=== PATIENT | female | born 1940 | race Caucasian/White ===

== ENCOUNTER 2019-07-22 11:17 | Inpatient (IN) | payer MEDICARE, MEDICAID, SELFPAY ==
[2019-07-22] VITALS (7 sets, daily range): BP systolic 139–158; BP diastolic 59–86; PULSE 16–80; RESP 16–18; TEMP 36.5–37; O2SAT 91–98; BMI 26.9
--- NOTE | ~2019-07-22 | XR_ITS ---
EXAMINATION: XR knee LT 3V DATE: 07/23/2019 08:36 INDICATION: Casting of a proximal left tibial fracture TECHNIQUE: Anteroposterior, oblique and crosstable lateral views of the left knee were obtained COMPARISON: 07/22/2019 FINDINGS: Fiberglass splinting material along the posterior aspect of the left knee. Again seen are comminuted fractures extending in a band transversely across the metadiaphyseal regions of the left tibia and fi bula. There is a <1 cm anterior displacement of the left tibial and fibular diaphyses relative to the proximal articular surface containing fragments with mild anterior angulation of the intervening fra gments with no significant displacement between the directly opposing surfaces of the fracture fragme nts. Normal alignment and joint space at the left knee joint proper. No knee joint effusion. Diffuse osteopenia. IMPRESSION: 1. No significant change in alignment post splinting of a comminuted metaphyseal fracture of the prox imal left tibia and fibula this detailed above. Reviewed, dictated and finalized at location A. ERIZER TENDER IMPRESSION: 1. No significant change in alignment post splinting of a comminuted metaphysea l fracture of the proximal left tibia and fibula this detailed above.
--- NOTE | ~2019-07-22 | XR_ITS ---
XR knee LT min 4V 07/22/2019 11:33 Indication: Left knee pain after fall Procedure: 4 views left knee Comparison: No prior studies for comparison. Findings: There are proximal tibial and fibular metaphyseal fractures. Mild dorsal angulation of both fractures. Small joint effusion. Generalized osteopenia. There is mild osteoarthritis. Impression: 1: Nondisplaced proximal tibial and fibular metaphyseal fractures with mild dorsal angulation. Reviewed, dictated and finalized at location B. GER PAPER Impression: 1: Nondisplaced proximal tibial and fibular metaphyseal fractures with mild angelica matias angulation.
--- NOTE | 2019-07-22 11:17 | ED.FALL ---
HPI - Fall General Chief Complaint: Extremity Injury, Lower Stated Complaint: left knee Time Seen by Provider: 07/22/19 11:17 Source: patient, EMS and RN notes reviewed Mode of arrival: EMS Limitations: no limitations History of Present Illness HPI Narrative: A 79 y/o female presents to the ED via EMS from home after having a ground level fall just ROW BOSS. Per EMS states that the pt's daughter was trying to transfer the pt from her wheelchair into her car when she dropped the pt, causing the pt's LLE to twist. The pt reports immediate, severe, lt leg pain just below her knee. She denies any HI, LOC, CHAPARRO, back pain, hip pain, neck pain, or CP. MD complaint: fall Onset (ago): minute(s) Fall from: other (transfering from wheelchair into the car) Fall witnessed: yes, by family Place fall occurred: home Loss of consciousness: none Symptoms prior to fall: none Context: other (dropped by daughter) Location of injury - extremities: Left: lower leg (just below the knee) Severity: severe Associated symptoms (after fall): denies Related Data Home Medications Medication Instructions Recorded Confirmed glimepiride [Amaryl] 4 mg PO BID 07/22/19 07/22/19 metformin 1,000 mg PO DAILY 07/22/19 07/22/19 Allergies Allergy/AdvReac Type Severity Reaction Status Date / Time adhesive tape Allergy Mild Rash Verified 07/22/19 12:34 ibuprofen [From Motrin] AdvReac Mild Nausea and Verified 07/22/19 12:34 Vomiting morphine AdvReac Mild Nausea and Verified 07/22/19 12:34 Vomiting Review of Systems Review of Systems: All systems reviewed & are unremarkable except as noted in HPI and below Cardiovascular: Cardiovascular: Denies chest pain Musculoskeletal: Musculoskeletal: Denies back pain, Denies arthralgias (hip pain), Denies neck pain and Reports other (lt leg pain just below her knee) Neurologic: Denies headache(s) and Denies other (HI or LOC) COUNTS INCLUDE 234 BEDS AT THE [facility] Past Medical History Medical History Arthritis Bronchitis COPD (chronic obstructive pulmonary disease) DM II (diabetes mellitus, type II), controlled H/O: HTN (hypertension) History of skin cancer SQ cell lt lateral knee. Hx of fracture of rib Screening for malignant neoplasm of colon Surgical History Surgical History History of cholecystectomy Previous section Family History Family History Sibling Diabetes mellitus Other Diabetes mellitus Hypertension Social History Social History Smoking packs per day: 1 Smoking cigarettes per day: 20.0 Years smoked: 30 Smoking pack-years: 30.00 Smoking status: Current every day smoker Tobacco type: cigarettes Second hand tobacco smoke exposure: Yes Alcohol intake: never Substance use: never Gender identity (if verbalized by the patient): Female Spiritual care concerns: No Agree to blood products: Yes Exam Const: General: no acute distress, ill appearing chronically and other (elderly and frail appearing) HENMT: Mouth: Yes lip normal and Yes moist mucous membranes Eyes: Conjunctivae: conjunctivae normal Pupils: Equal, round and reactive pupils present Resp: Effort & Inspection: normal respiratory effort Auscultation: clear to auscultation bilaterally Cardio: Rate: regular rate Rhythm: regular rhythm Heart sounds: no murmurs Peripheral pulses: dorsalis pedis present on the left 1+ GI: Inspection: non-distended GI Palp: No abdominal tenderness Auscultation: normal bowel sounds Back/Spine/Pelvis: Other: Full ROM. Skin: General skin exam: normal color, dry skin and other (warm) Neuro: General: patient oriented x3 (alert) Speech: normal speech Extrem: Left lower extremity: lower leg (swelling with tenderness KARYNA inferior to knee) Psych: Mental Status: mental status grossly normal Affect: normal affect C
--- NOTE | 2019-07-22 13:04 | PC.NURSE ---
long leg posterior fiberglass cast per md orders
[2019-07-22 14:12] LABS: Basophils Percent Auto 0.3 % (0.2-1.2); Eosinophils Percent Auto 0.1 % (0-4.4); Hematocrit 42.7 % (37.0-47.0); Immature Granulocyte Absolute 0.03 K/mm3 (0.00-0.031); Immature Granulocyte Percent A 0.3 % (0-0.5); Lymphocytes Absolute Auto 1.42 K/mm3 (0.9-3.2); Lymphocytes Percent Auto 12.2 % (18.3-44.2); Mean Corpuscular HGB Conc 32.8 g/dl (32-36); Mean Corpuscular Hemoglobin 32.1 pg (26-34); Mean Corpuscular Volume 97.9 fl (80-100); Mean Platelet Volume 11.5 fl (7.4-10.4); Monocytes Absolute Auto 0.5 K/mm3 (0.1-0.6); Monocytes Percent Auto 4.6 % (2.6-8.5); Neutrophils Absolute Auto 9.6 K/mm3 (1.3-6.7); Neutrophils Percent Auto 82.5 % (45.5-73.1); Platelet Count Result 164 k/mm3 (150-375); Red Blood Count 4.36 M/mm3 (4.2-5.4); Red Cell Distribution Width 11.9 % (11.5-14.5); White Blood Count 11.7 K/mm3 (4.5-10.0)
[2019-07-22 14:25] LABS: Blood Urea Nitrogen 10 mg/dL (7-17); Calcium 9.4 mg/dL (8.4-10.2); Carbon Dioxide 20 mmol/L (22-30); Chloride 104 mmol/L (98-107); Estimated Glomerular Filt Rate > 60; Glucose 318 mg/dL (65-105); Potassium 4.4 mmol/L (3.4-5.0); Sodium 136 mmol/L (137-145)
--- NOTE | 2019-07-22 14:45 | PC.NURSE ---
attempted to call report for pt going to [phone]. sbar faxed at [phone]. rn told that receiving rn unavailable and will call back
--- NOTE | 2019-07-22 17:35 | ADMGEN ---
This patient, Daniela Arrieta, was admitted to 3 [facility] Surg Room 302-01. Patient/family oriented to hospital policies and general routines including ID bracelet, bed and alarms, visiting hours, pain management, procedures, bathroom and other care routines, personal items, smoking policy, room service/diet, and visiting hours. Valuables list has been completed. Information on how to activate the Rapid Response Team has been discussed. Patient/Family are encouraged to report perceived risks to care and to ask questions if they do not understand what they are told or what they should do.
[2019-07-22 17:37] LABS: Glucose Point of Care 201 (65-105)
--- NOTE | 2019-07-22 21:43 | PM.IMHP ---
H&P: HPI History of Present Illness Chief complaint: Tibial plateau fracture Narrative: Daniela Arrieta is a 79 year old female who is wheelchair bound. She is taking care of by her daughter. The patient was going to her doctor's office to see if she was eligible for new hospital bed since hers is broken as well as a motorized scooter. The daughter stated that she had appointment set up 1 month ago to have the bus pick her up that has the motorized wheelchair ramp in they were not able to pick her up today. So the daughter attempted to get her mother into the car. The patient was trying to get from the wheelchair into the car. She has a daughter not push her helper she attempted to do it on her own and she has limited mobility. The patient was sitting on the floor board of the car because she missed the seat. The daughter was trying to pull her mom up into the seat without success. The patient then slid onto the ground with her left leg behind her and she said on the left leg. Patient does have a history of osteoporosis. Knee x-ray was read as nondisplaced proximal tibial and fibular metaphyseal fractures with mild dorsal angulation. Initially there was some consideration for surgery but the patient has COPD and still continues to smoke in would be too high risk. Ortho was notified and initially suggested to transfer the patient out however she is a DNR and family members do not want any type of intervention performed at this time. They are hopeful that we can get her pain under control and possibly go to rehab. Patient was given fentanyl of intense pain. Date of service 07/22/2019 the left leg was placed in a splint in ER. Review of Systems Review of Systems: Narrative: No fever no chills. All systems reviewed & are unremarkable except as noted in HPI and below Constitutional: Constitutional: Reports as per HPI and Reports no additional constitutional complaints Eyes: Eyes: Reports as per HPI and Reports no additional eye complaints ENT: Reports system reviewed and no additional complaints, except as documented and Reports Normal hearing present Cardiovascular: Cardiovascular: Reports no additional cardiovascular complaints Respiratory: Respiratory: Reports no additional respiratory complaints and Reports no additional respiratory complaints Gastrointestinal: Gastrointestinal: Reports as per HPI and Reports no additional gastrointestinal complaints Musculoskeletal: Musculoskeletal: Reports no additional musculoskeletal complaints Integumentary/Breasts: Skin/Breast: Reports system reviewed and no additional complaints, except as docu and Reports as per HPI Neurologic: Reports system reviewed and no additional complaints, except as documented, Reports as per HPI and Reports Normal hearing present Psychiatric: Psychiatric: Reports no additional psychiatric complaints and Reports as per HPI Endocrine: Endocrine: Reports no additional endocrine complaints Hematologic/Lymphatic: Hematologic/Lymphatic: Reports no additional hematologic/lymphatic complaints Allergic/Immunologic: Allergic/Immunologic: Reports no additional allergic/immunologic complaints PMFSH Past Medical History Medical History (Updated 07/22/19 @ 21:51 by Nerissa Neri NP) Arthritis Bronchitis Cataract She said 1 was removed and the other 1 she did not. She states she can see better the eye that was not extracted. Compression fracture T11 20% Congenital cervical spine stenosis Unable to have surgery due to high risk COPD (chronic obstructive pulmonary disease) DM II (diabetes mellitus, type II), controlled History of skin cancer SQ cell lt lateral knee. Hx of fracture of rib Osteoporosis Screening for malignant neoplasm of colon Surgical History Surgical History (Updated 07/22/19 @ 21:51 by Nerissa Neri NP) History of cholecystectomy Previous section X3 Family History Family History (Updated 07/22/19 @ 21:53 by Nerissa Khan
[2019-07-22] MEDS: NICOTINE (*PBKC) 21 MG PATCH 1 PATCH TRANSDERM (22:24)
[2019-07-22] MEDS: HYDROMORPHONE HCL 1 MG/ML INJ IV PUSH (22:32)
[2019-07-23] MEDS: HYDROMORPHONE HCL 1 MG/ML INJ IV PUSH ×2 (01:28→07:29)
[2019-07-23 05:49] LABS: Hemoglobin A1C 6.8 % (<5.7)
[2019-07-23 05:52] VITALS: BP 138/54; PULSE 77; RESP 18; TEMP 36.7; O2SAT 91
[2019-07-23 07:05] LABS: Alanine Aminotransferase 21 U/L (4-35); Albumin Level 3.6 g/dL (3.5-5.1); Alkaline Phosphatase 79 U/L (38-126); Aspartate Amino Transferase 23 U/L (14-36); Bilirubin,Total 0.5 mg/dL (0.2-1.3); Blood Urea Nitrogen 8 mg/dL (7-17); Calcium 8.9 mg/dL (8.4-10.2); Carbon Dioxide 26 mmol/L (22-30); Chloride 103 mmol/L (98-107); Estimated Glomerular Filt Rate > 60; Glucose 157 mg/dL (65-105); Magnesium 1.9 mg/dL (1.6-2.3); Sodium 135 mmol/L (137-145)
[2019-07-23 07:37] LABS: Glucose Point of Care 185 (65-105)
[2019-07-23] MEDS: lisinopriL 10 MG TABLET PO (08:40)
[2019-07-23] MEDS: ENOXAPARIN 40 MG/0.4 ML SYRINGE SUB-Q (08:40)
--- NOTE | 2019-07-23 10:32 | HP_ITS ---
DATE OF SERVICE: HISTORY OF PRESENT ILLNESS: The patient is a 79-year-old female who was admitted with a Schatzker 6 type proximal metaphyseal-diaphyseal fracture of her left lower leg with fibular neck fracture as well. The radiologist report states the fracture is nondisplaced. It is displaced mildly, there is translational displacement both on AP and lateral views. There is severe profound osteoporosis and she has a history of osteoporosis. This happened yesterday when she slipped slowly down the ground with her leg underneath, her leg trying to transfer to the car. She is a minimal ambulator, basically transferring only and her family was trying to help her get into the car when this occurred. She continues to smoke. PHYSICAL EXAMINATION: Today, she is a very pleasant female, in no acute distress. Unless the leg is moved, then she has pain. She has a long leg splint on that is well padded and is comfortable at rest. It is in good position with mild flexion at the knee. The splint prevents me from feeling pulses, but she has good capillary refill and warmth in the toes. 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 The bed is covered with dry skin scales from both feet. The right foot has a 2+ posterior tibial artery pulse palpable, but I cannot access this on the left because of the splint. She wiggles her toes. She denies numbness. IMPRESSION: The patient has a very serious type of fracture that can cause vascular insufficiency. When I was called about this yesterday and reviewed the images and was told she was ambulatory, I recommended that she be transferred to a tertiary care facility for open reduction and internal fixation. However, the family declines in discussion with the patient to have her be transferred for surgical intervention. They do not wish her to have surgery. She is considered a no-code and is listed as such. We will follow the fracture alignment closely and we will obtain x-rays of the left knee today to make sure that the displacement is not getting worse. Kimberley I MT: Shantelle
--- NOTE | 2019-07-23 11:25 | PM.IMPN ---
Progress Note: A&P Assessment and Plan (1) Closed fracture of tibial plateau: Qualifiers: Encounter type: initial encounter Laterality: left Qualified Code(s): S82.142A - Displaced bicondylar fracture of left tibia, initial encounter for closed fracture Code(s): S82.143A - Displaced bicondylar fracture of unspecified tibia, initial encounter for closed fracture Status: Acute Assessment and Plan: No surgery is the intended at this time. The patient is a DNR and the family discussed they did not want to be transferred to a [facility]iary [facility] for Surgery upon admission. PT/OT were ordered for evaluation. Plan is for the patient to be transferred under observation to a Residential where she will receive PT/OT a few times per week. Care Coordination has placed several referrals which are pending. Pain was rated 9/10 with not receiving (2) COPD (chronic obstructive pulmonary disease): Code(s): J44.9 - Chronic obstructive pulmonary disease, unspecified Status: Chronic Assessment and Plan: P.r.n. nebulizers. The patient is strongly encouraged to stop smoking although she has been smoking about 50 years. She has requested a nicotine patch. (3) DM II (diabetes mellitus, type II), controlled: Code(s): E11.9 - Type 2 diabetes mellitus without complications Status: Chronic Assessment and Plan: I am going to hold the Amaryl and metformin for now. Will check A1c and do sliding scale insulin. (4) Hypertension: Code(s): I10 - Essential (primary) hypertension Status: Chronic Assessment and Plan: Continue with lisinopril monitor basic metabolic panel. Time Spent With Patient Time with patient: 25 - 35 minutes Subjective Date/time seen: 07/23/19 11:25 Interval history: Date of Service 07/23/2019: The patient reports having increased pain to her left leg with any movement at all. She had received an IV Dilaudid shot this morning and he now has since worn off and her pain is rated 9/10 at this time at rest. She has not moved from the bed all day secondary to pain. She has been eating and drinking without any issues. She denies any chest pain, shortness of breath, wheezing, cough, nausea, vomiting, diarrhea, headache, dizziness, lightheadedness, or any other symptoms at this time. The patient reports having bowel movements every 3-4 days, and her last bowel movement was a few days ago. Review of Systems Review of Systems: All systems reviewed & are unremarkable except as noted in HPI and below Exam Narrative: Exam Narrative: General: 79-year-old woman laying flat in bed with her left leg elevated on pillows. Appears comfortable. In no acute distress. Skin: No jaundice or cyanosis. Good skin turgor. Neck: Full range of motion. Supple. Respiratory: Lungs are clear to auscultation bilaterally. No wheezing rales or rhonchi. No bony chest wall tenderness. Cardiovascular: The heart has a regular rate and rhythm without murmur. Lower extremities: Left leg is unable to be evaluated secondary to splint placement to entire left extremity. Unable to palpate distal pulses secondary to splint but she has good capillary refill, no sensation changes and movement of her toes. No right lower extremity edema. Distal pulses are easily palpated to right lower extremity. No calf tenderness to palpation to right lower extremity. Gastrointestinal: The abdomen is soft, nontender and nondistended with active bowel sounds. Psychiatric: Lucid and oriented. Memory intact. Neurologic: No focal deficits. Speech is clear. No facial drooping. Objective Data Vital Signs Vital Signs: Vital Signs - 24 hr 07/22/19 12:37 07/22/19 13:33 07/22/19 14:34 Temperature Pulse Rate 16 L 71 75 Respiratory Rate 16 16 16 Blood Pressure 150/86 H 158/80 H 150/65 H Pulse Oximetry 93 95 92 07/22/19 14:46 07/22/19 15:30 07/22/19 21:59 Temperature 97.7 F 98.6 F Pulse Rate
[2019-07-23 13:12] LABS: Glucose Point of Care 189 (65-105)
[2019-07-23 14:00] VITALS: BP 133/71; PULSE 82; RESP 12; TEMP 36.8; O2SAT 94
[2019-07-23] MEDS: polyethylene glycoL 3350 17 GM POWD.PACK PO (17:53)
[2019-07-23 17:57] LABS: Glucose Point of Care 211 (65-105)
[2019-07-23] MEDS: INSULIN ASPART (*BKC) 100 UNITS/ML SUB-Q (17:57)
[2019-07-23 20:49] LABS: Glucose Point of Care 232 (65-105)
[2019-07-23 22:00] VITALS: BP 141/78; PULSE 82; RESP 16; TEMP 36.9; O2SAT 90
[2019-07-24 06:00] VITALS: BP 130/58; PULSE 71; RESP 18; TEMP 36.9; O2SAT 92
[2019-07-24 06:08] LABS: Hematocrit 37.4 % (37.0-47.0); Hemoglobin 12.5 g/dL (12.0-15.0); Mean Corpuscular HGB Conc 33.4 g/dl (32-36); Mean Corpuscular Hemoglobin 31.9 pg (26-34); Mean Corpuscular Volume 95.4 fl (80-100); Mean Platelet Volume 11.4 fl (7.4-10.4); Platelet Count Result 168 k/mm3 (150-375); Red Blood Count 3.92 M/mm3 (4.2-5.4); Red Cell Distribution Width 11.9 % (11.5-14.5); White Blood Count 6.6 K/mm3 (4.5-10.0)
[2019-07-24 06:37] LABS: Blood Urea Nitrogen 7 mg/dL (7-17); Calcium 8.8 mg/dL (8.4-10.2); Carbon Dioxide 28 mmol/L (22-30); Chloride 105 mmol/L (98-107); Estimated Glomerular Filt Rate > 60; Glucose 172 mg/dL (65-105); Potassium 3.8 mmol/L (3.4-5.0); Sodium 136 mmol/L (137-145)
[2019-07-24 07:33] LABS: Glucose Point of Care 191 (65-105)
[2019-07-24] MEDS: lisinopriL 10 MG TABLET PO (09:13)
[2019-07-24] MEDS: ENOXAPARIN 40 MG/0.4 ML SYRINGE SUB-Q (09:13)
[2019-07-24] MEDS: NICOTINE (*PBKC) 21 MG PATCH 1 PATCH TRANSDERM (09:14)
[2019-07-24] MEDS: polyethylene glycoL 3350 17 GM POWD.PACK PO (09:27)
[2019-07-24 11:05] VITALS: BMI 10.0
[2019-07-24 11:47] LABS: Glucose Point of Care 277 (65-105)
[2019-07-24] MEDS: INSULIN ASPART (*BKC) 100 UNITS/ML SUB-Q ×2 (11:52→17:39)
--- NOTE | 2019-07-24 12:24 | PM.PNORT ---
Progress Note: A&P Additional Plan Patient is left oblique comminuted impacted minimally displaced proximal tibial and fibular the taps healed diaphyseal junction fractures. I have met with her and daughter dashawnlls the patient today. the daughter explained to Umesh that she has not actually walked for 10 years she only has transferred. She also explained that her mother did not actually fall she was just slowly lowered down on the edge of the car but the knee was hyperflexed and just the weight of her sitting down on to were hyperflexed knee was enough to cause this fracture. And she is comfortable at rest mm. She does have pain that is 9/10 no when she is moved. We obtained new x-rays yesterday after the splint was applied the day before and the fracture remains in identical position. I have discussed with patient and family there is some risk of arterial injury which could lead to the severe ischemia and amputation if arterial injury occurred at the level of the fracture. this could occur if the fracture is displaced and the sharp edges of the bone lacerated the vessels. the therefore it is imperative that the leg be held still as possible during the healing released initially. She has a well-fitting posterior splint on that is comfortable and is hole in the fracture and acceptable alignment and I would recommend she continue with this particular splint for at least the 1st 4 weeks until there is hopefully some early healing. At some point we should be able to convert her to a hinged knee brace locked at a little bit of flexion cut the toes to buttock posterior splint she has now on is giving her the best support oblique. DVT prophylaxis is necessary. And I think it would be acceptable to switch to Eliquis. She has profound osteoporosis and I would recommend that she be referred to an cyber security specialist such as Dr. Barker for evaluation and management. We will check a 25 hydroxy vitamin-D level before she is discharged. Her like to see her back the office in 1 week with x-rays to rule out displacement in the meantime she will be where lift that to geriatric chair only. Subjective Subjective Date/Time Seen: 07/24/19 12:24 Objective Data Vital Signs Vital Signs: Vital Signs - 24 hr 07/23/19 14:00 07/23/19 22:00 07/24/19 06:00 Temperature 36.8 C 36.9 C 36.9 C Pulse Rate 82 82 71 Respiratory Rate 12 16 18 Blood Pressure 133/71 141/78 H 130/58 L Pulse Oximetry 94 90 92 Intake/Output Intake/Output: Intake & Output 07/21/19 07/22/19 07/23/19 07/24/19 23:59 23:59 23:59 23:59 Intake Total 340 930 250 Output Total 1150 750 Balance 340 -220 -500 Meds/Results Medications: Active Medications Generic Name Dose Route Start Last Admin Trade Name Freq PRN Reason Stop Dose Admin Acetaminophen 650 mg 07/23/19 07:56 Tylenol Tablet PO Q4H PRN Mild Pain (1-3) or Fever Hydrocodone Bitart/Acetaminophen 1 tab 07/23/19 07:56 07/23/19 13:30 [place] 5-325 Mg PO 1 tab Q4H PRN Administration Pain Rated 4-6 Hydrocodone Bitart/Acetaminophen 2 tab 07/23/19 15:42 07/24/19 08:25 [place] 5-325 Mg PO 2 tab Q4H PRN Administration Pain Rated 7-10 Albuterol 2.5 mg 07/22/19 21:40 Albuterol Sulf Neb 2.5mg/0.5ml INHALATION Q4HRT PRN Shortness Of Breath Dextrose 12.5 gm 07/22/19 21:38 Dextrose 50% Syringe IV PUSH PRN PRN Hypoglycemia Protocol Docusate Sodium 100 mg 07/23/19 15:34 Colace Capsule PO Q12H PRN Constipation Enoxaparin Sodium 40 mg 07/23/19 09:00 07/24/19 09:13 Lovenox SUB-Q 40 mg DAILY TORI Administration Glucagon 1 mg 07/22/19 21:38 Glucagon For Inj IM PRN PRN Hypoglycemia Protocol Glucose 15 gm 07/22/19 21:38 Glutose 15 PO PRN PRN Hypoglycemia Protocol Hydromorphone HCl 1 mg 07/22/19 21:27 07/23/19 07:29 Dilaudid Inj IV PUSH 1 mg Q3H PRN Administration Pain Rated 7-10
[2019-07-24 13:17] LABS: Vitamin D 25 Hydroxy 27.5 ng/mL
--- NOTE | 2019-07-24 13:21 | ECG_ITS ---
Measurements Intervals [place] Rate: 93 P: [place]: 0 QRS: -14 QRSD: 77 T: 68 QT: 334 QTc: 417 Interpretive Statements SINUS RHYTHM SUPRAVENTRICULAR TRIGEMINY LOW QRS VOLTAGE IN LIMB LEADS BORDERLINE ST-T WAVE ABNORMALITY- LATERAL LEADS BASELINE WANDER- II, III, AVR, AVL, AVF, V4-V6 ABNORMAL ECG Electronically Signed On 07-24-2019 14:11:22 [employer] by Latrell Mayers D.O.
[2019-07-24 14:00] VITALS: BP 134/56; PULSE 85; RESP 18; TEMP 36.9; O2SAT 96
--- NOTE | 2019-07-24 14:43 | PM.DS ---
DS: Diagnosis Admitting Diagnosis Admitting Diagnosis: Unspecified fracture of upper end of left tibia, initial encounter for closed fracture Discharge Diagnosis (1) Closed fracture of tibial plateau: Qualifiers: Encounter type: initial encounter Laterality: left Qualified Code(s): S82.142A - Displaced bicondylar fracture of left tibia, initial encounter for closed fracture Code(s): S82.143A - Displaced bicondylar fracture of unspecified tibia, initial encounter for closed fracture Status: Acute Assessment and Plan: No surgery is the intended at this time. The patient is a DNR and the family discussed they did not want to be transferred to a [facility] for [facility] upon admission. Dr. Aguilera and I both explained to the patient and family the risk of not undergoing surgery at this point which includes: never fully healing, if movement then her popliteal artery could be ruptured which could lead to her needing a leg amputation. The patient and family would not like to undergo surgery at this time. I informed them they have between 2-3 weeks to decide if they still wanted surgery. They understand. Dr. Aguilera has ordered PT/OT She will be going to a SNF at [facility] facility She will receive narcotic pain medications from Dr. Aguilera She will be placed on Eliquis for DVT prevention for 6 weeks. Follow up with Dr. Aguilera as an outpatient. The patient and family understand agree with plan at this point time. She is stable for discharge. (2) COPD (chronic obstructive pulmonary disease): Code(s): J44.9 - Chronic obstructive pulmonary disease, unspecified Status: Chronic Assessment and Plan: P.r.n. nebulizers. The patient is strongly encouraged to stop smoking although she has been smoking about 50 years. She has requested a nicotine patch. Smoking sensation has been given for 3 minutes. (3) DM II (diabetes mellitus, type II), controlled: Code(s): E11.9 - Type 2 diabetes mellitus without complications Status: Chronic Assessment and Plan: I am going to hold the Amaryl and metformin for now. A1c was 6.8. Will have her continue her oral medications upon discharge. (4) Hypertension: Code(s): I10 - Essential (primary) hypertension Status: Chronic Assessment and Plan: Continue with lisinopril (5) Vitamin D deficiency: Code(s): E55.9 - Vitamin D deficiency, unspecified Status: Acute Assessment and Plan: Patient's vitamin-D level was 27 which is insufficient. Will start the patient on her ergocalciferol 50,000 units once weekly for 6 weeks. Have her repeat Vitamin D level in 6 weeks. DS: Summary Hospital Course Reason for hospitalization: The patient is a 79-year-old woman with a history of COPD, tobacco abuse, osteoporosis, diabetes, who is chronically in a wheelchair, who presented to the emergency department after her daughter was trying to get her into the car and she had slipped and landed on her left leg. Patients initial vitals showed temperature 97.7?, BP 154/84, heart rate 80, respiratory rate 18, oxygen saturation 98% on room air. Labs showed slight leukocytosis of 11,700, slight hyponatremia at 136, serum glucose 318, otherwise no acute abnormality. Showed displaced paroxysmal tibial and fibular metaphyseal fractures with mild dorsal angulation. Dr. Aguilera evaluated the patient and her case and recommended her to be transferred to a tertiary care center for a high risk surgery. Dr. Aguilera and I talked to the patient and family multiple times about being transferred to another facility versus nonsurgical options and the risks and benefits. The patient and family would not
[2019-07-24 17:39] LABS: Glucose Point of Care 273 (65-105)
--- NOTE | 2019-07-24 19:28 | PC.NURSE ---
Called report to Marie at [facility] at 1600.
== END 2019-07-24 21:55 | DRG 563 ==
LOC: ANHED 12:49 → ANH3MEDSUR 14:35
PROVIDERS: Nurse Practitioner; Orthopaedic Surgery; Physician Assistant; Admitting Provider Family Medicine; Emergency Provider Emergency Medicine; PCP Family Medicine; Visit Provider Internal Medicine
DX: S82.142A Displaced bicondylar fracture of left tibia, initial encounter for closed fracture (principal); Z28.21 Immunization not carried out because of patient refusal; Z99.3 Dependence on wheelchair; J44.9 Chronic obstructive pulmonary disease, unspecified; F17.210 Nicotine dependence, cigarettes, uncomplicated; M81.0 Age-related osteoporosis without current pathological fracture; M48.02 Spinal stenosis, cervical region; M19.90 Unspecified osteoarthritis, unspecified site; Z98.49 Cataract extraction status, unspecified eye; Z85.828 Personal history of other malignant neoplasm of skin; E11.36 Type 2 diabetes mellitus with diabetic cataract; Z66 Do not resuscitate; I10 Essential (primary) hypertension; B35.3 Tinea pedis; X58.XXXA Exposure to other specified factors, initial encounter; E55.9 Vitamin D deficiency, unspecified
CPT/HCPCS: 29505; 36415; 73562; 73564; 80048; 80053; 82306; 83036; 83735; 84443; 85025; 85027; 93005; 96372; 96374; 96375; 96376; 97161; 97165; 99285; A9270; G0378; J1170; J1650; J1815; J3010

== ENCOUNTER 2020-08-18 18:16 | Inpatient (IN) | payer MEDICARE, MEDICAID, SELFPAY ==
--- NOTE | ~2020-08-18 | CT_ITS ---
EXAMINATION: CT abdomen pelvis w con DATE: 08/18/2020 22:51 INDICATION: Abdominal pain. TECHNIQUE: Computed tomography (CT) of the abdomen and pelvis was performed with 100 mL Omnipaque 350 intravenous contrast. Automated exposure control and iterative reconstruction technique were employe d. The dose-length product was 589.33 mGy-cm. COMPARISON: None. FINDINGS: The visualized portions of the lung bases demonstrate mild atelectasis. No pleural effusion . The heart size is normal. No pericardial effusion. There are coronary artery calcifications. The li patti is normal. The gallbladder is absent. The spleen, pancreas, adrenal glands, and right kidney are normal. There is a 3 mm cyst in left kidney. There is urothelial thickening involving the ureters and bladder. There is diverticulosis of the colon without evidence of diverticulitis. There are no dilat ed loops of bowel. The appendix is normal. There are no pathologically enlarged lymph nodes. There is no free intraperitoneal fluid. There is a left inguinal hernia containing fat. There is a chronic bu rst fracture of T11. IMPRESSION: 1. Diffuse urothelial thickening involving the ureters and bladder, consistent with cystitis and pyel itis. Reviewed, dictated and finalized at location [facility]. IMPRESSION: 1. Diffuse urothelial thickening involving the ureters and bladder, consistent with cystitis and pyelitis.
--- NOTE | ~2020-08-18 | CT_ITS ---
EXAMINATION: CT abdomen pelvis wo con DATE: 08/23/2020 13:21 INDICATION: Persistent abdominal pain TECHNIQUE: Computed tomography (CT) of the abdomen and pelvis was performed without intravenous contr ast. Automated exposure control and iterative reconstruction technique were employed. Exam dose: 427 .21 mGy-cm total exam DLP. COMPARISON: 08/18/2020 CT abdomen pelvis noncontrast examination FINDINGS: There is bilateral basilar dependent lower lobe atelectasis. Cardiomegaly. Coronary artery calcifications. No pericardial effusion. No pleural effusion. The gallbladder is absent, which likely accounts for moderate prominence of the common bile duct. No hepatic, bilateral iliac, pancreatic, and adrenal or renal space-occupying mass lesion is evident on this limited noncontrast examination. There is a 3 mm nonobstructing lower pole left renal calculus. There is mild stranding around the kidneys and ureters; consider urinary tract infection. The urinary bladder is unremarkable. Uterus and adnexal areas are unremarkable. There is calcification of the abdominal aorta, superior mesenteric and renal arteries and iliac and f emoral arteries. No abdominal aortic aneurysm. No intraperitoneal or retroperitoneal or pelvic mass l esion or adenopathy or ascites is evident. Small sliding hiatal hernia. Diverticulosis of the sigmoid colon; no CT evidence of diverticulitis. Normal appendix. No bowel obstruction, bowel wall thickening, pneumatosis or intraperitoneal free air. Diffuse osteopenia. Prominent anterior wedge burst fracture deformity of T11, stable since 08/18/2020. Diffuse idiopathic skeletal hyperostosis of the lower thoracic and upper lumbar spine. IMPRESSION: Mild perinephric and periureteral stranding suggesting possible urinary tract infection Small sliding hiatal hernia Diverticulosis of the sigmoid colon; no CT evidence of diverticulitis Chronic burst fracture of T11 Reviewed, dictated and finalized at [facility]. Reviewed, dictated and finalized at location [facility]. IMPRESSION: Mild perinephric and periureteral stranding suggesting possible ur inary tract infection Small sliding hiatal hernia Diverticulosis of the sigmoid colon; no CT evidence of diverticulitis Chronic burst fracture of T11
[2020-08-18 19:39] VITALS: BP 140/70; PULSE 118; RESP 16; TEMP 37.1; O2SAT 98
[2020-08-18 19:52] LABS: Basophils Absolute Auto 0.1 K/mm3 (0.0-0.1); Basophils Percent Auto 0.6 % (0.2-1.2); Eosinophils Absolute Auto 0.1 K/mm3 (0-0.3); Eosinophils Percent Auto 0.8 % (0-4.4); Hematocrit 36.2 % (37.0-47.0); Hemoglobin 11.8 g/dL (12.0-15.0); Immature Granulocyte Percent A 0.9 % (0-0.5); Lymphocytes Absolute Auto 2.18 K/mm3 (0.9-3.2); Mean Corpuscular HGB Conc 32.6 g/dl (32-36); Mean Corpuscular Hemoglobin 30.4 pg (26-34); Mean Corpuscular Volume 93.3 fl (80-100); Mean Platelet Volume 10.4 fl (7.4-10.4); Monocytes Percent Auto 8.4 % (2.6-8.5); Neutrophils Absolute Auto 8.1 K/mm3 (1.3-6.7); Neutrophils Percent Auto 70.3 % (45.5-73.1); Platelet Count Result 231 k/mm3 (150-375); Red Blood Count 3.88 M/mm3 (4.2-5.4); White Blood Count 11.5 K/mm3 (4.5-10.0)
[2020-08-18 20:04] LABS: Alanine Aminotransferase 18 U/L (4-35); Albumin Level 3.8 g/dL (3.5-5.1); Alkaline Phosphatase 116 U/L (38-126); Anion Gap 8 mmol/L (8-16); Aspartate Amino Transferase 19 U/L (14-36); Bilirubin,Total 0.1 mg/dL (0.2-1.3); Blood Urea Nitrogen 17 mg/dL (7-17); Calcium 9.4 mg/dL (8.4-10.2); Carbon Dioxide 23 mmol/L (22-30); Chloride 104 mmol/L (98-107); Estimated Glomerular Filt Rate > 60; Glucose 340 mg/dL (65-105); Lipase 51 U/L (23-300); Potassium 4.7 mmol/L (3.4-5.0); Sodium 135 mmol/L (137-145)
[2020-08-18 21:47] VITALS: BP 128/73; PULSE 114; RESP 22; O2SAT 98
[2020-08-18 21:51] VITALS: BP 128/73; O2SAT 98
--- NOTE | 2020-08-18 21:51 | ED.ABDPAIN ---
HPI - Abdominal Pain General Chief Complaint: Abdominal Pain Stated Complaint: abd pain , constipated, distended Time Seen by Provider: 08/18/20 21:51 Source: patient Mode of arrival: ambulatory Limitations: no limitations History of Present Illness HPI narrative: Patient is a 80-year-old female with a history of type 2 diabetes, hypertension, mild dementia who presents from [facility] for evaluation of abdominal pain. At the time of assessment, patient is reporting abdominal pain throughout her abdomen as well as distention. She reports nausea and vomiting. Patient states she has been slightly constipated. She denies fever or chills. This has been worsening over the past 48 hours per daughter who received report of abdominal distention initially from the half-way facility. Related Data Home Medications Medication Instructions Recorded Confirmed glimepiride [Amaryl] 4 mg PO BID 07/22/19 07/22/19 metformin 1,000 mg PO DAILY 07/22/19 07/22/19 Allergies Allergy/AdvReac Type Severity Reaction Status Date / Time adhesive tape Allergy Mild Rash Verified 09/27/19 08:12 ibuprofen [From Motrin] AdvReac Mild Nausea and Verified 09/27/19 08:12 Vomiting morphine AdvReac Mild Nausea and Verified 09/27/19 08:12 Vomiting Review of Systems Review of Systems: Narrative: CONSTITUTIONAL: Denies fever, chills, or sweats. EYES: Denies visual changes, redness, or discharge. ENT: Denies rhinorrhea, congestion, sore throat, or otalgia. CARDIOVASCULAR: Denies chest pain, palpitations, or edema. RESPIRATORY: Denies cough or dyspnea. GASTROINTESTINAL: Reports abdominal pain, nausea, vomiting and constipation GENITOURINARY: Denies dysuria or hematuria. SKIN: Denies rash or itching. MUSCULOSKELETAL: Denies back pain, joint pain, or myalgia. NEUROLOGIC: Denies headache, numbness, or weakness. [facility] Past Medical History Medical History Arthritis Bronchitis Cataract She said 1 was removed and the other 1 she did not. She states she can see better the eye that was not extracted. Compression fracture T11 20% Congenital cervical spine stenosis Unable to have surgery due to high risk COPD (chronic obstructive pulmonary disease) DM II (diabetes mellitus, type II), controlled History of skin cancer SQ cell lt lateral knee. Hx of fracture of rib Osteoporosis Screening for malignant neoplasm of colon Surgical History Surgical History History of cholecystectomy Previous section X3 Family History Family History Sibling Diabetes mellitus Other Diabetes mellitus Hypertension Mother Diabetes mellitus Father Lung cancer Sibling Diabetes mellitus Kidney failure Social History Social History Smoking packs per day: 1 Smoking cigarettes per day: 20.0 Years smoked: 30 Smoking pack-years: 30.00 Smoking status: Current every day smoker Tobacco type: cigarettes Second hand tobacco smoke exposure: Yes Alcohol intake: never Substance use: never Gender identity (if verbalized by the patient): Female Spiritual care concerns: No Agree to blood products: Yes Exam Narrative: Exam Narrative: GENERAL: Awake, alert, uncomfortable appearing HEAD: Normocephalic, atraumatic. EYES: PERRLA and EOMI. ENT: Nares clear, no rhinorrhea or epistaxis. Mucous membranes moist. NECK: Supple. CHEST: No respiratory distress, breathing even and non labored HEART: Tachycardic rate, sinus rhythm ABDOMEN: Distended, tender to palpation throughout abdomen, no rebound, no guarding EXTREMITIES: Atrophy of the lower extremities. Otherwise normal range of motion. No edema. SKIN: Warm, dry, no rash. NEURO:No focal deficits. Alert and oriented x3 Course Vital S
[2020-08-18 22:01] VITALS: BP 140/87; O2SAT 97
--- NOTE | 2020-08-18 22:27 | ECG_ITS ---
Measurements Intervals [place] Rate: 104 P: 29 CA: 142 QRS: -4 QRSD: 73 T: 66 QT: 327 QTc: 432 Interpretive Statements SINUS TACHYCARDIA BORDERLINE R WAVE PROGRESSION, ANTERIOR LEADS MINIMAL Q WAVES- INFERIOR LEADS BORDERLINE ST-T WAVE ABNORMALITY- HIGH LATERAL LEADS BASELINE ARTIFACT- I, II, III, AVR, AVL, AVF, V1-V3 BORDERLINE ECG Electronically Signed On 08-19-2020 6:54:53 CDT by Latrell Mayers D.O.
[2020-08-18] MEDS: MORPHINE SULFATE (*CRX) 2 MG/ML INJ IV PUSH (22:37)
[2020-08-18] MEDS: ONDANSETRON INJ 4 MG/2 ML VIAL IV PUSH (22:37)
[2020-08-18 23:31] VITALS: BP 137/75
[2020-08-18 23:46] VITALS: BP 118/61
[2020-08-18 23:50] LABS: Prothrombin Time 13.6 Seconds (11.1-14.7)
[2020-08-18 23:51] LABS: Partial Thromboplastin Time 26.9 SECONDS (22.3-36.8)
[2020-08-19 00:02] LABS: Lactic Acid Reflex 1.6 mmol/L (0.7-2.1)
[2020-08-19 00:28] LABS: Add Urine Microscopic? YES; Appearance Urine Turbid (Clear); Bacteria Urine Trace /hpf; Bilirubin Urine Negative (Negative); Color Urine Yellow (Yellow); Glucose Urine UA 3+ mg/dL (Negative); Ketones Urine Negative (Negative); Leukocyte Esterase Ur 3+ LEU/UL (Negative); Nitrate Urine Negative (Negative); Protein Urine 3+ mg/dL (Negative); RBC Urine 21-50 /hpf (0-2); Specific Grav Ur 1.015 (1.001-1.035); Squamous Epithelial Cell Urine Moderate /hpf (Few); Urobilinogen Urine Negative mg/dL (<2.0); WBC Urine >75 /hpf
[2020-08-19 00:38] LABS: Blood Urine Negative (Negative)
[2020-08-19 01:46] VITALS: BP 150/84; PULSE 100; RESP 16; TEMP 36.7; O2SAT 97
[2020-08-19 01:50] VITALS: BP 149/79; PULSE 95; RESP 18; TEMP 36.6; O2SAT 98; BMI 26.3
[2020-08-19] MEDS: SODIUM CHLORIDE 0.9% IV 1,000 ML 125 ML IV CONT ×3 (01:52→21:03)
[2020-08-19 01:57] LABS: CRP 3.9 mg/dL (<1.0)
[2020-08-19 02:06] LABS: Troponin I < 0.012 ng/mL (0.000-0.034)
--- NOTE | 2020-08-19 02:21 | ADMGEN ---
This patient, Daniela Arrieta, was admitted to [facility] Surg Room 332-02. Patient/family oriented to hospital policies and general routines including ID bracelet, bed and alarms, visiting hours, pain management, procedures, bathroom and other care routines, personal items, smoking policy, room service/diet, and visiting hours. Information on how to activate the Rapid Response Team has been discussed. Patient/Family are encouraged to report perceived risks to care and to ask questions if they do not understand what they are told or what they should do.
[2020-08-19 06:00] VITALS: BP 145/70; PULSE 103; RESP 18; TEMP 36.4; O2SAT 96
[2020-08-19 08:01] LABS: Glucose Point of Care 160 (65-105)
--- NOTE | 2020-08-19 08:40 | PM.IMHP ---
H&P: HPI History of Present Illness Date/Time: 08/19/20 08:40 Chief Complaint: Patient is a 80-year-old female who has a history of diabetes and hypertension who presented emergency room for abdominal pain. She states the abdominal pain started on Monday and ranges from her epigastric area down to her lower quadrants. She describes this as a sharp pain. It hurts worse when she coughs and does not radiate anywhere. She has not had any nausea or vomiting with this and food has not made it worse or better (although this is different than what she told your doctor). She has not had any diarrhea and no has no sick contacts that she knows of. At this moment she said her pain is currently a 5/10. She denies nausea, vomiting, fevers, chest pain or shortness of breath, dysuria, frequency, hematuria, diarrhea or constipation. Her last bowel movement was yesterday. She is essentially bed bound at the skilled nursing. She has a history of UTIs but not very frequently. She had both of her covid vaccines. Review of Systems Review of Systems: All systems reviewed & are unremarkable except as noted in HPI and below PMFSH Past Medical History Medical History Arthritis Bronchitis Cataract She said 1 was removed and the other 1 she did not. She states she can see better the eye that was not extracted. Compression fracture T11 20% Congenital cervical spine stenosis Unable to have surgery due to high risk COPD (chronic obstructive pulmonary disease) DM II (diabetes mellitus, type II), controlled History of skin cancer SQ cell lt lateral knee. Hx of fracture of rib Osteoporosis Screening for malignant neoplasm of colon Surgical History Surgical History History of cholecystectomy Previous section X3 Family History Family History Sibling Diabetes mellitus Other Diabetes mellitus Hypertension Mother Diabetes mellitus Father Lung cancer Sibling Diabetes mellitus Kidney failure Social History Social History (Updated 08/19/20 @ 14:28 by Melanie Jimenez PA-C) Social History: Patient quit smoking last year but smoked for 45 years prior to that. She does not drink alcohol or do drugs. She would like her surrogate decision maker to be her daughter Annie. She would like to be a full code Smoking packs per day: 1 Smoking cigarettes per day: 20.0 Years smoked: 30 Smoking pack-years: 30.00 Smoking status: Unknown if ever smoked Tobacco type: cigarettes Second hand tobacco smoke exposure: Yes Alcohol intake: unknown Substance use: unknown Gender identity (if verbalized by the patient): Female Spiritual care concerns: No Agree to blood products: Yes Meds Home Medications and Allergies Home Medications Medication Instructions Recorded Confirmed Type lisinopril 10 mg tablet 10 mg PO DAILY #90 tablet 05/13/19 08/19/20 Rx metformin 1,000 mg PO DAILY 07/22/19 08/19/20 History ergocalciferol (vitamin D2) 50,000 unit PO WEEKLY #6 cap 07/24/19 08/19/20 Rx acetaminophen 650 mg PO Q6H PRN 08/19/20 08/19/20 History ascorbic acid (vitamin C) 1,000 mg PO DAILY 08/19/20 08/19/20 History baclofen 10 mg PO BID 08/19/20 08/19/20 History calcium carbonate-vitamin D3 1 cap PO BID 08/19/20 08/19/20 History docusate sodium 100 mg PO DAILY PRN 08/19/20 08/19/20 History hydrocodone-acetaminophen [Stetson] 1 tablet PO Q4H PRN 08/19/20 08/19/20 History insulin aspart U-100 [Novolog 0 unit SUBCUT TID 08/19/20 08/19/20 History Flexpen U-100 Insulin] insulin aspart U-100 [Novolog 5 unit SUBCUT TID 08/19/20 08/19/20 History Flexpen U-100 Insulin] insulin glargine [Lantus Solostar 5 unit SUBCUT DAILY 08/19/20 08/19/20 History U-100 Insulin] insulin glargine [Lantus Solostar 20 unit SUBCUT HS 08/19/20 08/19/20 History U-100 Insulin]
[2020-08-19] MEDS: MIRTAZAPINE 7.5 MG TABLET PO (10:21)
[2020-08-19] MEDS: lisinopriL 10 MG TABLET PO (10:22)
[2020-08-19] MEDS: ENOXAPARIN 40 MG/0.4 ML SYRINGE SUB-Q (10:25)
[2020-08-19 12:15] LABS: Glucose Point of Care 324 (65-105)
[2020-08-19] MEDS: INSULIN ASPART (*BKC) 100 UNITS/ML SUB-Q ×4 (12:23→16:29)
[2020-08-19 14:00] VITALS: BP 144/77; PULSE 94; RESP 16; TEMP 36.6; O2SAT 100
[2020-08-19 16:31] LABS: Glucose Point of Care 253 (65-105)
[2020-08-19] MEDS: HYDROcodone/acetaminophen (*CRX) 5-325 MG TABLET PO (17:46)
[2020-08-19] MEDS: INSULIN GLARGINE (*BKC) 100 UNITS/ML 15 UNITS SUB-Q (20:47)
[2020-08-19 21:27] LABS: Glucose Point of Care 242 (65-105)
[2020-08-19 21:40] VITALS: BP 117/45; PULSE 88; RESP 20; TEMP 36.9; O2SAT 95
[2020-08-20] MEDS: SODIUM CHLORIDE 0.9% IV 1,000 ML 125 ML IV CONT (05:41)
[2020-08-20 06:00] VITALS: BP 163/56; PULSE 79; RESP 20; TEMP 36.3; O2SAT 96
[2020-08-20] MEDS: MIRTAZAPINE 7.5 MG TABLET PO (07:10)
[2020-08-20 07:16] LABS: Basophils Absolute Auto 0.1 K/mm3 (0.0-0.1); Basophils Percent Auto 0.7 % (0.2-1.2); Eosinophils Absolute Auto 0.1 K/mm3 (0-0.3); Eosinophils Percent Auto 1.6 % (0-4.4); Hematocrit 29.4 % (37.0-47.0); Hemoglobin 9.3 g/dL (12.0-15.0); Immature Granulocyte Absolute 0.08 K/mm3 (0.00-0.031); Immature Granulocyte Percent A 1.2 % (0-0.5); Lymphocytes Absolute Auto 2.18 K/mm3 (0.9-3.2); Lymphocytes Percent Auto 31.8 % (18.3-44.2); Mean Corpuscular HGB Conc 31.6 g/dl (32-36); Mean Corpuscular Hemoglobin 29.4 pg (26-34); Mean Platelet Volume 10.7 fl (7.4-10.4); Monocytes Absolute Auto 0.7 K/mm3 (0.1-0.6); Monocytes Percent Auto 10.6 % (2.6-8.5); Neutrophils Absolute Auto 3.7 K/mm3 (1.3-6.7); Neutrophils Percent Auto 54.1 % (45.5-73.1); Platelet Count Result 194 k/mm3 (150-375); Red Blood Count 3.16 M/mm3 (4.2-5.4); Red Cell Distribution Width 13.1 % (11.5-14.5); White Blood Count 6.9 K/mm3 (4.5-10.0)
[2020-08-20 07:38] LABS: Alanine Aminotransferase 13 U/L (4-35); Albumin Level 2.8 g/dL (3.5-5.1); Alkaline Phosphatase 67 U/L (38-126); Anion Gap 6 mmol/L (8-16); Aspartate Amino Transferase 15 U/L (14-36); Bilirubin,Total < 0.1 mg/dL (0.2-1.3); Blood Urea Nitrogen 9 mg/dL (7-17); Calcium 8.3 mg/dL (8.4-10.2); Carbon Dioxide 22 mmol/L (22-30); Chloride 112 mmol/L (98-107); Estimated Glomerular Filt Rate > 60; Glucose 130 mg/dL (65-105); Potassium 3.5 mmol/L (3.4-5.0); Sodium 140 mmol/L (137-145)
[2020-08-20 07:39] LABS: Hemoglobin A1C 8.5 % (<5.7)
[2020-08-20 07:41] LABS: Glucose Point of Care 132 (65-105)
[2020-08-20] MEDS: ENOXAPARIN 40 MG/0.4 ML SYRINGE SUB-Q (09:33)
[2020-08-20] MEDS: lisinopriL 10 MG TABLET PO (09:33)
[2020-08-20] MEDS: PANTOPRAZOLE SOD SESQUIHYDRATE 20 MG TAB PO (09:33)
[2020-08-20] MEDS: INSULIN ASPART (*BKC) 100 UNITS/ML SUB-Q ×5 (09:36→17:26)
[2020-08-20] MEDS: HYDROcodone/acetaminophen (*CRX) 5-325 MG TABLET PO (09:37)
[2020-08-20 11:34] LABS: Glucose Point of Care 207 (65-105)
[2020-08-20 14:00] VITALS: BP 141/58; PULSE 89; RESP 20; TEMP 36.9; O2SAT 97
--- NOTE | 2020-08-20 16:00 | PM.IMPN ---
Progress Note: A&P Assessment and Plan (1) Acute pyelitis: Code(s): N10 - Acute pyelonephritis Status: Acute Assessment and Plan: Evident by patient's symptoms of abdominal pain and CT findings. UCx shows growth of mixed ihsan, likely contamination. On Rocephin since ED (day 2). BCx shows NGTD x 2. Continue Rocephin Will repeat UCx catheterized today Trend BCx and UCx tailor antibiotics to culture Monitor (2) Sepsis: Qualifiers: Sepsis acute organ dysfunction status: without acute organ dysfunction Sepsis type: sepsis due to unspecified organism Qualified Code(s): A41.9 - Sepsis, unspecified organism Code(s): A41.9 - Sepsis, unspecified organism Status: Acute Assessment and Plan: Patient met sepsis criteria with tachycardia and elevated respiratory rate earlier in her stay with evidence of pyelitis/UTI. BCx NGTD. Leukocytosis improved. Respiratory rate and tachycardia improved. Continue current treatment for pyelitis monitor cultures and adjust treatment as necessary (3) DM II (diabetes mellitus, type II), controlled: Code(s): E11.9 - Type 2 diabetes mellitus without complications Status: Chronic Assessment and Plan: A1c 8.5. BGL in 130-200s today Continue lantus 15 u QHS Accuchecks ACHS, hypoglycemia protocol, correctional insulin, diabetic diet hold metformin Adjust regimen as necessary (4) Hypertension: Code(s): I10 - Essential (primary) hypertension Status: Chronic Assessment and Plan: Last blood pressure 140s sys continue lisinopril (5) Dementia: Code(s): F03.90 - Unspecified dementia without behavioral disturbance Status: Acute Assessment and Plan: Mild dementia reported by the ER doctor. Patient is able to hold a normal conversation Subjective Date/time seen: 08/20/20 16:00 Interval history: Patient is a 80-year-old female who has a history of diabetes, COPD (No maintenance medications), and hypertension who is seen in follow up for acute pyelitis/cystitis. Patient states she feels somewhat better today. Still has abdominal pain on the left side, but overall improved; still feels sharp in nature. No n/v. Tolerating diet. No f/c. Daughter in room at time of visit is concerned she is breathing heavy, although at the time of my visit, she is mildly tachypneic and patient denies any respiratory issues. No other complaints. Denies current f/c/s, dizziness, lightheadedness, cp/palpitations, n/v, dysuria, hematuria, cloudy urine, calf pain/swelling. Review of Systems Review of Systems: All systems reviewed & are unremarkable except as noted in HPI and below Exam Narrative: Exam Narrative: General: Patient resting in semi recumbent position in bed in no acute distress. Daughter in room at time of visit HEENT: Normocephalic, EOMI, oral mucosa moist. Cardiovascular: Rate and rhythm are regular. No notable murmur, rub, or gallop. Respiratory: Mild exp wheeze in right lung zones, Non-labored breathing. Abdomen: Soft, mildly ttp left abd, non-distended, bowel sounds present. Extremities: Peripheral pulses intact. b/l LE edema. NTTP b/l calves. Left lower leg/foot in air boot Neuro: No focal neurological deficits. Speech is clear. Objective Data Vital Signs Vital Signs: Last Vital Signs Temp 98.4 F 08/20/20 14:00 Pulse 89 08/20/20 14:00 Resp 20 08/20/20 14:00 BP 141/58 H 08/20/20 14:00 Pulse Ox 97 08/20/20 14:00 Intake/Output Intake/Output: Intake & Output 08/17/20 08/18/20 08/19/20 08/20/20 23:59 23:59 23:59 23:59 Intake Total 4050 2695 Output Total 150 Balance 3900 2695 Meds/Results Medications: Active Medications Generic Name Dose Route Start
[2020-08-20 16:30] LABS: Glucose Point of Care 218 (65-105)
[2020-08-20] MEDS: ALBUTEROL SULFATE (*SP) AEROSOL 1 PUFF 2 PUFF INHALATION ×2 (17:30→21:01)
[2020-08-20 21:00] VITALS: O2SAT 96
[2020-08-20] MEDS: INSULIN GLARGINE (*BKC) 100 UNITS/ML 15 UNITS SUB-Q (21:12)
[2020-08-20 21:52] LABS: Glucose Point of Care 218 (65-105)
[2020-08-20 22:00] VITALS: BP 137/51; PULSE 93; RESP 20; TEMP 36.7; O2SAT 98
[2020-08-21] MEDS: MIRTAZAPINE 7.5 MG TABLET PO (05:28)
[2020-08-21 06:00] VITALS: BP 140/61; PULSE 87; RESP 18; TEMP 36.5; O2SAT 96
[2020-08-21 06:11] LABS: Basophils Percent Auto 0.4 % (0.2-1.2); Eosinophils Absolute Auto 0.1 K/mm3 (0-0.3); Eosinophils Percent Auto 1.5 % (0-4.4); Hematocrit 28.2 % (37.0-47.0); Hemoglobin 9.1 g/dL (12.0-15.0); Immature Granulocyte Absolute 0.08 K/mm3 (0.00-0.031); Immature Granulocyte Percent A 1.2 % (0-0.5); Lymphocytes Percent Auto 37.1 % (18.3-44.2); Mean Corpuscular HGB Conc 32.3 g/dl (32-36); Mean Corpuscular Hemoglobin 29.8 pg (26-34); Mean Corpuscular Volume 92.5 fl (80-100); Mean Platelet Volume 10.8 fl (7.4-10.4); Monocytes Absolute Auto 0.6 K/mm3 (0.1-0.6); Monocytes Percent Auto 9.2 % (2.6-8.5); Neutrophils Absolute Auto 3.4 K/mm3 (1.3-6.7); Neutrophils Percent Auto 50.6 % (45.5-73.1); Platelet Count Result 201 k/mm3 (150-375); Red Blood Count 3.05 M/mm3 (4.2-5.4); Red Cell Distribution Width 13.1 % (11.5-14.5); White Blood Count 6.7 K/mm3 (4.5-10.0)
[2020-08-21 06:22] LABS: Anion Gap 8 mmol/L (8-16); Blood Urea Nitrogen 10 mg/dL (7-17); Calcium 8.8 mg/dL (8.4-10.2); Carbon Dioxide 20 mmol/L (22-30); Chloride 111 mmol/L (98-107); Estimated Glomerular Filt Rate > 60; Glucose 173 mg/dL (65-105); Potassium 3.8 mmol/L (3.4-5.0); Sodium 139 mmol/L (137-145)
[2020-08-21 08:16] LABS: Glucose Point of Care 151 (65-105)
[2020-08-21] MEDS: ENOXAPARIN 40 MG/0.4 ML SYRINGE SUB-Q (08:47)
[2020-08-21] MEDS: PANTOPRAZOLE SOD SESQUIHYDRATE 20 MG TAB PO (08:48)
[2020-08-21] MEDS: lisinopriL 10 MG TABLET PO (08:48)
[2020-08-21] MEDS: INSULIN ASPART (*BKC) 100 UNITS/ML SUB-Q ×3 (08:48→17:43)
[2020-08-21] MEDS: ALBUTEROL SULFATE (*SP) AEROSOL 1 PUFF 2 PUFF INHALATION ×2 (08:49→12:14)
[2020-08-21 12:07] LABS: Glucose Point of Care 190 (65-105)
[2020-08-21] MEDS: HYDROcodone/acetaminophen (*CRX) 5-325 MG TABLET PO ×2 (12:10→16:53)
[2020-08-21 14:00] VITALS: BP 142/64; PULSE 110; RESP 18; TEMP 36.1; O2SAT 98
--- NOTE | 2020-08-21 15:31 | PM.IMPN ---
Progress Note: A&P Assessment and Plan (1) Acute pyelitis: Code(s): N10 - Acute pyelonephritis Status: Acute Assessment and Plan: Evident by patient's symptoms of abdominal pain and CT findings. UCx shows growth of mixed ihsan, likely contamination; UCx redrawn on 08/20 and pending. On Rocephin since ED (day 3). BCx shows 1/2 cultures growing coag neg staph; other culture negative to date; likely contaminate Continue Rocephin Await UCx; tailor antibiotics to culture; if negative (possibly due to collection after initiation of antibiotics), will anticipate IV antibiotics until clinical improvement, then transition to PO antibiotics. Follow BCx Monitor (2) Sepsis: Qualifiers: Sepsis acute organ dysfunction status: without acute organ dysfunction Sepsis type: sepsis due to unspecified organism Qualified Code(s): A41.9 - Sepsis, unspecified organism Code(s): A41.9 - Sepsis, unspecified organism Status: Acute Assessment and Plan: Patient met sepsis criteria with tachycardia and elevated respiratory rate earlier in her stay with evidence of pyelitis/UTI. BCx as above; likely contaminate. Leukocytosis resolved. Respiratory rate and tachycardia improved. Continue current treatment for pyelitis as noted above monitor cultures and adjust treatment as necessary (3) DM II (diabetes mellitus, type II), controlled: Code(s): E11.9 - Type 2 diabetes mellitus without complications Status: Chronic Assessment and Plan: A1c 8.5. 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 Patient is able to hold a normal conversation Subjective Date/time seen: 08/21/20 15:31 Interval history: Patient is a 80-year-old female who has a history of diabetes, COPD (no maintenance medications), and hypertension who is seen in follow up for acute pyelitis/cystitis. Patient states she feels about the same today; still having left and lower abdominal pain. Pain medication helps. It is painful to move. She does not remember her last BM; nursing doc says she has had loose BM 2 nights in a row, but unclear if this is accurate. No other complaints at the moment. No n/v. Tolerating diet. No f/c. Denies current dizziness, lightheadedness, cp/palpitations, n/v, dysuria, hematuria, cloudy urine, calf pain/swelling. Review of Systems Review of Systems: All systems reviewed & are unremarkable except as noted in HPI and below Exam Narrative: Exam Narrative: General: Patient resting in semi recumbent position in bed in no acute distress. HEENT: Normocephalic, EOMI, oral mucosa moist. Cardiovascular: tachycardic, regular rhythm. No notable murmur, rub, or gallop. Respiratory: CTAB anterolateral lung peralta, Non-labored breathing. Abdomen: Soft, mildly ttp left abd and lower abdomen, non-distended, bowel sounds present. Extremities: Peripheral pulses intact. b/l LE edema. NTTP b/l calves. Left lower leg/foot in air boot Neuro: No focal neurological deficits. Speech is clear. Objective Data Vital Signs Vital Signs: Last Vital Signs Temp 97.0 F L 08/21/20 14:00 Pulse 110 H 08/21/20 14:00 Resp 18 08/21/20 14:00 BP 142/64 H 08/21/20 14:00 Pulse Ox 98 08/21/20 14:00 Intake/Output Intake/Output: Intake & Out
[2020-08-21 17:54] LABS: Glucose Point of Care 141 (65-105)
[2020-08-21] MEDS: INSULIN GLARGINE (*BKC) 100 UNITS/ML 15 UNITS SUB-Q (20:50)
[2020-08-21 22:00] VITALS: BP 130/60; PULSE 85; RESP 18; TEMP 36.4; O2SAT 95
[2020-08-21 22:32] LABS: Glucose Point of Care 274 (65-105)
[2020-08-22] MEDS: MIRTAZAPINE 7.5 MG TABLET PO (05:52)
[2020-08-22 06:00] VITALS: BP 144/68; PULSE 84; RESP 18; TEMP 36.3; O2SAT 98
[2020-08-22 07:05] LABS: Basophils Absolute Auto 0.1 K/mm3 (0.0-0.1); Basophils Percent Auto 0.9 % (0.2-1.2); Eosinophils Absolute Auto 0.1 K/mm3 (0-0.3); Hematocrit 30.2 % (37.0-47.0); Hemoglobin 9.7 g/dL (12.0-15.0); Immature Granulocyte Absolute 0.06 K/mm3 (0.00-0.031); Immature Granulocyte Percent A 0.9 % (0-0.5); Lymphocytes Absolute Auto 2.23 K/mm3 (0.9-3.2); Lymphocytes Percent Auto 33.8 % (18.3-44.2); Mean Corpuscular HGB Conc 32.1 g/dl (32-36); Mean Corpuscular Hemoglobin 30.1 pg (26-34); Mean Corpuscular Volume 93.8 fl (80-100); Mean Platelet Volume 10.6 fl (7.4-10.4); Monocytes Absolute Auto 0.6 K/mm3 (0.1-0.6); Monocytes Percent Auto 8.5 % (2.6-8.5); Neutrophils Absolute Auto 3.6 K/mm3 (1.3-6.7); Neutrophils Percent Auto 53.9 % (45.5-73.1); Platelet Count Result 214 k/mm3 (150-375); Red Blood Count 3.22 M/mm3 (4.2-5.4); Red Cell Distribution Width 13.2 % (11.5-14.5); White Blood Count 6.6 K/mm3 (4.5-10.0)
[2020-08-22 07:11] LABS: Anion Gap 6 mmol/L (8-16); Blood Urea Nitrogen 12 mg/dL (7-17); Carbon Dioxide 22 mmol/L (22-30); Chloride 111 mmol/L (98-107); Estimated Glomerular Filt Rate > 60; Glucose 176 mg/dL (65-105); Magnesium 1.9 mg/dL (1.6-2.3); Potassium 3.8 mmol/L (3.4-5.0); Sodium 139 mmol/L (137-145)
[2020-08-22 08:07] LABS: Glucose Point of Care 151 (65-105)
[2020-08-22] MEDS: INSULIN ASPART (*BKC) 100 UNITS/ML SUB-Q ×4 (08:07→17:01)
[2020-08-22] MEDS: PANTOPRAZOLE SOD SESQUIHYDRATE 20 MG TAB PO (08:08)
[2020-08-22] MEDS: lisinopriL 10 MG TABLET PO (08:08)
[2020-08-22] MEDS: ENOXAPARIN 40 MG/0.4 ML SYRINGE SUB-Q (08:08)
[2020-08-22 08:24] VITALS: BMI 11.0
[2020-08-22] MEDS: ERTAPENEM 1 GM/NS 50 ML 1 GM/50 ML BAG IVPB (09:45)
--- NOTE | 2020-08-22 10:52 | PM.IMPN ---
Progress Note: A&P Assessment and Plan (1) Acute pyelitis: Code(s): N10 - Acute pyelonephritis Status: Acute Assessment and Plan: Evident by patient's symptoms of abdominal pain and CT findings. UCx shows growth of mixed ihsan, likely contamination; UCx redrawn on 08/20 and growing E. coli ESBL; resistant to Rocephin, sensitive to Ertapenem. Rocephin d/c today (reveived 3 doses); started on Ertapenem 08/22. BCx shows 1/2 cultures growing coag neg staph; other culture negative to date; likely contaminate Started Ertapenem today (day 1); anticipate continuing this after discharge. Will discuss IV access on monday with vascular manager security Monitor symptoms for improvement; consider reimaging if no improvement in 1-2 days of appropriate antibiotic Follow BCx Monitor (2) Sepsis: Qualifiers: Sepsis acute organ dysfunction status: without acute organ dysfunction Sepsis type: sepsis due to unspecified organism Qualified Code(s): A41.9 - Sepsis, unspecified organism Code(s): A41.9 - Sepsis, unspecified organism Status: Acute Assessment and Plan: Patient met sepsis criteria with tachycardia and elevated respiratory rate earlier in her stay with evidence of pyelitis/UTI. BCx as above; likely contaminate. Leukocytosis resolved. Respiratory rate and tachycardia improved. Continue current treatment for pyelitis as noted above monitor cultures and adjust treatment as necessary (3) DM II (diabetes mellitus, type II), controlled: Code(s): E11.9 - Type 2 diabetes mellitus without complications Status: Chronic Assessment and Plan: A1c 8.5. 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 Patient is able to hold a normal conversation. Daughter concerned about dementia as well Subjective Date/time seen: 08/22/20 10:52 Interval history: Patient is a 80-year-old female who has a history of diabetes, COPD (no maintenance medications), and hypertension who is seen in follow up for acute pyelitis/cystitis. Patient states she feels about the same today; still having left and lower abdominal pain. Pain medication helps. It is painful to move in bed. She had BM yesterday, with minimal improvement in abd discomfort. No other complaints at the moment. No n/v. Tolerating diet. No f/c. Denies current dizziness, lightheadedness, cp/palpitations, n/v, dysuria, hematuria, cloudy urine, calf pain/swelling. Review of Systems Review of Systems: All systems reviewed & are unremarkable except as noted in HPI and below Exam Narrative: Exam Narrative: General: Patient resting in semi recumbent position in bed in no acute distress. HEENT: Normocephalic, EOMI, oral mucosa moist. Cardiovascular: RRR, No notable murmur, rub, or gallop. Respiratory: CTAB anterolateral lung peralta, Non-labored breathing. Abdomen: Soft, mildly ttp left abd and lower abdomen, non-distended, bowel sounds present. Extremities: Peripheral pulses intact. b/l LE edema. NTTP b/l calves. Left lower leg/foot in air boot Neuro: No focal neurological deficits. Speech is clear. Objective Data Vital Signs Vital Signs: Vital Signs - 24 hr 08/21/20 14:00 08/21/20 22:00 08/22/20 06:00 Temperature 97.0 F L 97.5 F L 97.4 F L Pulse Rate 110 H 85 84 Re
[2020-08-22 11:39] LABS: Glucose Point of Care 183 (65-105)
[2020-08-22] MEDS: ACETAMINOPHEN 325 MG TABLET 650 MG PO ×2 (12:20→21:29)
[2020-08-22 14:00] VITALS: BP 158/75; PULSE 92; RESP 20; TEMP 36.6; O2SAT 99
[2020-08-22 17:06] LABS: Glucose Point of Care 239 (65-105)
[2020-08-22] MEDS: INSULIN GLARGINE (*BKC) 100 UNITS/ML 15 UNITS SUB-Q (21:28)
[2020-08-22 21:37] LABS: Glucose Point of Care 230 (65-105)
[2020-08-22 21:38] VITALS: BP 138/71; PULSE 90; RESP 20; TEMP 36.3; O2SAT 97
[2020-08-23 06:00] VITALS: BP 144/72; PULSE 85; RESP 18; TEMP 36.1; O2SAT 98
[2020-08-23] MEDS: MIRTAZAPINE 7.5 MG TABLET PO (06:03)
[2020-08-23 06:08] LABS: Basophils Absolute Auto 0.1 K/mm3 (0.0-0.1); Basophils Percent Auto 0.7 % (0.2-1.2); Eosinophils Absolute Auto 0.1 K/mm3 (0-0.3); Eosinophils Percent Auto 1.9 % (0-4.4); Hematocrit 31.4 % (37.0-47.0); Hemoglobin 10.3 g/dL (12.0-15.0); Immature Granulocyte Absolute 0.08 K/mm3 (0.00-0.031); Immature Granulocyte Percent A 1.2 % (0-0.5); Lymphocytes Absolute Auto 2.16 K/mm3 (0.9-3.2); Lymphocytes Percent Auto 31.8 % (18.3-44.2); Mean Corpuscular HGB Conc 32.8 g/dl (32-36); Mean Corpuscular Hemoglobin 30.1 pg (26-34); Mean Corpuscular Volume 91.8 fl (80-100); Mean Platelet Volume 10.4 fl (7.4-10.4); Monocytes Absolute Auto 0.6 K/mm3 (0.1-0.6); Monocytes Percent Auto 9.4 % (2.6-8.5); Neutrophils Absolute Auto 3.7 K/mm3 (1.3-6.7); Platelet Count Result 235 k/mm3 (150-375); Red Blood Count 3.42 M/mm3 (4.2-5.4); Red Cell Distribution Width 13.2 % (11.5-14.5); White Blood Count 6.8 K/mm3 (4.5-10.0)
[2020-08-23 06:25] LABS: Anion Gap 6 mmol/L (8-16); Blood Urea Nitrogen 10 mg/dL (7-17); Calcium 8.7 mg/dL (8.4-10.2); Carbon Dioxide 23 mmol/L (22-30); Chloride 110 mmol/L (98-107); Estimated Glomerular Filt Rate > 60; Glucose 193 mg/dL (65-105); Magnesium 1.8 mg/dL (1.6-2.3); Sodium 139 mmol/L (137-145)
[2020-08-23] MEDS: ERTAPENEM 1 GM/NS 50 ML 1 GM/50 ML BAG IVPB (07:44)
[2020-08-23] MEDS: PANTOPRAZOLE SOD SESQUIHYDRATE 20 MG TAB PO (07:45)
[2020-08-23] MEDS: lisinopriL 10 MG TABLET PO (07:45)
[2020-08-23] MEDS: ENOXAPARIN 40 MG/0.4 ML SYRINGE SUB-Q (07:45)
[2020-08-23] MEDS: INSULIN ASPART (*BKC) 100 UNITS/ML SUB-Q ×4 (08:33→17:45)
[2020-08-23 09:11] LABS: Glucose Point of Care 164 (65-105)
--- NOTE | 2020-08-23 11:45 | PM.IMPN ---
Progress Note: A&P Assessment and Plan (1) Acute pyelitis: Code(s): N10 - Acute pyelonephritis Status: Acute Assessment and Plan: Evident by patient's symptoms of abdominal pain and CT findings. First UCx revealed growth of mixed ihsan, likely contamination; UCx redrawn on 08/20 and growing E. coli ESBL; resistant to Rocephin, sensitive to Ertapenem. Rocephin d/c'd (reveived 3 doses); started on Ertapenem 08/22. BCx shows / cultures growing coag neg staph; other culture negative to date; likely contaminate. Patient continues to have persistent abd pain Continue IV Ertapenem (day 2); anticipate continuing this after discharge. Will discuss IV access on Monday with vascular hog handler Will obtain abd/pelvis CT w/o contrast for her persistent pain Monitor symptoms for improvement Follow BCx Monitor (2) Sepsis: Qualifiers: Sepsis acute organ dysfunction status: without acute organ dysfunction Sepsis type: sepsis due to unspecified organism Qualified Code(s): A41.9 - Sepsis, unspecified organism Code(s): A41.9 - Sepsis, unspecified organism Status: Acute Assessment and Plan: Patient met sepsis criteria with tachycardia and elevated respiratory rate earlier in her stay with evidence of pyelitis/UTI. BCx as above; likely contaminate. Leukocytosis resolved. Respiratory rate and tachycardia improved. Continue current treatment for pyelitis as noted above monitor cultures and adjust treatment as necessary (3) DM II (diabetes mellitus, type II), controlled: Code(s): E11.9 - Type 2 diabetes mellitus without complications Status: Chronic Assessment and Plan: A1c 8.5. 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 Patient is able to hold a normal conversation. Daughter concerned about dementia as well Subjective Date/time seen: 08/23/20 11:45 Interval history: Patient is a 80-year-old female who has a history of diabetes, COPD (no maintenance medications), and hypertension who is seen in follow up for acute pyelitis/cystitis and persistent abdominal pain. Patient states she feels about the same today without improvement in her left and lower abdominal pain. It is painful to move in bed. No other complaints at the moment. No n/v. Tolerating diet. No f/c. Denies current dizziness, lightheadedness, cp/palpitations, n/v, dysuria, hematuria, cloudy urine, calf pain/swelling. Nursing reports of a rash on right flank with possible blisters Review of Systems Review of Systems: All systems reviewed & are unremarkable except as noted in HPI and below Exam Narrative: Exam Narrative: General: Patient resting in semi recumbent position in bed in no acute distress. Nursing in room at time of visit and helps roll patient to evaluate rash HEENT: Normocephalic, EOMI, oral mucosa moist. Cardiovascular: RRR, No notable murmur, rub, or gallop. Respiratory: CTAB anterolateral lung peralta, Non-labored breathing. Abdomen: Soft, mildly ttp left abd and lower abdomen, non-distended, bowel sounds present. Skin: Diffuse area of blanching erythema without distinct borders in some areas to right flank, nontender to palpation, not warm to touch compared to surrounding areas, small cluster of clear, intact fluid-filled blister
[2020-08-23 12:21] LABS: Glucose Point of Care 171 (65-105)
[2020-08-23] MEDS: HYDROcodone/acetaminophen (*CRX) 5-325 MG TABLET PO (13:53)
[2020-08-23 14:00] VITALS: BP 143/63; PULSE 80; RESP 18; TEMP 37.1; O2SAT 99
[2020-08-23 17:15] LABS: Glucose Point of Care 203 (65-105)
[2020-08-23 20:20] LABS: Glucose Point of Care 191 (65-105)
[2020-08-23] MEDS: INSULIN GLARGINE (*BKC) 100 UNITS/ML 15 UNITS SUB-Q (20:38)
[2020-08-23 21:27] VITALS: BP 121/50; PULSE 83; RESP 18; TEMP 36.4; O2SAT 95
[2020-08-24 06:00] VITALS: BP 141/73; PULSE 84; RESP 18; TEMP 36.3; O2SAT 98
[2020-08-24] MEDS: MIRTAZAPINE 7.5 MG TABLET PO (06:04)
[2020-08-24 06:06] LABS: Basophils Percent Auto 0.5 % (0.2-1.2); Eosinophils Absolute Auto 0.1 K/mm3 (0-0.3); Eosinophils Percent Auto 1.9 % (0-4.4); Hematocrit 29.2 % (37.0-47.0); Hemoglobin 9.5 g/dL (12.0-15.0); Immature Granulocyte Absolute 0.08 K/mm3 (0.00-0.031); Immature Granulocyte Percent A 1.4 % (0-0.5); Lymphocytes Absolute Auto 2.42 K/mm3 (0.9-3.2); Mean Corpuscular HGB Conc 32.5 g/dl (32-36); Mean Corpuscular Hemoglobin 30.3 pg (26-34); Mean Platelet Volume 10.5 fl (7.4-10.4); Monocytes Absolute Auto 0.6 K/mm3 (0.1-0.6); Monocytes Percent Auto 9.5 % (2.6-8.5); Neutrophils Absolute Auto 2.7 K/mm3 (1.3-6.7); Neutrophils Percent Auto 45.7 % (45.5-73.1); Platelet Count Result 224 k/mm3 (150-375); Red Blood Count 3.14 M/mm3 (4.2-5.4); Red Cell Distribution Width 13.5 % (11.5-14.5); White Blood Count 5.9 K/mm3 (4.5-10.0)
[2020-08-24 06:24] LABS: Anion Gap 7 mmol/L (8-16); Blood Urea Nitrogen 10 mg/dL (7-17); Calcium 8.7 mg/dL (8.4-10.2); Carbon Dioxide 22 mmol/L (22-30); Chloride 109 mmol/L (98-107); Estimated Glomerular Filt Rate > 60; Glucose 264 mg/dL (65-105); Magnesium 1.9 mg/dL (1.6-2.3); Potassium 3.9 mmol/L (3.4-5.0); Sodium 138 mmol/L (137-145)
[2020-08-24 08:29] LABS: Glucose Point of Care 210 (65-105)
[2020-08-24] MEDS: INSULIN ASPART (*BKC) 100 UNITS/ML SUB-Q ×5 (08:31→17:56)
[2020-08-24] MEDS: PANTOPRAZOLE SOD SESQUIHYDRATE 20 MG TAB PO (08:32)
[2020-08-24] MEDS: ENOXAPARIN 40 MG/0.4 ML SYRINGE SUB-Q (08:32)
[2020-08-24] MEDS: lisinopriL 10 MG TABLET PO (08:32)
[2020-08-24] MEDS: ERTAPENEM 1 GM/NS 50 ML 1 GM/50 ML BAG IVPB (08:35)
[2020-08-24 11:41] LABS: Glucose Point of Care 266 (65-105)
[2020-08-24] MEDS: ACETAMINOPHEN 325 MG TABLET 650 MG PO (12:22)
[2020-08-24 14:00] VITALS: BP 124/51; PULSE 73; RESP 20; TEMP 36.4; O2SAT 100
--- NOTE | 2020-08-24 17:16 | PM.IMPN ---
Progress Note: A&P Assessment and Plan (1) Abdominal pain: Code(s): R10.9 - Unspecified abdominal pain Status: Acute Assessment and Plan: Persistent abdominal pain which was thought to be due to her pyelitis but it has not improved with treatment or PPI -Pt still reports significant 7/10 pain -Not associated with eating or drinking -hx of cholecystetcomy -no abnormalities of the pancreas on CT, check lipase tomorrow AM -Consult GI, may need EGD in the future (2) Acute pyelitis: Code(s): N10 - Acute pyelonephritis Status: Acute Assessment and Plan: Evident by patient's symptoms of abdominal pain and CT findings. First UCx revealed growth of mixed ihsan, likely contamination; UCx redrawn on 08/20 and growing E. coli ESBL; resistant to Rocephin, sensitive to Ertapenem. Rocephin d/c'd (reveived 3 doses); started on Ertapenem 08/22. BCx shows 1/2 cultures growing coag neg staph; other culture negative to date; likely contaminate. Patient continues to have persistent abd pain -Continue IV Ertapenem (day 3) - abd/pelvis CT w/o contrast shows possibly improving pyelitis (3) Sepsis: Qualifiers: Sepsis acute organ dysfunction status: without acute organ dysfunction Sepsis type: sepsis due to unspecified organism Qualified Code(s): A41.9 - Sepsis, unspecified organism Code(s): A41.9 - Sepsis, unspecified organism Status: Acute Assessment and Plan: Patient met sepsis criteria with tachycardia and elevated respiratory rate earlier in her stay with evidence of pyelitis/UTI. BCx as above; likely contaminate. Leukocytosis resolved. Respiratory rate and tachycardia improved. Continue current treatment for pyelitis as noted above monitor cultures and adjust treatment as necessary (4) DM II (diabetes mellitus, type II), controlled: Code(s): E11.9 - Type 2 diabetes mellitus without complications Status: Chronic Assessment and Plan: A1c 8.5 -Continue lantus 15 u QHS -Accuchecks ACHS, hypoglycemia protocol, correctional insulin, diabetic diet -hold metformin (5) Hypertension: Code(s): I10 - Essential (primary) hypertension Status: Chronic Assessment and Plan: Last blood pressure 124/51 -continue lisinopril (6) Dementia: Code(s): F03.90 - Unspecified dementia without behavioral disturbance Status: Acute Assessment and Plan: Mild dementia reported by the ER doctor. Patient is able to hold a normal conversation Subjective Date/time seen: 08/24/20 17:16 Interval history: Patient is a 80-year-old female here for abdominal pain. Patient states she feels about the same today without improvement in her abdominal pain. She admits its mostly in her epigastric area and has not gotten better at all since the abx for her UTI. She says she continues to eat without issues and is eating 100% of her meals but she continues to have a 7/10 epigastric pain that is constant. It is worse when she moves, sits up or stands. She no longers has a gallbladder. Denies current dizziness, lightheadedness, cp/palpitations, n/v, dysuria, hematuria, cloudy urine, calf pain/swelling. Exam Narrative: Exam Narrative: General: WDWN pt resting in bed in NAD HEENT: Normocephalic, EOMI, oral mucosa moist. Cardiovascular: RRR, No notable murmur, rub, or gallop. Respiratory: CTA Abdomen: Soft, non distended. Pain to the epigastric area. No pain to the lower quadrants. Extremities: Peripheral pulses intact. Left lower leg/foot in air boot Neuro: No focal neurological deficits. Speech is clear. Objective Data Vital Signs Vital Signs: Vital Signs - 24 hr 08/23/20 21:27 08/24/20 06:00 08/24/20 14:00 Temperature 97.6 F 97.4 F L 97.6 F Pulse Rate 83 84 73 Respiratory Rate 18 18 20 Blood Pressure 121/50 L 141/73 H 124/51 L Pulse Oximetry 95 98 100 Intake/Output Intake/Output: Intake & Output
[2020-08-24 18:01] LABS: Glucose Point of Care 176 (65-105)
[2020-08-24 19:28] LABS: SARS-CoV-2 RNA PCR Negative
[2020-08-24] MEDS: INSULIN GLARGINE (*BKC) 100 UNITS/ML 15 UNITS SUB-Q (20:41)
[2020-08-24 21:00] LABS: Glucose Point of Care 192 (65-105)
[2020-08-24 22:00] VITALS: BP 133/55; PULSE 80; RESP 20; TEMP 36.3; O2SAT 98
[2020-08-25] VITALS (7 sets, daily range): BP systolic 85–156; BP diastolic 51–74; PULSE 63–93; RESP 16–20; TEMP 36–37.1; O2SAT 95–99
[2020-08-25 06:08] LABS: Hematocrit 31.9 % (37.0-47.0); Hemoglobin 10.4 g/dL (12.0-15.0); Mean Corpuscular HGB Conc 32.6 g/dl (32-36); Mean Corpuscular Hemoglobin 30.4 pg (26-34); Mean Corpuscular Volume 93.3 fl (80-100); Mean Platelet Volume 10.4 fl (7.4-10.4); Platelet Count Result 247 k/mm3 (150-375); Red Blood Count 3.42 M/mm3 (4.2-5.4); Red Cell Distribution Width 13.7 % (11.5-14.5); White Blood Count 7.1 K/mm3 (4.5-10.0)
[2020-08-25 06:24] LABS: Anion Gap 6 mmol/L (8-16); Blood Urea Nitrogen 10 mg/dL (7-17); CRP 1.2 mg/dL (<1.0); Calcium 9.1 mg/dL (8.4-10.2); Carbon Dioxide 22 mmol/L (22-30); Chloride 110 mmol/L (98-107); Estimated Glomerular Filt Rate > 60; Glucose 200 mg/dL (65-105); Lipase 54 U/L (23-300); Potassium 3.8 mmol/L (3.4-5.0); Sodium 138 mmol/L (137-145)
[2020-08-25 06:31] LABS: Glucose Point of Care 210 (65-105)
[2020-08-25] MEDS: MIRTAZAPINE 7.5 MG TABLET PO (06:36)
--- NOTE | 2020-08-25 06:44 | WPDGICN ---
Assessment and Plan Assessment and plan (1) Abdominal pain: Code(s): R10.9 - Unspecified abdominal pain Status: Acute Assessment and Plan: EGD with possible biopsy or dilatation or cautery. GI Consult Note Consult date/time: 08/25/20 06:44 HPI: Daniela Arrieta is a 80 year old female Who was admitted with abdominal pain. It was thought that her pain was due to prior light is. however after antibiotics and clinical improvement her discomfort persists. She describes it as a diffuse belly ache. She has had no vomiting or nausea. She does not believe that she has ever had an ulcer. She believes that her weight has been stable. CT scan shows no specific abnormalities of GI tract. Her gallbladder has been removed Review of Systems Review of Systems: All systems reviewed & are unremarkable except as noted in HPI and below PMFSH Past Medical History Medical History Arthritis Bronchitis Cataract She said 1 was removed and the other 1 she did not. She states she can see better the eye that was not extracted. Compression fracture T11 20% Congenital cervical spine stenosis Unable to have surgery due to high risk COPD (chronic obstructive pulmonary disease) DM II (diabetes mellitus, type II), controlled History of skin cancer SQ cell lt lateral knee. Hx of fracture of rib Osteoporosis Screening for malignant neoplasm of colon Surgical History Surgical History History of cholecystectomy Previous section X3 Family History Family History Sibling Diabetes mellitus Other Diabetes mellitus Hypertension Mother Diabetes mellitus Father Lung cancer Sibling Diabetes mellitus Kidney failure Social History Social History Social History: Patient quit smoking last year but smoked for 45 years prior to that. She does not drink alcohol or do drugs. She would like her surrogate decision maker to be her daughter Annie. She would like to be a full code Smoking packs per day: 1 Smoking cigarettes per day: 20.0 Years smoked: 30 Smoking pack-years: 30.00 Smoking status: Unknown if ever smoked Tobacco type: cigarettes Second hand tobacco smoke exposure: Yes Alcohol intake: unknown Substance use: unknown Gender identity (if verbalized by the patient): Female Spiritual care concerns: No Agree to blood products: Yes Meds Home Medications and Allergies Home Medications Medication Instructions Recorded Confirmed Type lisinopril 10 mg tablet 10 mg PO DAILY #90 tablet 05/13/19 08/19/20 Rx metformin 1,000 mg PO DAILY 07/22/19 08/19/20 History ergocalciferol (vitamin D2) 50,000 unit PO WEEKLY #6 cap 07/24/19 08/19/20 Rx acetaminophen 650 mg PO Q6H PRN 08/19/20 08/19/20 History ascorbic acid (vitamin C) 1,000 mg PO DAILY 08/19/20 08/19/20 History baclofen 10 mg PO BID 08/19/20 08/19/20 History calcium carbonate-vitamin D3 1 cap PO BID 08/19/20 08/19/20 History docusate sodium 100 mg PO DAILY PRN 08/19/20 08/19/20 History hydrocodone-acetaminophen [[place]] 1 tablet PO Q4H PRN 08/19/20 08/19/20 History insulin aspart U-100 [Novolog 0 unit SUBCUT TID 08/19/20 08/19/20 History Flexpen U-100 Insulin] insulin aspart U-100 [Novolog 5 unit SUBCUT TID 08/19/20 08/19/20 History Flexpen U-100 Insulin] insulin glargine [Lantus Solostar 5 unit SUBCUT DAILY 08/19/20 08/19/20 History U-100 Insulin] insulin glargine [Lantus Solostar 20 unit SUBCUT HS 08/19/20 08/19/20 History U-100 Insulin] mirtazapine 7.5 mg PO DAILY 08/19/20 08/19/20 History multivitamin with minerals [All 1 tablet PO DAILY 08/19/20 08/19/20 History Purpose Multivitamin-Min] polyethylene glycol 3350 [Miralax] 17 g PO DAILY PRN 08/19/20 08/19/20 History zinc acetate 50 mg PO DAILY 03
[2020-08-25 08:00] LABS: Glucose Point of Care 197 (65-105)
[2020-08-25] MEDS: ERTAPENEM 1 GM/NS 50 ML 1 GM/50 ML BAG IVPB (08:40)
[2020-08-25] MEDS: INSULIN ASPART (*BKC) 100 UNITS/ML SUB-Q ×4 (08:41→17:49)
[2020-08-25 09:38] LABS: Glucose Point of Care 184 (65-105)
[2020-08-25] MEDS: LACTATED RINGERS 1,000 ML 150 ML IV CONT (10:08)
--- NOTE | 2020-08-25 10:12 | WPDANESEPPF ---
Anes - Initial Pre Proc Eval Procedure: Operation Date: 08/25/20 11:30 Proposed Procedures p Esophagogastroduodenoscopy - Donaldo Lopez MD Date/Time: 08/25/20 10:12 Surgeon: Melanie Jimenez PA-C Pre Op Diagnosis: Acute pyelitis, sepsis Patient Data Age: 80 Gender: F Height: 4 ft 11 in Weight: 59.2 kg Last Vital Signs Temp 98.8 F 08/25/20 09:39 Pulse 84 08/25/20 09:39 Resp 20 08/25/20 09:39 BP 143/67 H 08/25/20 09:39 Pulse Ox 95 08/25/20 09:39 Allergies Allergy/AdvReac Type Severity Reaction Status Date / Time adhesive tape Allergy Mild Rash Verified 08/25/20 09:38 ibuprofen [From Motrin] AdvReac Mild Nausea and Verified 08/25/20 09:38 Vomiting morphine AdvReac Mild Nausea and Verified 08/25/20 09:38 Vomiting Home Medications Medication Instructions Recorded Confirmed Type lisinopril 10 mg tablet 10 mg PO DAILY #90 tablet 05/13/19 08/19/20 Rx metformin 1,000 mg PO DAILY 07/22/19 08/19/20 History ergocalciferol (vitamin D2) 50,000 unit PO WEEKLY #6 cap 07/24/19 08/19/20 Rx acetaminophen 650 mg PO Q6H PRN 08/19/20 08/19/20 History ascorbic acid (vitamin C) 1,000 mg PO DAILY 08/19/20 08/19/20 History baclofen 10 mg PO BID 08/19/20 08/19/20 History calcium carbonate-vitamin D3 1 cap PO BID 08/19/20 08/19/20 History docusate sodium 100 mg PO DAILY PRN 08/19/20 08/19/20 History hydrocodone-acetaminophen [[place]] 1 tablet PO Q4H PRN 08/19/20 08/19/20 History insulin aspart U-100 [Novolog 0 unit SUBCUT TID 08/19/20 08/19/20 History Flexpen U-100 Insulin] insulin aspart U-100 [Novolog 5 unit SUBCUT TID 08/19/20 08/19/20 History Flexpen U-100 Insulin] insulin glargine [Lantus Solostar 5 unit SUBCUT DAILY 08/19/20 08/19/20 History U-100 Insulin] insulin glargine [Lantus Solostar 20 unit SUBCUT HS 08/19/20 08/19/20 History U-100 Insulin] mirtazapine 7.5 mg PO DAILY 08/19/20 08/19/20 History multivitamin with minerals [All 1 tablet PO DAILY 08/19/20 08/19/20 History Purpose Multivitamin-Min] polyethylene glycol 3350 [Miralax] 17 g PO DAILY PRN 08/19/20 08/19/20 History zinc acetate 50 mg PO DAILY 08/19/20 08/19/20 History Laboratory Tests 08/23/20 08/24/20 08/24/20 00:16 11:30 17:55 WBC RBC Hgb Hct MCV MCH MCHC RDW Plt Count MPV Sodium Potassium Chloride Carbon Dioxide Anion Gap BUN Creatinine Estim Creat Clear Calc Estimated GFR Glucose POC Capillary Glucose 266 mg/dl H mg/dl 176 mg/dl H mg/dl (65-105) (65-105) Calcium C-Reactive Protein Lipase SARS-CoV-2 RNA (RT-PCR) Negative 08/24/20 08/25/20 08/25/20 20:41 05:37 05:37 WBC 7.1 K/mm3 K/mm3 (4.5-10.0) RBC 3.42 M/mm3 L M/mm3 (4.2-5.4) Hgb 10.4 g/dL L g/dL (12.0-15.0) Hct 31.9 % L % (37.0-47.0) MCV 93.3 fl fl (80-100) MCH 30.4 pg pg (26-34) MCHC 32.6 g/dl g/dl (32-36) RDW 13.7 % % (11.5-14.5) Plt Count 247 k/mm3 k/mm3 (150-375) MPV 10.4 fl fl (7.4-10.4) Sodium 138 mmol/L mmol/L (137-145) Potassium 3.8 mmol/L mmol/L (3.4-5.0) Chloride 110 mmol/L H mmol/L (98-107) Carbon Dioxide 22 mmol/L mmol/L (22-30) Anion Gap 6 mmol/L L mmol/L (8-16) BUN 10 mg/dL mg/dL (7-17) Creatinine 0.50 mg/dL L mg/dL (0.7-1.0) Estim Creat Clear Calc Not Reportable Estimated GFR > 60 (59 - ) Glucose 200 mg/dL H mg/dL (65-105) POC Capillary Glucose 192 mg/dl H mg/dl (65-105) Calcium 9.1 mg/dL mg/dL (8.4-10.2) C-Reactive Protein 1.2 mg/dL H mg/dL (<1.0) Lipase
[2020-08-25] MEDS: lisinopriL 10 MG TABLET PO (11:53)
[2020-08-25] MEDS: PANTOPRAZOLE SOD SESQUIHYDRATE 20 MG TAB PO (11:54)
[2020-08-25 12:18] LABS: Glucose Point of Care 180 (65-105)
[2020-08-25] MEDS: LIDOCAINE HCL 1% LOCAL INJ 2 ML AMPUL 5 ML INFILTRATE (13:50)
--- NOTE | 2020-08-25 14:57 | PC.NURSE ---
Pt has discharge orders to return to her facility. Pt has been cleaned up, IV removed, and paperwork reviewed with Leonila at receiving facility. Leonila exhibited good understanding of discharge paperwork and that pt will be coming with a midline, by ambulance.
[2020-08-25 17:46] LABS: Glucose Point of Care 286 (65-105)
--- NOTE | 2020-08-26 08:32 | PM.DS ---
DS: Admitting Diagnosis Admitting Diagnosis Admitting Diagnosis: cystitis, sepsis DS: Discharge Diagnosis Discharge Diagnosis (1) Abdominal pain: Code(s): R10.9 - Unspecified abdominal pain Status: Acute Assessment and Plan: Persistent abdominal pain which was thought to be due to her pyelitis -abdominal pain was not improving so an EGD was performed which showed esophagitis grade II with erosions/ulcerations, ppi was started -day of discharge patient's abdominal pain had improved -hx of cholecystetcomy -lipase normal and pancreas normal on CT -follow-up with GI (2) Acute pyelitis: Code(s): N10 - Acute pyelonephritis Status: Acute Assessment and Plan: Evident by patient's symptoms of abdominal pain and CT findings. First UCx revealed growth of mixed ihsan, likely contamination; UCx redrawn on 08/20 and growing E. coli ESBL; resistant to Rocephin, sensitive to Ertapenem. Rocephin d/c'd (reveived 3 doses); started on Ertapenem 08/22. -finish ertapenem outpatient. Patient was sent back to the nursing facility with a midline which should be removed after the ertapenem is complete -repeat abd/pelvis CT w/o contrast showed possibly improving pyelitis (3) Sepsis: Qualifiers: Sepsis acute organ dysfunction status: without acute organ dysfunction Sepsis type: sepsis due to unspecified organism Qualified Code(s): A41.9 - Sepsis, unspecified organism Code(s): A41.9 - Sepsis, unspecified organism Status: Acute Assessment and Plan: Resolved, Patient met sepsis criteria with tachycardia and elevated respiratory rate earlier in her stay with evidence of pyelitis/UTI. (4) DM II (diabetes mellitus, type II), controlled: Code(s): E11.9 - Type 2 diabetes mellitus without complications Status: Chronic Assessment and Plan: A1c 8.5 Continue home diabetes regimen (5) Hypertension: Code(s): I10 - Essential (primary) hypertension Status: Chronic Assessment and Plan: Last blood pressure 156/73 -continue lisinopril (6) Dementia: Code(s): F03.90 - Unspecified dementia without behavioral disturbance Status: Acute Assessment and Plan: Mild dementia reported by the ER doctor. Patient is able to hold a normal conversation DS: Summary Hospital Course Hospital Course: With a past medical history of type 2 diabetes, hypertension and mild dementia who presented emergency room for abdominal pain. Vitals in the ER were temperature 37.1? C, pulse 118, respiratory rate 16, blood pressure 140/70, pulse ox 98 on room air. Initial white blood cell count 11.5, hemoglobin 11.8, hematocrit 36.2, platelets 231. BMP relatively within normal limits with exception of glucose at 340. Lactic acid normal. UA suspicious for UTI. CT of the abdomen pelvis showed diffuse urothelial thickening involving the ureters in the bladder consistent with cystitis and pyelitis. Patient was admitted to the hospitalist service and started on ceftriaxone. Her urine culture grew Enterococcus species and she was transition to ertapenem. Her abdominal pain was slow to improve and GI was consulted and performed an EGD which showed esophagitis as above. The patient was eating and drinking well and the pain was resolving the day of discharge. Since the patient was doing well, she is to finish her ertapenem outpatient at the facility and she was started on a PPI. Patient was educated about the worrisome signs and symptoms come back to emergency room for was discharged stable condition with follow-up to the primary care physician and GI doctor. Status at Discharge Overall status at discharge: patient is progressing back to baseline Time Spent with Patient Time attestation: Total time spent providing and/or coordinating discharge services:34 min Time spent: Greater than 30 minutes Exam Narrative: Exam Narrative: General:
== END 2020-08-25 18:05 | DRG 872 ==
LOC: ANHED 08-19 00:42 → ANH3MEDSUR 08-19 01:16
PROVIDERS: Internal Medicine Gastroenterology; Physician Assistant; Admitting Provider Family Medicine; Emergency Provider Emergency Medicine; PCP Family Medicine; Visit Provider Internal Medicine
PROC: 0DJ08ZZ Inspection of Upper Intestinal Tract, Via Natural or Artificial Opening Endoscopic (ICD-10-PCS; CPT 43235; principal; 2020-08-25 11:30)
DX: A41.9 Sepsis, unspecified organism (principal); N10 Acute pyelonephritis; Z16.19 Resistance to other specified beta lactam antibiotics; K22.10 Ulcer of esophagus without bleeding; B96.20 Unspecified Escherichia coli [E. coli] as the cause of diseases classified elsewhere; Z20.822 Contact with and (suspected) exposure to COVID-19; K21.00 Gastro-esophageal reflux disease with esophagitis, without bleeding; K29.80 Duodenitis without bleeding; E11.9 Type 2 diabetes mellitus without complications; I10 Essential (primary) hypertension; F03.90 Unspecified dementia, unspecified severity, without behavioral disturbance, psychotic disturbance, mood disturbance, and anxiety; M81.0 Age-related osteoporosis without current pathological fracture; F17.210 Nicotine dependence, cigarettes, uncomplicated; J44.9 Chronic obstructive pulmonary disease, unspecified; M19.90 Unspecified osteoarthritis, unspecified site; Z85.828 Personal history of other malignant neoplasm of skin; Z90.49 Acquired absence of other specified parts of digestive tract
CPT/HCPCS: 36415; 36569; 51701; 74176; 74177; 80048; 80053; 81001; 82948; 83036; 83605; 83690; 83735; 84484; 85025; 85027; 85610; 85730; 86140; 87040; 87077; 87081; 87086; 87088; 87186; 88305; 93005; 94640; 96361; 96365; 96372; 96375; 97161; 97165; 99285; A9270; C1751; C9803; G0378; J0696; J1335; J1650; J1815; J2001; J2270; J2405; J2704; J7030; J7120; Q9967; U0003; U0005

== ENCOUNTER 2020-12-02 09:12 | Inpatient (IN) | payer MEDICARE, MEDICAID, SELFPAY ==
[2020-12-02] VITALS (18 sets, daily range): BP systolic 109–165; BP diastolic 62–99; PULSE 89–106; RESP 14–27; TEMP 36.1–37.2; O2SAT 92–99; BMI 26.9
--- NOTE | ~2020-12-02 | XR_ITS ---
XR chest 1V portable DATE: 12/04/2020 12:58 INDICATION: Transient alteration of awareness TECHNIQUE: Portable AP chest on 12/04/2020 1246 hours COMPARISON: 12/02/2020 portable AP chest FINDINGS: Heart size appears within normal range. No hilar or mediastinal enlargement is evident. Mild discoid atelectasis or scarring at the lung bases, right greater than left. No pulmonary consoli dation, pleural effusion, pulmonary vascular congestion or pneumothorax. Diffuse osteopenia. There is degenerative spurring and scoliosis of the spine. IMPRESSION: Mild discoid atelectasis or scarring at the lung bases, right greater than left Reviewed, dictated and finalized at location B. IMPRESSION: Mild discoid atelectasis or scarring at the lung bases, right great er than left
--- NOTE | ~2020-12-02 | XR_ITS ---
EXAMINATION: XR chest 1V portable DATE: 12/02/2020 09:38 INDICATION: Altered mental status. TECHNIQUE: A single frontal view of the chest was obtained. COMPARISON: Chest single view 12/11/2014, CT abdomen and pelvis 08/23/2020 FINDINGS: There is mild atelectasis in the lower lung zones. No pleural effusion or pneumothorax. The heart size is normal. IMPRESSION: 1. Mild atelectasis in the lower lung zones. Reviewed, dictated and finalized at location A.
--- NOTE | ~2020-12-02 | CT_ITS ---
EXAMINATION: CT brain wo con DATE: 12/04/2020 13:26 INDICATION: Altered mental state. Confusion. TECHNIQUE: Computed tomography (CT) of the head was performed without intravenous contrast. The mA wa s adjusted according to patient size. Iterative reconstruction technique was employed. Exam dose: 52 9.67 mGy-cm total exam DLP. COMPARISON: 03/31/2010 MRI brain/brainstem 05/03/2006 CT brain FINDINGS: Bilateral carotid siphon internal carotid artery calcifications. There is nonspecific diminished attenuation of the cerebral white matter, likely due to chronic small vessel ischemic changes. No intracranial mass lesion or hemorrhage or cerebrovascular accident is evident. No midline shift or mass effects. There is moderate cerebral volume loss, consistent with patient age. No subdural or epidural hematoma. The mastoid air cells and included paranasal sinuses are normally developed and aerated. No fracture or bone destruction of the cranial vault. IMPRESSION: Cerebral atherosclerosis and chronic small vessel ischemic changes of the cerebral white matter No acute intracranial finding Reviewed, dictated and finalized at Location A. Reviewed, dictated and finalized at location B.
--- NOTE | 2020-12-02 09:18 | ECG_ITS ---
Measurements Intervals [place] Rate: 91 P: 0 WI: 136 QRS: 16 QRSD: 86 T: 75 QT: 369 QTc: 456 Interpretive Statements SINUS RHYTHM WITH SINUS ARRHYTHMIA MINIMAL Q WAVES- INFERIOR LEADS BORDERLINE ST-T WAVE ABNORMALITY- HIGH LATERAL LEADS BASELINE ARTIFACT- I, II, III, AVR, AVL, AVF, V1, V3-V6 BORDERLINE ECG Electronically Signed On 12-02-2020 10:12:11 CDT by Latrell Mayers D.O.
[2020-12-02 10:03] LABS: Basophils Absolute Auto 0.1 K/mm3 (0.0-0.1); Basophils Percent Auto 0.7 % (0.2-1.2); Eosinophils Absolute Auto 0.1 K/mm3 (0-0.3); Eosinophils Percent Auto 0.6 % (0-4.4); Hematocrit 40.4 % (37.0-47.0); Hemoglobin 12.7 g/dL (12.0-15.0); Immature Granulocyte Absolute 0.04 K/mm3 (0.00-0.031); Immature Granulocyte Percent A 0.5 % (0-0.5); Lymphocytes Absolute Auto 2.31 K/mm3 (0.9-3.2); Lymphocytes Percent Auto 27.2 % (18.3-44.2); Mean Corpuscular HGB Conc 31.4 g/dl (32-36); Mean Corpuscular Hemoglobin 28.3 pg (26-34); Mean Corpuscular Volume 90.2 fl (80-100); Mean Platelet Volume 11.1 fl (7.4-10.4); Monocytes Absolute Auto 0.6 K/mm3 (0.1-0.6); Monocytes Percent Auto 6.9 % (2.6-8.5); Neutrophils Absolute Auto 5.4 K/mm3 (1.3-6.7); Neutrophils Percent Auto 64.1 % (45.5-73.1); Platelet Count Result 198 k/mm3 (150-375); Red Blood Count 4.48 M/mm3 (4.2-5.4); Red Cell Distribution Width 13.2 % (11.5-14.5); White Blood Count 8.5 K/mm3 (4.5-10.0)
[2020-12-02 10:25] LABS: INR 0.9; Prothrombin Time 12.5 Seconds (11.1-14.7); Troponin I < 0.012 ng/mL (0.000-0.034)
[2020-12-02 10:27] LABS: Partial Thromboplastin Time 26.7 SECONDS (22.3-36.8)
[2020-12-02 10:28] LABS: Add Urine Microscopic? YES; Appearance Urine Cloudy (Clear); Bacteria Urine 1+ /hpf; Bilirubin Urine Negative (Negative); Color Urine Yellow (Yellow); Glucose Urine UA Negative (Negative); Ketones Urine Trace mg/dL (Negative); Leukocyte Esterase Ur 3+ LEU/UL (Negative); Mucus Urine Rare /lpf; Nitrate Urine Negative (Negative); Protein Urine 1+ mg/dL (Negative); Specific Grav Ur 1.014 (1.001-1.035); Squamous Epithelial Cell Urine Rare /hpf (Few); Urobilinogen Urine Negative mg/dL (<2.0); WBC Clumps Urine Present /HPF; WBC Urine >75 /hpf
[2020-12-02 10:29] LABS: Alanine Aminotransferase 25 U/L (4-35); Albumin Level 4.4 g/dL (3.5-5.1); Alkaline Phosphatase 100 U/L (38-126); Anion Gap 13 mmol/L (8-16); Aspartate Amino Transferase 35 U/L (14-36); Bilirubin,Total 0.5 mg/dL (0.2-1.3); Blood Urea Nitrogen 12 mg/dL (7-17); CRP < 0.5 mg/dL (<1.0); Calcium 10.4 mg/dL (8.4-10.2); Carbon Dioxide 23 mmol/L (22-30); Chloride 101 mmol/L (98-107); Estimated Glomerular Filt Rate > 60; Glucose 185 mg/dL (65-105); Lipase 45 U/L (23-300); Potassium 4.3 mmol/L (3.4-5.0); Sodium 137 mmol/L (137-145)
[2020-12-02 10:36] LABS: Blood Urine Negative (Negative)
[2020-12-02] MEDS: SODIUM CHLORIDE 0.9% IV 1,000 ML 999 ML IV CONT (10:42)
--- NOTE | 2020-12-02 10:52 | ED.GENADULT ---
HPI - General Adult General Chief complaint: Altered Mental Status Stated complaint: AMS Source: patient, EMS, RN notes reviewed and old records reviewed Mode of arrival: EMS Limitations: dementia History of Present Illness HPI narrative: Patient is a 80-year-old female who presents to emergency department for evaluation of altered mentation from fdc on arrival patient is alert and oriented to person place and month. Patient is amnestic to reason for being at the emergency department. Patient has no complaints. Related Data Home Medications Medication Instructions Recorded Confirmed metformin 1,000 mg PO DAILY 07/22/19 08/19/20 Lantus Solostar U-100 Insulin 5 unit SUBCUT DAILY 08/19/20 08/19/20 Lantus Solostar U-100 Insulin 20 unit SUBCUT HS 08/19/20 08/19/20 acetaminophen 650 mg PO Q6H PRN 08/19/20 08/19/20 ascorbic acid (vitamin C) 1,000 mg PO DAILY 08/19/20 08/19/20 calcium carbonate-vitamin D3 1 cap PO BID 08/19/20 08/19/20 docusate sodium 100 mg PO DAILY PRN 08/19/20 08/19/20 insulin aspart U-100 [Novolog 0 unit SUBCUT TID 08/19/20 08/19/20 Flexpen U-100 Insulin] insulin aspart U-100 [Novolog 5 unit SUBCUT TID 08/19/20 08/19/20 Flexpen U-100 Insulin] mirtazapine 7.5 mg PO DAILY 08/19/20 08/19/20 multivitamin with minerals 1 tablet PO DAILY 08/19/20 08/19/20 polyethylene glycol 3350 [Miralax] 17 g PO DAILY PRN 08/19/20 08/19/20 zinc acetate 50 mg PO DAILY 08/19/20 08/19/20 Allergies Allergy/AdvReac Type Severity Reaction Status Date / Time adhesive tape Allergy Mild Rash Verified 08/25/20 09:38 ibuprofen [From Motrin] AdvReac Mild Nausea and Verified 08/25/20 09:38 Vomiting morphine AdvReac Mild Nausea and Verified 08/25/20 09:38 Vomiting Review of Systems Review of Systems: All systems reviewed & are unremarkable except as noted in HPI and below ROS unobtainable: Yes unobtainable due to mental status PMFSH Past Medical History Medical History Arthritis Bronchitis Cataract She said 1 was removed and the other 1 she did not. She states she can see better the eye that was not extracted. Compression fracture T11 20% Congenital cervical spine stenosis Unable to have surgery due to high risk COPD (chronic obstructive pulmonary disease) DM II (diabetes mellitus, type II), controlled History of skin cancer SQ cell lt lateral knee. Hx of fracture of rib Osteoporosis Screening for malignant neoplasm of colon Surgical History Surgical History History of cholecystectomy Previous section X3 Family History Family History Sibling Diabetes mellitus Other Diabetes mellitus Hypertension Mother Diabetes mellitus Father Lung cancer Sibling Diabetes mellitus Kidney failure Social History Social History Social History: Patient quit smoking last year but smoked for 45 years prior to that. She does not drink alcohol or do drugs. She would like her surrogate decision maker to be her daughter Annie. She would like to be a full code Smoking packs per day: 1 Smoking cigarettes per day: 20.0 Years smoked: 30 Smoking pack-years: 30.00 Smoking status: Unknown if ever smoked Tobacco type: cigarettes Second hand tobacco smoke exposure: Yes Alcohol intake: unknown Substance use: unknown Gender identity (if verbalized by the patient): Female Spiritual care concerns: No Agree to blood products: Yes Exam Narrative: Exam Narrative: GENERAL: Well-appearing, well-nourished, and in no acute distress. HEAD: Normocephalic, atraumatic. EYES: PERRLA and EOMI. ENT: Nares clear, no rhinorrhea or epistaxis. Mucous membranes moist. NECK: Supple. No adenopathy or masses. CHEST: Clear to auscultation. No respiratory distress. No wheezes
[2020-12-02 13:00] LABS: Reflex Lactic Acid Yes or No Add Lactic
--- NOTE | 2020-12-02 14:15 | ADMGEN ---
This patient, Daniela Arrieta, was admitted to Medical Room 345-01. Patient/family oriented to hospital policies and general routines including ID bracelet, bed and alarms, visiting hours, pain management, procedures, bathroom and other care routines, personal items, smoking policy, room service/diet, and visiting hours. Information on how to activate the Rapid Response Team has been discussed. Patient/Family are encouraged to report perceived risks to care and to ask questions if they do not understand what they are told or what they should do.
[2020-12-02 14:25] LABS: Lactic Acid 1.7 mmol/L (0.7-2.1)
[2020-12-02] MEDS: LACTATED RINGERS 1,000 ML 75 ML IV CONT (16:28)
--- NOTE | 2020-12-02 16:44 | PC.NURSE ---
Home meds confirmed with Leonila at [facility] per recalled external med list.
[2020-12-02 17:36] LABS: Glucose Point of Care 146 mg/dl (65-105)
[2020-12-02] MEDS: FAMOTIDINE 20 MG/2 ML VIAL IV PUSH (20:02)
[2020-12-02 21:30] LABS: Glucose Point of Care 183 mg/dl (65-105)
--- NOTE | 2020-12-02 21:55 | PM.IMHP ---
H&P: HPI History of Present Illness Date/Time: 12/02/20 22:20 Chief Complaint: Altered mental status Narrative: 72-year-old female with past medical history diabetes and hypertension who presented to the ER via EMS from [facility] due to altered mental status. According to triage note patient is usually alert and oriented times Three but at the residential was alert oriented x2. When she arrived to the ER she knew person place and month but could not remember why she was sent to the ER. She denies any acute complaints or symptoms. She does have chronic urinary incontinence. she denies any dysuria. She has been afebrile since presentation. She has had a mild nonproductive cough. She was just tested for COVID yesterday at the residential. She completed her COVID vaccine series on June 16, 2020. She is alert oriented to person, month, year, and fact that she is in the hospital. She thought the president was Chidi Kayee. Review of Systems Review of Systems: Narrative: 12 systems were reviewed with pertinent positives and negatives per HPI. Except as documented in the HPI, all other systems were reviewed and are negative. however, patient is not the best historian due to her history of dementia. [facility] Past Medical History Medical History (Updated 12/03/20 @ 01:52 by Radha Tran DO) Arthritis Bronchitis Cataract She said 1 was removed Closed fracture of tibial plateau (07/2020) managed conservatively Compression fracture T11 20% COPD (chronic obstructive pulmonary disease) Dementia DM II (diabetes mellitus, type II), controlled Duodenitis (08/2020) History of skin cancer SQ cell lt lateral knee. Hx of fracture of rib Osteoporosis Screening for malignant neoplasm of colon Stenosis of cervical spine severe-- declined surgery in the Vitamin D deficiency Surgical History Surgical History (Updated 12/02/20 @ 22:05 by Radha Tran DO) History of cholecystectomy History of esophagogastroduodenoscopy (EGD) (08/2020) Previous section X3 Family History Family History Sibling Diabetes mellitus Other Diabetes mellitus Hypertension Mother Diabetes mellitus Father Lung cancer Sibling Diabetes mellitus Kidney failure Social History Social History (Updated 12/02/20 @ 22:07 by Radha Tran DO) Social History: Patient quit smoking last year but smoked for 45 years prior to that. She does not drink alcohol or do drugs. She would like her surrogate decision maker to be her daughter Annie. Code status: DNR/DNI Smoking packs per day: 1 Smoking cigarettes per day: 20.0 Years smoked: 30 Smoking pack-years: 30.00 Smoking status: Former smoker Tobacco type: cigarettes Second hand tobacco smoke exposure: Yes Alcohol intake: never Substance use: never Gender identity (if verbalized by the patient): Female Spiritual care concerns: No Agree to blood products: Yes Meds Home Medications and Allergies Home Medications Medication Instructions Recorded Confirmed Type lisinopril 10 mg tablet 10 mg PO DAILY #90 tablet 05/13/19 12/02/20 Rx ergocalciferol (vitamin D2) 50,000 unit PO WEEKLY #6 cap 07/24/19 12/02/20 Rx Lantus Solostar U-100 Insulin 20 unit SUBCUT HS 08/19/20 12/02/20 History acetaminophen 650 mg PO Q6H PRN 08/19/20 12/02/20 History ascorbic acid (vitamin C) 1,000 mg PO DAILY 08/19/20 12/02/20 History calcium carbonate-vitamin D3 1 cap PO BID 08/19/20 12/02/20 History docusate sodium 100 mg PO DAILY PRN 08/19/20 12/02/20 History insulin aspart U-100 [Novolog 0 unit SUBCUT TID 08/19/20 12/02/20 History Flexpen U-100 Insulin] insulin aspart U-100 [Novolog 5 unit SUBCUT TID 08/19/20 12/02/20 History Flexpen U-100 Insulin] mirtazapine 7.5 mg PO DAILY 08/19/20 12/02/20 History multivitamin with minerals 1 tablet PO DAILY 08/19/20 12/02/20 History polyethylene glycol 33
[2020-12-02] MEDS: INSULIN GLARGINE (*BKC) 100 UNITS/ML 20 UNITS SUB-Q (22:59)
[2020-12-03 05:35] VITALS: BP 134/58; PULSE 83; RESP 18; TEMP 36.3; O2SAT 93
[2020-12-03] MEDS: LACTATED RINGERS 1,000 ML 75 ML IV CONT ×2 (06:11→20:49)
[2020-12-03 06:15] LABS: Basophils Absolute Auto 0.1 K/mm3 (0.0-0.1); Basophils Percent Auto 0.9 % (0.2-1.2); Eosinophils Absolute Auto 0.1 K/mm3 (0-0.3); Eosinophils Percent Auto 1.2 % (0-4.4); Hematocrit 35.2 % (37.0-47.0); Hemoglobin 11.1 g/dL (12.0-15.0); Immature Granulocyte Absolute 0.03 K/mm3 (0.00-0.031); Immature Granulocyte Percent A 0.4 % (0-0.5); Lymphocytes Percent Auto 33.6 % (18.3-44.2); Mean Corpuscular HGB Conc 31.5 g/dl (32-36); Mean Corpuscular Hemoglobin 28.4 pg (26-34); Mean Platelet Volume 11.2 fl (7.4-10.4); Monocytes Absolute Auto 0.6 K/mm3 (0.1-0.6); Monocytes Percent Auto 8.2 % (2.6-8.5); Neutrophils Absolute Auto 3.8 K/mm3 (1.3-6.7); Neutrophils Percent Auto 55.7 % (45.5-73.1); Platelet Count Result 188 k/mm3 (150-375); Red Blood Count 3.91 M/mm3 (4.2-5.4); Red Cell Distribution Width 13.2 % (11.5-14.5); White Blood Count 6.9 K/mm3 (4.5-10.0)
[2020-12-03 06:32] LABS: Alanine Aminotransferase 17 U/L (4-35); Albumin Level 3.6 g/dL (3.5-5.1); Alkaline Phosphatase 86 U/L (38-126); Anion Gap 10 mmol/L (8-16); Aspartate Amino Transferase 21 U/L (14-36); Bilirubin,Total 0.3 mg/dL (0.2-1.3); Blood Urea Nitrogen 8 mg/dL (7-17); Calcium 9.7 mg/dL (8.4-10.2); Carbon Dioxide 23 mmol/L (22-30); Chloride 104 mmol/L (98-107); Estimated Glomerular Filt Rate > 60; Glucose 161 mg/dL (65-105); Potassium 3.8 mmol/L (3.4-5.0); Sodium 137 mmol/L (137-145)
[2020-12-03] MEDS: MIRTAZAPINE 7.5 MG TABLET PO (06:34)
[2020-12-03 07:57] LABS: Glucose Point of Care 173 mg/dl (65-105)
[2020-12-03] MEDS: metFORMIN HCL 500 MG TABLET 1000 MG BY MOUTH (08:22)
[2020-12-03] MEDS: ZINC SULFATE 220 MG CAPSULE PO (08:23)
[2020-12-03] MEDS: PANTOPRAZOLE 40 MG TABLET PO (08:23)
[2020-12-03] MEDS: FAMOTIDINE 20 MG/2 ML VIAL IV PUSH ×2 (08:23→20:44)
[2020-12-03] MEDS: ENOXAPARIN 40 MG/0.4 ML SYRINGE SUB-Q (08:23)
[2020-12-03 08:25] VITALS: BP 140/64; PULSE 83; RESP 18; TEMP 36.1; O2SAT 94
[2020-12-03] MEDS: lisinopriL 10 MG TABLET PO (08:27)
[2020-12-03] MEDS: INSULIN ASPART (*BKC) 100 UNITS/ML SUB-Q (11:49)
[2020-12-03 11:50] LABS: Glucose Point of Care 247 mg/dl (65-105)
--- NOTE | 2020-12-03 13:38 | PC.NURSE ---
On 12/03/20, the student, [Tamra Kaminski ], provided care and completed [facility] documentation on this patient. I have reviewed the student's documentation and agree with the findings.
[2020-12-03 14:26] VITALS: BP 123/60; PULSE 78; RESP 16; TEMP 36.1; O2SAT 97
--- NOTE | 2020-12-03 15:45 | PM.IMPN ---
Progress Note: A&P Assessment and Plan (1) Urinary tract infection: Qualifiers: Hematuria presence: with hematuria Urinary tract infection type: site unspecified Qualified Code(s): N39.0 - Urinary tract infection, site not specified; R31.9 - Hematuria, unspecified Code(s): N39.0 - Urinary tract infection, site not specified Status: Acute Assessment and Plan: ON BROAD-SPECTRUM ANTIBIOTIC AWAIT URINE CULTURE IDENTIFICATION SENSITIVITY DEESCALATE ANTIBIOTICS NEEDED SUPPORTIVE CARE (2) Acute alteration in mental status: Code(s): R41.82 - Altered mental status, unspecified Status: Acute Assessment and Plan: LIKELY SECONDARY TO UTI SUPPORTIVE CARE (3) DM II (diabetes mellitus, type II), controlled: Qualifiers: 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 Diabetes mellitus complication status: without complication Qualified Code(s): E11.9 - Type 2 diabetes mellitus without complications; Z79.4 - shelter (current) use of insulin Code(s): E11.9 - Type 2 diabetes mellitus without complications Status: Chronic Assessment and Plan: DISCONTINUED METFORMIN INSULIN SLIDING SCALE NEEDED Subjective Date/time seen: 12/03/20 15:45 Review of Systems Review of Systems: All systems reviewed & are unremarkable except as noted in HPI and below ROS unobtainable: Yes unobtainable due to mental status Exam Narrative: Exam Narrative: LAYING IN BED Const: General: comfortable, no acute distress, well developed, alert, awake and ill appearing acutely Nutritional Appearance: average body habitus Orientation/consciousness: oriented to person HENMT: Head: normal to inspection, normocephalic and atraumatic Ears: hearing grossly normal bilaterally Face and sinus: normal facial exam Eyes: General: appearance normal, both eyes and all related structures Pupils: Equal, round and reactive pupils present EOM: EOMs intact bilaterally Neck: Neck: full ROM, no lymphadenopathy and no JVD Thyroid: thyroid normal Lymphatic: no lymphadenopathy noted Resp: Effort & Inspection: normal respiratory effort and able to speak in complete sentences Auscultation: clear to auscultation bilaterally Cardio: Jugular venous distension: no JVD Rate: regular rate Rhythm: regular rhythm Heart sounds: S1 normal heart sound present and S2 normal heart sound present GI: GI Palp: Yes Soft to palpation and Yes No hepatosplenomegaly present : General: Yes deferred Skin: Rashes: no rashes Wounds: no wounds Neuro: General: oriented to person, CN's II-XI intact bilaterally and other ( DELIRIOUS) Cranial nerves: Yes CN's II-XII intact bilaterally and Yes Equal, round and reactive pupils present Cognition (Neuro): abnormal cognition Speech: normal speech Gait exam (Neuro): Unable to assess gait Motor exam (neuro): 5/5 motor strength present throughout Extrem: General: normal to inspection, full ROM, no joint enlargement and no pedal edema Objective Data Vital Signs Vital Signs: Vital Signs - 24 hr 12/02/20 21:48 12/03/20 05:35 12/03/20 08:25 Temperature 97.0 F L 97.3 F L 97 F L Pulse Rate 89 83 83 Respiratory Rate 18 18 18 Blood Pressure 117/70 134/58 L 140/64 Pulse Oximetry 92 93 94 12/03/20 14:26 Temperature 96.9 F L Pulse Rate 78 Respiratory Rate 16 Blood Pressure 123/60 Pulse Oximetry 97 Intake/Output Intake/Output: Intake & Output 11/30/20 12/01/20 12/02/20 12/03/20 23:59 23:59 23:59 23:59 Intake Total 1440 1860 Balance 1440 1860 Meds/Results Medications: Active Medications Generic Name Dose Route Start Last Admin Trade Name Freq PRN Reason Stop Dose Admin Acetaminophen 650 mg 12/02/20 22:11 Acetaminophen 325 Mg Tablet PO Q6H PRN Pain1-3 or fever Hydrocodone Bitart/Acetaminophen 1 - 2 tab 12/02/20 22:11 Hydrocodone/Acetaminophen (*Crx) 5-325 Mg Tablet PO Q4H PRN Severe Pain
[2020-12-03 17:15] LABS: Glucose Point of Care 104 mg/dl (65-105)
[2020-12-03] MEDS: INSULIN GLARGINE (*BKC) 100 UNITS/ML 20 UNITS SUB-Q (20:43)
[2020-12-03 20:50] VITALS: BP 129/55; PULSE 79; RESP 18; TEMP 36.1; O2SAT 96
[2020-12-03 21:38] LABS: Glucose Point of Care 204 mg/dl (65-105)
[2020-12-04 06:27] VITALS: BP 144/67; PULSE 76; RESP 16; TEMP 36.1; O2SAT 98
[2020-12-04] MEDS: MIRTAZAPINE 7.5 MG TABLET PO (06:33)
[2020-12-04 07:42] LABS: Glucose Point of Care 117 mg/dl (65-105)
[2020-12-04] MEDS: ENOXAPARIN 40 MG/0.4 ML SYRINGE SUB-Q (08:50)
[2020-12-04] MEDS: ZINC SULFATE 220 MG CAPSULE PO (08:50)
[2020-12-04] MEDS: PANTOPRAZOLE 40 MG TABLET PO (08:50)
[2020-12-04] MEDS: lisinopriL 10 MG TABLET PO (08:50)
[2020-12-04] MEDS: FAMOTIDINE 20 MG/2 ML VIAL IV PUSH ×2 (08:50→20:45)
[2020-12-04] MEDS: INSULIN ASPART (*BKC) 100 UNITS/ML SUB-Q ×3 (09:06→18:51)
--- NOTE | 2020-12-04 09:08 | PM.IMPN ---
Progress Note: A&P Assessment and Plan (1) Urinary tract infection: Qualifiers: Hematuria presence: with hematuria Urinary tract infection type: site unspecified Qualified Code(s): N39.0 - Urinary tract infection, site not specified; R31.9 - Hematuria, unspecified Code(s): N39.0 - Urinary tract infection, site not specified Status: Acute Assessment and Plan: Continue BROAD-SPECTRUM ANTIBIOTIC Pending UC ID SENSITIVITY DEESCALATE ANTIBIOTICS NEEDED SUPPORTIVE CARE (2) Acute alteration in mental status: Code(s): R41.82 - Altered mental status, unspecified Status: Acute Assessment and Plan: LIKELY SECONDARY TO UTI CT of brain with no acute follow clinical course supportive care (3) DM II (diabetes mellitus, type II), controlled: Qualifiers: Diabetes mellitus complication status: without complication Diabetes mellitus correction insulin use: with correction use Qualified Code(s): E11.9 - Type 2 diabetes mellitus without complications; 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 denied any new complaints Review of Systems Review of Systems: All systems reviewed & are unremarkable except as noted in HPI and below Exam Const: General: no acute distress, alert and awake Orientation/consciousness: patient oriented x3 HENMT: Head: normocephalic and atraumatic Ears: hearing grossly normal bilaterally and external ears normal Face and sinus: face symmetric Mouth: Yes Normal oral and palatal mucosa present Eyes: Pupils: Equal, round and reactive pupils present EOM: EOMs intact bilaterally Neck: Neck: full ROM, trachea midline and no JVD Thyroid: thyroid normal Chest: Chest palpation & inspection: normal inspection of the chest Resp: Effort & Inspection: normal respiratory effort Auscultation: clear to auscultation bilaterally Cardio: Jugular venous distension: no JVD Rate: regular rate Rhythm: regular rhythm Heart sounds: S1 normal heart sound present and S2 normal heart sound present GI: Inspection: normal to inspection GI Palp: Yes Soft to palpation Percussion: Yes normal to percussion Auscultation: normal bowel sounds : General: Yes no CVA tenderness Back/Spine/Pelvis: Back: no CVA tenderness Skin: General skin exam: normal color Rashes: no rashes Neuro: General: patient oriented x3 and CN's II-XI intact bilaterally Cranial nerves: Yes Equal, round and reactive pupils present Speech: normal speech Psych: Appearance: grossly normal Affect: normal affect Judgement: Good judgement present (Psych) Objective Data Vital Signs Vital Signs: Vital Signs - 24 hr 12/03/20 14:26 12/03/20 20:50 12/04/20 06:27 Temperature 36.1 C L 36.1 C L 36.1 C L Pulse Rate 78 79 76 Respiratory Rate 16 18 16 Blood Pressure 123/60 129/55 L 144/67 H Pulse Oximetry 97 96 98 Intake/Output Intake/Output: Intake & Output 12/01/20 12/02/20 12/03/20 12/04/20 23:59 23:59 23:59 23:59 Intake Total 1440 3250 400 Balance 1440 3250 400 Meds/Results Medications: Active Medications Generic Name Dose Route Start Last Admin Trade Name Junaid PRN Reason Stop Dose Admin Acetaminophen 650 mg 12/02/20 22:11 Acetaminophen 325 Mg Tablet PO Q6H PRN Pain1-3 or fever Hydrocodone Bitart/Acetaminophen 1 - 2 tab 12/02/20 22:11 Hydrocodone/Acetaminophen (*Crx) 5-325 Mg Tablet PO Q4H PRN Severe Pain (Scale Score 7-10) Baclofen 10 mg 12/02/20 22:11 Baclofen 10 Mg Tablet PO BIDWM PRN muscle spasms Calcium Carbonate 500 mg 12/03/20 09:00 12/04/20 08:50 Calcium/Vitamin D 500 Mg Tablet PO 500 mg BID TORI Administration Dextrose 12.5 gm 11/19
[2020-12-04 09:44] VITALS: O2SAT 90
--- NOTE | 2020-12-04 11:26 | ECG_ITS ---
Measurements Intervals [place] Rate: 75 P: 48 RI: 159 QRS: 36 QRSD: 81 T: 69 QT: 378 QTc: 424 Interpretive Statements SINUS RHYTHM MINIMAL Q WAVES- INFERIOR LEADS BORDERLINE ECG Electronically Signed On 12-04-2020 12:43:13 CDT by Latrell Mayers D.O.
[2020-12-04 11:40] LABS: Hematocrit 35.2 % (37.0-47.0); Hemoglobin 10.9 g/dL (12.0-15.0); Mean Corpuscular Hemoglobin 28.6 pg (26-34); Mean Corpuscular Volume 92.4 fl (80-100); Mean Platelet Volume 10.9 fl (7.4-10.4); Platelet Count Result 162 k/mm3 (150-375); Red Blood Count 3.81 M/mm3 (4.2-5.4); Red Cell Distribution Width 13.4 % (11.5-14.5); White Blood Count 6.9 K/mm3 (4.5-10.0)
[2020-12-04 12:01] LABS: Anion Gap 6 mmol/L (8-16); Blood Urea Nitrogen 6 mg/dL (7-17); Calcium 9.4 mg/dL (8.4-10.2); Carbon Dioxide 27 mmol/L (22-30); Chloride 107 mmol/L (98-107); Estimated Glomerular Filt Rate > 60; Glucose 108 mg/dL (65-105); Potassium 3.6 mmol/L (3.4-5.0); Sodium 140 mmol/L (137-145)
--- NOTE | 2020-12-04 13:28 | PC.NURSE ---
On 12/04/20, the student, [ Tamra Kaminski], provided care and completed [facility] documentation on this patient. I have reviewed the student's documentation and agree with the findings.
[2020-12-04 14:07] VITALS: BP 129/60; PULSE 64; RESP 19; TEMP 36.1; O2SAT 96
[2020-12-04 14:13] LABS: Glucose Point of Care 174 mg/dl (65-105)
[2020-12-04 17:41] LABS: Glucose Point of Care 189 mg/dl (65-105)
[2020-12-04] MEDS: LACTATED RINGERS 1,000 ML 75 ML IV CONT (17:44)
[2020-12-04] MEDS: INSULIN GLARGINE (*BKC) 100 UNITS/ML 20 UNITS SUB-Q (20:46)
[2020-12-04 21:30] LABS: Glucose Point of Care 182 mg/dl (65-105)
[2020-12-04 22:00] VITALS: BP 100/88; PULSE 71; RESP 21; TEMP 36.2; O2SAT 100
[2020-12-05 06:00] VITALS: BP 135/65; PULSE 84; RESP 20; TEMP 36.1; O2SAT 98
[2020-12-05] MEDS: MIRTAZAPINE 7.5 MG TABLET PO (06:18)
[2020-12-05 08:09] LABS: Glucose Point of Care 164 mg/dl (65-105)
[2020-12-05] MEDS: INSULIN ASPART (*BKC) 100 UNITS/ML SUB-Q ×3 (08:30→17:01)
[2020-12-05] MEDS: ENOXAPARIN 40 MG/0.4 ML SYRINGE SUB-Q (08:32)
[2020-12-05] MEDS: LACTATED RINGERS 1,000 ML 75 ML IV CONT (08:32)
[2020-12-05] MEDS: ZINC SULFATE 220 MG CAPSULE PO (08:32)
[2020-12-05] MEDS: DOCUSATE SODIUM 100 MG CAPSULE PO (08:32)
[2020-12-05] MEDS: lisinopriL 10 MG TABLET PO (08:32)
[2020-12-05] MEDS: FAMOTIDINE 20 MG/2 ML VIAL IV PUSH (08:32)
[2020-12-05] MEDS: PANTOPRAZOLE 40 MG TABLET PO (08:32)
--- NOTE | 2020-12-05 08:37 | P.PNIM_ITS ---
Progress Note: A&P Assessment and Plan (1) Urinary tract infection: Qualifiers: Hematuria presence: with hematuria Urinary tract infection type: site unspecified Qualified Code(s): N39.0 - Urinary tract infection, site not specified; R31.9 - Hematuria, unspecified Code(s): N39.0 - Urinary tract infection, site not specified Status: Acute Assessment and Plan: * Continue Imipenem for now * Organism identified is Enterococcus species * will consider changing antibiotics to vancomycin id symptoms worsen * SUPPORTIVE CARE * strict I&Os (2) Acute alteration in mental status: Code(s): R41.82 - Altered mental status, unspecified Status: Acute Assessment and Plan: * LIKELY SECONDARY TO UTI * seems to be is resolved at this time * CT of brain with no acute * follow clinical course * supportive care (3) DM II (diabetes mellitus, type II), controlled: Qualifiers: Diabetes mellitus complication status: without complication 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 * adjust medications as needed (4) GERD (gastroesophageal reflux disease): Code(s): K21.9 - Gastro-esophageal reflux disease without esophagitis Status: Acute Assessment and Plan: * continue home Protonix 40 mg q.day * Discontinue Famotidine q.12 IV (5) Hypertension: Code(s): I10 - Essential (primary) hypertension Status: Chronic Assessment and Plan: * blood pressure 135/65 * continue home lisinopril 10 mg p.o. daily * trend blood pressure * adjust medications as needed (6) Weakness: Code(s): R53.1 - Weakness Status: Acute Assessment and Plan: * history of compression fracture and tibial fracture * PT and OT consulted * activity for patient to go in chair * increase tolerated Time Spent With Patient Time with patient: Greater than 35 minutes Subjective Date/time seen: 12/05/20 07:25 Interval history: 72-year-old female with past medical history diabetes and hypertension who presented to the ER via EMS from [facility] due to altered mental status. Patient denies any complaints this morning and states that she feels great. I asked her about getting up out of bed and walking she stated that she does not walk. When asked if that is new she stated no she has had that for quite some time. There was a notable fractures in her past medical history including compression fracture and tibial fracture. Ordered PT and OT to come and evaluate her. Patient denies chest pain, shortness of breath, nausea and vomiting, fatigue and weakness. Review of Systems Review of Systems: All systems reviewed & are unremarkable except as noted in HPI and below Exam Const: General: comfortable, no acute distress, well developed, alert, awake and ill appearing acutely Nutritional Appearance: average body habitus Orientation/consciousness: oriented to person, oriented to place, orien
--- NOTE | 2020-12-05 08:37 | PM.IMPN ---
Progress Note: A&P Assessment and Plan (1) Urinary tract infection: Qualifiers: Hematuria presence: with hematuria Urinary tract infection type: site unspecified Qualified Code(s): N39.0 - Urinary tract infection, site not specified; R31.9 - Hematuria, unspecified Code(s): N39.0 - Urinary tract infection, site not specified Status: Acute Assessment and Plan: Continue Imipenem for now Organism identified is Enterococcus species will consider changing antibiotics to vancomycin id symptoms worsen SUPPORTIVE CARE strict I&Os (2) Acute alteration in mental status: Code(s): R41.82 - Altered mental status, unspecified Status: Acute Assessment and Plan: LIKELY SECONDARY TO UTI seems to be is resolved at this time CT of brain with no acute follow clinical course supportive care (3) DM II (diabetes mellitus, type II), controlled: Qualifiers: Diabetes mellitus complication status: without complication Diabetes mellitus intermission coordinator insulin use: with intermission coordinator use Qualified Code(s): E11.9 - Type 2 diabetes mellitus without complications; Z79.4 - buttermaker (current) use of insulin Code(s): E11.9 - Type 2 diabetes mellitus without complications Status: Chronic Assessment and Plan: glucose on labs 108 Holding METFORMIN and pre meal aspart continue home Lantus 20 units subcu HS INSULIN SLIDING SCALE NEEDED trend labs labs in a.m. adjust medications as needed (4) GERD (gastroesophageal reflux disease): Code(s): K21.9 - Gastro-esophageal reflux disease without esophagitis Status: Acute Assessment and Plan: continue home Protonix 40 mg q.day Discontinue Famotidine q.12 IV (5) Hypertension: Code(s): I10 - Essential (primary) hypertension Status: Chronic Assessment and Plan: blood pressure 135/65 continue home lisinopril 10 mg p.o. daily trend blood pressure adjust medications as needed (6) Weakness: Code(s): R53.1 - Weakness Status: Acute Assessment and Plan: history of compression fracture and tibial fracture PT and OT consulted activity for patient to go in chair increase tolerated Time Spent With Patient Time with patient: Greater than 35 minutes Subjective Date/time seen: 12/05/20 07:25 Interval history: 72-year-old female with past medical history diabetes and hypertension who presented to the ER via EMS from [facility] due to altered mental status. Patient denies any complaints this morning and states that she feels great. I asked her about getting up out of bed and walking she stated that she does not walk. When asked if that is new she stated no she has had that for quite some time. There was a notable fractures in her past medical history including compression fracture and tibial fracture. Ordered PT and OT to come and evaluate her. Patient denies chest pain, shortness of breath, nausea and vomiting, fatigue and weakness. Review of Systems Review of Systems: All systems reviewed & are unremarkable except as noted in HPI and below Exam Const: General: comfortable, no acute distress, well developed, alert, awake and ill appearing acutely Nutritional Appearance: average body habitus Orientation/consciousness: oriented to person, oriented to place, oriented to time and patient oriented x3 Limitations: no limitations HENMT: Head: normal to inspection, normocephalic and atraumatic Ears: hearing grossly normal bilaterally and external ears normal Face and sinus: normal facial exam and face symmetric Mouth: Yes Normal oral and palatal mucosa present Eyes: General: appearance normal, both eyes and all related structures Pupils: Equal, round and reactive pupils present EOM: EOMs intact bilaterally Neck: Neck: full ROM, no lymphadenopathy, trachea midline and no JVD
[2020-12-05 12:36] LABS: Glucose Point of Care 184 mg/dl (65-105)
[2020-12-05 14:00] VITALS: BP 146/59; PULSE 71; RESP 20; TEMP 36.1; O2SAT 96
--- NOTE | 2020-12-05 14:07 | PCOTNOTE ---
OT evaluation attempted. Patient refusing therapy at this time. Will attempt at later time
--- NOTE | 2020-12-05 14:51 | PCPTNOTE ---
Attempted PT evaluation x 2, pt refused. Will attempt again at a later time.
[2020-12-05 16:59] LABS: Glucose Point of Care 150 mg/dl (65-105)
[2020-12-05] MEDS: INSULIN GLARGINE (*BKC) 100 UNITS/ML 20 UNITS SUB-Q (20:21)
[2020-12-05 20:24] LABS: Glucose Point of Care 186 mg/dl (65-105)
[2020-12-05 22:00] VITALS: BP 143/61; PULSE 70; RESP 20; TEMP 37.1; O2SAT 98
[2020-12-06] MEDS: LACTATED RINGERS 1,000 ML 75 ML IV CONT (04:28)
[2020-12-06 06:00] VITALS: BP 127/58; PULSE 74; RESP 18; TEMP 36.9; O2SAT 97
[2020-12-06] MEDS: MIRTAZAPINE 7.5 MG TABLET PO (06:00)
[2020-12-06 06:35] LABS: Hematocrit 33.7 % (37.0-47.0); Hemoglobin 10.5 g/dL (12.0-15.0); Mean Corpuscular HGB Conc 31.2 g/dl (32-36); Mean Corpuscular Hemoglobin 28.4 pg (26-34); Mean Corpuscular Volume 91.1 fl (80-100); Mean Platelet Volume 10.9 fl (7.4-10.4); Platelet Count Result 154 k/mm3 (150-375); Red Cell Distribution Width 13.2 % (11.5-14.5); White Blood Count 7.1 K/mm3 (4.5-10.0)
[2020-12-06 06:45] LABS: Alanine Aminotransferase 14 U/L (4-35); Albumin Level 3.3 g/dL (3.5-5.1); Alkaline Phosphatase 90 U/L (38-126); Anion Gap 7 mmol/L (8-16); Aspartate Amino Transferase 18 U/L (14-36); Bilirubin,Total 0.3 mg/dL (0.2-1.3); Blood Urea Nitrogen 9 mg/dL (7-17); Calcium 8.9 mg/dL (8.4-10.2); Carbon Dioxide 23 mmol/L (22-30); Chloride 107 mmol/L (98-107); Estimated Glomerular Filt Rate > 60; Glucose 194 mg/dL (65-110); Magnesium 1.8 mg/dL (1.6-2.3); Potassium 3.8 mmol/L (3.4-5.0); Sodium 137 mmol/L (137-145)
[2020-12-06 07:55] LABS: Glucose Point of Care 168 mg/dl (65-105)
[2020-12-06] MEDS: PANTOPRAZOLE 40 MG TABLET PO (08:00)
[2020-12-06] MEDS: ENOXAPARIN 40 MG/0.4 ML SYRINGE SUB-Q (08:00)
[2020-12-06] MEDS: lisinopriL 10 MG TABLET PO (08:00)
[2020-12-06] MEDS: ZINC SULFATE 220 MG CAPSULE PO (08:00)
[2020-12-06] MEDS: INSULIN ASPART (*BKC) 100 UNITS/ML SUB-Q ×4 (08:01→17:11)
--- NOTE | 2020-12-06 08:04 | P.DS_ITS ---
DS: Admitting Diagnosis Admitting Diagnosis Admitting Diagnosis: Urinary tract infection DS: Discharge Diagnosis Discharge Diagnosis (1) Urinary tract infection: Qualifiers: Hematuria presence: with hematuria Urinary tract infection type: site unspecified Qualified Code(s): N39.0 - Urinary tract infection, site not specified; R31.9 - Hematuria, unspecified Code(s): N39.0 - Urinary tract infection, site not specified Status: Acute Assessment and Plan: * Continue Imipenem for now * Organism identified is Enterococcus species * will consider changing antibiotics to vancomycin id symptoms worsen * SUPPORTIVE CARE * strict I&Os patient will be sent back to the care home with Linezolid 600mg po q12hr I did talk to patient about recognizing when she has to urinate she said she does not know when she has urinate this patient is at continuous risk for UTI due to urinary incontinence. (2) Acute alteration in mental status: Code(s): R41.82 - Altered mental status, unspecified Status: Acute Assessment and Plan: * LIKELY SECONDARY TO UTI * seems to be is resolved at this time * CT of brain with no acute * follow clinical course * supportive care (3) DM II (diabetes mellitus, type II), controlled: Qualifiers: Diabetes mellitus longterm insulin use: with longterm use Diabetes mellitus complication status: without complication Qualified Code(s): E11.9 - Type 2 diabetes mellitus without complications; Z79.4 - salvage determiner (current) use of insulin Code(s): E11.9 - Type 2 diabetes mellitus without complications Status: Chronic Assessment and Plan: * glucose on labs 194 * Holding METFORMIN and pre meal aspart * continue home Lantus 20 units subcu HS * INSULIN SLIDING SCALE NEEDED * trend labs * labs in a.m. * adjust medications as needed (4) GERD (gastroesophageal reflux disease): Code(s): K21.9 - Gastro-esophageal reflux disease without esophagitis Status: Acute Assessment and Plan: * continue home Protonix 40 mg q.day * Discontinue Famotidine q.12 IV (5) Hypertension: Code(s): I10 - Essential (primary) hypertension Status: Chronic Assessment and Plan: * blood pressure 127/58 * continue home lisinopril 10 mg p.o. daily * trend blood pressure * adjust medications as needed (6) Weakness: Code(s): R53.1 - Weakness Status: Acute Assessment and Plan: * history of compression fracture and tibial fracture * PT and OT consulted * activity for patient to go in chair * increase tolerated DS: Summary Hospital Course Hospital Course: Patient is 72-year-old female with a past medical history of diabetes hypertension who presented the ED from [place] due to altered mental status. Vital signs in the ED were temperature of 36.1? C, heart rate 89, respiratory rate 18, blood pressure 117/70, 92% on room air. Current vital signs are 36.9 C, heart rate 74, respiratory rate 18, blood pressure 127/50, SpO2 97. Labs have been stable and remained stable throughout the admission. She was also treated with a UTI and has been on Imipenem. she was also noted to be confused head CT did not show any abnormalities. Today patient is alert oriented x3, awake, sitting in bed with no complaints. Patient will be going home on oral antibiotics. patient denies chest pain, shortness of breath, nausea,
--- NOTE | 2020-12-06 08:04 | PM.DS ---
DS: Admitting Diagnosis Admitting Diagnosis Admitting Diagnosis: Urinary tract infection DS: Discharge Diagnosis Discharge Diagnosis (1) Urinary tract infection: Qualifiers: Hematuria presence: with hematuria Urinary tract infection type: site unspecified Qualified Code(s): N39.0 - Urinary tract infection, site not specified; R31.9 - Hematuria, unspecified Code(s): N39.0 - Urinary tract infection, site not specified Status: Acute Assessment and Plan: Continue Imipenem for now Organism identified is Enterococcus species will consider changing antibiotics to vancomycin id symptoms worsen SUPPORTIVE CARE strict I&Os patient will be sent back to the long term with Linezolid 600mg po q12hr I did talk to patient about recognizing when she has to urinate she said she does not know when she has urinate this patient is at continuous risk for UTI due to urinary incontinence. (2) Acute alteration in mental status: Code(s): R41.82 - Altered mental status, unspecified Status: Acute Assessment and Plan: LIKELY SECONDARY TO UTI seems to be is resolved at this time CT of brain with no acute follow clinical course supportive care (3) DM II (diabetes mellitus, type II), controlled: Qualifiers: Diabetes mellitus chcf insulin use: with chcf use Diabetes mellitus complication status: without complication Qualified Code(s): E11.9 - Type 2 diabetes mellitus without complications; Z79.4 - middle or intermediate school principal (current) use of insulin Code(s): E11.9 - Type 2 diabetes mellitus without complications Status: Chronic Assessment and Plan: glucose on labs 194 Holding METFORMIN and pre meal aspart continue home Lantus 20 units subcu HS INSULIN SLIDING SCALE NEEDED trend labs labs in a.m. adjust medications as needed (4) GERD (gastroesophageal reflux disease): Code(s): K21.9 - Gastro-esophageal reflux disease without esophagitis Status: Acute Assessment and Plan: continue home Protonix 40 mg q.day Discontinue Famotidine q.12 IV (5) Hypertension: Code(s): I10 - Essential (primary) hypertension Status: Chronic Assessment and Plan: blood pressure 127/58 continue home lisinopril 10 mg p.o. daily trend blood pressure adjust medications as needed (6) Weakness: Code(s): R53.1 - Weakness Status: Acute Assessment and Plan: history of compression fracture and tibial fracture PT and OT consulted activity for patient to go in chair increase tolerated DS: Summary Hospital Course Hospital Course: Patient is 72-year-old female with a past medical history of diabetes hypertension who presented the ED from [place] due to altered mental status. Vital signs in the ED were temperature of 36.1? C, heart rate 89, respiratory rate 18, blood pressure 117/70, 92% on room air. Current vital signs are 36.9 C, heart rate 74, respiratory rate 18, blood pressure 127/50, SpO2 97. Labs have been stable and remained stable throughout the admission. She was also treated with a UTI and has been on Imipenem. she was also noted to be confused head CT did not show any abnormalities. Today patient is alert oriented x3, awake, sitting in bed with no complaints. Patient will be going home on oral antibiotics. patient denies chest pain, shortness of breath, nausea, vomiting, abdominal pain, urinary dysfunction including frequency, urgency, unable to empty, Lightheadedness, dizziness, numbness and tingling, or syncope. Status at Discharge Functional status at discharge: wheelchair bound Overall status at discharge: patient is progressing back to baseline Time Spent with Patient Time attestation: Total time spent providing and/or coordinating discharge services: 48 minutes Time spent: Greater than 30 minutes Specific discharge act
--- NOTE | 2020-12-06 11:25 | P.PNIM_ITS ---
Progress Note: A&P Assessment and Plan (1) Urinary tract infection: Qualifiers: Hematuria presence: with hematuria Urinary tract infection type: site unspecified Qualified Code(s): N39.0 - Urinary tract infection, site not specified; R31.9 - Hematuria, unspecified Code(s): N39.0 - Urinary tract infection, site not specified Status: Acute Assessment and Plan: * Change imipenem to vancomycin per pharmacy * Organism identified is Enterococcus species * SUPPORTIVE CARE * strict I&Os (2) Acute alteration in mental status: Code(s): R41.82 - Altered mental status, unspecified Status: Acute Assessment and Plan: * LIKELY SECONDARY TO UTI * seems to be is resolved at this time * CT of brain with no acute * follow clinical course * supportive care (3) DM II (diabetes mellitus, type II), controlled: Qualifiers: Diabetes mellitus complication status: without complication Diabetes mellitus terminologist insulin use: with retirement use Qualified Code(s): E11.9 - Type 2 diabetes mellitus without complications; Z79.4 - penitentiary (current) use of insulin Code(s): E11.9 - Type 2 diabetes mellitus without complications Status: Chronic Assessment and Plan: * glucose on labs 194 * Holding METFORMIN and pre meal aspart * continue home Lantus 20 units subcu HS * INSULIN SLIDING SCALE NEEDED * trend labs * labs in a.m. * adjust medications as needed (4) GERD (gastroesophageal reflux disease): Code(s): K21.9 - Gastro-esophageal reflux disease without esophagitis Status: Acute Assessment and Plan: * continue home Protonix 40 mg q.day * Discontinue Famotidine q.12 IV (5) Hypertension: Code(s): I10 - Essential (primary) hypertension Status: Chronic Assessment and Plan: * blood pressure 127/58 * continue home lisinopril 10 mg p.o. daily * trend blood pressure * adjust medications as needed (6) Weakness: Code(s): R53.1 - Weakness Status: Acute Assessment and Plan: * history of compression fracture and tibial fracture * PT and OT consulted * activity for patient to go in chair * increase tolerated Time Spent With Patient Time with patient: 25 - 35 minutes Subjective Date/time seen: 12/06/20 09:00 Interval history: 72-year-old female with past medical history diabetes and hypertension who presented to the ER via EMS from [facility] due to altered mental status. Patient does not have any complaints today and is not in any pain. I did talk to her about getting in a chair and also working with PT. She told me that she does not walk. She denies chest pain, shortness of breath, nausea, vomiting, abdominal pain, constipation, diarrhea, headache, sweats, chills, fevers, or urinary dysfunction. She was able to tell me where she was and why she was here. She did get confused about the year, but quickly changed her answer to the correct one. Review of Systems Review of Systems: All systems reviewed & are unremarkable except as noted in HPI and below ROS unobtainable: Yes unobtainable due to mental status Exam Const: General: comfortable, no acute distress, well developed, alert, awake and ill appearing acutely Nutritional Appearance: average body habitus Orientation/consciousness: oriented to person, oriented to place, oriented to time and pat
--- NOTE | 2020-12-06 11:25 | PM.IMPN ---
Progress Note: A&P Assessment and Plan (1) Urinary tract infection: Qualifiers: Hematuria presence: with hematuria Urinary tract infection type: site unspecified Qualified Code(s): N39.0 - Urinary tract infection, site not specified; R31.9 - Hematuria, unspecified Code(s): N39.0 - Urinary tract infection, site not specified Status: Acute Assessment and Plan: Change imipenem to vancomycin per pharmacy Organism identified is Enterococcus species SUPPORTIVE CARE strict I&Os (2) Acute alteration in mental status: Code(s): R41.82 - Altered mental status, unspecified Status: Acute Assessment and Plan: LIKELY SECONDARY TO UTI seems to be is resolved at this time CT of brain with no acute follow clinical course supportive care (3) DM II (diabetes mellitus, type II), controlled: Qualifiers: Diabetes mellitus complication status: without complication Diabetes mellitus predatory animal exterminator insulin use: with predatory animal exterminator use Qualified Code(s): E11.9 - Type 2 diabetes mellitus without complications; Z79.4 - residential (current) use of insulin Code(s): E11.9 - Type 2 diabetes mellitus without complications Status: Chronic Assessment and Plan: glucose on labs 194 Holding METFORMIN and pre meal aspart continue home Lantus 20 units subcu HS INSULIN SLIDING SCALE NEEDED trend labs labs in a.m. adjust medications as needed (4) GERD (gastroesophageal reflux disease): Code(s): K21.9 - Gastro-esophageal reflux disease without esophagitis Status: Acute Assessment and Plan: continue home Protonix 40 mg q.day Discontinue Famotidine q.12 IV (5) Hypertension: Code(s): I10 - Essential (primary) hypertension Status: Chronic Assessment and Plan: blood pressure 127/58 continue home lisinopril 10 mg p.o. daily trend blood pressure adjust medications as needed (6) Weakness: Code(s): R53.1 - Weakness Status: Acute Assessment and Plan: history of compression fracture and tibial fracture PT and OT consulted activity for patient to go in chair increase tolerated Time Spent With Patient Time with patient: 25 - 35 minutes Subjective Date/time seen: 12/06/20 09:00 Interval history: 72-year-old female with past medical history diabetes and hypertension who presented to the ER via EMS from [facility] due to altered mental status. Patient does not have any complaints today and is not in any pain. I did talk to her about getting in a chair and also working with PT. She told me that she does not walk. She denies chest pain, shortness of breath, nausea, vomiting, abdominal pain, constipation, diarrhea, headache, sweats, chills, fevers, or urinary dysfunction. She was able to tell me where she was and why she was here. She did get confused about the year, but quickly changed her answer to the correct one. Review of Systems Review of Systems: All systems reviewed & are unremarkable except as noted in HPI and below ROS unobtainable: Yes unobtainable due to mental status Exam Const: General: comfortable, no acute distress, well developed, alert, awake and ill appearing acutely Nutritional Appearance: average body habitus Orientation/consciousness: oriented to person, oriented to place, oriented to time and patient oriented x3 Limitations: no limitations HENMT: Head: normal to inspection, normocephalic and atraumatic Ears: hearing grossly normal bilaterally and external ears normal Face and sinus: normal facial exam and face symmetric Mouth: Yes Normal oral and palatal mucosa present Eyes: General: appearance normal, both eyes and all related structures Pupils: Equal, round and reactive pupils present EOM: EOMs intact bilaterally Neck: Neck: full ROM, no lymphadenopathy, trachea midline and no JVD Thyroid: thyro
[2020-12-06 12:29] LABS: Glucose Point of Care 205 mg/dl (65-105)
[2020-12-06 14:00] VITALS: BP 149/70; PULSE 66; RESP 20; TEMP 36.1; O2SAT 96
[2020-12-06 17:09] LABS: Glucose Point of Care 168 mg/dl (65-105)
[2020-12-06] MEDS: INSULIN GLARGINE (*BKC) 100 UNITS/ML 20 UNITS SUB-Q (20:28)
[2020-12-06 20:58] VITALS: BP 155/79; PULSE 89; RESP 17; TEMP 36.1; O2SAT 94
[2020-12-06 21:00] LABS: Glucose Point of Care 236 mg/dl (65-105)
[2020-12-07 05:52] VITALS: BP 134/51; PULSE 77; RESP 18; TEMP 36.1; O2SAT 95
[2020-12-07 05:54] LABS: Basophils Percent Auto 0.6 % (0.2-1.2); Eosinophils Absolute Auto 0.2 K/mm3 (0-0.3); Eosinophils Percent Auto 2.3 % (0-4.4); Hematocrit 35.3 % (37.0-47.0); Hemoglobin 10.7 g/dL (12.0-15.0); Immature Granulocyte Absolute 0.03 K/mm3 (0.00-0.031); Immature Granulocyte Percent A 0.5 % (0-0.5); Lymphocytes Absolute Auto 2.29 K/mm3 (0.9-3.2); Lymphocytes Percent Auto 34.9 % (18.3-44.2); Mean Corpuscular HGB Conc 30.3 g/dl (32-36); Mean Corpuscular Hemoglobin 28.2 pg (26-34); Mean Corpuscular Volume 93.1 fl (80-100); Monocytes Absolute Auto 0.6 K/mm3 (0.1-0.6); Monocytes Percent Auto 8.4 % (2.6-8.5); Neutrophils Absolute Auto 3.5 K/mm3 (1.3-6.7); Neutrophils Percent Auto 53.3 % (45.5-73.1); Platelet Count Result 164 k/mm3 (150-375); Red Blood Count 3.79 M/mm3 (4.2-5.4); Red Cell Distribution Width 13.3 % (11.5-14.5); White Blood Count 6.6 K/mm3 (4.5-10.0)
[2020-12-07 06:08] LABS: Alanine Aminotransferase 15 U/L (4-35); Albumin Level 3.4 g/dL (3.5-5.1); Alkaline Phosphatase 85 U/L (38-126); Anion Gap 6 mmol/L (8-16); Aspartate Amino Transferase 20 U/L (14-36); Bilirubin,Total 0.3 mg/dL (0.2-1.3); Blood Urea Nitrogen 11 mg/dL (7-17); Carbon Dioxide 25 mmol/L (22-30); Chloride 107 mmol/L (98-107); Estimated Glomerular Filt Rate > 60; Glucose 185 mg/dL (65-110); Magnesium 1.9 mg/dL (1.6-2.3); Potassium 3.6 mmol/L (3.4-5.0); Sodium 138 mmol/L (137-145)
[2020-12-07] MEDS: MIRTAZAPINE 7.5 MG TABLET PO (06:13)
[2020-12-07] MEDS: INSULIN ASPART (*BKC) 100 UNITS/ML SUB-Q ×5 (07:51→17:25)
[2020-12-07] MEDS: lisinopriL 10 MG TABLET PO (07:51)
[2020-12-07] MEDS: PANTOPRAZOLE 40 MG TABLET PO (07:51)
[2020-12-07] MEDS: ZINC SULFATE 220 MG CAPSULE PO (07:51)
[2020-12-07] MEDS: ENOXAPARIN 40 MG/0.4 ML SYRINGE SUB-Q (07:52)
[2020-12-07 09:13] LABS: Glucose Point of Care 181 mg/dl (65-105)
--- NOTE | 2020-12-07 10:05 | P.PNIM_ITS ---
Progress Note: A&P Assessment and Plan (1) Urinary tract infection: Qualifiers: Hematuria presence: with hematuria Urinary tract infection type: site unspecified Qualified Code(s): N39.0 - Urinary tract infection, site not specified; R31.9 - Hematuria, unspecified Code(s): N39.0 - Urinary tract infection, site not specified Status: Acute Assessment and Plan: * vancomycin per pharmacy * Organism identified is Enterococcus species * SUPPORTIVE CARE * strict I&Os (2) Acute alteration in mental status: Code(s): R41.82 - Altered mental status, unspecified Status: Acute Assessment and Plan: * LIKELY SECONDARY TO UTI * seems to be is resolved at this time * CT of brain with no acute * follow clinical course * supportive care (3) DM II (diabetes mellitus, type II), controlled: Qualifiers: Diabetes mellitus buttermaker insulin use: with custodial use Diabetes mellitus complication status: without complication Qualified Code(s): E11.9 - Type 2 diabetes mellitus without complications; Z79.4 - [facility] (current) use of insulin Code(s): E11.9 - Type 2 diabetes mellitus without complications Status: Chronic Assessment and Plan: * glucose on labs 185 * Holding METFORMIN and pre meal aspart * continue home Lantus 20 units subcu HS * INSULIN SLIDING SCALE NEEDED * trend labs * labs in a.m. * adjust medications as needed (4) GERD (gastroesophageal reflux disease): Code(s): K21.9 - Gastro-esophageal reflux disease without esophagitis Status: Acute Assessment and Plan: * continue home Protonix 40 mg q.day * Discontinue Famotidine q.12 IV (5) Hypertension: Code(s): I10 - Essential (primary) hypertension Status: Chronic Assessment and Plan: * blood pressure 134/51 * continue home lisinopril 10 mg p.o. daily * trend blood pressure * adjust medications as needed (6) Weakness: Code(s): R53.1 - Weakness Status: Acute Assessment and Plan: * history of compression fracture and tibial fracture * PT and OT consulted * activity for patient to go in chair * increase tolerated Subjective Date/time seen: 12/07/20 10:05 Interval history: 72-year-old female with past medical history diabetes and hypertension who presented to the ER via EMS from [facility] due to altered mental status.Patient stated that she is doing a lot better today however she is sleepy no current complaints of chest pain, shortness of breath, sweats, chills, fevers, nausea, vomiting, constipation cousin, diarrhea. Patient will be here for a couple days due to IV antibiotics. Exam Const: General: comfortable, no acute distress, well developed, alert, awake and ill appearing acutely Nutritional Appearance: average body habitus Orientation/consciousness: oriented to person, oriented to place, oriented to time and patient oriented x3 Limitations: no limitations HENMT: Head: normal to inspection, normocephalic and atraumatic Ears: hearing grossly normal bilaterally and external ears normal Face and sinus: normal facial exam and face symmetric Mouth: Yes Normal oral and palatal mucosa present Eyes: General: appearance normal, both eyes and all related structures Pupils: Equal, round and reactive pupils present EOM: EOMs intact bilaterally Neck: Neck: full
--- NOTE | 2020-12-07 10:05 | PM.IMPN ---
Progress Note: A&P Assessment and Plan (1) Urinary tract infection: Qualifiers: Hematuria presence: with hematuria Urinary tract infection type: site unspecified Qualified Code(s): N39.0 - Urinary tract infection, site not specified; R31.9 - Hematuria, unspecified Code(s): N39.0 - Urinary tract infection, site not specified Status: Acute Assessment and Plan: vancomycin per pharmacy Organism identified is Enterococcus species SUPPORTIVE CARE strict I&Os (2) Acute alteration in mental status: Code(s): R41.82 - Altered mental status, unspecified Status: Acute Assessment and Plan: LIKELY SECONDARY TO UTI seems to be is resolved at this time CT of brain with no acute follow clinical course supportive care (3) DM II (diabetes mellitus, type II), controlled: Qualifiers: Diabetes mellitus manager long term care insulin use: with manager long term care use Diabetes mellitus complication status: without complication Qualified Code(s): E11.9 - Type 2 diabetes mellitus without complications; Z79.4 - intermediate card tender (current) use of insulin Code(s): E11.9 - Type 2 diabetes mellitus without complications Status: Chronic Assessment and Plan: glucose on labs 185 Holding METFORMIN and pre meal aspart continue home Lantus 20 units subcu HS INSULIN SLIDING SCALE NEEDED trend labs labs in a.m. adjust medications as needed (4) GERD (gastroesophageal reflux disease): Code(s): K21.9 - Gastro-esophageal reflux disease without esophagitis Status: Acute Assessment and Plan: continue home Protonix 40 mg q.day Discontinue Famotidine q.12 IV (5) Hypertension: Code(s): I10 - Essential (primary) hypertension Status: Chronic Assessment and Plan: blood pressure 134/51 continue home lisinopril 10 mg p.o. daily trend blood pressure adjust medications as needed (6) Weakness: Code(s): R53.1 - Weakness Status: Acute Assessment and Plan: history of compression fracture and tibial fracture PT and OT consulted activity for patient to go in chair increase tolerated Subjective Date/time seen: 12/07/20 10:05 Interval history: 72-year-old female with past medical history diabetes and hypertension who presented to the ER via EMS from [facility] due to altered mental status.Patient stated that she is doing a lot better today however she is sleepy no current complaints of chest pain, shortness of breath, sweats, chills, fevers, nausea, vomiting, constipation cousin, diarrhea. Patient will be here for a couple days due to IV antibiotics. Exam Const: General: comfortable, no acute distress, well developed, alert, awake and ill appearing acutely Nutritional Appearance: average body habitus Orientation/consciousness: oriented to person, oriented to place, oriented to time and patient oriented x3 Limitations: no limitations HENMT: Head: normal to inspection, normocephalic and atraumatic Ears: hearing grossly normal bilaterally and external ears normal Face and sinus: normal facial exam and face symmetric Mouth: Yes Normal oral and palatal mucosa present Eyes: General: appearance normal, both eyes and all related structures Pupils: Equal, round and reactive pupils present EOM: EOMs intact bilaterally Neck: Neck: full ROM, no lymphadenopathy, trachea midline and no JVD Thyroid: thyroid normal Lymphatic: no lymphadenopathy noted Chest: Chest palpation & inspection: normal inspection of the chest Resp: Effort & Inspection: normal respiratory effort and able to speak in complete sentences Auscultation: clear to auscultation bilaterally Cardio: Jugular venous distension: no JVD Rate: regular rate Rhythm: regular rhythm Heart sounds: S1 normal heart sound present and S2 normal heart sound present GI: Inspection: normal to inspection Ausc
[2020-12-07 11:55] LABS: Glucose Point of Care 210 mg/dl (65-105)
[2020-12-07 14:00] VITALS: BP 152/74; PULSE 85; RESP 18; TEMP 36.1; O2SAT 96
[2020-12-07 17:24] LABS: Glucose Point of Care 244 mg/dl (65-105)
[2020-12-07 20:12] VITALS: BP 159/71; PULSE 77; RESP 16; TEMP 36.6; O2SAT 94
[2020-12-07] MEDS: INSULIN GLARGINE (*BKC) 100 UNITS/ML 20 UNITS SUB-Q (20:31)
[2020-12-07 20:51] LABS: Glucose Point of Care 240 mg/dl (65-105)
[2020-12-08 05:21] VITALS: BP 150/66; PULSE 80; RESP 17; TEMP 36.4; O2SAT 97
[2020-12-08 07:53] LABS: Glucose Point of Care 157 mg/dl (65-105)
[2020-12-08] MEDS: PANTOPRAZOLE 40 MG TABLET PO (08:05)
[2020-12-08] MEDS: ENOXAPARIN 40 MG/0.4 ML SYRINGE SUB-Q (08:05)
[2020-12-08] MEDS: ZINC SULFATE 220 MG CAPSULE PO (08:05)
[2020-12-08] MEDS: lisinopriL 10 MG TABLET PO (08:05)
[2020-12-08] MEDS: INSULIN ASPART (*BKC) 100 UNITS/ML SUB-Q ×5 (08:08→17:36)
[2020-12-08] MEDS: DOCUSATE SODIUM 100 MG CAPSULE PO (10:26)
[2020-12-08] MEDS: MIRTAZAPINE 7.5 MG TABLET PO (10:26)
[2020-12-08] MEDS: polyethylene glycoL 3350 17 GM POWD.PACK PO (10:26)
[2020-12-08 11:46] LABS: Glucose Point of Care 299 mg/dl (65-105)
[2020-12-08 14:00] VITALS: BP 142/56; PULSE 82; RESP 22; TEMP 37.2; O2SAT 95
--- NOTE | 2020-12-08 15:24 | P.PNIM_ITS ---
Progress Note: A&P Assessment and Plan (1) Urinary tract infection: Qualifiers: Hematuria presence: with hematuria Urinary tract infection type: site unspecified Qualified Code(s): N39.0 - Urinary tract infection, site not specified; R31.9 - Hematuria, unspecified Code(s): N39.0 - Urinary tract infection, site not specified Status: Acute Assessment and Plan: * vancomycin per pharmacy, started 12/06, continue for 7-10 days. * consult ID if any concerns * Organism identified is Enterococcus species * SUPPORTIVE CARE - monitor oral hydration, monitor WBC and temps, monitor renal function, strict intake/output. * strict I&Os (2) Acute alteration in mental status: Code(s): R41.82 - Altered mental status, unspecified Status: Acute Assessment and Plan: * LIKELY SECONDARY TO UTI * resolved with administration of IV antibiotics. * CT of brain with no acute concerns / findings * treat UTIs and follow clinical course * supportive care - encourage adequate oral hdyration and reduce episodes of urinary retention * encourage urine training with voiding every 2-3 hours instructed at discharge for facility orders to monitor. (3) DM II (diabetes mellitus, type II), controlled: Qualifiers: Diabetes mellitus product development intern insulin use: with mcc use Diabetes mellitus complication status: without complication Qualified Code(s): E11.9 - Type 2 diabetes mellitus without complications; Z79.4 - picker machine operator (current) use of insulin Code(s): E11.9 - Type 2 diabetes mellitus without complications Status: Chronic Assessment and Plan: * glucose on POC today 157, 299, 252 * Holding METFORMIN and pre meal aspart - will likely need to restart this tomorrow. * continue home Lantus 20 units subcu HS * INSULIN SLIDING SCALE NEEDED * trend labs * labs in a.m. * adjust medications as needed (4) GERD (gastroesophageal reflux disease): Code(s): K21.9 - Gastro-esophageal reflux disease without esophagitis Status: Acute Assessment and Plan: * continue home Protonix 40 mg q.day * Discontinue Famotidine q.12 IV * no complaints or concerns at this time (5) Hypertension: Code(s): I10 - Essential (primary) hypertension Status: Chronic Assessment and Plan: * blood pressure 150/66 to 159/71 with HR 77-80 * continue home lisinopril 10 mg p.o. daily * trend blood pressure * adjust medications as needed, no concerns at this time (6) Weakness: Code(s): R53.1 - Weakness Status: Acute Assessment and Plan: * history of compression fracture and tibial fracture * PT and OT eval ordered * turn Q 2 hours * elevated heels * up to chair for meals * encouraged more activity for patient * increase tolerated Subjective Date/time seen: 12/08/20 15:24 Daniela is feeling ok today, she is having generalized discomfort and stiffness from immobility. Ordered Q 2 hr turns, up to chair for meals, and heels off the bed. PT/OT to continue. Started probiotics and ordered strict Intake/output. If glucose levels stay >150, will need to restart METFORMIN and/or pre-meal aspart. IV Vanc was started on 12/06. For Enteroccocus UTI susceptible to Vanc; she will need IV Vanc for 7-10 days. May consult with Infectious Disease if any concerns. Plan for discharge between 12/12, or 12/15 at the latest; pending no other concerns arise. Creatinine stable per morning labs. WBC 6.6 now after starting Vanc. No abdominal pain or bladder pain, no pain with urination. Ordered nu
--- NOTE | 2020-12-08 15:24 | PM.IMPN ---
Progress Note: A&P Assessment and Plan (1) Urinary tract infection: Qualifiers: Hematuria presence: with hematuria Urinary tract infection type: site unspecified Qualified Code(s): N39.0 - Urinary tract infection, site not specified; R31.9 - Hematuria, unspecified Code(s): N39.0 - Urinary tract infection, site not specified Status: Acute Assessment and Plan: vancomycin per pharmacy, started 12/06, continue for 7-10 days. consult ID if any concerns Organism identified is Enterococcus species SUPPORTIVE CARE - monitor oral hydration, monitor WBC and temps, monitor renal function, strict intake/output. strict I&Os (2) Acute alteration in mental status: Code(s): R41.82 - Altered mental status, unspecified Status: Acute Assessment and Plan: LIKELY SECONDARY TO UTI resolved with administration of IV antibiotics. CT of brain with no acute concerns / findings treat UTIs and follow clinical course supportive care - encourage adequate oral hdyration and reduce episodes of urinary retention encourage urine training with voiding every 2-3 hours instructed at discharge for facility orders to monitor. (3) DM II (diabetes mellitus, type II), controlled: Qualifiers: Diabetes mellitus emt intermediate insulin use: with emt intermediate use Diabetes mellitus complication status: without complication Qualified Code(s): E11.9 - Type 2 diabetes mellitus without complications; Z79.4 - emt intermediate (current) use of insulin Code(s): E11.9 - Type 2 diabetes mellitus without complications Status: Chronic Assessment and Plan: glucose on POC today 157, 299, 252 Holding METFORMIN and pre meal aspart - will likely need to restart this tomorrow. continue home Lantus 20 units subcu HS INSULIN SLIDING SCALE NEEDED trend labs labs in a.m. adjust medications as needed (4) GERD (gastroesophageal reflux disease): Code(s): K21.9 - Gastro-esophageal reflux disease without esophagitis Status: Acute Assessment and Plan: continue home Protonix 40 mg q.day Discontinue Famotidine q.12 IV no complaints or concerns at this time (5) Hypertension: Code(s): I10 - Essential (primary) hypertension Status: Chronic Assessment and Plan: blood pressure 150/66 to 159/71 with HR 77-80 continue home lisinopril 10 mg p.o. daily trend blood pressure adjust medications as needed, no concerns at this time (6) Weakness: Code(s): R53.1 - Weakness Status: Acute Assessment and Plan: history of compression fracture and tibial fracture PT and OT eval ordered turn Q 2 hours elevated heels up to chair for meals encouraged more activity for patient increase tolerated Subjective Date/time seen: 12/08/20 15:24 Daniela is feeling ok today, she is having generalized discomfort and stiffness from immobility. Ordered Q 2 hr turns, up to chair for meals, and heels off the bed. PT/OT to continue. Started probiotics and ordered strict Intake/output. If glucose levels stay >150, will need to restart METFORMIN and/or pre-meal aspart. IV Vanc was started on 12/06. For Enteroccocus UTI susceptible to Vanc; she will need IV Vanc for 7-10 days. May consult with Infectious Disease if any concerns. Plan for discharge between 12/12, or 12/15 at the latest; pending no other concerns arise. Creatinine stable per morning labs. WBC 6.6 now after starting Vanc. No abdominal pain or bladder pain, no pain with urination. Ordered nursing staff to assist with voiding every 2-3 hours. Bladder scan PRN. Ordered PT/OT evaluation. Continue Diabetic diet as glucose levels are not yet well controlled. Continue to treat constipation. Her last BM was per nursing staff. Treated with PRN suppositories and scheduled laxatives and softeners. Needs more activity and ambulation, ordered PT/OT. Continue to monitor. Strict Intake and output
[2020-12-08] MEDS: SENNA/DOCUSATE SODIUM TABLET 1 TAB PO (16:29)
[2020-12-08] MEDS: BISACODYL 10 MG SUPPOSITORY RECTAL (16:29)
[2020-12-08] MEDS: SACCHAROMYCES BOULARDII 250 MG CAPSULE PO (16:29)
[2020-12-08 17:46] LABS: Glucose Point of Care 252 mg/dl (65-105)
[2020-12-08] MEDS: INSULIN GLARGINE (*BKC) 100 UNITS/ML 20 UNITS SUB-Q (20:38)
[2020-12-08 20:39] LABS: Glucose Point of Care 236 mg/dl (65-105)
[2020-12-08 21:37] VITALS: BP 145/68; PULSE 76; RESP 20; TEMP 36.1; O2SAT 96
[2020-12-09 06:00] VITALS: BP 145/65; PULSE 78; RESP 18; TEMP 36.1; O2SAT 96
[2020-12-09] MEDS: MIRTAZAPINE 7.5 MG TABLET PO (06:34)
[2020-12-09 07:35] LABS: Hematocrit 34.7 % (37.0-47.0); Mean Corpuscular HGB Conc 31.7 g/dl (32-36); Mean Corpuscular Hemoglobin 28.4 pg (26-34); Mean Corpuscular Volume 89.7 fl (80-100); Platelet Count Result 172 k/mm3 (150-375); Red Blood Count 3.87 M/mm3 (4.2-5.4); Red Cell Distribution Width 13.4 % (11.5-14.5); White Blood Count 6.2 K/mm3 (4.5-10.0)
[2020-12-09 07:41] LABS: Glucose Point of Care 174 mg/dl (65-105)
[2020-12-09 07:45] LABS: Alanine Aminotransferase 16 U/L (4-35); Albumin Level 3.4 g/dL (3.5-5.1); Alkaline Phosphatase 92 U/L (38-126); Anion Gap 5 mmol/L (8-16); Aspartate Amino Transferase 18 U/L (14-36); Bilirubin,Total 0.3 mg/dL (0.2-1.3); Blood Urea Nitrogen 8 mg/dL (7-17); Calcium 9.2 mg/dL (8.4-10.2); Carbon Dioxide 26 mmol/L (22-30); Chloride 106 mmol/L (98-107); Estimated Glomerular Filt Rate > 60; Glucose 186 mg/dL (65-110); Sodium 137 mmol/L (137-145)
[2020-12-09] MEDS: INSULIN ASPART (*BKC) 100 UNITS/ML SUB-Q ×5 (08:01→16:44)
[2020-12-09] MEDS: SACCHAROMYCES BOULARDII 250 MG CAPSULE PO ×2 (08:02→17:22)
[2020-12-09] MEDS: PANTOPRAZOLE 40 MG TABLET PO (08:02)
[2020-12-09] MEDS: ENOXAPARIN 40 MG/0.4 ML SYRINGE SUB-Q (08:03)
[2020-12-09] MEDS: lisinopriL 10 MG TABLET PO (08:03)
[2020-12-09] MEDS: ZINC SULFATE 220 MG CAPSULE PO (08:03)
[2020-12-09] MEDS: SENNA/DOCUSATE SODIUM TABLET 1 TAB PO (08:04)
--- NOTE | 2020-12-09 09:06 | P.PNIM_ITS ---
Progress Note: A&P Assessment and Plan (1) Urinary tract infection: Qualifiers: Hematuria presence: with hematuria Urinary tract infection type: site unspecified Qualified Code(s): N39.0 - Urinary tract infection, site not specified; R31.9 - Hematuria, unspecified Code(s): N39.0 - Urinary tract infection, site not specified Status: Acute Assessment and Plan: * vancomycin per pharmacy, started 12/06 * Organism identified is Enterococcus species * Supportive care * Education about bladder training * strict I&Os (2) Acute alteration in mental status: Code(s): R41.82 - Altered mental status, unspecified Status: Acute Assessment and Plan: * LIKELY SECONDARY TO UTI * resolved with administration of IV antibiotics. * CT of brain with no acute concerns / findings * treat UTIs and follow clinical course * supportive care - encourage adequate oral hdyration and reduce episodes of urinary retention * encourage urine training with voiding every 2-3 hours instructed at discharge for facility orders to monitor. (3) DM II (diabetes mellitus, type II), controlled: Qualifiers: Diabetes mellitus complication status: without complication Diabetes mellitus fpc insulin use: with termite exterminator use Qualified Code(s): E11.9 - Type 2 diabetes mellitus without complications; Z79.4 - termite treater (current) use of insulin Code(s): E11.9 - Type 2 diabetes mellitus without complications Status: Chronic Assessment and Plan: * glucose on labs today 174 * Holding METFORMIN * continue home Lantus 20 units subcu HS * mealtime aspart of 3 units will increase to 5 units * INSULIN SLIDING SCALE NEEDED * trend labs * labs in a.m. * adjust medications as needed (4) GERD (gastroesophageal reflux disease): Code(s): K21.9 - Gastro-esophageal reflux disease without esophagitis Status: Acute Assessment and Plan: * continue home Protonix 40 mg q.day * Discontinue Famotidine q.12 IV * no complaints or concerns at this time (5) Hypertension: Code(s): I10 - Essential (primary) hypertension Status: Chronic Assessment and Plan: * blood pressure 145/65 * continue home lisinopril 10 mg p.o. daily * trend blood pressure * adjust medications as needed (6) Weakness: Code(s): R53.1 - Weakness Status: Acute Assessment and Plan: * history of compression fracture and tibial fracture * PT and OT eval ordered * turn Q 2 hours * elevated heels * up to chair for meals * encouraged more activity for patient * increase tolerated Subjective Date/time seen: 12/09/20 08:35 Interval history: 72-year-old female with past medical history diabetes and hypertension who presented to the ER via EMS from [facility] due to altered mental status. Patient stated that she is doing well today. She denies chest pain, shortness of breath, nausea, vomiting, diarrhea, constipation, abdominal pain, sweats, chills, fevers, headaches, or dizziness. She also stated that she is not having any urinary dysfunction either. I talked to her about letting someone know when she has to urinate to keep her out of the diaper and will be better cleaned. Review of Systems Review of Systems: All systems reviewed & are unremarkable except as noted in HPI and below Exam Const: General: comfortable, no acute distress, well developed,
--- NOTE | 2020-12-09 09:06 | PM.IMPN ---
Progress Note: A&P Assessment and Plan (1) Urinary tract infection: Qualifiers: Hematuria presence: with hematuria Urinary tract infection type: site unspecified Qualified Code(s): N39.0 - Urinary tract infection, site not specified; R31.9 - Hematuria, unspecified Code(s): N39.0 - Urinary tract infection, site not specified Status: Acute Assessment and Plan: vancomycin per pharmacy, started 12/06 Organism identified is Enterococcus species Supportive care Education about bladder training strict I&Os (2) Acute alteration in mental status: Code(s): R41.82 - Altered mental status, unspecified Status: Acute Assessment and Plan: LIKELY SECONDARY TO UTI resolved with administration of IV antibiotics. CT of brain with no acute concerns / findings treat UTIs and follow clinical course supportive care - encourage adequate oral hdyration and reduce episodes of urinary retention encourage urine training with voiding every 2-3 hours instructed at discharge for facility orders to monitor. (3) DM II (diabetes mellitus, type II), controlled: Qualifiers: Diabetes mellitus complication status: without complication Diabetes mellitus intermediate manager insulin use: with intermediate manager use Qualified Code(s): E11.9 - Type 2 diabetes mellitus without complications; Z79.4 - exterminator helper termite (current) use of insulin Code(s): E11.9 - Type 2 diabetes mellitus without complications Status: Chronic Assessment and Plan: glucose on labs today 174 Holding METFORMIN continue home Lantus 20 units subcu HS mealtime aspart of 3 units will increase to 5 units INSULIN SLIDING SCALE NEEDED trend labs labs in a.m. adjust medications as needed (4) GERD (gastroesophageal reflux disease): Code(s): K21.9 - Gastro-esophageal reflux disease without esophagitis Status: Acute Assessment and Plan: continue home Protonix 40 mg q.day Discontinue Famotidine q.12 IV no complaints or concerns at this time (5) Hypertension: Code(s): I10 - Essential (primary) hypertension Status: Chronic Assessment and Plan: blood pressure 145/65 continue home lisinopril 10 mg p.o. daily trend blood pressure adjust medications as needed (6) Weakness: Code(s): R53.1 - Weakness Status: Acute Assessment and Plan: history of compression fracture and tibial fracture PT and OT eval ordered turn Q 2 hours elevated heels up to chair for meals encouraged more activity for patient increase tolerated Subjective Date/time seen: 12/09/20 08:35 Interval history: 72-year-old female with past medical history diabetes and hypertension who presented to the ER via EMS from [facility] due to altered mental status. Patient stated that she is doing well today. She denies chest pain, shortness of breath, nausea, vomiting, diarrhea, constipation, abdominal pain, sweats, chills, fevers, headaches, or dizziness. She also stated that she is not having any urinary dysfunction either. I talked to her about letting someone know when she has to urinate to keep her out of the diaper and will be better cleaned. Review of Systems Review of Systems: All systems reviewed & are unremarkable except as noted in HPI and below Exam Const: General: comfortable, no acute distress, well developed, alert, awake and ill appearing acutely; No confusion Nutritional Appearance: average body habitus Orientation/consciousness: oriented to person, oriented to place, oriented to time, patient oriented x3 and No confusion Limitations: no limitations HENMT: Head: normal to inspection, normocephalic and atraumatic Ears: hearing grossly normal bilaterally and external ears normal Face and sinus: normal facial exam and face symmetric Mouth: Yes Normal oral and palatal mucosa present Eyes: General: appeara
[2020-12-09 11:43] LABS: Vancomycin Trough 6.8 ug/mL (10.0-20.0)
[2020-12-09 12:20] LABS: Glucose Point of Care 291 mg/dl (65-105)
--- NOTE | 2020-12-09 12:28 | PCOTNOTE ---
Patient discharged from therapy this date per Naveen WILLOUGHBY, as patient is at prior level of function of requiring jessica lift, is wheelchair bound, and is dependent in self care/ADLs.
[2020-12-09 14:00] VITALS: BP 151/59; PULSE 74; RESP 24; TEMP 37.1; O2SAT 96
[2020-12-09 16:43] LABS: Glucose Point of Care 324 mg/dl (65-105)
[2020-12-09] MEDS: INSULIN GLARGINE (*BKC) 100 UNITS/ML 20 UNITS SUB-Q (21:57)
[2020-12-09 22:00] VITALS: BP 126/55; PULSE 72; RESP 16; TEMP 37.1; O2SAT 96
[2020-12-09 22:11] LABS: Glucose Point of Care 273 mg/dl (65-105)
[2020-12-10 06:09] LABS: Basophils Percent Auto 0.5 % (0.2-1.2); Eosinophils Absolute Auto 0.2 K/mm3 (0-0.3); Eosinophils Percent Auto 2.2 % (0-4.4); Hemoglobin 11.2 g/dL (12.0-15.0); Immature Granulocyte Absolute 0.03 K/mm3 (0.00-0.031); Immature Granulocyte Percent A 0.4 % (0-0.5); Lymphocytes Absolute Auto 2.39 K/mm3 (0.9-3.2); Lymphocytes Percent Auto 32.5 % (18.3-44.2); Mean Corpuscular HGB Conc 31.1 g/dl (32-36); Mean Corpuscular Hemoglobin 28.7 pg (26-34); Mean Corpuscular Volume 92.3 fl (80-100); Mean Platelet Volume 11.4 fl (7.4-10.4); Monocytes Absolute Auto 0.8 K/mm3 (0.1-0.6); Monocytes Percent Auto 10.2 % (2.6-8.5); Neutrophils Percent Auto 54.2 % (45.5-73.1); Platelet Count Result 169 k/mm3 (150-375); Red Cell Distribution Width 13.5 % (11.5-14.5); White Blood Count 7.4 K/mm3 (4.5-10.0)
[2020-12-10 06:16] LABS: Alanine Aminotransferase 16 U/L (4-35); Albumin Level 3.5 g/dL (3.5-5.1); Alkaline Phosphatase 101 U/L (38-126); Anion Gap 8 mmol/L (8-16); Aspartate Amino Transferase 17 U/L (14-36); Bilirubin,Total 0.3 mg/dL (0.2-1.3); Blood Urea Nitrogen 9 mg/dL (7-17); Calcium 9.6 mg/dL (8.4-10.2); Carbon Dioxide 25 mmol/L (22-30); Chloride 103 mmol/L (98-107); Estimated Glomerular Filt Rate > 60; Glucose 225 mg/dL (65-110); Potassium 4.1 mmol/L (3.4-5.0); Sodium 136 mmol/L (137-145)
[2020-12-10 06:19] VITALS: BP 134/66; PULSE 80; RESP 16; TEMP 36.8; O2SAT 99
[2020-12-10] MEDS: MIRTAZAPINE 7.5 MG TABLET PO (06:24)
--- NOTE | 2020-12-10 07:16 | P.DS_ITS ---
DS: Admitting Diagnosis Admitting Diagnosis Admitting Diagnosis: UTI DS: Discharge Diagnosis Discharge Diagnosis (1) Urinary tract infection: Qualifiers: Hematuria presence: with hematuria Urinary tract infection type: site unspecified Qualified Code(s): N39.0 - Urinary tract infection, site not specified; R31.9 - Hematuria, unspecified Code(s): N39.0 - Urinary tract infection, site not specified Status: Acute Assessment and Plan: * vancomycin per pharmacy, started 12/06 * Organism identified is Enterococcus species * Supportive care * Education about bladder training * strict I&Os patient will be DC with a midline for IV vancomycin x5 days goal trough should be between 10-15 patient will need good christina care (2) Acute alteration in mental status: Code(s): R41.82 - Altered mental status, unspecified Status: Acute Assessment and Plan: * LIKELY SECONDARY TO UTI * resolved with administration of IV antibiotics. * CT of brain with no acute concerns / findings * treat UTIs and follow clinical course * supportive care - encourage adequate oral hdyration and reduce episodes of urinary retention * encourage urine training with voiding every 2-3 hours instructed at discharge for facility orders to monitor. (3) DM II (diabetes mellitus, type II), controlled: Qualifiers: Diabetes mellitus complication status: without complication Diabetes mellitus termite control service representative insulin use: with fci use Qualified Code(s): E11.9 - Type 2 diabetes mellitus without complications; Z79.4 - group home (current) use of insulin Code(s): E11.9 - Type 2 diabetes mellitus without complications Status: Chronic Assessment and Plan: * glucose on labs today 174 * Holding METFORMIN * continue home Lantus 20 units subcu HS * mealtime aspart of 3 units will increase to 5 units * INSULIN SLIDING SCALE NEEDED * trend labs * labs in a.m. * adjust medications as needed (4) GERD (gastroesophageal reflux disease): Code(s): K21.9 - Gastro-esophageal reflux disease without esophagitis Status: Acute Assessment and Plan: * continue home Protonix 40 mg q.day * Discontinue Famotidine q.12 IV * no complaints or concerns at this time (5) Hypertension: Code(s): I10 - Essential (primary) hypertension Status: Chronic Assessment and Plan: * blood pressure 134/66 * continue home lisinopril 10 mg p.o. daily * trend blood pressure * adjust medications as needed (6) Weakness: Code(s): R53.1 - Weakness Status: Acute Assessment and Plan: * history of compression fracture and tibial fracture * PT and OT eval ordered * turn Q 2 hours * elevated heels * up to chair for meals * encouraged more activity for patient * increase tolerated DS: Summary Hospital Course Hospital Course: 72-year-old female with past medical history diabetes and hypertension who presented to the ER via EMS from [facility] due to altered mental status. upon arrival UA did show signs a UTI which the cultures to grown Enterococcus species. Upon arrival patient did have a temperature of 37.2? C a pulse of 97 respiratory rate of 25 a blood pressure 109/79 a sat of 92% on room air. Currently patient has a temperature of 36.8? C with a pulse of 80 a respiratory rate of 16 and a blood pressure 134/66 with a sat of 99% on room air. patient's labs have always been
--- NOTE | 2020-12-10 07:16 | PM.DS ---
DS: Admitting Diagnosis Admitting Diagnosis Admitting Diagnosis: UTI DS: Discharge Diagnosis Discharge Diagnosis (1) Urinary tract infection: Qualifiers: Hematuria presence: with hematuria Urinary tract infection type: site unspecified Qualified Code(s): N39.0 - Urinary tract infection, site not specified; R31.9 - Hematuria, unspecified Code(s): N39.0 - Urinary tract infection, site not specified Status: Acute Assessment and Plan: vancomycin per pharmacy, started 12/06 Organism identified is Enterococcus species Supportive care Education about bladder training strict I&Os patient will be DC with a midline for IV vancomycin x5 days goal trough should be between 10-15 patient will need good christina care (2) Acute alteration in mental status: Code(s): R41.82 - Altered mental status, unspecified Status: Acute Assessment and Plan: LIKELY SECONDARY TO UTI resolved with administration of IV antibiotics. CT of brain with no acute concerns / findings treat UTIs and follow clinical course supportive care - encourage adequate oral hdyration and reduce episodes of urinary retention encourage urine training with voiding every 2-3 hours instructed at discharge for facility orders to monitor. (3) DM II (diabetes mellitus, type II), controlled: Qualifiers: Diabetes mellitus complication status: without complication Diabetes mellitus alf insulin use: with watermaster use Qualified Code(s): E11.9 - Type 2 diabetes mellitus without complications; Z79.4 - [facility] (current) use of insulin Code(s): E11.9 - Type 2 diabetes mellitus without complications Status: Chronic Assessment and Plan: glucose on labs today 174 Holding METFORMIN continue home Lantus 20 units subcu HS mealtime aspart of 3 units will increase to 5 units INSULIN SLIDING SCALE NEEDED trend labs labs in a.m. adjust medications as needed (4) GERD (gastroesophageal reflux disease): Code(s): K21.9 - Gastro-esophageal reflux disease without esophagitis Status: Acute Assessment and Plan: continue home Protonix 40 mg q.day Discontinue Famotidine q.12 IV no complaints or concerns at this time (5) Hypertension: Code(s): I10 - Essential (primary) hypertension Status: Chronic Assessment and Plan: blood pressure 134/66 continue home lisinopril 10 mg p.o. daily trend blood pressure adjust medications as needed (6) Weakness: Code(s): R53.1 - Weakness Status: Acute Assessment and Plan: history of compression fracture and tibial fracture PT and OT eval ordered turn Q 2 hours elevated heels up to chair for meals encouraged more activity for patient increase tolerated DS: Summary Hospital Course Hospital Course: 72-year-old female with past medical history diabetes and hypertension who presented to the ER via EMS from [facility] due to altered mental status. upon arrival UA did show signs a UTI which the cultures to grown Enterococcus species. Upon arrival patient did have a temperature of 37.2? C a pulse of 97 respiratory rate of 25 a blood pressure 109/79 a sat of 92% on room air. Currently patient has a temperature of 36.8? C with a pulse of 80 a respiratory rate of 16 and a blood pressure 134/66 with a sat of 99% on room air. patient's labs have always been stable with a white blood cell count between 6 and 8, A hemoglobin of 10 to 11, in stable electrolytes. Glucose has been elevated and reaches up to the 300s. patient's medications have been adjusted to accommodate. PT and OT was attempted with this patient however this patient stated said she does not get up out of bed and she does not walk. More investigation did show the patient is a Maurice lift from the ceiling at the shelter. I did educate the patient about christina care a
[2020-12-10 08:16] LABS: Glucose Point of Care 287 mg/dl (65-105)
[2020-12-10] MEDS: INSULIN ASPART (*BKC) 100 UNITS/ML SUB-Q ×4 (08:30→11:56)
[2020-12-10] MEDS: lisinopriL 10 MG TABLET PO (08:31)
[2020-12-10] MEDS: PANTOPRAZOLE 40 MG TABLET PO (08:32)
[2020-12-10] MEDS: SACCHAROMYCES BOULARDII 250 MG CAPSULE PO (08:32)
[2020-12-10] MEDS: ZINC SULFATE 220 MG CAPSULE PO (08:32)
[2020-12-10] MEDS: SENNA/DOCUSATE SODIUM TABLET 1 TAB PO (08:32)
[2020-12-10] MEDS: ENOXAPARIN 40 MG/0.4 ML SYRINGE SUB-Q (08:32)
[2020-12-10] MEDS: LIDOCAINE HCL 1% LOCAL INJ 2 ML AMPUL 5 ML INFILTRATE (09:20)
[2020-12-10 10:50] LABS: EDCOVIDSCREEN Negative (Negative)
[2020-12-10 11:52] LABS: Glucose Point of Care 299 mg/dl (65-105)
--- NOTE | 2020-12-10 13:04 | PCNWS ---
Weekly nutritional screen. Patient is tolerating current diet with adequate intake. No weight loss reported. No nutritional needs at this time.
[2020-12-10 14:00] VITALS: BP 93/60; PULSE 113; RESP 18; TEMP 36.3; O2SAT 96
== END 2020-12-10 16:15 | DRG 690 ==
LOC: ANHED 13:13 → ANH3MED 14:27
PROVIDERS: Emergency Medicine Emergency Medical Services; Nurse Practitioner; Nurse Practitioner Adult Health; Admitting Provider Internal Medicine; Emergency Provider Emergency Medicine; PCP Family Medicine; Visit Provider Nurse Practitioner
DX: N39.0 Urinary tract infection, site not specified (principal); R31.9 Hematuria, unspecified; B95.2 Enterococcus as the cause of diseases classified elsewhere; F03.90 Unspecified dementia, unspecified severity, without behavioral disturbance, psychotic disturbance, mood disturbance, and anxiety; Z20.822 Contact with and (suspected) exposure to COVID-19; R53.1 Weakness; I10 Essential (primary) hypertension; J44.9 Chronic obstructive pulmonary disease, unspecified; E11.36 Type 2 diabetes mellitus with diabetic cataract; H26.9 Unspecified cataract; M81.0 Age-related osteoporosis without current pathological fracture; K21.9 Gastro-esophageal reflux disease without esophagitis; E55.9 Vitamin D deficiency, unspecified; Z66 Do not resuscitate; Z79.4 Long term (current) use of insulin; Z79.899 Other long term (current) drug therapy; Z87.891 Personal history of nicotine dependence
CPT/HCPCS: 36415; 36569; 70450; 71045; 80048; 80053; 80202; 81001; 82948; 83605; 83690; 83735; 84484; 85025; 85027; 85610; 85730; 86140; 87040; 87077; 87086; 87088; 87186; 87426; 93005; 96361; 96365; 96366; 96372; 96375; 96376; 99285; A9270; C1751; C9803; G0378; J0743; J1650; J1815; J3370; J7030; J7120

== ENCOUNTER 2021-08-17 23:01 | Inpatient (IN) | payer OTHER, SELFPAY ==
--- NOTE | ~2021-08-17 | XR_ITS ---
EXAMINATION: XR chest 1V portable DATE: 08/18/2021 06:02 INDICATION: Cough and tachypnea TECHNIQUE: frontal view of the chest was obtained. COMPARISON: Chest radiograph dated 12/04/2020 FINDINGS: Minimal lingular atelectasis along side a small left pericardial fat pad. No pulmonary edema, pleural effusion or pneumothorax. The cardiomediastinal silhouette is normal. Chronic T11 burst fracture. IMPRESSION: 1. No acute cardiopulmonary disease. Reviewed, dictated and finalized at location A.
--- NOTE | ~2021-08-17 | CT_ITS ---
EXAMINATION: CT brain wo con DATE: 08/17/2021 23:51 INDICATION: Transient alteration of awareness TECHNIQUE: Computed tomography (CT) of the head was performed without intravenous contrast. Sagittal and coronal reconstructions were performed. The mA was adjusted according to patient size. Iterative reconstruction technique was employed. The dose-length product was 605.33 mGy-cm. COMPARISON: head CT dated 12/04/2020 FINDINGS: No acute intracranial hemorrhage, acute infarction or abnormal extra axial fluid collection. There is mild scattered white matter hypoattenuation consistent with chronic small vessel ischemic disease. S ymmetric prominence of the sulci and ventricles consistent with moderate age-appropriate diffuse cere bral volume loss. No mass/mass effect. Changes of right intraocular lens replacement. The orbits and mastoid air cells are normal. Mucous retention cyst at the right frontoethmoidal recess. Mild mucosal thickening at the base of the left maxillary sinus. IMPRESSION: 1. No acute intracranial process. 2. Age-related changes including moderate diffuse volume loss and mild scattered white matter hypoatt enuation consistent with chronic small vessel ischemic disease. Reviewed, dictated and finalized at location A. IMPRESSION: 1. No acute intracranial process. 2. Age-related changes including moderate diffuse volume loss and mild scattere d white matter hypoattenuation consistent with chronic small vessel ischemic di sease.
--- NOTE | ~2021-08-17 | US_ITS ---
EXAMINATION: US venous doppler [facility] EXAM DATE: 08/18/2021 08:14 INDICATION: Left lower extremity edema. TECHNIQUE: Multiple grayscale, color flow and Doppler images of the left lower extremity deep venous system were obtained and reviewed. There is no prior study for comparison. FINDINGS: The left common femoral, femoral and profunda veins demonstrate normal color flow, respirat ory variation, augmentation and compressibility. Compressibility, color flow confirmed within the le ft popliteal, posterior tibial, peroneal, and greater saphenous veins. IMPRESSION: No left lower extremity deep venous thrombosis. Reviewed, dictated and finalized at location B.
[2021-08-17 23:00] VITALS: BP 152/76; PULSE 118; RESP 24; TEMP 36.5; O2SAT 94
[2021-08-17 23:19] VITALS: PULSE 118; RESP 25; O2SAT 92
[2021-08-17 23:30] VITALS: PULSE 117; RESP 21; O2SAT 92
[2021-08-17 23:31] VITALS: BP 163/83; PULSE 117; RESP 25; O2SAT 93
--- NOTE | 2021-08-17 23:46 | ED.GENADULT ---
HPI - General Adult General Chief complaint: Altered Mental Status Stated complaint: AMS Time Seen by Provider: 08/17/21 23:05 Source: patient and RN notes reviewed Limitations: altered mental status History of Present Illness HPI narrative: 81-year-old female with history of type 2 diabetes, COPD dementia and recent urinary tract infections presenting [facility] for evaluation of altered mental status. Patient is normally alert and oriented x4. [facility] states that earlier today the patient was alert and oriented x1. Upon arrival to the emergency department patient is alert and oriented x4. Patient denies any complaints at this time. When left alone the patient does stare off to the side. Patient will look to the left during conversation. Patient has had recent admissions during which she presented with altered mental status and was found to have a urinary tract infection. Patient does have history of ESBL. Daughter states that the patient has had issues with staring off into space with her previous urinary tract infections. Patient denies any focal numbness or weakness. Patient is nonambulatory at baseline. Related Data Home Medications Medication Instructions Recorded Confirmed Lantus Solostar U-100 Insulin 20 unit SUBCUT HS 08/19/20 12/02/20 acetaminophen 650 mg PO Q6H PRN 08/19/20 12/02/20 ascorbic acid (vitamin C) 1,000 mg PO DAILY 08/19/20 12/02/20 calcium carbonate-vitamin D3 1 cap PO BID 08/19/20 12/02/20 docusate sodium 100 mg PO DAILY PRN 08/19/20 12/02/20 insulin aspart U-100 [Novolog 0 unit SUBCUT TID 08/19/20 12/02/20 Flexpen U-100 Insulin] insulin aspart U-100 [Novolog 5 unit SUBCUT TID 08/19/20 12/02/20 Flexpen U-100 Insulin] mirtazapine 7.5 mg PO DAILY 08/19/20 12/02/20 multivitamin with minerals 1 tablet PO DAILY 08/19/20 12/02/20 polyethylene glycol 3350 [Miralax] 17 g PO DAILY PRN 08/19/20 12/02/20 zinc acetate 50 mg PO DAILY 08/19/20 12/02/20 metformin 1,000 mg DAILY 12/02/20 12/02/20 Allergies Allergy/AdvReac Type Severity Reaction Status Date / Time adhesive tape Allergy Mild Rash Verified 08/17/21 23:28 ibuprofen [From Motrin] AdvReac Mild Nausea and Verified 08/17/21 23:28 Vomiting morphine AdvReac Mild Nausea and Verified 08/17/21 23:28 Vomiting Review of Systems Review of Systems: Patient denies any complaints at this time. All systems reviewed & are unremarkable except as noted in HPI and below PMFSH Past Medical History Medical History (Updated 08/18/21 @ 01:13 by Anderson Pham MD) Arthritis Bronchitis Cataract She said 1 was removed Closed fracture of tibial plateau (07/2020) managed conservatively Compression fracture T11 20% COPD (chronic obstructive pulmonary disease) Dementia DM II (diabetes mellitus, type II), controlled Duodenitis (08/2020) History of skin cancer SQ cell lt lateral knee. Hx of fracture of rib Osteoporosis Screening for malignant neoplasm of colon Stenosis of cervical spine severe-- declined surgery in the Vitamin D deficiency Surgical History Surgical History (Updated 12/02/20 @ 22:05 by Radha Tran DO) History of cholecystectomy History of esophagogastroduodenoscopy (EGD) (08/2020) Previous section X3 Family History Family History Sibling Diabetes mellitus Other Diabetes mellitus Hypertension Mother Diabetes mellitus Father Lung cancer Sibling Diabetes mellitus Kidney failure Social History Social History (Updated 12/02/20 @ 22:07 by Radha Tran DO) Social History: Patient quit smoking last year but smoked for 45 years prior to that. She does not drink alcohol or do drugs. She would like her surrogate decision maker to be her daughter Annie. Code status: DNR/DNI Smoking packs per day: 1 Smoking cigarettes per day: 20.0 Years smoked: 30 Smoking pack-y
[2021-08-17 23:50] VITALS: PULSE 117; RESP 15; O2SAT 94
[2021-08-18] VITALS (23 sets, daily range): BP systolic 110–141; BP diastolic 41–94; PULSE 97–117; RESP 16–31; TEMP 36–37.7; O2SAT 89–96; BMI 27.4
[2021-08-18 00:36] LABS: Basophils Absolute Auto 0.1 K/mm3 (0.0-0.1); Basophils Percent Auto 0.8 % (0.2-1.2); Eosinophils Absolute Auto 0.1 K/mm3 (0-0.3); Eosinophils Percent Auto 1.6 % (0-4.4); Hemoglobin 12.6 g/dL (12.0-15.0); Immature Granulocyte Absolute 0.03 K/mm3 (0.00-0.031); Immature Granulocyte Percent A 0.3 % (0-0.5); Lymphocytes Absolute Auto 3.01 K/mm3 (0.9-3.2); Lymphocytes Percent Auto 35.1 % (18.3-44.2); Mean Corpuscular HGB Conc 31.5 g/dl (32-36); Mean Corpuscular Hemoglobin 29.9 pg (26-34); Mean Platelet Volume 11.1 fl (7.4-10.4); Monocytes Absolute Auto 0.6 K/mm3 (0.1-0.6); Monocytes Percent Auto 7.2 % (2.6-8.5); Neutrophils Absolute Auto 4.7 K/mm3 (1.3-6.7); Platelet Count Result 219 k/mm3 (150-375); Red Blood Count 4.21 M/mm3 (4.2-5.4); Red Cell Distribution Width 13.8 % (11.5-14.5); White Blood Count 8.6 K/mm3 (4.5-10.0)
[2021-08-18 00:47] LABS: Appearance Urine Cloudy (Clear); Blood Urine 1+ (Negative); Color Urine Yellow (Yellow); Glucose Urine UA Negative (Negative); Ketones Urine 2+ mg/dL (Negative); Protein Urine 2+ mg/dL (Negative); Specific Grav Ur > 1.030 (1.001-1.035)
[2021-08-18 00:48] LABS: Add Urine Microscopic? YES; Bilirubin Urine Negative (Negative); Leukocyte Esterase Ur 2+ LEU/UL (Negative); Nitrate Urine Positive (Negative); RBC Urine 21-50 /hpf (0-2); Urobilinogen Urine 0.2 mg/dL (<2.0); WBC Clumps Urine Present /HPF; WBC Urine >75 /hpf
[2021-08-18 00:49] LABS: Bacteria Urine 4+ /hpf; Mucus Urine Rare /lpf; Squamous Epithelial Cell Urine Occasional /hpf (Few)
[2021-08-18 01:02] LABS: Alanine Aminotransferase 15 U/L (4-35); Albumin Level 3.7 g/dL (3.5-5.1); Alkaline Phosphatase 101 U/L (38-126); Anion Gap 6 mmol/L (8-16); Aspartate Amino Transferase 23 U/L (14-36); Bilirubin,Total 0.4 mg/dL (0.2-1.3); Blood Urea Nitrogen 10 mg/dL (7-17); Calcium 9.4 mg/dL (8.4-10.2); Carbon Dioxide 23 mmol/L (22-30); Chloride 106 mmol/L (98-107); Estimated Glomerular Filt Rate > 60; Glucose 243 mg/dL (65-110); Lactic Acid Reflex 1.2 mmol/L (0.7-2.1); Lipase 36 U/L (23-300); Potassium 4.2 mmol/L (3.4-5.0); Sodium 135 mmol/L (137-145)
--- NOTE | 2021-08-18 01:30 | PC.NURSE ---
Pt had a SHELBY, RN performed pericare and placed pt on new clean pad. Excoriation noted all over coccyx and periarea. Per daughter this wound has been present for awhile.
[2021-08-18] MEDS: SODIUM CHLORIDE 0.9% IV 500 ML 999 ML IV CONT (01:49)
--- NOTE | 2021-08-18 02:00 | PC.NURSE ---
Unable to scan Cefepime pharmacy notified. Phamracist working to fix at this tashi.
[2021-08-18 02:43] LABS: SARS-CoV-2 RNA PCR Negative
[2021-08-18] MEDS: SODIUM CHLORIDE 0.9% IV 1,000 ML 150 ML IV CONT (02:47)
--- NOTE | 2021-08-18 03:35 | PC.NURSE ---
Pt transported to the floor via wheelchair. IV saline and Vanc infusiong.
--- NOTE | 2021-08-18 04:06 | ADMGEN ---
This patient, Daniela Arrieta, was admitted to [facility] Surg Room 333-01. Patient/family oriented to hospital policies and general routines including ID bracelet, bed and alarms, visiting hours, pain management, procedures, bathroom and other care routines, personal items, smoking policy, room service/diet, and visiting hours. Information on how to activate the Rapid Response Team has been discussed. Patient/Family are encouraged to report perceived risks to care and to ask questions if they do not understand what they are told or what they should do.
--- NOTE | 2021-08-18 04:22 | PM.IMHP ---
H&P: HPI History of Present Illness Date/Time: 08/18/21 04:22 Chief Complaint: Altered mental status and low urine output Narrative: 81-year-old female with past medical history of dementia, COPD, diabetes, severe cervical stenosis and frequent urinary tract infections who presented to the ER from [facility] via EMS due to altered mental status and decreased urine output. On EMS arrival to the outside facility the patient was alert oriented x1. By time she arrived to the ER she was answering questions appropriately. The patient has been having intermittent episodes of staring off to the side but when staff members got her attention the patient would redirect and look toward staff. The patient's daughter reports that the patient will have the staring episodes any time she has an infection. Patient does have a history of ESBL E coli UTI in August 2020. She had Enterococcus species UTI in November 2020. Patient is wheelchair-bound and bed-bound at baseline due to her severe cervical stenosis. She had no localizing deficits noted in the ER. The patient actually answered orientation questions correctly except for the year which he thought was 2022. Her speech is clear but slow. She has chronic spasticity in limited range of motion associated with her cervical stenosis. She does not know when she last had a bowel movement she thinks it may have been before she came to the ER today. She is noted to have some left lower extremity swelling on exam but she does not know if this is chronic or not. She denies any pain of the extremity. Review of Systems Review of Systems: 12 systems were reviewed with pertinent positives and negatives per HPI. Except as documented in the HPI, all other systems were reviewed and are negative. [facility] Past Medical History Medical History Arthritis Bronchitis Cataract She said 1 was removed Closed fracture of tibial plateau (07/2020) managed conservatively Compression fracture T11 20% COPD (chronic obstructive pulmonary disease) Dementia DM II (diabetes mellitus, type II), controlled Duodenitis (08/2020) History of skin cancer SQ cell lt lateral knee. Hx of fracture of rib Osteoporosis Screening for malignant neoplasm of colon Stenosis of cervical spine severe-- declined surgery in the Vitamin D deficiency Surgical History Surgical History History of cholecystectomy History of esophagogastroduodenoscopy (EGD) (08/2020) Previous section X3 Family History Family History Sibling Diabetes mellitus Other Diabetes mellitus Hypertension Mother Diabetes mellitus Father Lung cancer Sibling Diabetes mellitus Kidney failure Social History Social History (Updated 12/02/20 @ 22:07 by Radha Tran DO) Social History: Patient quit smoking last year but smoked for 45 years prior to that. She does not drink alcohol or do drugs. She would like her surrogate decision maker to be her daughter Annie. Code status: DNR/DNI Smoking packs per day: 1 Smoking cigarettes per day: 20.0 Years smoked: 30 Smoking pack-years: 30.00 Smoking status: Former smoker Tobacco type: cigarettes Second hand tobacco smoke exposure: Yes Alcohol intake: never Substance use: never Gender identity (if verbalized by the patient): Female Spiritual care concerns: No Agree to blood products: Yes Meds Home Medications and Allergies Home Medications Medication Instructions Recorded Confirmed Type lisinopril 10 mg tablet 10 mg PO DAILY #90 tablet 05/13/19 12/02/20 Rx ergocalciferol (vitamin D2) 50,000 unit PO WEEKLY #6 cap 07/24/19 12/02/20 Rx Lantus Solostar U-100 Insulin 20 unit SUBCUT HS 08/19/20 12/02/20 History acetaminophen 650 mg PO Q6H PRN 08/19/20 12/02/20 History ascorbic acid (aj
[2021-08-18 06:52] LABS: Glucose Point of Care 267 mg/dl (65-105)
[2021-08-18 08:19] LABS: Glucose Point of Care 270 mg/dl (65-105)
[2021-08-18] MEDS: INSULIN ASPART (*BKC) 100 UNITS/ML SUB-Q ×3 (08:29→17:23)
[2021-08-18] MEDS: ENOXAPARIN 40 MG/0.4 ML SYRINGE SUB-Q (08:30)
[2021-08-18] MEDS: PANTOPRAZOLE 40 MG TABLET PO (08:30)
[2021-08-18] MEDS: MIRTAZAPINE 7.5 MG TABLET PO (08:30)
[2021-08-18] MEDS: ASCORBIC ACID 500 MG TABLET 1000 MG PO (08:30)
--- NOTE | 2021-08-18 10:32 | PM.IMPN ---
Progress Note: A&P Assessment and Plan (1) Urinary tract infection: Qualifiers: Hematuria presence: with hematuria Urinary tract infection type: acute cystitis Qualified Code(s): N30.01 - Acute cystitis with hematuria Code(s): N39.0 - Urinary tract infection, site not specified Status: Acute Assessment and Plan: CBC, CMP, UA, reviewed Obtain urine culture if needed Follow temp curve, cultures, WBC, and VS Continue vancomycin and cefepime, pending urine cultures Prior growth of Enterococcus and ESBL/E coli Tenderness over bladder, bladder scan q.6 hours, straight cath if greater 350 mL (2) Metabolic encephalopathy: Code(s): G93.41 - Metabolic encephalopathy Status: Acute Assessment and Plan: Patient's metabolic encephalopathy may be due to the underlying infection which complicates her underlying dementia. (3) Dehydration: Code(s): E86.0 - Dehydration Status: Acute Assessment and Plan: Patient received 500 cc bolus in the emergency department, IV fluids continue to 75 mL an hour. Monitor for fluid volume overload. 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 Continue home Lantus and mealtime bolus insulin. Insulin Lispro sliding scale, Accu-checks qAc and HS and Hold oral hypoglycemics Obtain a HgbA1c Subjective Date/time seen: 08/18/21 10:32 Patient is alert to self. She is very difficult to obtain orientation. Patient is easily distracted during conversation. She is a poor historian. Continue vancomycin and cefepime for urinary tract infection, pending cultures. No acute events reported by RN during the night Venous Doppler reviewed, no acute DVT, head CT WNL and chest x-ray did not reveal acute cardiopulmonary disease. Review of Systems Review of Systems: All systems reviewed & are unremarkable except as noted in HPI and below Exam Narrative: PHYSICAL EXAM: WEIGHT 61.6 kg BMI 27.4 General: No acute distress, frail, elderly, well-nourished HEENT: Mucous membranes are tacky, unable to assess for oral pharyngeal erythema the patient is unable to open her mouth adequately, pupils are equal and reactive, no scleral icterus Respiratory: Frequent cough, lungs are clear to auscultation bilaterally, mild tachypnea Cardiovascular: Sinus tachycardia, 2+ bilateral radial pedal pulses Gastrointestinal: Distended, suprapubic tenderness to palpation, normoactive bowel sounds, soft Skin: Generalized pallor, non jaundice, dry flaking skin from the feet Musculoskeletal: 1+ pitting edema left lower extremity at the ankle, 2 to 3/5 dba strength bilateral hands Neurological: Alert oriented to person, place, month and name of the current president. She thinks the years 2022. She has facet TN decreased range of motion of the bilateral upper extremities history of cervical stenosis, no facial asymmetry, follow simple commands Psychiatric: Pleasant and cooperative, appropriate mood affect : Incontinent of urine, skin breakdown on medial thighs bilaterally Hematologic/lymphatic: No anterior cervical submandibular lymphadenopathy, no petechiae Objective Data Vital Signs Vital Signs: Vital Signs - 24 hr 08/17/21 23:00 08/17/21 23:19 08/17/21 23:30 Temperature 97.7 F Pulse Rate 118 H 118 H 117 H Respiratory Rate 24 H 25 H 21 H Blood Pressure 152/76 H Pulse Oximetry 94 92 92 08/17/21 23:31 08/17/21 23:50 08/18/21 00:00 Temperature Pulse Rate 117 H 117 H 117 H Respiratory Rate 25 H 15 20 Blood Pressure 163/83 H Pulse Oximetry 93 94 94 08/18/21 00:25 08/18/21 00:30 08/18/21 00:36 Temperature Pulse Rate 114 H 111 H Respiratory Rate 30 H 23 H 22 H Blood Pressure 123/94 H Pulse Oximetry 92 94
--- NOTE | 2021-08-18 11:44 | PCCCNOTE ---
On 08/18/21, the student, [Lorraine Frausto ], provided care and completed [facility] documentation on this patient. I have reviewed the student's documentation and agree with the findings.
[2021-08-18 12:02] LABS: Glucose Point of Care 230 mg/dl (65-105)
[2021-08-18] MEDS: CEFEPIME 2 GM in DEXTROSE 5% IN WATER 50 ML IVPB (12:36)
[2021-08-18 17:26] LABS: Glucose Point of Care 251 mg/dl (65-105)
[2021-08-18 23:36] LABS: Glucose Point of Care 242 mg/dl (65-105)
[2021-08-19 06:00] VITALS: BP 129/71; PULSE 61; RESP 16; TEMP 36.6; O2SAT 97
[2021-08-19] MEDS: MIRTAZAPINE 7.5 MG TABLET PO (06:03)
[2021-08-19 06:22] LABS: Estimated Glomerular Filt Rate > 60
[2021-08-19 08:00] VITALS: PULSE 61; RESP 16; O2SAT 97
[2021-08-19 08:14] LABS: Magnesium 1.7 mg/dL (1.6-2.3)
[2021-08-19] MEDS: PANTOPRAZOLE 40 MG TABLET PO (09:10)
[2021-08-19] MEDS: BACLOFEN 10 MG TABLET PO (09:10)
[2021-08-19] MEDS: ENOXAPARIN 40 MG/0.4 ML SYRINGE SUB-Q (09:10)
[2021-08-19] MEDS: ASCORBIC ACID 500 MG TABLET 1000 MG PO (09:10)
[2021-08-19 09:21] LABS: Glucose Point of Care 216 mg/dl (65-105)
[2021-08-19] MEDS: INSULIN ASPART (*BKC) 100 UNITS/ML SUB-Q ×3 (09:25→17:29)
--- NOTE | 2021-08-19 10:52 | PM.IMPN ---
Progress Note: A&P Assessment and Plan (1) Urinary tract infection: Qualifiers: Hematuria presence: with hematuria Urinary tract infection type: acute cystitis Qualified Code(s): N30.01 - Acute cystitis with hematuria Code(s): N39.0 - Urinary tract infection, site not specified Status: Acute Assessment and Plan: CBC, CMP, UA, reviewed Obtain urine culture if needed Follow temp curve, cultures, WBC, and VS Continue vancomycin and cefepime, pending urine cultures Prior growth of Enterococcus and ESBL/E coli Tenderness over bladder, bladder scan q.6 hours, straight cath if greater 350 mL (2) Metabolic encephalopathy: Code(s): G93.41 - Metabolic encephalopathy Status: Acute Assessment and Plan: Patient's metabolic encephalopathy may be due to the underlying infection which complicates her underlying dementia. (3) Dehydration: Code(s): E86.0 - Dehydration Status: Acute Assessment and Plan: Patient received 500 cc bolus in the emergency department, IV fluids.. Monitor for fluid volume overload. (4) Type 2 diabetes mellitus with hyperglycemia, with long-term current use of insulin: Code(s): E11.65 - Type 2 diabetes mellitus with hyperglycemia; Z79.4 - assisted (current) use of insulin Status: Acute Assessment and Plan: Hyperglycemia upon admission. Continue home Lantus and mealtime bolus insulin. Insulin Lispro sliding scale, Accu-checks qAc and HS and Hold oral hypoglycemics Pending a HgbA1c Subjective Date/time seen: 08/19/21 10:52 Patient was lying in bed resting well. IV fluids discontinued, continue to receive vancomycin and cefepime pending blood cultures and urine cultures. Repeat labs daily. Pending hemoglobin A1c. Continue current treatment. No acute events reported by the nursing staff overnight. Review of Systems Review of Systems: All systems reviewed & are unremarkable except as noted in HPI and below Exam Narrative: PHYSICAL EXAM: WEIGHT 61.6 kg BMI 27.4 General: No acute distress, frail, elderly, well-nourished HEENT: Mucous membranes are tacky, unable to assess for oral pharyngeal erythema the patient is unable to open her mouth adequately, pupils are equal and reactive, no scleral icterus Respiratory: Frequent cough, lungs are clear to auscultation bilaterally, mild tachypnea Cardiovascular: Sinus tachycardia, 2+ bilateral radial pedal pulses Gastrointestinal: Distended, suprapubic tenderness to palpation, normoactive bowel sounds, soft Skin: Generalized pallor, non jaundice, dry flaking skin from the feet Musculoskeletal: 1+ pitting edema left lower extremity at the ankle, 2 to 3/5 parts analyst strength bilateral hands Neurological: Alert oriented to person, place, month and name of the current president. She thinks the years 2022. She has facet TN decreased range of motion of the bilateral upper extremities history of cervical stenosis, no facial asymmetry, follow simple commands Psychiatric: Pleasant and cooperative, appropriate mood affect : Incontinent of urine, skin breakdown on medial thighs bilaterally Hematologic/lymphatic: No anterior cervical submandibular lymphadenopathy, no petechiae Objective Data Vital Signs Vital Signs: Vital Signs - 24 hr 08/18/21 14:00 08/18/21 22:00 08/19/21 06:00 Temperature 98.0 F 99.9 F H 97.9 F Pulse Rate 107 H 97 61 Respiratory Rate 20 16 16 Blood Pressure 135/86 127/64 129/71 Pulse Oximetry 95 94 97 Intake/Output Intake/Output: Intake & Output 08/16/21 08/17/21 08/18/21 08/19/21 23:59 23:59 23:59 23:59 Intake Total 2950 750 Output Total 500 700 Balance 2450 50 Meds/Results Medications: Active Medications Generic Name Dose Route Start Last Admin Trade Name Freq PRN Reason Stop Dose Admin Baclofen 10 mg 08/18/21 07:41 08/19/21 09:10 Baclofen 10 Mg Tablet PO 10 mg BID PRN Administration spinal stenosis Calcium Carbonate 50
[2021-08-19] MEDS: ACETAMINOPHEN 325 MG TABLET 650 MG PO (11:51)
[2021-08-19] MEDS: CEFEPIME 2 GM in DEXTROSE 5% IN WATER 50 ML IVPB (11:53)
[2021-08-19 11:54] LABS: Glucose Point of Care 376 mg/dl (65-105)
[2021-08-19 12:43] VITALS: O2SAT 94
[2021-08-19 14:00] VITALS: BP 128/51; PULSE 91; RESP 18; TEMP 36.6; O2SAT 94
[2021-08-19 16:46] LABS: Glucose Point of Care 268 mg/dl (65-105)
[2021-08-19 20:00] VITALS: PULSE 89; RESP 18; O2SAT 97
[2021-08-19 20:46] LABS: Glucose Point of Care 256 mg/dl (65-105)
[2021-08-19 22:00] VITALS: BP 136/57; PULSE 89; RESP 18; TEMP 36.1; O2SAT 97
[2021-08-20 00:03] VITALS: O2SAT 97
[2021-08-20] MEDS: ACETAMINOPHEN 325 MG TABLET 650 MG PO ×2 (00:55→08:46)
[2021-08-20 06:00] VITALS: BP 160/76; PULSE 60; RESP 16; TEMP 36.3; O2SAT 97
[2021-08-20 06:09] LABS: Basophils Absolute Auto 0.1 K/mm3 (0.0-0.1); Eosinophils Absolute Auto 0.2 K/mm3 (0-0.3); Eosinophils Percent Auto 3.4 % (0-4.4); Hematocrit 34.9 % (37.0-47.0); Hemoglobin 11.2 g/dL (12.0-15.0); Immature Granulocyte Absolute 0.04 K/mm3 (0.00-0.031); Immature Granulocyte Percent A 0.6 % (0-0.5); Lymphocytes Absolute Auto 2.51 K/mm3 (0.9-3.2); Lymphocytes Percent Auto 37.4 % (18.3-44.2); Mean Corpuscular HGB Conc 32.1 g/dl (32-36); Mean Corpuscular Hemoglobin 29.7 pg (26-34); Mean Corpuscular Volume 92.6 fl (80-100); Mean Platelet Volume 11.2 fl (7.4-10.4); Monocytes Absolute Auto 0.6 K/mm3 (0.1-0.6); Monocytes Percent Auto 8.9 % (2.6-8.5); Neutrophils Absolute Auto 3.3 K/mm3 (1.3-6.7); Neutrophils Percent Auto 48.7 % (45.5-73.1); Platelet Count Result 194 k/mm3 (150-375); Red Blood Count 3.77 M/mm3 (4.2-5.4); Red Cell Distribution Width 13.6 % (11.5-14.5); White Blood Count 6.7 K/mm3 (4.5-10.0)
[2021-08-20 06:28] LABS: Alanine Aminotransferase 15 U/L (4-35); Albumin Level 3.4 g/dL (3.5-5.1); Alkaline Phosphatase 88 U/L (38-126); Anion Gap 6 mmol/L (8-16); Aspartate Amino Transferase 23 U/L (14-36); Bilirubin,Total 0.3 mg/dL (0.2-1.3); Blood Urea Nitrogen 9 mg/dL (7-17); Calcium 8.7 mg/dL (8.4-10.2); Carbon Dioxide 25 mmol/L (22-30); Chloride 103 mmol/L (98-107); Estimated Glomerular Filt Rate > 60; Glucose 282 mg/dL (65-110); Potassium 3.8 mmol/L (3.4-5.0); Sodium 134 mmol/L (137-145)
[2021-08-20 08:00] VITALS: O2SAT 97
[2021-08-20 08:22] LABS: Glucose Point of Care 277 mg/dl (65-105)
[2021-08-20] MEDS: ENOXAPARIN 40 MG/0.4 ML SYRINGE SUB-Q (08:36)
[2021-08-20] MEDS: MIRTAZAPINE 7.5 MG TABLET PO (08:36)
[2021-08-20] MEDS: PANTOPRAZOLE 40 MG TABLET PO (08:36)
[2021-08-20] MEDS: INSULIN ASPART (*BKC) 100 UNITS/ML SUB-Q ×3 (08:37→18:38)
--- NOTE | 2021-08-20 12:07 | PM.IMPN ---
Progress Note: A&P Assessment and Plan (1) Urinary tract infection: Qualifiers: Hematuria presence: with hematuria Urinary tract infection type: acute cystitis Qualified Code(s): N30.01 - Acute cystitis with hematuria Code(s): N39.0 - Urinary tract infection, site not specified Status: Acute Assessment and Plan: CBC, CMP, UA, reviewed Obtain urine culture if needed Follow temp curve, cultures, WBC, and VS Continue vancomycin and cefepime, pending urine cultures Prior growth of Enterococcus and ESBL/E coli (2) Metabolic encephalopathy: Code(s): G93.41 - Metabolic encephalopathy Status: Acute Assessment and Plan: Patient's metabolic encephalopathy may be due to the underlying infection which complicates her underlying dementia. ---improved (3) Dehydration: Code(s): E86.0 - Dehydration Status: Acute Assessment and Plan: Patient received 500 cc bolus in the emergency department, IV fluids.. Monitor for fluid volume overload. Appears euvolemic (4) Type 2 diabetes mellitus with hyperglycemia, with long-term current use of insulin: Code(s): E11.65 - Type 2 diabetes mellitus with hyperglycemia; Z79.4 - FPC (current) use of insulin Status: Acute Assessment and Plan: Hyperglycemia upon admission. Continue home Lantus and mealtime bolus insulin. Insulin Lispro sliding scale, Accu-checks qAc and HS and Hold oral hypoglycemics HgbA1c 8.5 Subjective Date/time seen: 08/20/21 12:07 Patient is alert to self this morning. She. Resting comfortably in the bed. Continue IV antibiotics, pending urine culture. Blood cultures negative to date. Patient does have a history of growing Enterococcus species with minimal susceptibility. WBC improved, patient has been afebrile. Mental status has improved. Continue monitor while on antibiotic therapy. Pending urine culture. Review of Systems Review of Systems: All systems reviewed & are unremarkable except as noted in HPI and below Exam Narrative: PHYSICAL EXAM: WEIGHT 61.6 kg BMI 27.4 General: No acute distress, frail, elderly, well-nourished HEENT: Mucous membranes are tacky, unable to assess for oral pharyngeal erythema the patient is unable to open her mouth adequately, pupils are equal and reactive, no scleral icterus Respiratory: Frequent cough, lungs are clear to auscultation bilaterally, mild tachypnea Cardiovascular: Sinus tachycardia, 2+ bilateral radial pedal pulses Gastrointestinal: Distended, suprapubic tenderness to palpation, normoactive bowel sounds, soft Skin: Generalized pallor, non jaundice, dry flaking skin from the feet Musculoskeletal: 1+ pitting edema left lower extremity at the ankle, 2 to 3/5 investigation lieutenant strength bilateral hands Neurological: Alert oriented to person, place, month and name of the current president. She thinks the years 2022. She has facet TN decreased range of motion of the bilateral upper extremities history of cervical stenosis, no facial asymmetry, follow simple commands Psychiatric: Pleasant and cooperative, appropriate mood affect : Incontinent of urine, skin breakdown on medial thighs bilaterally Hematologic/lymphatic: No anterior cervical submandibular lymphadenopathy, no petechiae Objective Data Vital Signs Vital Signs: Vital Signs - 24 hr 08/19/21 12:43 08/19/21 14:00 08/19/21 20:00 Temperature 97.9 F Pulse Rate 91 89 Respiratory Rate 18 18 Blood Pressure 128/51 L Pulse Oximetry 94 94 97 08/19/21 22:00 08/20/21 00:03 08/20/21 06:00 Temperature 96.9 F L 97.3 F L Pulse Rate 89 60 Respiratory Rate 18 16 Blood Pressure 136/57 L 160/76 H Pulse Oximetry 97 97 97 Intake/Output Intake/Output: Intake & Output 08/17/21 08/18/21 08/19/21 08/20/21 23:59 23:59 23:59 23:59 Intake Total 2950 870 150 Output Total 500 1600 700 Balance 7095 -972 -768 Meds/Results Medications: Active Medications Generic Name Dose R
[2021-08-20 12:21] LABS: Glucose Point of Care 230 mg/dl (65-105)
[2021-08-20] MEDS: CEFEPIME 2 GM in DEXTROSE 5% IN WATER 50 ML IVPB (12:58)
[2021-08-20 14:00] VITALS: BP 123/55; PULSE 98; RESP 18; TEMP 36.1; O2SAT 95
[2021-08-20 17:12] LABS: Glucose Point of Care 307 mg/dl (65-105)
[2021-08-20 21:37] LABS: Glucose Point of Care 255 mg/dl (65-105)
[2021-08-20 22:00] VITALS: BP 140/60; PULSE 94; RESP 20; TEMP 37; O2SAT 94
[2021-08-21 01:06] LABS: Vancomycin Trough 7.3 ug/mL (10.0-20.0)
[2021-08-21 06:00] VITALS: BP 139/66; PULSE 93; RESP 18; TEMP 36.8; O2SAT 96
[2021-08-21 06:51] LABS: Basophils Absolute Auto 0.1 K/mm3 (0.0-0.1); Basophils Percent Auto 1.2 % (0.2-1.2); Eosinophils Absolute Auto 0.2 K/mm3 (0-0.3); Eosinophils Percent Auto 3.2 % (0-4.4); Hematocrit 36.5 % (37.0-47.0); Hemoglobin 11.1 g/dL (12.0-15.0); Immature Granulocyte Absolute 0.04 K/mm3 (0.00-0.031); Immature Granulocyte Percent A 0.6 % (0-0.5); Lymphocytes Absolute Auto 2.35 K/mm3 (0.9-3.2); Lymphocytes Percent Auto 35.3 % (18.3-44.2); Mean Corpuscular HGB Conc 30.4 g/dl (32-36); Mean Corpuscular Hemoglobin 29.8 pg (26-34); Mean Corpuscular Volume 98.1 fl (80-100); Mean Platelet Volume 10.7 fl (7.4-10.4); Monocytes Absolute Auto 0.6 K/mm3 (0.1-0.6); Monocytes Percent Auto 8.9 % (2.6-8.5); Neutrophils Absolute Auto 3.4 K/mm3 (1.3-6.7); Neutrophils Percent Auto 50.8 % (45.5-73.1); Platelet Count Result 192 k/mm3 (150-375); Red Blood Count 3.72 M/mm3 (4.2-5.4); Red Cell Distribution Width 13.6 % (11.5-14.5); White Blood Count 6.7 K/mm3 (4.5-10.0)
[2021-08-21] MEDS: MIRTAZAPINE 7.5 MG TABLET PO (06:54)
[2021-08-21 07:07] LABS: Alanine Aminotransferase 14 U/L (4-35); Albumin Level 3.3 g/dL (3.5-5.1); Alkaline Phosphatase 74 U/L (38-126); Anion Gap 7 mmol/L (8-16); Aspartate Amino Transferase 23 U/L (14-36); Bilirubin,Total 0.4 mg/dL (0.2-1.3); Blood Urea Nitrogen 7 mg/dL (7-17); Calcium 8.1 mg/dL (8.4-10.2); Carbon Dioxide 23 mmol/L (22-30); Chloride 103 mmol/L (98-107); Estimated Glomerular Filt Rate > 60; Glucose 259 mg/dL (65-110); Potassium 3.5 mmol/L (3.4-5.0); Sodium 133 mmol/L (137-145)
[2021-08-21 07:57] LABS: Glucose Point of Care 247 mg/dl (65-105)
[2021-08-21 08:00] VITALS: PULSE 93; RESP 18; O2SAT 96
--- NOTE | 2021-08-21 09:57 | PM.IMPN ---
Progress Note: A&P Assessment and Plan (1) Urinary tract infection: Qualifiers: Hematuria presence: with hematuria Urinary tract infection type: acute cystitis Qualified Code(s): N30.01 - Acute cystitis with hematuria Code(s): N39.0 - Urinary tract infection, site not specified Status: Acute Assessment and Plan: CBC, CMP, UA, reviewed Urine culture revealed E coli, pending sensitivity report Follow temp curve, cultures, WBC, and VS Stop vancomycin and cefepime and transitioned to cefdinir 300 mg b.i.d. (2) Metabolic encephalopathy: Code(s): G93.41 - Metabolic encephalopathy Status: Acute Assessment and Plan: Patient's metabolic encephalopathy may be due to the underlying infection which complicates her underlying dementia. ---resolved (3) Dehydration: Code(s): E86.0 - Dehydration Status: Acute Assessment and Plan: Patient received 500 cc bolus in the emergency department, IV fluids.. Monitor for fluid volume overload. 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 Continue home Lantus and mealtime bolus insulin. Insulin Lispro sliding scale, Accu-checks qAc and HS and Hold oral hypoglycemics HgbA1c 8.5 Additional Plan Subjective Date/time seen: 08/21/21 09:57 Patient is doing well this morning. She appears to be at her baseline. Decreased antibiotics to cefdinir 300 mg b.i.d.. Continue to monitor WBC. E coli growth for culture, Pending sensitivity report. No acute events reported by RN during the night. Patient is minimally conversational. She denies any chest pain or shortness a breath. Review of Systems Review of Systems: All systems reviewed & are unremarkable except as noted in HPI and below Exam Narrative: PHYSICAL EXAM: WEIGHT 61.6 kg BMI 27.4 General: No acute distress, frail, elderly, well-nourished HEENT: Mucous membranes are tacky, unable to assess for oral pharyngeal erythema the patient is unable to open her mouth adequately, pupils are equal and reactive, no scleral icterus Respiratory: Frequent cough, lungs are clear to auscultation bilaterally, mild tachypnea Cardiovascular: Sinus tachycardia, 2+ bilateral radial pedal pulses Gastrointestinal: Distended, suprapubic tenderness to palpation, normoactive bowel sounds, soft Skin: Generalized pallor, non jaundice, dry flaking skin from the feet Musculoskeletal: 1+ pitting edema left lower extremity at the ankle, 2 to 3/5 silk opener strength bilateral hands Neurological: Alert oriented to person, place, month and name of the current president. She thinks the years 2022. She has facet TN decreased range of motion of the bilateral upper extremities history of cervical stenosis, no facial asymmetry, follow simple commands Psychiatric: Pleasant and cooperative, appropriate mood affect : Incontinent of urine, skin breakdown on medial thighs bilaterally Hematologic/lymphatic: No anterior cervical submandibular lymphadenopathy, no petechiae Objective Data Vital Signs Vital Signs: Vital Signs - 24 hr 08/20/21 14:00 08/20/21 22:00 08/21/21 06:00 Temperature 97.0 F L 98.6 F 98.3 F Pulse Rate 98 94 93 Respiratory Rate 18 20 18 Blood Pressure 123/55 L 140/60 139/66 Pulse Oximetry 95 94 96 Intake/Output Intake/Output: Intake & Output 08/18/21 08/19/21 08/20/21 08/21/21 23:59 23:59 23:59 23:59 Intake Total 2950 920 620 320 Output Total 500 1600 1200 700 Balance 4230 -680 -580 -894 Meds/Results Medications: Active Medications Generic Name Dose Route Start Last Admin Trade Name Freq PRN Reason Stop Dose Admin Acetaminophen 650 mg 08/19/21 11:36 08/20/21 08:46 Acetaminophen 325 Mg Tablet PO 650 mg Q6H PRN
[2021-08-21] MEDS: ENOXAPARIN 40 MG/0.4 ML SYRINGE SUB-Q (10:02)
[2021-08-21] MEDS: INSULIN ASPART (*BKC) 100 UNITS/ML SUB-Q ×3 (10:02→17:59)
[2021-08-21] MEDS: PANTOPRAZOLE 40 MG TABLET PO (10:02)
[2021-08-21] MEDS: CEFDINIR 300 MG CAPSULE PO ×2 (10:03→20:10)
[2021-08-21 11:18] LABS: Glucose Point of Care 298 mg/dl (65-105)
[2021-08-21 13:25] VITALS: BP 135/71; PULSE 102; RESP 18; TEMP 36.6; O2SAT 99
[2021-08-21 16:29] LABS: Glucose Point of Care 275 mg/dl (65-105)
[2021-08-21 20:38] VITALS: TEMP 38.4
[2021-08-21 20:38] LABS: Glucose Point of Care 253 mg/dl (65-105)
[2021-08-21] MEDS: ACETAMINOPHEN 325 MG TABLET 650 MG PO (20:38)
[2021-08-21 22:00] VITALS: BP 134/62; PULSE 93; RESP 16; TEMP 37.1; O2SAT 96
[2021-08-22 06:00] VITALS: BP 130/45; PULSE 90; RESP 16; TEMP 36.6; O2SAT 97
[2021-08-22 06:40] LABS: Basophils Absolute Auto 0.1 K/mm3 (0.0-0.1); Basophils Percent Auto 1.2 % (0.2-1.2); Eosinophils Absolute Auto 0.3 K/mm3 (0-0.3); Eosinophils Percent Auto 3.8 % (0-4.4); Hemoglobin 11.3 g/dL (12.0-15.0); Immature Granulocyte Absolute 0.04 K/mm3 (0.00-0.031); Immature Granulocyte Percent A 0.6 % (0-0.5); Lymphocytes Absolute Auto 2.34 K/mm3 (0.9-3.2); Lymphocytes Percent Auto 34.4 % (18.3-44.2); Mean Corpuscular HGB Conc 30.5 g/dl (32-36); Mean Corpuscular Hemoglobin 29.7 pg (26-34); Mean Corpuscular Volume 97.1 fl (80-100); Mean Platelet Volume 10.8 fl (7.4-10.4); Monocytes Absolute Auto 0.6 K/mm3 (0.1-0.6); Monocytes Percent Auto 9.3 % (2.6-8.5); Neutrophils Absolute Auto 3.5 K/mm3 (1.3-6.7); Neutrophils Percent Auto 50.7 % (45.5-73.1); Platelet Count Result 190 k/mm3 (150-375); Red Blood Count 3.81 M/mm3 (4.2-5.4); Red Cell Distribution Width 13.7 % (11.5-14.5); White Blood Count 6.8 K/mm3 (4.5-10.0)
[2021-08-22 06:48] LABS: Alanine Aminotransferase 19 U/L (4-35); Albumin Level 3.3 g/dL (3.5-5.1); Alkaline Phosphatase 73 U/L (38-126); Anion Gap 7 mmol/L (8-16); Aspartate Amino Transferase 34 U/L (14-36); Bilirubin,Total 0.4 mg/dL (0.2-1.3); Blood Urea Nitrogen 6 mg/dL (7-17); Calcium 8.6 mg/dL (8.4-10.2); Carbon Dioxide 23 mmol/L (22-30); Chloride 104 mmol/L (98-107); Estimated Glomerular Filt Rate > 60; Glucose 263 mg/dL (65-110); Potassium 3.6 mmol/L (3.4-5.0); Sodium 134 mmol/L (137-145)
[2021-08-22 08:00] VITALS: PULSE 90; RESP 16; O2SAT 97
[2021-08-22 08:12] LABS: Glucose Point of Care 264 mg/dl (65-105)
[2021-08-22] MEDS: ENOXAPARIN 40 MG/0.4 ML SYRINGE SUB-Q (09:53)
[2021-08-22] MEDS: INSULIN ASPART (*BKC) 100 UNITS/ML SUB-Q ×3 (09:53→17:07)
[2021-08-22] MEDS: PANTOPRAZOLE 40 MG TABLET PO (09:54)
[2021-08-22] MEDS: MIRTAZAPINE 7.5 MG TABLET PO (09:55)
--- NOTE | 2021-08-22 11:12 | PM.IMPN ---
Progress Note: A&P Assessment and Plan (1) Urinary tract infection: Qualifiers: Hematuria presence: with hematuria Urinary tract infection type: acute cystitis Qualified Code(s): N30.01 - Acute cystitis with hematuria Code(s): N39.0 - Urinary tract infection, site not specified Status: Acute Assessment and Plan: CBC, CMP, UA, reviewed Urine culture revealed E coli, sensitivity report reported ertapenem and cefepime, multiple resistance test other antibiotic choices. Follow temp curve, cultures, WBC, and VS Stop vancomycin and cefepime and transitioned to ertapenem 1 g Q 24 hours, midline will be placed and the patient will receive a total of 10 days IV antibiotics for urinary tract infection that was sensitive to ertapenem and cefepime. Midline will be placed on 08/23/2021 and she will be able to return to the facility. Plan for discharge on 08/23/2021, waiting for authorization (2) Metabolic encephalopathy: Code(s): G93.41 - Metabolic encephalopathy Status: Acute Assessment and Plan: Patient's metabolic encephalopathy may be due to the underlying infection which complicates her underlying dementia. ---resolved (3) Dehydration: Code(s): E86.0 - Dehydration Status: Acute Assessment and Plan: Patient received 500 cc bolus in the emergency department, IV fluids.. Monitor for fluid volume overload. 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 Continue home Lantus and mealtime bolus insulin. Insulin Lispro sliding scale, Accu-checks qAc and HS and Hold oral hypoglycemics HgbA1c 8.5 Additional Plan Subjective Date/time seen: 08/22/21 11:12 Patient was evaluated this morning at bedside. She is in good spirits and back to mental baseline. Patient denies any chest pain, shortness breast, acute abdominal pain. Nurses at bedside no reported acute events during the night. Sensitivity report came back on the urine culture which reported her dependence, cefepime as sensitive to the E coli growth culture. She has multiple resistance and borderline oral antibiotic choice. Therefore she will be continued on ertapenem 1 g Q 24 hours for the next 6 days. A midline will be placed in on Monday (08/23/2021), last day of antibiotics will be August 28, 2021. Repeat urine culture in 2 weeks for resolution given the patient's continued/repeat growth of ESBL, E coli and other resistant organisms. Case management coordinating IV antibiotics with skilled nursing and midline placement on 08/23/2021 Review of Systems Review of Systems: All systems reviewed & are unremarkable except as noted in HPI and below Exam Narrative: PHYSICAL EXAM: WEIGHT 61.6 kg BMI 27.4 General: No acute distress, frail, elderly, well-nourished HEENT: Mucous membranes are tacky, unable to assess for oral pharyngeal erythema the patient is unable to open her mouth adequately, pupils are equal and reactive, no scleral icterus Respiratory: Frequent cough, lungs are clear to auscultation bilaterally, mild tachypnea Cardiovascular: Sinus rhythm, 2+ bilateral radial pedal pulses Gastrointestinal: Distended, suprapubic tenderness to palpation, normoactive bowel sounds, soft Skin: Generalized pallor, non jaundice, dry flaking skin from the feet Musculoskeletal: 1+ pitting edema left lower extremity at the ankle, 2 to 3/5 apartment community manager strength bilateral hands Neurological: Alert oriented to person, place, month and name of the current president. She thinks the years 2022. She has facet TN decreased range of motion of the bilateral upper extremities history of cervical stenosis, no facial asymmetry, follow simple commands Psychiatric: Pleasant and cooperative, ward
[2021-08-22 11:56] LABS: Glucose Point of Care 328 mg/dl (65-105)
[2021-08-22] MEDS: ERTAPENEM 1 GM/NS 50 ML 1 GM/50 ML BAG IVPB (12:23)
[2021-08-22 14:00] VITALS: BP 129/56; PULSE 96; RESP 16; TEMP 36.6; O2SAT 95
[2021-08-22] MEDS: ACETAMINOPHEN 325 MG TABLET 650 MG PO (15:22)
[2021-08-22 17:02] LABS: Glucose Point of Care 282 mg/dl (65-105)
[2021-08-22 21:09] VITALS: BP 125/52; PULSE 91; RESP 26; TEMP 36.4; O2SAT 94
[2021-08-22 21:33] LABS: Glucose Point of Care 306 mg/dl (65-105)
[2021-08-23 06:00] VITALS: BP 143/53; PULSE 85; RESP 20; TEMP 36.3; O2SAT 91
[2021-08-23 08:00] VITALS: O2SAT 94
[2021-08-23 08:00] LABS: Glucose Point of Care 312 mg/dl (65-105)
[2021-08-23] MEDS: INSULIN ASPART (*BKC) 100 UNITS/ML SUB-Q ×4 (08:57→18:22)
[2021-08-23] MEDS: MIRTAZAPINE 7.5 MG TABLET PO (08:57)
[2021-08-23] MEDS: PANTOPRAZOLE 40 MG TABLET PO (08:57)
[2021-08-23] MEDS: ENOXAPARIN 40 MG/0.4 ML SYRINGE SUB-Q (08:57)
--- NOTE | 2021-08-23 10:45 | PM.DS ---
DS: Admitting Diagnosis Discharge Date 08/23/21 1045 Admitting Diagnosis Acute UTI DS: Discharge Diagnosis Discharge Diagnosis (1) Urinary tract infection: Qualifiers: Hematuria presence: with hematuria Urinary tract infection type: acute cystitis Qualified Code(s): N30.01 - Acute cystitis with hematuria Code(s): N39.0 - Urinary tract infection, site not specified Status: Acute Assessment and Plan: CBC, CMP, UA, reviewed Urine culture revealed E coli, sensitivity report reported ertapenem and cefepime, multiple resistance test other antibiotic choices. Follow temp curve, cultures, WBC, and VS Plan for discharge on 08/23/2021, waiting for authorization Patient has received 6 days of Cefepime and Ertapenem Will be discharged on 5 days of augmentin (2) Metabolic encephalopathy: Code(s): G93.41 - Metabolic encephalopathy Status: Acute Assessment and Plan: Patient's metabolic encephalopathy may be due to the underlying infection which complicates her underlying dementia. ---resolved (3) Dehydration: Code(s): E86.0 - Dehydration Status: Acute Assessment and Plan: Patient received 500 cc bolus in the emergency department, IV fluids.. Monitor for fluid volume overload. 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 Continue home Lantus and mealtime bolus insulin. Insulin Lispro sliding scale, Accu-checks qAc and HS and Hold oral hypoglycemics HgbA1c 8.5 DS: Summary Hospital Course Hospital Course: Patient is 81-year-old female with past medical history of dementia, COPD, diabetes, cervical stenosis, who presented the ED from [facility] due to altered mental status and decreased urine output. EMS stated the patient was alert oriented x1. She was able to answer questions appropriately upon arrival. UA was taken and was noted the patient does have an E coli ESBL urinary tract infection. Patient was started on IV cefepime and was changed to IV ertapenem x6 days. White blood cell count was never elevated and confusion has subsided. Patient does seem to be at her baseline A&O times 1-2. She tell me the month and where she was at however she stated the president was Chidi Fletcher. She denies any chest pain, shortness of breath, weakness, fatigue, nausea, vomiting, diarrhea, constipation. Patient stated that she is eating well. Glucose has been noted to be a little elevated however has been controlled. Chest x-ray upon arrival showed no acute cardio pulmonary abnormality. Head CT showed no acute intracranial process, venous Doppler showed no DVT. Patient denies any urinary dysfunction at this time she has also been ordered PT and OT and has been up to the chair. Patient stable for discharge. Labs and vital signs are both stable. Patient will be discharged back to [facility] rehab at this time. Status at Discharge Functional status at discharge: wheelchair bound Overall status at discharge: patient is progressing back to baseline Time Spent with Patient Time attestation: Total time spent providing and/or coordinating discharge services: 48 minutes Time spent: Greater than 30 minutes Specific discharge activities: Diagnostic testing, chart review, developing a treatment plan, education, care coordination documentation, physical exam, result review Exam Const: General: cooperative, healthy appearing, no acute distress, well developed, alert and awake Nutritional Appearance: well nourished Orientation/consciousness: oriented to person, oriented to place, No oriented to time and confusion Limitations: no limitations HENMT: Head: normal
[2021-08-23 12:00] LABS: Glucose Point of Care 325 mg/dl (65-105)
[2021-08-23] MEDS: ERTAPENEM 1 GM/NS 50 ML 1 GM/50 ML BAG IVPB (12:43)
[2021-08-23 13:11] LABS: EDCOVIDSCREEN Negative (Negative)
[2021-08-23 14:00] VITALS: BP 141/66; PULSE 91; RESP 20; TEMP 37.1; O2SAT 98
[2021-08-23 16:00] LABS: Glucose Point of Care 229 mg/dl (65-105)
== END 2021-08-23 19:30 | DRG 689 ==
LOC: ANHED 08-18 01:13 → ANH3MEDSUR 08-18 03:30
PROVIDERS: Nurse Practitioner Family; Admitting Provider Internal Medicine; Emergency Provider Emergency Medicine; Visit Provider Nurse Practitioner
DX: N39.0 Urinary tract infection, site not specified (principal); G93.41 Metabolic encephalopathy; Z16.12 Extended spectrum beta lactamase (ESBL) resistance; B96.20 Unspecified Escherichia coli [E. coli] as the cause of diseases classified elsewhere; Z20.822 Contact with and (suspected) exposure to COVID-19; F03.90 Unspecified dementia, unspecified severity, without behavioral disturbance, psychotic disturbance, mood disturbance, and anxiety; E86.0 Dehydration; E11.65 Type 2 diabetes mellitus with hyperglycemia; J44.9 Chronic obstructive pulmonary disease, unspecified; M48.02 Spinal stenosis, cervical region; M19.90 Unspecified osteoarthritis, unspecified site; M81.0 Age-related osteoporosis without current pathological fracture; E55.9 Vitamin D deficiency, unspecified; R00.0 Tachycardia, unspecified; Z79.4 Long term (current) use of insulin; Z85.828 Personal history of other malignant neoplasm of skin; Z90.49 Acquired absence of other specified parts of digestive tract; Z87.891 Personal history of nicotine dependence; Z99.3 Dependence on wheelchair
CPT/HCPCS: 36415; 70450; 71045; 80053; 80202; 81001; 82565; 82948; 83605; 83690; 83735; 85025; 87040; 87077; 87086; 87186; 87426; 93971; 96361; 96365; 96366; 96367; 96372; 96375; 96376; 99285; A9270; C9803; G0378; J0692; J1335; J1650; J1815; J3370; J7030; J7040; U0003; U0005

== ENCOUNTER 2021-11-14 22:44 | Emergency (ER) | payer OTHER, SELFPAY ==
[2021-11-14] VITALS (7 sets, daily range): BP systolic 137–161; BP diastolic 74; PULSE 82–94; RESP 18–24; TEMP 36.3; O2SAT 91–95
--- NOTE | ~2021-11-14 | XR_ITS ---
EXAMINATION: XR chest 1V portable DATE: 11/14/2021 23:21 INDICATION: COPD and hypertension presenting with weakness and transient alteration of awareness. TECHNIQUE: frontal view of the chest was obtained. COMPARISON: Chest radiograph dated 08/18/2021 FINDINGS: Unchanged minimal lingular atelectasis/scarring along side a small left paracardial fat pad. No other airspace opacities, pulmonary edema, pleural effusion or pneumothorax. The cardiomediastinal silhoue tte is normal. IMPRESSION: 1. Mild lingular atelectasis/scarring along side a small left pericardial fat pad. No acute cardiopul monary disease. Reviewed, dictated and finalized at location [facility]. IMPRESSION: 1. Mild lingular atelectasis/scarring along side a small left pericardial fat p ad. No acute cardiopulmonary disease.
--- NOTE | ~2021-11-14 | CT_ITS ---
EXAMINATION: CT brain wo con DATE: 11/14/2021 23:43 INDICATION: Altered mental status TECHNIQUE: Computed tomography (CT) of the head was performed without intravenous contrast. The mA wa s adjusted according to patient size. Iterative reconstruction technique was employed. Exam dose: 60 5.33 mGy-cm total exam DLP. COMPARISON: 08/17/2021 CT brain FINDINGS: There is no intracranial mass lesion or hemorrhage or cerebrovascular accident is detected. No midline shift or mass effect. There is moderately prominent central and cortical cerebral atrophy . Bilateral carotid siphon internal carotid artery calcifications. There is nonspecific diminished atte nuation of the cerebral white matter, likely due to chronic small vessel ischemic changes. No subdural or epidural hematoma is detected. No fracture or bone destruction of the cranial vault. Mastoid air cells and included paranasal sinuse s are clear. IMPRESSION: No acute intracranial finding Reviewed, dictated and finalized at [facility]. Reviewed, dictated and finalized at location [facility].
--- NOTE | 2021-11-14 23:05 | ECG_ITS ---
Measurements Intervals [place] Rate: 92 P: 52 AK: 156 QRS: 18 QRSD: 82 T: 72 QT: 348 QTc: 431 Interpretive Statements SINUS RHYTHM WITH SINUS ARRHYTHMIA LOW QRS VOLTAGE IN EXTREMITY LEADS [QRS DEFLECTION < 0.5 mV IN LIMB LEADS] COMPARED TO ECG 12/04/2020 12:28:06 NO SIGNIFICANT DIFFERENCE Electronically Signed On 11-15-2021 7:19:27 CDT by Cain Alford M.D.
[2021-11-14 23:36] LABS: Basophils Absolute Auto 0.1 K/mm3 (0.0-0.1); Basophils Percent Auto 0.9 % (0.2-1.2); Eosinophils Absolute Auto 0.2 K/mm3 (0-0.3); Eosinophils Percent Auto 2.3 % (0-4.4); Hematocrit 39.7 % (37.0-47.0); Hemoglobin 12.6 g/dL (12.0-15.0); Immature Granulocyte Absolute 0.01 K/mm3 (0.00-0.031); Immature Granulocyte Percent A 0.1 % (0-0.5); Lymphocytes Absolute Auto 3.12 K/mm3 (0.9-3.2); Lymphocytes Percent Auto 34.8 % (18.3-44.2); Mean Corpuscular HGB Conc 31.7 g/dl (32-36); Mean Corpuscular Volume 91.3 fl (80-100); Mean Platelet Volume 10.8 fl (7.4-10.4); Monocytes Absolute Auto 0.7 K/mm3 (0.1-0.6); Monocytes Percent Auto 8.3 % (2.6-8.5); Neutrophils Absolute Auto 4.8 K/mm3 (1.3-6.7); Neutrophils Percent Auto 53.6 % (45.5-73.1); Platelet Count Result 203 k/mm3 (150-375); Red Blood Count 4.35 M/mm3 (4.2-5.4); Red Cell Distribution Width 13.2 % (11.5-14.5)
[2021-11-14 23:37] LABS: Add Urine Microscopic? YES; Appearance Urine Slightly Cloudy (Clear); Bilirubin Urine Negative (Negative); Blood Urine Trace (Negative); Color Urine Yellow (Yellow); Glucose Urine UA Negative (Negative); Ketones Urine Negative (Negative); Leukocyte Esterase Ur 2+ LEU/UL (Negative); Nitrate Urine Negative (Negative); Protein Urine 1+ mg/dL (Negative); Urobilinogen Urine 0.2 mg/dL (<2.0); pH Urine 6.5 (5.0-9.0)
--- NOTE | 2021-11-14 23:40 | ED.GENADULT ---
HPI - General Adult General Chief complaint: Altered Mental Status Stated complaint: confusion possible uti Time Seen by Provider: 11/14/21 22:47 History of Present Illness HPI narrative: Patient is a 81-year-old female that presents to the emergency department with chief complaint of confusion per the local alf where she is a resident at the patient has been less responsive today and has been more confused. Patient states she feels a little off and is concerned that she may have a UTI. The patient denies chest pain denies shortness of breath denies fever denies chills denies diarrhea. Related Data Home Medications Medication Instructions Recorded Confirmed acetaminophen 325 mg tablet 650 mg PO Q6H PRN Pain 08/19/20 08/18/21 ascorbic acid (vitamin C) 500 mg 1,000 mg PO DAILY 08/19/20 08/18/21 tablet calcium carbonate 600 mg-vitamin 1 cap PO BID 08/19/20 08/18/21 D3 12.5 mcg (500 unit) capsule docusate sodium 100 mg capsule 100 mg PO DAILY PRN Constipation 08/19/20 08/18/21 insulin aspart U-100 100 unit/mL 0 unit subcut TID 08/19/20 08/18/21 (3 mL) subcutaneous pen (Novolog Flexpen U-100 Insulin aspart) insulin aspart U-100 100 unit/mL 5 unit subcut TID 08/19/20 08/18/21 (3 mL) subcutaneous pen (Novolog Flexpen U-100 Insulin aspart) insulin glargine 100 unit/mL (3 20 unit subcut HS 08/19/20 08/18/21 mL) subcutaneous pen (Lantus Solostar U-100 Insulin) mirtazapine 7.5 mg tablet 7.5 mg PO DAILY 08/19/20 08/18/21 polyethylene glycol 3350 17 17 g PO DAILY PRN Constipation 08/19/20 08/18/21 gram/dose oral powder (Miralax) metformin 1,000 mg tablet 1,000 mg DAILY 12/02/20 08/18/21 baclofen 10 mg tablet 10 mg PO BID PRN spinal stenosis 08/18/21 08/18/21 Allergies Allergy/AdvReac Type Severity Reaction Status Date / Time adhesive tape Allergy Mild Rash Verified 08/17/21 23:28 ibuprofen [From Motrin] AdvReac Mild Nausea and Verified 08/17/21 23:28 Vomiting morphine AdvReac Mild Nausea and Verified 08/17/21 23:28 Vomiting Review of Systems Review of Systems: A 10 system review of systems was completed on the patient and is negative except for what is stated in the HPI. Nursing and ancillary documentation was reviewed. [facility] Past Medical History Medical History Arthritis Bronchitis Cataract She said 1 was removed Closed fracture of tibial plateau (07/2020) managed conservatively Compression fracture T11 20% COPD (chronic obstructive pulmonary disease) Dementia DM II (diabetes mellitus, type II), controlled Duodenitis (08/2020) History of skin cancer SQ cell lt lateral knee. Hx of fracture of rib Osteoporosis Screening for malignant neoplasm of colon Stenosis of cervical spine severe-- declined surgery in the Vitamin D deficiency Surgical History Surgical History History of cholecystectomy History of esophagogastroduodenoscopy (EGD) (08/2020) Previous section X3 Family History Family History Sibling Diabetes mellitus Other Diabetes mellitus Hypertension Mother Diabetes mellitus Father Lung cancer Sibling Diabetes mellitus Kidney failure Social History Social History Social History: Patient quit smoking last year but smoked for 45 years prior to that. She does not drink alcohol or do drugs. She would like her surrogate decision maker to be her daughter Annie. Code status: DNR/DNI Smoking packs per day: 1 Smoking cigarettes per day: 20.0 Years smoked: 30 Smoking pack-years: 30.00 Smoking status: Former smoker Tobacco type: cigarettes Second hand tobacco smoke exposure: Yes Alcohol intake: never Substance use: never Gender identity (if verbalized by the patient):
[2021-11-14 23:48] LABS: Lactic Acid Reflex 1.5 mmol/L (0.7-2.0); Magnesium 1.9 mg/dL (1.6-2.3)
[2021-11-14] MEDS: SODIUM CHLORIDE 0.9% IV 1,000 ML 250 ML IV CONT (23:50)
[2021-11-14 23:53] LABS: Bacteria Urine 4+ /hpf; Squamous Epithelial Cell Urine Many /hpf (Few); WBC Urine >75 /hpf
[2021-11-15] VITALS (14 sets, daily range): BP systolic 162; BP diastolic 82; PULSE 77–113; RESP 20–29; O2SAT 93–96
[2021-11-15 00:05] LABS: Alanine Aminotransferase 18 U/L (6-35); Albumin Level 4.3 g/dL (3.5-5.1); Alkaline Phosphatase 83 U/L (38-126); Anion Gap 9 mmol/L (8-16); Aspartate Amino Transferase 29 U/L (14-36); Bilirubin,Total 0.6 mg/dL (0.2-1.3); Blood Urea Nitrogen 13 mg/dL (7-17); Calcium 9.9 mg/dL (8.4-10.2); Carbon Dioxide 25 mmol/L (22-30); Chloride 103 mmol/L (98-107); Estimated Glomerular Filt Rate > 60; Glucose 209 mg/dL (65-110); Potassium 4.6 mmol/L (3.4-5.0); Sodium 137 mmol/L (137-145)
--- NOTE | 2021-11-15 02:49 | PC.NURSE ---
Spoke with nurse from [facility] and gave a nurse report/update on the patient. Gave update on EMS transport back to facility, ETA 3 am
== END 2021-11-15 03:40 ==
PROVIDERS: Emergency Provider Emergency Medicine
DX: N39.0 Urinary tract infection, site not specified (principal); E11.9 Type 2 diabetes mellitus without complications; J44.9 Chronic obstructive pulmonary disease, unspecified; F03.90 Unspecified dementia, unspecified severity, without behavioral disturbance, psychotic disturbance, mood disturbance, and anxiety; M81.0 Age-related osteoporosis without current pathological fracture; E55.9 Vitamin D deficiency, unspecified; Z85.828 Personal history of other malignant neoplasm of skin; Z66 Do not resuscitate; Z79.4 Long term (current) use of insulin; Z79.84 Long term (current) use of oral hypoglycemic drugs
CPT/HCPCS: 36415; 70450; 71045; 80053; 81001; 83605; 83735; 85025; 87077; 87086; 87186; 93005; 96361; 96365; 99284; J0696; J7030

== ENCOUNTER 2021-12-14 04:39 | Emergency (ER) | payer OTHER, SELFPAY ==
[2021-12-14] VITALS (20 sets, daily range): BP systolic 117–156; BP diastolic 55–79; PULSE 83–106; RESP 14–26; TEMP 36.7–37.3; O2SAT 88–99
--- NOTE | ~2021-12-14 | XR_ITS ---
EXAMINATION: XR chest 1V DATE: 12/14/2021 05:43 INDICATION: Fall TECHNIQUE: frontal view of the chest was obtained. COMPARISON: Chest radiograph dated 11/14/2021 FINDINGS: Unchanged minimal lingular atelectasis/scarring along side a small left paracardial fat pad. No other airspace opacities, pulmonary edema, pleural effusion or pneumothorax. The cardiomediastinal silhoue tte is normal. IMPRESSION: 1. Mild lingular atelectasis/scarring along side a small left paracardial fat pad. No acute cardiopul monary disease. Reviewed, dictated and finalized at location A. IMPRESSION: 1. Mild lingular atelectasis/scarring along side a small left paracardial fat p ad. No acute cardiopulmonary disease.
--- NOTE | ~2021-12-14 | XR_ITS ---
EXAMINATION: XR femur RT min 2V DATE: 12/14/2021 05:43 INDICATION: Right femur fracture post fall TECHNIQUE: AP and lateral views of the right femur were obtained on overlapping proximal and distal r adiographs. COMPARISON: None. FINDINGS: Diffuse osteopenia. Oblique extra-articular distal metaphyseal fracture of the right femur with 1 cm anteromedial displacement and 20 degree posterolateral angulation. No fracture in the more proximal f emur. Mild osteoarthritis at the right hip. IMPRESSION: 1. Mildly displaced and angulated extra articular distal metaphyseal fracture of the right femur. Reviewed, dictated and finalized at location A. IMPRESSION: 1. Mildly displaced and angulated extra articular distal metaphyseal fracture o f the right femur.
--- NOTE | 2021-12-14 04:48 | ECG_ITS ---
Rate 101 NE 161 QRSd 77 QT 341 QTc 443 --[place]-- P 33 QRS 24 T 71 SINUS TACHYCARDIA LOW QRS VOLTAGE IN LIMB LEADS BORDERLINE ST-T WAVE ABNORMALITY- HIGH LATERAL LEADS BASELINE ARTIFACT- I, II, III, AVR, AVL, AVF, V5 BORDERLINE ECG Electronically Signed On 12-14-2021 15:14:23 CDT by Latrell WICK
--- NOTE | 2021-12-14 04:53 | ED.LOWEXIN ---
HPI - Extremity Injury (Lower) General Chief Complaint: Extremity Injury, Lower Stated Complaint: FEMUR FRACTURE Source: patient, EMS, RN notes reviewed and old records reviewed Mode of arrival: EMS Limitations: dementia History of Present Illness HPI Narrative: This is 81 year old female who presents for evaluation of right distal femur fracture. Patient states she fell out of bed yesterday morning. Xrays were performed on patient at nursing facility. It has been reported that patient has right distal femur fracture. Patient states she did not hit her head and she denies LOC. She denies headache, chest pain, shortness of breath or cough. She is reporting right leg spasms that are causing her pain. She reports feet tingling due to neuropathy. Related Data Home Medications Medication Instructions Recorded Confirmed acetaminophen 325 mg tablet 650 mg PO Q6H PRN Pain 08/19/20 08/18/21 ascorbic acid (vitamin C) 500 mg 1,000 mg PO DAILY 08/19/20 08/18/21 tablet calcium carbonate 600 mg-vitamin 1 cap PO BID 08/19/20 08/18/21 D3 12.5 mcg (500 unit) capsule docusate sodium 100 mg capsule 100 mg PO DAILY PRN Constipation 08/19/20 08/18/21 insulin aspart U-100 100 unit/mL 0 unit subcut TID 08/19/20 08/18/21 (3 mL) subcutaneous pen (Novolog Flexpen U-100 Insulin aspart) insulin aspart U-100 100 unit/mL 5 unit subcut TID 08/19/20 08/18/21 (3 mL) subcutaneous pen (Novolog Flexpen U-100 Insulin aspart) insulin glargine 100 unit/mL (3 20 unit subcut HS 08/19/20 08/18/21 mL) subcutaneous pen (Lantus Solostar U-100 Insulin) mirtazapine 7.5 mg tablet 7.5 mg PO DAILY 08/19/20 08/18/21 polyethylene glycol 3350 17 17 g PO DAILY PRN Constipation 08/19/20 08/18/21 gram/dose oral powder (Miralax) metformin 1,000 mg tablet 1,000 mg DAILY 12/02/20 08/18/21 baclofen 10 mg tablet 10 mg PO BID PRN spinal stenosis 08/18/21 08/18/21 Allergies Allergy/AdvReac Type Severity Reaction Status Date / Time adhesive tape Allergy Mild Rash Verified 08/17/21 23:28 ibuprofen [From Motrin] AdvReac Mild Nausea and Verified 08/17/21 23:28 Vomiting morphine AdvReac Mild Nausea and Verified 08/17/21 23:28 Vomiting Review of Systems Review of Systems: All systems reviewed & are unremarkable except as noted in HPI and below PMFSH Past Medical History Medical History Arthritis Bronchitis Cataract She said 1 was removed Closed fracture of tibial plateau (07/2020) managed conservatively Compression fracture T11 20% COPD (chronic obstructive pulmonary disease) Dementia DM II (diabetes mellitus, type II), controlled Duodenitis (08/2020) History of skin cancer SQ cell lt lateral knee. Hx of fracture of rib Osteoporosis Screening for malignant neoplasm of colon Stenosis of cervical spine severe-- declined surgery in the Vitamin D deficiency Surgical History Surgical History History of cholecystectomy History of esophagogastroduodenoscopy (EGD) (08/2020) Previous section X3 Family History Family History Sibling Diabetes mellitus Other Diabetes mellitus Hypertension Mother Diabetes mellitus Father Lung cancer Sibling Diabetes mellitus Kidney failure Social History Social History Social History: Patient quit smoking last year but smoked for 45 years prior to that. She does not drink alcohol or do drugs. She would like her surrogate decision maker to be her daughter Annie. Code status: DNR/DNI Smoking packs per day: 1 Smoking cigarettes per day: 20.0 Years smoked: 30 Smoking pack-years: 30.00 Smoking status: Former smoker Tobacco type: cigarettes Second hand tobacco smoke exposure: Yes Alcohol intake: never Substance use:
[2021-12-14 05:02] LABS: Basophils Absolute Auto 0.1 K/mm3 (0.0-0.1); Basophils Percent Auto 0.7 % (0.2-1.2); Eosinophils Absolute Auto 0.2 K/mm3 (0-0.3); Hematocrit 35.8 % (37.0-47.0); Hemoglobin 11.4 g/dL (12.0-15.0); Immature Granulocyte Absolute 0.05 K/mm3 (0.00-0.031); Immature Granulocyte Percent A 0.6 % (0-0.5); Lymphocytes Absolute Auto 2.16 K/mm3 (0.9-3.2); Mean Corpuscular HGB Conc 31.8 g/dl (32-36); Mean Corpuscular Hemoglobin 29.5 pg (26-34); Mean Corpuscular Volume 92.5 fl (80-100); Mean Platelet Volume 10.7 fl (7.4-10.4); Monocytes Absolute Auto 0.8 K/mm3 (0.1-0.6); Monocytes Percent Auto 9.7 % (2.6-8.5); Neutrophils Absolute Auto 5.4 K/mm3 (1.3-6.7); Platelet Count Result 207 k/mm3 (150-375); Red Blood Count 3.87 M/mm3 (4.2-5.4); Red Cell Distribution Width 13.2 % (11.5-14.5); White Blood Count 8.6 K/mm3 (4.5-10.0)
[2021-12-14] MEDS: SODIUM CHLORIDE 0.9% IV 1,000 ML 999 ML IV CONT (05:05)
[2021-12-14] MEDS: diazePAM INJ (*CRX) 10 MG/2 ML SYRINGE 2 MG IV PUSH (05:05)
[2021-12-14 05:12] LABS: INR 1.1; Prothrombin Time 13.7 Seconds (11.1-14.7)
[2021-12-14 05:13] LABS: Partial Thromboplastin Time 32.7 SECONDS (22.3-36.8)
[2021-12-14 05:14] LABS: Alanine Aminotransferase 13 U/L (6-35); Albumin Level 3.9 g/dL (3.5-5.1); Alkaline Phosphatase 94 U/L (38-126); Anion Gap 9 mmol/L (8-16); Aspartate Amino Transferase 22 U/L (14-36); Bilirubin,Total 0.5 mg/dL (0.2-1.3); Blood Urea Nitrogen 11 mg/dL (7-17); Calcium 9.5 mg/dL (8.4-10.2); Carbon Dioxide 26 mmol/L (22-30); Chloride 102 mmol/L (98-107); Estimated Glomerular Filt Rate > 60; Glucose 167 mg/dL (65-110); Potassium 4.3 mmol/L (3.4-5.0); Sodium 137 mmol/L (137-145)
--- NOTE | 2021-12-14 05:16 | PC.NURSE ---
Pt to XY at this time.
[2021-12-14 05:22] LABS: NT Pro B Type Natriuretic Pept 163 pg/mL (5-100)
[2021-12-14 05:52] LABS: SARS-CoV-2 RNA PCR Negative
[2021-12-14 05:58] LABS: Appearance Urine Cloudy (Clear); Bilirubin Urine Negative (Negative); Blood Urine Negative (Negative); Color Urine Yellow (Yellow); Glucose Urine UA Negative (Negative); Ketones Urine Trace mg/dL (Negative); Leukocyte Esterase Ur 1+ LEU/UL (Negative); Nitrate Urine Positive (Negative); Protein Urine 2+ mg/dL (Negative); Urobilinogen Urine 0.2 mg/dL (<2.0)
[2021-12-14 06:02] LABS: Bacteria Urine Trace /hpf; Mucus Urine Rare /lpf; Squamous Epithelial Cell Urine Occasional /hpf (Few); WBC Urine >75 /hpf
[2021-12-14 06:06] LABS: Add Urine Microscopic? YES
[2021-12-14] MEDS: MORPHINE SULFATE (*CRX) 2 MG/ML INJ IV PUSH (07:33)
== END 2021-12-14 09:20 | disposition short-term general hospital (02) ==
PROVIDERS: Emergency Provider General Practice
DX: S79.191A Other physeal fracture of lower end of right femur, initial encounter for closed fracture (principal); Z20.822 Contact with and (suspected) exposure to COVID-19; E11.40 Type 2 diabetes mellitus with diabetic neuropathy, unspecified; J44.9 Chronic obstructive pulmonary disease, unspecified; F03.90 Unspecified dementia, unspecified severity, without behavioral disturbance, psychotic disturbance, mood disturbance, and anxiety; M81.0 Age-related osteoporosis without current pathological fracture; E55.9 Vitamin D deficiency, unspecified; Z98.49 Cataract extraction status, unspecified eye; Z66 Do not resuscitate; Z85.828 Personal history of other malignant neoplasm of skin; Z79.4 Long term (current) use of insulin; Z79.84 Long term (current) use of oral hypoglycemic drugs; R00.0 Tachycardia, unspecified; R94.31 Abnormal electrocardiogram [ECG] [EKG]; W06.XXXA Fall from bed, initial encounter
CPT/HCPCS: 36415; 51701; 71045; 73552; 80053; 81001; 83880; 85025; 85610; 85730; 87086; 87088; 93005; 96365; 96375; 99285; C9803; J0131; J2270; J3360; J7030; U0003; U0005

== ENCOUNTER 2024-07-23 22:20 | Inpatient (IN) | payer MEDICARE, MEDICAID, SELFPAY ==
--- NOTE | ~2024-07-23 | XR_ITS ---
CHEST RADIOGRAPH CLINICAL HISTORY: Cough . COMPARISON: 12/14/2021 TECHNIQUE: Single portable view of the chest. FINDINGS The cardiomediastinal silhouette is unremarkable. Increased interstitial markings are identified bilaterally, findings suggesting mild pulmonary vascul ar congestion. The lungs are otherwise clear. IMPRESSION: Mild pulmonary vascular congestion, without focal infiltrate or effusion. Reviewed, dictated and finalized at location A. [employer]
--- NOTE | ~2024-07-23 | XR_ITS ---
HISTORY: Hip pain COMPARISON: None TECHNIQUE: 2 views of the left hip along with an AP view of the pelvis FINDINGS: Diffuse bony demineralization is identified. Near complete obliteration of the bilateral femoral acetabular joint spaces, with severe degenerative disease, left greater than right. Irregularity of the cortex of the left femoral neck, when compared to the right, possibly due to bony remodeling from long-term degenerative disease. Partial collapse of the left femoral head is suspected, based on plain radiographic evaluation. Irregularity of the right femoral head, although to a lesser extent than the left. Intramedullary amelia within the right femur. 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 Reviewed, dictated and finalized at location A. 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
--- NOTE | ~2024-07-23 | CT_ITS ---
Noncontrast CT scan of the left hip CLINICAL HISTORY: Pain, degenerative disease TECHNIQUE: Axial noncontrast imaging of the left hip was performed. Sagittal and coronal reformatted images were constructed. Dose reduction technique was used on this scan by utilizing automated exposu re control and iterative reconstruction technique. The dose-length product (DLP) was 259.28 mGy-cm. Findings: There is an acute subcapital fracture of the proximal left femur with mild displacement. Th ere is mild degenerative change of the left hip joint, probable mild joint space narrowing and mild o steophyte formation. There is mild degenerative change of left SI joint. Probable minimal left hip joint effusion. No other distinct soft tissue abnormality seen about the le ft hip. No significant hematoma. IMPRESSION: Acute, displaced subcapital fracture of the proximal left femur. Reviewed, dictated and finalized at [facility]. [employer]
[2024-07-23 22:24] VITALS: BP 159/77; PULSE 78; RESP 23; TEMP 36.2; O2SAT 93
[2024-07-23 22:36] VITALS: BP 159/77; PULSE 76; RESP 21; TEMP 36.2; O2SAT 95
[2024-07-23 22:37] VITALS: O2SAT 95
--- OUTSIDE RECORDS SUMMARY | 2024-07-23 23:22 | XMS_ITS | Referral Summary ---
Author Organization [facility] Address [address] [place] [address] Care Team Providers Care Psychology Associate Name Role Phone Bryson Healy MD Primary Care Provider [phone] Source Comments [facility],non-owned Affiliates and Associated Physician Practices is amultiple site organization consisting of ambulatory clinics and hospital sitesin [place], [place], [place] and [place]. This disclosure is being madepursuant to the Care Everywhere program and may not contain all information available regarding this patient. Last updated 18.[facility] Allergies Active Allergy Reactions Criticality Noted Date Comments Ibuprofen Unknown 12/14/2021 Morphine Nausea and/or Vomiting 12/14/2021 Medications * Be aware that medications may not be up to date on this document. Alwaysverify current medications with the patient. Medication Sig Dispensed Refills Start Date End Date Status acetaminophen (TYLENOL) 325 MG tablet Take 2 (two) tablets by mouth every 6 hours as needed Maximum allowable Acetaminophen amount = 4 Grams (4000 mg) / 24 hours. 12/20/2021 Active polyethylene glycol 3350 (MIRALAX) 17 g packet Take 17 (seventeen) g by mouth once daily 12/21/2021 Active methocarbamol (ROBAXIN) 500 MG tablet Take 1 (one) tablet by mouth every 12 hours as needed for Muscle Spasms 12/20/2021 Active pantoprazole EC (Protonix) 20 MG tablet Take 20 mg by mouth once daily 11/19/2021 Active vitamin D, ergocalciferol, (Drisdol) 1.25 MG (67545 UT) capsule Take 50,000 Units by mouth 12/09/2021 Active HYDROcodone-acetami nophen ([place]) 5-325 MG tablet Take 1 tablet by mouth every 6 hours 12/08/2021 Active insulin aspart (NovoLOG) FlexPen 09/07/2021 Active NovoLOG vial 11/17/2021 Active Levemir FlexTouch pen 12/10/2021 Active Basaglar KwikPen (Basaglar) pen 01/06/2022 Active Insulin Glargine-yfgn 100 UNIT/ML SOPN 08/24/2021 Active BD AutoShield Duo 30G X 5 MM MISC 07/21/2021 Active NovoFine Autocover Pen Needle 30G X 8 MM needle 11/26/2021 Active lisinopril (Prinivil; Zestril) 10 MG tablet Take 10 mg by mouth once daily 12/31/2021 Active metFORMIN (Glucophage) 1000 MG tablet Take 1,000 mg by mouth daily with breakfast 12/13/2021 Active Active Problems Problem Noted Date Diagnosed Date Decreased activities of daily living (ADL) 12/20 Atelectasis 12/15/2021 Fall 12/14/2021 Closed fracture of right distal femur 12/14/2021 Resolved Problems Problem Noted Date Diagnosed Date Resolved Date UTI (urinary tract infection) 12/15/2021 12/20/2021 Hypoxia 12/14/2021 12/20/2021 Social History Tobacco Use Types Packs/Day Years Used Date Smoking Tobacco: Former Smokeless Tobacco: Never Alcohol Use Standard Drinks/Week Comments Not Currently 0 (1 standard drink = 0.6 oz pur e alcohol) AUDIT-C Answer Date Recorded Q1: How often do you have a drink containing alcohol? Never 12/14/2021 Q2: How many drinks containi ng alcohol do you have on a typical day when you are drinking? Patient does not drink Q3: How often do you have si x or more drinks on one occasion? Never 12/14/2021 Sex and Gender Information Value Date Recorded Sex Assigned at Not on file Gender Identity Not on file Sexual Orientation Not on file Last Filed Vital Signs Vital Sign Reading Time Taken Comments Blood Pressure 151/74 12/20/2021 4:03 PM CDT Pulse 79 12/20/2021 4:03 PM CDT Temperature 36.8 C (98.2 F) 12/20/2021 4:03 PM CDT Respiratory Rate 20 12/20/2021 4:03 PM CDT Oxygen Saturation 96% 12/20/2021 4:03 PM CDT Inhaled Oxygen Concentration - - Weight 63.5 kg (140 lb) 01/10/2022 10:19 AM CDT Height 160 cm (5' 3 ) 12/14/2021 10:04 AM CDT Body Mass Index 24.8 12/14/2021 10:04 AM CDT Functional Status Functional Status Response Date of Assess ment Is person deaf or have serious hearing difficult y? No 12/15/2021 Is person blind or have serious difficulty seein g? No 12/15/2021 Does person have serious dif ficulty walking/climbing stairs? Yes 12/15/2021 Does person have difficulty dressing/bathing? Ye s 12/15/2021 Does person have difficulty doing errands alone? Yes 12/15/2021 Cognitive Status Response Date of Assessm ent Does person have difficulty concentrating/remembering/making decisions? No 12/15/2021 Plan of Treatment Not on file Medical Devices Implanted Type Area Tripe Finisher Device Identifier Shelf Expiration Date Model / Serial / Lot Nail Implanted:Qty: 1 on 12/15/2021 by Altagracia Dean MD at [facility] Right: Femur [employer]ynthes Trauma 05/21/2026 [id number] S / / Screw Implanted:Qty: 1 on 12/15/2021 by Altagracia Dean MD at [facility] Right: Femur [employer] Trauma [id number] S / / Screw Implanted:Qty: 1 on 12/15/2021 by Altagracia Dean MD at [facility] Right: Femur [employer] Trauma [id number] S / / Screw Implanted:Qty: 1 on 12/15/2021 by Altagracia Dean MD at [facility] Right: Femur [employer] Trauma 06/21/2031 [id number] S / / Nail Screw Implanted:Qty: 1 on 12/15/2021 by Altagracia Dean MD at [facility] Right: Femur [employer] Trauma [id number] S / / Screw Implanted:Qty: 1 on 12/15/2021 by Altagracia Dean MD at [facility] Right: Femur [employer] Trauma [id number] S / / Screw Implanted:Qty: 1 on 12/15/2021 by Altagracia Dean MD at [facility] Right: Femur [employer] Trauma [id number] S / / Insurance Payer Benefit Plan / Group Subscriber ID Effective Dates Phone Address Type [facility] MEDICAID [id number] Effective for all dates ATTN CLAIMS DEPARTMENT [address] [place] [address] Medicaid [facility] MEDICAID [id number] 2021-Pres ent [address] [place] [address] Medicaid Managed Care MEDICARE MANAGED CARE PLAN GENERIC MEDICARE [place] COMPLETE MEDICARE [place] [id number] Effective for all dates [address] [place] [address] Medicare-[place] aged Care Advance Directives * Full Code (Latest Code Status on File) Date Activated Date Inactivated Comments 12/20/2021 12:41 PM 12/20/2021 8:01 PM * DNR - IF PULSELESS NO CPR, NO SHOCK Date Activated Date Inactivated Comments 12/14/2021 6:29 PM 12/20/2021 12:40 PM Question Answer Comments : DO NOT discontinue a ny active orders without asking attending physician. * DNR - IF PULSELESS NO CPR, NO SHOCK Date Activated Date Inactivated Comments 12/14/2021 6:28 PM 12/14/2021 6:29 PM Question Answer Comments : DO NOT discontinue a ny active orders without asking attending physician. * Full Code Date Activated Date Inactivated Comments 12/14/2021 6:06 PM 12/14/2021 6:27 PM * DNR - IF PULSELESS NO CPR, NO SHOCK Date Activated Date Inactivated Comments 12/14/2021 10:34 AM 12/14/2021 6:06 PM Question Answer Comments : DO NOT discontinue a ny active orders without asking attending physician. Care Teams Psychology Associate Relationship Specialty Start Date End Date Bryson Healy MD [address] [place], [place] [id number] PCP - General 08/26/20
--- OUTSIDE RECORDS SUMMARY | 2024-07-23 23:22 | XMS_ITS | Patient Health Summary ---
Author Organization [facility] Address [address] [place] [address] Care Team Providers Care Plastic Printer Name Role Phone Bryson Healy MD Primary Care Provider [phone] Note from [facility],non-owned Affiliates and Associated Physician Practices is amultiple site organization consisting of ambulatory clinics and hospital sitesin [place], [place], [place] and [place]. This disclosure is being madepursuant to the Care Everywhere program and may not contain all information available regarding this patient. Last updated 18.[facility] Allergies * Ibuprofen(Unknown) * Morphine(Nausea and/or Vomiting) Medications * Be aware that medications may not be up to date on this document. Alwaysverify current medications with the patient. * acetaminophen (TYLENOL) 325 MG tablet(Started 12/20/2021) Take 2 (two) tablets by mouth every 6 hours as needed Maximum allowable Acetaminophen amount = 4 Grams (4000 mg) / 24 hours. * polyethylene glycol 3350 (MIRALAX) 17 g packet(Started 12/21/2021) Take 17 (seventeen) g by mouth once daily * methocarbamol (ROBAXIN) 500 MG tablet(Started 12/20/2021) Take 1 (one) tablet by mouth every 12 hours as needed for Muscle Spasms * pantoprazole EC (Protonix) 20 MG tablet(Started 11/19/2021) Take 20 mg by mouth once daily * vitamin D, ergocalciferol, (Drisdol) 1.25 MG (91095 UT) capsule(Started 12/09/2021) Take 50,000 Units by mouth * HYDROcodone-acetaminophen (Hulen) 5-325 MG tablet(Started 12/08/2021) Take 1 tablet by mouth every 6 hours * insulin aspart (NovoLOG) FlexPen(Started 09/07/2021) * NovoLOG vial(Started 11/17/2021) * Levemir FlexTouch pen(Started 12/10/2021) * Basaglar KwikPen (Basaglar) pen(Started 01/06/2022) * Insulin Glargine-yfgn 100 UNIT/ML SOPN(Started 08/24/2021) * BD AutoShield Duo 30G X 5 MM MISC(Started 07/21/2021) * NovoFine Autocover Pen Needle 30G X 8 MM needle(Started 11/26/2021) * lisinopril (Prinivil; Zestril) 10 MG tablet(Started 12/31/2021) Take 10 mg by mouth once daily * metFORMIN (Glucophage) 1000 MG tablet(Started 12/13/2021) Take 1,000 mg by mouth daily with breakfast Active Problems Problem Noted Date Diagnosed Date [...] Mass Index 24.8 12/14/2021 10:04 AM CDT Medical Devices Implanted Type Area Board Of Directors Device Identifier Shelf Expiration Date Model / Serial / Lot Nail Implanted:Qty: 1 on 12/15/2021 by Altagracia Dean MD at [facility] Right: [employer]ur [employer] Trauma 05/21/2026 [id number] S / / Screw Implanted:Qty: 1 on 12/15/2021 by Altagracia Dean MD at [facility] Right: [employer] Trauma [id number] S / / Screw Implanted:Qty: 1 on 12/15/2021 by Altagracia Dean MD at [facility] Right: [employer] Trauma [id number] S / / Screw Implanted:Qty: 1 on 12/15/2021 by Altagracia Dean MD at [facility] Right: [employer] Trauma 06/21/2031 [id number] S / / Nail Screw Implanted:Qty: 1 on 12/15/2021 by Altagracia Dean MD at [facility] Right: [employer] Trauma [id number] S / / Screw Implanted:Qty: 1 on 12/15/2021 by Altagracia Dean MD at [facility] Right: [employer] Trauma [id number] S / / Screw Implanted:Qty: 1 on 12/15/2021 by Altagracia Dean MD at [facility] Right: [employer] Trauma [id number] S / / Procedures * XR FEMUR RIGHT 2VW(Performed 01/10/2022) Performed for Other closed fracture of distal end of right femur, initial encounter ([facility]) * GLUCOSE - POINT OF CARE(Performed 12/20/2021) * GLUCOSE - POINT OF CARE(Performed 12/20/2021) * SARS-COV-2 (COVID-19) RAPID(Performed 12/20/2021) * GLUCOSE - POINT OF CARE(Performed 12/20/2021) * VITAMIN D 25-HYDROXY(Performed 12/20/2021) * COMPREHENSIVE METABOLIC PANEL(Performed 12/20/2021) * CBC W/O DIFFERENTIAL(Performed 12/20/2021) * GLUCOSE - POINT OF CARE(Performed 12/19/2021) * GLUCOSE - POINT OF CARE(Performed 12/19/2021) * GLUCOSE - POINT OF CARE(Performed 12/19/2021) * GLUCOSE - POINT OF CARE(Performed 12/19/2021) * GLUCOSE - POINT OF CARE(Performed 12/18/2021) * GLUCOSE - POINT OF CARE(Performed 12/18/2021) * SARS-COV-2 (COVID-19) RAPID(Performed 12/18/2021) * GLUCOSE - POINT OF CARE(Performed 12/18/2021) * CARDIAC EKG ORDER(Performed 12/18/2021) * GLUCOSE - POINT OF CARE(Performed 12/18/2021) * TSH REFLEX FREE T4(Performed 12/18/2021) * BASIC METABOLIC PANEL (CALCIUM TOTAL)(Performed 12/18/2021) * CBC W/O DIFFERENTIAL(Performed 12/18/2021) * GLUCOSE - POINT OF CARE(Performed 12/18/2021) * GLUCOSE - POINT OF CARE(Performed 12/17/2021) * GLUCOSE - POINT OF CARE(Performed 12/17/2021) * GLUCOSE - POINT OF CARE(Performed 12/17/2021) * GLUCOSE - POINT OF CARE(Performed 12/17/2021) * GLUCOSE - POINT OF CARE(Performed 12/17/2021) * CBC W/O DIFFERENTIAL(Performed 12/17/2021) * BASIC METABOLIC PANEL (CALCIUM TOTAL)(Performed 12/17/2021) * GLUCOSE - POINT OF CARE(Performed 12/17/2021) * GLUCOSE - POINT OF CARE(Performed 12/16/2021) * GLUCOSE - POINT OF CARE(Performed 12/16/2021) * CT ANGIO CHEST PULM EMBOLISM(Performed 12/16/2021) Performed for Hypoxia, Other closed fracture of distal end of right femur with delayed healing, subsequent encounter * GLUCOSE - POINT OF CARE(Performed 12/16/2021) * BASIC METABOLIC PANEL (CALCIUM TOTAL)(Performed 12/16/2021) * CBC W/O DIFFERENTIAL(Performed 12/16/2021) * GLUCOSE - POINT OF CARE(Performed 12/16/2021) * GLUCOSE - POINT OF CARE(Performed 12/16/2021) * GLUCOSE - POINT OF CARE(Performed 12/16/2021) * PHOSPHORUS BLOOD(Performed 12/16/2021) * MAGNESIUM BLOOD(Performed 12/16/2021) * HEMOGLOBIN A1C(Performed 12/16/2021) * GLUCOSE - POINT OF CARE(Performed 12/16/2021) * CBC W/O DIFFERENTIAL(Performed 12/15/2021) * BASIC METABOLIC PANEL (CALCIUM TOTAL)(Performed 12/15/2021) * GLUCOSE - POINT OF CARE(Performed 12/15/2021) * GLUCOSE - POINT OF CARE(Performed 12/15/2021) * PT EVAL AND TREAT(Performed 12/15/2021) * OT EVAL AND TREAT(Performed 12/15/2021) * XR FEMUR RIGHT 2VW(Performed 12/15/2021) Performed for Closed fracture of distal end of right femur, unspecified fracture morphology, initial encounter ([facility]) * GLUCOSE - POINT OF CARE(Performed 12/15/2021) * FL TUCKER SURGERY(Performed 12/15/2021) Performed for Closed fracture of distal end of right femur, unspecified fracture morphology, initial encounter ([facility]) * ENDOTRACHEAL TUBE NOTE(Performed 12/15/2021) * WV OPEN RX FEMUR FX+INTRAMED GRAYSON(Performed 12/15/2021) Performed for Closed fracture of right femur, unspecified fracture morphology, unspecified portion of femur, initial encounter ([facility]) * XR CHEST 1VW PORTABLE(Performed 12/15/2021) Performed for Fall, initial encounter, Hypoxia * URINALYSIS W/MICROSCOPIC REFLEX TO CULTURE(Performed 12/15/2021) * CULTURE URINE(Performed 12/15/2021) * PT-INR SLH(Performed 12/15/2021) * PTT [facility](Performed 12/15/2021) * CBC W/O DIFFERENTIAL(Performed 12/15/2021) * BASIC METABOLIC PANEL (CALCIUM TOTAL)(Performed 12/15/2021) * CT CHEST PE W ABD PELVIS W CONT(Performed 12/14/2021) Performed for Fall, initial encounter, Hypoxia, Closed fracture of distal end of right femur, unspecified fracture morphology, initial encounter ([facility]) * CT LUMBAR SPINE WO CONTRAST(Performed 12/14/2021) Performed for Fall, initial encounter * CT THORACIC SPINE WO CONTRAST(Performed 12/14/2021) Performed for Fall, initial encounter * CT KNEE RIGHT WO CONTRAST(Performed 12/14/2021) Performed for Fall, initial encounter, Hypoxia, Closed fracture of distal end of right femur, unspecified fracture morphology, initial encounter ([facility]) * XR KNEE RIGHT 2VW OR LESS(Performed 12/14/2021) Performed for Fall, initial encounter * XR FEMUR RIGHT 2VW(Performed 12/14/2021) Performed for Fall, initial encounter * SARS-COV-2 (COVID-19)+INFLU A+B PCR RAPID(Performed 12/14/2021) * BLOOD TYPE VERIFICATION(Performed 12/14/2021) * EKG 12-LEAD(Performed 12/14/2021) Performed for Fall, initial encounter * TYPE + SCREEN PANEL(Performed 12/14/2021) * TROPONIN I(Performed 12/14/2021) * PT-INR [facility](Performed 12/14/2021) * CBC W AUTO DIFFERENTIAL(Performed 12/14/2021) * COMPREHENSIVE METABOLIC PANEL(Performed 12/14/2021) * XR FEMUR RIGHT 2VW(Performed 12/14/2021) Performed for Fall, initial encounter * XR CHEST 1VW PORTABLE(Performed 12/14/2021) Performed for Hypoxia * CT CERVICAL SPINE WO CONTRAST(Performed 12/14/2021) Performed for Fall, initial encounter * CT HEAD WO CONTRAST(Performed 12/14/2021) Performed for Fall, initial encounter * XR PELVIS 1 OR 2VW(Performed 12/14/2021) Performed for Fall, initial encounter * XR KNEE RIGHT 3VW(Performed 12/14/2021) Performed for Fall, initial encounter Results * XR FEMUR RIGHT 2VW (01/10/2022 10:11 AM CDT) Only the most recent of4 resultswithin the time period is included. Anatomical Region Laterality Modality Lower Extremity Radiographic Cleopatra ging 01/10/2022 10:2 5 AM CDT Impressions 01/10/2022 10:38 AM CDT IMPRESSION: Distal femoral shaft fracture with intramedullary nail and screw fixation. One of the distal screws has backed out laterally by 10 mm since the prior study. Unchanged osseous alignment. Report dictated by Evelin Martines MD (vice president of business development). I, Stanley Crook MD have personally reviewed and interpreted this examination/study. > Interpreting Provider: Stanley Crook MD on 01/10/2022 10:38 AM Narrative 01/10/2022 10:38 AM CDT PROCEDURE: XR FEMUR RIGHT 2VW, DATE/TIME OF EXAM: 01/10/2022 10:11 AM, LOCATION [facility] INDICATION: S72.491A: Other closed fracture of distal end of right femur, initial encounter ADDITIONAL CLINICAL INFORMATION: Ordering Provider Reason For Exam: post op COMPARISON: Right femur radiograph dated 12/15/2021. FINDINGS: Redemonstration of a distal right femoral shaft fracture, status post open reduction and internal fixation with a retrograde intramedullary nail and multiple screws. No broken hardware is seen. The head of the distal most screw associated with intramedullary nail protrudes into the lateral soft tissues by 10 mm, intervally increased. The osseous alignment is unchanged. Osteopenia is noted. Procedure Note Stanley Crook MD - 01/10/2022 PROCEDURE: XR FEMUR RIGHT 2VW, DATE/TIME OF EXAM: 01/10/2022 10:11 AM, LOCATION [facility] INDICATION: S72.491A: Other closed fracture of distal end of right femur, initial encounter ADDITIONAL CLINICAL INFORMATION: Ordering Provider Reason For Exam: post op COMPARISON: Right femur radiograph dated 12/15/2021. FINDINGS: Redemonstration of a distal right femoral shaft fracture, status postopen reduction and internal fixation with a retrograde intramedullary nailand multiple screws. No broken hardware is seen. The head of the distal most screw associated with intramedullary nail protrudes into the lateralsoft tissues by 10 mm, intervally increased. The osseous alignment isunchanged. Osteopenia is noted. IMPRESSION: Distal femoral shaft fracture with intramedullary nail and screwfixation. One of the distal screws has backed out laterally by 10 mm since theprior study. Unchanged osseous alignment. Report dictated by Evelin Martines MD (vice president of business development). I, Stanley Crook MD have personally reviewed and interpreted this examination/study. > Interpreting Provider: Stanley Crook MD on 01/10/2022 10:38 AM Altagracia Dean MD DIAGNOSTIC IMAGING ORDERABLES * (ABNORMAL) GLUCOSE - POINT OF CARE (12/20/2021 4:39 PM CDT) Only the most recent of28 resultswithin the time period is included. Pathologist [facility] Glucose WB/POC 183(H) 70 - 115 mg/dL 12/20/2021 4:45 PM CDT [facility] Specimen Type Arterial 12/20/2021 4:45 PM CDT [facility] Blood BLOOD SPECIMEN / Unknown 12/20/2021 4:39 PM CDT 12/20/2021 4:45 PM CDT Alexander Contreras MD LAB - POINT OF CARE ORDERABLES [facility] [address] [place] [phone], [facility] [phone] * SARS-COV-2 (COVID-19) RAPID (12/20/2021 11:25 AM CDT) Only the most recent of2 resultswithin the time period is included. Pathologist [facility] COVID-19 PCR Not detected Not detected 12/21/19 12:31 PM CDT [facility] Microbiology SPECIMEN FROM NASOPHARYNGEAL STRUCTURE / Unknown Collection / Unknown 12/20/2021 11:25 AM CDT 12/20/2021 11:34 AM CDT Narrative [facility] - 12/20/2021 12:31 PM CDT The [email or web address] Xpert Xpress SARS-COV-2 has been authorized by the Food and Drug Administration (FDA) under an Emergency Use Authorization (EUA). This test has been validated in accordance with the FDA's guidance document Policy for Diagnostic Testing in Laboratories Certified to perform High Complexity Testing under CLIA prior to Emergency Use Authorization for Coronavirus Disease-2019 during the Public Health Emergency issued on July 20, 2019. FDA independent review of this validation is pending. This test is only authorized for the duration of the time the declaration that circumstances exist justifying the authorization of emergency use of in vitro diagnostic tests for detection of SARS-COV-2 virus and/or diagnosis of COVID-19 infection under 564(b) (1) of the Act. 21 U.S.C. 360bbb-3 (b) (1), unless the authorization is terminated or revoked sooner. Fact Sheets for this EUA assay are available upon request. Sharlene Pop HYDROCHLORIC ACID OPERATOR-CONTENT ASSISTANT LAB - MICROBIOLOG Y ORDERABLES Performing Organization Address City/[facility] de Phone Number [facility] [address] [place] [phone] [phone] * VITAMIN D 25-HYDROXY (12/20/2021 12:48 AM CDT) [facility] Vitamin D, 25 Hydroxy 36.0 30.0 - 80.0 ng/mL 12/20/2021 8:52 AM CDT [facility] Comment: The recommendations for 25-Hydroxy Vitamin D clinical decision points are as follows: Deficient: <20.0 ng/mL Insufficient: 20.0 - 29.9 ng/mL Sufficient: 30.0 - 100.0 ng/mL Potential Toxicity: >100 ng/mL Reference: The Endocrine Society Clinical Practice Guidelines. 2011 If the 25-Hydroxy Vitamin D results are inconsitent with clinical evidence, it is recommended that follow-up testing using a method such as LC/MS/MS be performed to confirm the result. Blood BLOOD SPECIMEN / Unknown Lab Venipuncture / Unknown 12/20/2021 12:48 AM CDT 12/20/2021 3:11 AM CDT Katlyn Judd HYDROCHLORIC ACID OPERATOR-INFORMATION SYSTEMS CONSULTANT LAB - CHEMISTR Y ORDERABLES [facility] [address] [place] [address], [facility] [phone] * (ABNORMAL) CBC W/O DIFFERENTIAL (12/20/2021 12:48 AM CDT) Only the most recent of6 resultswithin the time period is included. WBC 6.4 3.5 - 10.5 10 3/uL 12/20/2021 3:25 AM [facility] RBC 2.72(L) 3.80 - 5.20 10 6/uL 12/20/2021 3:25 AM [facility] Hemoglobin 7.8(L) 12.0 - 15.6 g/dL 12/20/2021 3:25 AM [facility] Hematocrit 25.4(L) 35.0 - 45.0 % 12/20/2021 3:25 AM [facility] MCV 93.4 80.7 - 98.3 fL 12/20/2021 3:25 AM [facility] MCH 28.7 26.7 - 34.0 pg 12/20/2021 3:25 AM [facility] MCHC 30.7(L) 30.8 - 35.9 g/dL 12/20/2021 3:25 AM [facility] Platelet Count 144(L) 150 - 400 10 3/uL 12/20/2021 3:25 AM [facility] RDW-SD 45.1 36.0 - 50.0 fL 12/20/2021 3:25 AM [facility] RDW-CV 13.2 11.2 - 14.8 % 12/20/2021 3:25 AM [facility] MPV 11.7 9.4 - 12.9 fL 12/20/2021 3:25 AM [facility] nRBC Absolute 0.02(H) 0 10 3/uL 12/20/2021 3:25 AM [facility] nRBC Auto 0.3(H) 0 /100 WBC 12/20/2021 3:25 AM [facility] Blood BLOOD SPECIMEN / Unknown Lab Venipuncture / Unknown 12/20/2021 12:48 AM CDT 12/20/2021 3:11 AM CDT Alexander Contreras MD LAB - HEMATOLOGY ORD ERABLES [facility] [address] [place] [address], [facility] [phone] * (ABNORMAL) COMPREHENSIVE METABOLIC PANEL (12/20/2021 12:48 AM CDT) Only the most recent of2 resultswithin the time period is included. BUN 10 7 - 26 mg/dL 12/20/2021 3:44 AM [facility] Creatinine 0.87 0.56 - 0.96 mg/dL 12/20/2021 3:44 AM [facility] Sodium 140 136 - 145 mmol/L 12/20/2021 3:44 AM [facility] Potassium 4.5 3.5 - 4.5 mmol/L 12/20/2021 3:44 AM [facility] Chloride 108(H) 98 - 107 mmol/L 12/20/2021 3:44 AM [facility] CO2 21(L) 22 - 29 mmol/L 12/20/2021 3:44 AM [facility] Glucose 204(H) 70 - 115 mg/dL 12/20/2021 3:44 AM [facility] Calcium 9.0 8.4 - 10.2 mg/dL 12/20/2021 3:44 AM [facility] Protein Total 6.1 6.0 - 8.3 g/dL 12/20/2021 3:44 AM [facility] Albumin 2.4(L) 3.4 - 5.0 g/dL 12/20/2021 3:44 AM [facility] Bilirubin Total 0.2 0.2 - 1.2 mg/dL 12/20/2021 3:44 AM [facility] Alkaline Phosphatase 101 40 - 150 U/L 12/20/2021 3:44 AM [facility] ALT 6 5 - 55 U/L 12/20/2021 3:44 AM [facility] AST 12 5 - 34 U/L 12/20/2021 3:44 AM T [facility] Anion Gap 16 8 - 18 12/20/2021 3:44 AM [facility] BUN/Creatinine Ratio 11 7 - 23 12/20/2021 3:44 AM T [facility] Osmolality Calculated 295 270 - 300 mOsm/kg 12/20/2021 3:44 AM [facility] Albumin/Globulin Ratio 0.6(L) 1.1 - 2.3 12/20/2021 3:44 AM T [facility] eGFR by CKD-EPI 68(L) >=90 mL/min/1.7 3 m2 12/20/2021 3:44 AM [facility] Blood BLOOD SPECIMEN / Unknown Lab Venipuncture / Unknown 12/20/2021 12:48 AM CDT 12/20/2021 3:11 AM CDT Alexander Contreras MD LAB - CHEMISTRY ORDRex GRACE Performing Organization Address City/[facility]/ZIP Co de Phone Number [address] [address], [place] [phone] * CARDIAC EKG ORDER (12/18/2021 10:26 AM CDT) Narrative 12/18/2021 10:26 AM CDT Ordered by an unspecified provider. Scanned Document CARDIAC SERVICES ORD ERABLES * TSH REFLEX FREE T4 (12/18/2021 6:42 AM CDT) TSH 0.459 0.350 - 4.940 uIU/mL 12/18/2021 7:42 AM CDT [facility] Blood BLOOD SPECIMEN / Unknown Venipuncture / Unknown 12/18/2021 6:42 AM CDT 12/18/2021 6:52 AM CDT Sharlene Pop HYDROCHLORIC ACID OPERATOR-CONTENT ASSISTANT LAB - CHEMISTRY O RDERABLES Performing Organization Address City/[facility]/ZIP Co de Phone Number [address] [address], [place] [phone] * (ABNORMAL) BASIC METABOLIC PANEL (CALCIUM TOTAL) (12/18/2021 6:42 AM CDT) Only the most recent of5 resultswithin the time period is included. BUN 9 7 - 26 mg/dL 12/18/2021 7:24 AM [facility] Creatinine 0.74 0.56 - 0.96 mg/dL 12/18/2021 7:24 AM [facility] Sodium 138 136 - 145 mmol/L 12/18/2021 7:24 AM [facility] Potassium 3.9 3.5 - 4.5 mmol/L 12/18/2021 7:24 AM [facility] Chloride 102 98 - 107 mmol/L 12/18/2021 7:24 AM [facility] CO2 25 22 - 29 mmol/L 12/18/2021 7:24 AM [facility] Glucose 154(H) 70 - 115 mg/dL 12/18/2021 7:24 AM [facility] Calcium 8.9 8.4 - 10.2 mg/dL 12/18/2021 7:24 AM [facility] Anion Gap 15 8 - 18 12/18/2021 7:24 AM [facility] BUN/Creatinine Ratio 12 7 - 23 12/18/2021 7:24 AM [facility] Osmolality Calculated 288 270 - 300 mOsm/kg 12/18/2021 7:24 AM [facility] eGFR by CKD-EPI 82(L) >=90 mL/min/1.7 3 m2 12/18/2021 7:24 AM [facility] Blood BLOOD SPECIMEN / Unknown Venipuncture / Unknown 12/18/2021 6:42 AM CDT 12/18/2021 6:52 AM T Sharlene Pop HYDROCHLORIC ACID OPERATOR-CONTENT ASSISTANT LAB - CHEMISTRY O RDERABLES [facility] [address] [place] [address], [facility] [phone] * CT ANGIO CHEST PULM EMBOLISM (12/16/2021 4:32 PM CDT) Anatomical Region Laterality Modality Chest Computed Tomogra phy 12/16/2021 4:44 PM CDT Impressions 12/16/2021 11:11 PM CDT Impression: 1.No pulmonary embolism is identified. 2.Compression fracture of the T11 vertebral body, unchanged compared to prior. 3.Mild dependent atelectasis, not significant changed compared to prior. Report drafted by Khris Sewell (resident) Zandra, Dr. DAVE OROZCO have personally reviewed and interpreted this examination/study. This report was electronically signed by DAVE OROZCO on 12/16/2021 11:11 PM . Narrative 12/16/2021 11:11 PM CDT Procedure Information DATE: 12/16/2021 4:33 PM EXAMINATION: Computed tomography (CT) of the chest with contrast TECHNIQUE: CT of the chest was performed following the uneventful administration of 100 mL of Isovue 370 intravenous contrast according to a pulmonary embolism protocol. Multiplanar reconstructions were created. Clinical Information HISTORY: R09.02: Hypoxia S72.491G: Other closed fracture of distal end of right femur with delayed healing, subsequent encounter COMPARISON: CT of chest PE dated 12/14/2021. Findings Study Quality This examination for the diagnosis of pulmonary embolism is: adequate. Lines/Tubes: None. Pulmonary Vessels: No evidence of pulmonary embolism is seen. Lower neck and axillae: Normal. Mediastinum and Whitney: No enlarged lymph nodes are present. Heart and Pericardium: The cardiac chambers are normal in size. No pericardial fluid or thickening is present. Lung Parenchyma, Airways, and Pleural Spaces: There is mild dependent atelectasis within the bilateral lung bases, not significantly changed compared to prior. There is no pleural effusion or pneumothorax. Bones and Soft Tissue: There is redemonstration of a compression fracture to the T11 vertebral body with up to 50% vertebral body height loss at its anterior endplate. Upper Abdomen: The visible upper abdominal viscera are unremarkable. Procedure Note Dave Orozco MD - 12/16/2021 Procedure Information DATE: 12/16/2021 4:33 PM EXAMINATION: Computed tomography (CT) of the chest with contrast TECHNIQUE: CT of the chest was performed following the uneventful administration of 100 mL of Isovue 370 intravenous contrast according to a pulmonary embolism protocol. Multiplanar reconstructions were created. Clinical Information HISTORY: R09.02: Hypoxia S72.491G: Other closed fracture of distal end of right femur withdelayed healing, subsequent encounter COMPARISON: CT of chest PE dated 12/14/2021. Findings Study Quality This examination for the diagnosis of pulmonary embolism is: adequate. Lines/Tubes: None. Pulmonary Vessels: No evidence of pulmonary embolism is seen. Lower neck and axillae: Normal. Mediastinum and Whitney: No enlarged lymph nodes are present. Heart and Pericardium: The cardiac chambers are normal in size. No pericardial fluid or thickening is present. Lung Parenchyma, Airways, and Pleural Spaces: There is mild dependent atelectasis within the bilateral lung bases, not significantly changed compared to prior. There is no pleural effusion or pneumothorax. Bones and Soft Tissue: There is redemonstration of a compression fracture to the T11 vertebral body with up to 50% vertebral body height loss at its anterior endplate. Upper Abdomen: The visible upper abdominal viscera are unremarkable. Impression: 1.No pulmonary embolism is identified. 2.Compression fracture of the T11 vertebral body, unchanged compared to prior. 3.Mild dependent atelectasis, not significant changed compared to prior. Report drafted by Khris Sewell (resident) I, Dr. DAVE OROZCO have personally reviewed and interpreted this examination/study. This report was electronically signed by DAVE OROZCO on 12/16/2021 11:11 PM . Alexander Contreras MD CT ORDERABLES * (ABNORMAL) HEMOGLOBIN A1C (12/16/2021 1:37 AM CDT) Hemoglobin A1c 8.0(H) <=5.6 % 12/16/2021 9:06 AM [facility] Estimated Average Glucose 183 mg/dL 12/16/2021 9:06 AM [facility] Comment: HbA1c Interpretation: Normal : < 5.7% Pre-diabetes: 5.7-6.4% Diabetes: Equal to or greater than 6.5% Test results diagnostic of diabetes should be repeated for confirmation. Treatment target values recommended by ADA and other clinical organizations should be used to evaluate metabolic control in patients. Reference: [place] [employer], Standards of Care in Diabetes -2020 In patients 70 years and older consider HbA1c target range of 7.0-7.5% (Reference: Pete Aguirre et al. JAMDA. 2012) The Sebia assay for the measurement of HbA1c is a National Glycohemoglobin Standardization Program (NGSP) certified method. Blood BLOOD SPECIMEN / Unknown Lab Venipuncture / Unknown 12/16/2021 1:37 AM CDT 12/16/2021 1:59 AM CDT 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 LAB - CHEMISTRY ORDERABLES Performing Organization Address City/[facility]/ZIP Co de Phone Number [address] [address], [facility] [phone] * (ABNORMAL) PHOSPHORUS BLOOD (12/16/2021 1:37 AM CDT) Phosphorus 2.5(L) 2.9 - 5.1 mg/dL 12/16/2021 2:30 AM CDT [facility] Blood BLOOD SPECIMEN / Unknown Lab Venipuncture / Unknown 12/16/2021 1:37 AM CDT 12/16/2021 1:59 AM CDT Mich Anthony Jessica HYDROCHLORIC ACID OPERATOR-CONTENT ASSISTANT LAB - CHEMISTRY ORDERABLES Performing Organization Address [facility] Co de Phone Number [address] [address], [place] [phone] * MAGNESIUM BLOOD (12/16/2021 1:37 AM CDT) Magnesium 1.7 1.6 - 2.6 mg/dL 12/16/2021 2:30 AM CDT [facility] Blood BLOOD SPECIMEN / Unknown Lab Venipuncture / Unknown 12/16/2021 1:37 AM CDT 12/16/2021 1:59 AM CDT 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 LAB - CHEMISTRY ORDERABLES [address] [address], [facility] [phone] * FL TUCKER SURGERY (12/15/2021 12:36 PM CDT) Narrative [facility] - 12/15/2021 12:37 PM CDT Fluoroscopy was used for this exam in the OR. Please see the Operative report. Altagracia Dean MD FLUOROSCOPY ORDERA BLES [facility] * ETT LINE PERFORMABLE (12/15/2021 12:16 PM CDT) Narrative Raymond Tian DO - 12/15/2021 12:16 PM CDT Raymond Tian DO 12/15/2021 12:17 PM Endotracheal Tube Placement: Patient Location: OR. Intubation Event Date/Time: 12/15/2021 11:12 AM Procedure: intubation ([id number]). Procedure Section: Sedation: IV sedation. Indications for Airway Management: airway protection Induction: standard IV Patient Position: sniffing and supine Mask Ventilation: easy with oral airway. Blade Type: Miranda Blade Size: 3 Laryngoscopy View: grade 1 (full cords) Tube: endotracheal tube Placement: oral Tube type: cuff - inflated Tube Size (MM): 7 Depth of Insertion (CM): 21 Measured From: lips Cuff Inflated With: air Placement Verified By: direct visualization, bilateral breath sounds, chest auscultation and CO2 monitor Tube secured with: adhesive tape. Dentition unchanged? Yes Difficult Airway? No. Procedure Start Time: 12/15/2021 11:12 AM. Staff Section Anesthesia Provider: Raymond Tian DO, Performed the procedure Provider #1: Ellie Schaefer MD. Ellie Schaefer MD GENERAL ANESTHESIA O RDERABLES * XR CHEST 1VW PORTABLE (12/15/2021 8:45 AM CDT) Only the most recent of2 resultswithin the time period is included. Anatomical Region Laterality Modality Chest Radiographic Cleopatra ging 12/15/2021 8:50 AM CDT Impressions 12/15/2021 11:52 AM CDT IMPRESSION: No acute pulmonary process. Report dictated by Nighat Ervin MD (vice president of business development). This report was approved by Nighat Ervin on 12/15/2021 9:[address] BRANT De Paz MD have personally reviewed and interpreted this examination/study. This report was electronically signed by Dr. BRANT NIELSEN MD on 12/15/2021 11:52 AM . Narrative 12/15/2021 11:52 AM CDT EXAMINATION: XR CHEST 1VW PORTABLE, 12/15/2021 8:46 AM HISTORY: W19.XXXA: Fall, initial encounter R09.02: Hypoxia COMPARISON: CT chest abdomen pelvis dated 12/14/2021 FINDINGS: Persistent mild right basilar atelectasis. There is otherwise no focal consolidation, pleural effusion, or pneumothorax. The cardiomediastinal silhouette is normal. The visible bony thorax is intact. Procedure Note Brant Nielsen MD - 12/15/2021 EXAMINATION: XR CHEST 1VW PORTABLE, 12/15/2021 8:46 AM HISTORY: [id number].XXXA: Fall, initial encounter R09.02: Hypoxia COMPARISON: CT chest abdomen pelvis dated 12/14/2021 FINDINGS: Persistent mild right basilar atelectasis. There is otherwise no focal consolidation, pleural effusion, or pneumothorax. The cardiomediastinal silhouette is normal. The visible bony thorax is intact. IMPRESSION: No acute pulmonary process. Report dictated by Nighat Ervin MD (vice president of business development). This report was approved by Nighat Ervin on 12/15/2021 9:[address] BRANT De Paz MD have personally reviewed and interpretedthis examination/study. This report was electronically signed by Dr. BRANT NIELSEN MD on 12/15/2021 11:52 AM . 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 DIAGNOSTIC IMAG ING ORDERABLES * (ABNORMAL) URINALYSIS W/MICROSCOPIC REFLEX TO CULTURE (12/15/2021 6:19 AM CDT) Color UA Yellow Straw, Yellow 12/15/2021 6:45 AM CDT [facility] Clarity UA Cloudy(A) Clear 12/15/2021 6:45 AM [facility] Specific [place] UA 1.031(H) 1.005 - 1.030 12/15/2021 6:45 AM [facility] pH UA 6.0 5.0 - 8.0 pH 12/15/2021 6:45 AM [facility] Protein UA 1+(A) Negative 12/15/2021 6:45 AM [facility] Glucose UA Negative Negative 12/15/2021 6:45 AM [facility] Ketone UA 1+(A) Negative 12/15/2021 6:45 AM [facility] Bilirubin UA Negative Negative 12/15/2021 6:45 AM [facility] Blood UA Negative Negative 12/15/2021 6:45 AM [facility] Nitrite UA Positive(A) Negative 12/15/2021 6:45 AM [facility] Leukocyte Esterase 3+(A) Negative 12/15/2021 6:45 AM [facility] Urobilinogen UA Negative Negative mg/dL 12/15/2021 6:45 AM [facility] RBC UA 11-20(A) None Seen, 0-2, 3-5 /HPF 12/15/2021 6:45 AM [facility] WBC UA >100(A) None Seen, 0-5 /HPF 12/15/2021 6:45 AM [facility] Bacteria UA Trace(A) None /HPF 12/15/2021 6:45 AM [facility] Squamous Epithelial Cells UA 0-2 None Seen, 0-2, 3-5 /HPF 12/15/2021 6:45 AM [facility] Mucus UA 1+ /LPF 12/15/2021 6:45 AM [facility] Urine URINE SPECIMEN OBTAINED BY CLEAN CATCH PROCEDURE / Unknown Collection / Unknown 12/15/2021 6:19 AM CDT 12/15/2021 6:22 AM [facility] - 12/15/2021 6:45 AM [facility] Lab Status, Culture Reflex Indicated. Lisa Ghotra MD LAB - URINALYSIS ORD ERABLES [facility] [address] [place] [address], [facility] [phone] * CULTURE URINE (12/15/2021 6:19 AM CDT) Culture Urine More than 2 organisms seen at >=50,000 CFU/mL. Recollect if clinically indicated. MELVIN 12/16/2021 8:21 AM CDT [facility] Urine URINE SPECIMEN OBTAINED BY CLEAN CATCH PROCEDURE / Unknown Collection / Unknown 12/15/2021 6:19 AM CDT 12/15/2021 6:34 AM CDT Lisa Ghotra MD LAB - MICROBIOLOGY O RDERABLES Performing Organization Address [facility] Co de Phone Number [facility] [address] [place] [address], [facility] [phone] * PTT [facility] (12/15/2021 3:24 AM CDT) APTT 29.9 23.0 - 38.4 Seconds 12/15/2021 4:09 AM CDT [facility] Comment:Suggested therapeuti c range for full dose I.V. unfractionated heparin therapy for venous thromboembolism is 71 to 109 seconds. Blood BLOOD SPECIMEN / Unknown Venipuncture / Unknown 12/15/2021 3:24 AM CDT 12/15/2021 3:26 AM CDT Lisa Ghotra MD LAB - COAGULATION OR DERABLES Performing Organization Address [facility] Co de Phone Number [facility] [address] [place] [address], [facility] [phone] * PT-INR [facility] (12/15/2021 3:24 AM CDT) Only the most recent of2 resultswithin the time period is included. PT 14.1 12.1 - 14.8 Seconds 12/15/2021 4:09 AM CDT [facility] INR 1.1 See Comment 12/15/2021 4:09 AM CDT [facility] Comment:The suggested therap eutic range for standard coumadin (warfarin) therapy is an INR of 2.0-3.0. For high-risk patients (Mechanical Mitral Valve Prosthesis, etc.), the suggested prophylactic therapeutic range is an INR of 2.5-3.5. Blood BLOOD SPECIMEN / Unknown Venipuncture / Unknown 12/15/2021 3:24 AM CDT 12/15/2021 3:26 AM CDT Lisa Ghotra MD LAB - COAGULATION OR DERABLES [facility] [address] [place] [address], [facility] [phone] * CT CHEST PE W ABD PELVIS W CONT (12/14/2021 3:56 PM CDT) Anatomical Region Laterality Modality Chest, Abdomen, Pelvis Computed Tomography 12/14/2021 4:10 PM CDT Impressions 12/14/2021 4:24 PM CDT IMPRESSION: 1. No pulmonary embolism. 2. Moderate compression fracture of T11 vertebral body, age indeterminate. Otherwise no acute injury in the chest, abdomen or pelvis. 3. Enhancement of the wall of the urinary bladder could indicate cystitis. Recommend correlation with urinalysis. 4. Thickening of the uterus with fluid in the endometrial canal. Recommend follow-up nonemergent pelvic sonogram or gynecological consultation. This report was electronically signed by DAVE OROZCO on 12/14/2021 4:24 PM . Narrative 12/14/2021 4:24 PM CDT Procedure Information DATE: 12/14/2021 4:13 PM EXAMINATION: 1. Computed tomography (CT) of the chest with contrast 2. CT of the abdomen and pelvis with contrast TECHNIQUE: CT of the chest was performed following the uneventful administration of 100 mL of Isovue 370 intravenous contrast according to a pulmonary embolism protocol. CT of the abdomen and pelvis was also performed during the portal venous phase according to standard protocol. Multiplanar reconstructions were produced. Clinical Information HISTORY: [id number].XXXA: Fall, initial encounter R09.02: Hypoxia S72.401A: Closed fracture of distal end of right femur, unspecified fracture morphology, initial encounter COMPARISON: None. FINDINGS: CHEST: There is atelectasis in the lung bases. There is volume loss in the right hemithorax. There is no pleural effusion or pneumothorax. The heart is mildly enlarged. There is no pericardial effusion. There are coronary artery atherosclerotic calcifications. There is no pulmonary embolism. There is no chest lymphadenopathy. Abdomen and pelvis: The liver is normal in size. There is no focal liver lesion. There is mild intrahepatic and extrahepatic bile duct dilatation with an absent gallbladder, likely due to post cholecystectomy state. The spleen and pancreas are normal. Both adrenal glands are normal. Both kidneys enhance symmetrically with no hydronephrosis. The urinary bladder is distended with mild enhancement of the wall. There is thickening of the uterus with fluid in the endometrial canal. The small and large bowel are normal in caliber with no bowel obstruction. There is no free intraperitoneal gas or free fluid in the pelvis. Abdominal aorta is normal in caliber with atherosclerotic calcifications. The portal vein is patent. No suspicious osseous lytic or blastic lesion on bone windows. There is a moderate compression fracture of T11 that is age-indeterminate. Procedure Note Dave Orozco MD - 12/14/2021 Procedure Information DATE: 12/14/2021 4:13 PM EXAMINATION: 1. Computed tomography (CT) of the chest with contrast 2. CT of the abdomen and pelvis with contrast TECHNIQUE: CT of the chest was performed following the uneventful administration of 100 mL of Isovue 370 intravenous contrast according to a pulmonary embolism protocol. CT of the abdomen and pelvis was also performedduring the portal venous phase according to standard protocol. Multiplanar reconstructions were produced. Clinical Information HISTORY: [id number].XXXA: Fall, initial encounter R09.02: Hypoxia S72.401A: Closed fracture of distal end of right femur, unspecified fracture morphology, initial encounter COMPARISON: None. FINDINGS: CHEST: There is atelectasis in the lung bases. There is volume loss in theright hemithorax. There is no pleural effusion or pneumothorax. The heart is mildly enlarged. There is no pericardial effusion. Thereare coronary artery atherosclerotic calcifications. There is no pulmonary embolism. There is no chest lymphadenopathy. Abdomen and pelvis: The liver is normal in size. There is no focal liver lesion. There ismild intrahepatic and extrahepatic bile duct dilatation with an absent gallbladder, likely due to post cholecystectomy state. The spleen and pancreas are normal. Both adrenal glands are normal. Both kidneysenhance symmetrically with no hydronephrosis. The urinary bladder is distended with mild enhancement of the wall. There is thickening of the uteruswith fluid in the endometrial canal. The small and large bowel are normal in caliber with no bowelobstruction. There is no free intraperitoneal gas or free fluid in the pelvis. Abdominal aorta is normal in caliber with atheroscleroticcalcifications. The portal vein is patent. No suspicious osseous lytic or blastic lesion on bone windows. There uri moderate compression fracture of T11 that is age-indeterminate. IMPRESSION: 1. No pulmonary embolism. 2. Moderate compression fracture of T11 vertebral body, ageindeterminate. Otherwise no acute injury in the chest, abdomen or pelvis. 3. Enhancement of the wall of the urinary bladder could indicatecystitis. Recommend correlation with urinalysis. 4. Thickening of the uterus with fluid in the endometrial canal.Recommend follow-up nonemergent pelvic sonogram or gynecological consultation. This report was electronically signed by DAVE OROZCO on 12/14/2021 4:24PM . Lisa Ghotra MD CT ORDERABLES * CT KNEE RIGHT WO CONTRAST (12/14/2021 3:56 PM CDT) Anatomical Region Laterality Modality Lower Extremity Computed Tomogra phy 12/14/2021 4:40 PM CDT Impressions 12/14/2021 4:48 PM CDT Impression: 1.Mildly displaced oblique fracture through the distal right femur. 2.Moderate right knee joint effusion. This report was electronically signed by VIVIEN JANE on 12/14/2021 4:48 PM . Narrative 12/14/2021 4:48 PM CDT Procedure Information DATE: 12/14/2021 4:13 PM EXAMINATION: Computed tomography (CT) of the right knee without contrast TECHNIQUE: CT of the right knee was performed without contrast according to standard protocol. Clinical Information HISTORY: [id number].XXXA: Fall, initial encounter R09.02: Hypoxia S72.401A: Closed fracture of distal end of right femur, unspecified fracture morphology, initial encounter COMPARISON: Knee and femur radiographs dated 12/14/2021 Findings Bones: There is diffuse osteopenia. There is a mildly displaced transverse fracture through the distal right femoral metadiaphysis. No intra-articular involvement. There are degenerative changes of the knee, most prominent in the lateral compartment. Vessels: Vascular calcifications are seen. Soft tissues: Soft tissue swelling is present. Moderate right knee joint effusion. Procedure Note Vivien Jane MD - 12/14/2021 Procedure Information DATE: 12/14/2021 4:13 PM EXAMINATION: Computed tomography (CT) of the right knee without contrast TECHNIQUE: CT of the right knee was performed without contrast according tostandard protocol. Clinical Information HISTORY: [id number].XXXA: Fall, initial encounter R09.02: Hypoxia S72.401A: Closed fracture of distal end of right femur, unspecified fracture morphology, initial encounter COMPARISON: Knee and femur radiographs dated 12/14/2021 Findings Bones: There is diffuse osteopenia. There is a mildly displaced transverse fracture through the distal right femoral metadiaphysis. No intra-articular involvement. There are degenerative changes of the knee, most prominent in the lateral compartment. Vessels: Vascular calcifications are seen. Soft tissues: Soft tissue swelling is present. Moderate right knee joint effusion. Impression: 1.Mildly displaced oblique fracture through the distal right femur. 2.Moderate right knee joint effusion. This report was electronically signed by VIVIEN JANE on 24:48 PM . Lisa Ghotra MD CT ORDERABLES * CT LUMBAR SPINE WO CONTRAST (12/14/2021 3:56 PM CDT) Anatomical Region Laterality Modality Spine Computed Tomogra phy 12/15/2021 8:25 AM CDT Impressions 12/15/2021 11:15 AM CDT IMPRESSION: 1. No evidence of acute fracture in the thoracic or lumbar spine. 2. Moderate, chronic fracture given plate of T11, as described above. 3. Degenerative changes in the thoracic and lumbar spine, as detailed above. There is moderate central canal stenosis at L3-4 and severe central canal stenosis at L4-5. Report dictated by Mateo Abernathy MD (vice president of business development). I, Dr. Josh Ortiz MD have personally reviewed and interpreted this examination/study. This report was electronically signed by Josh Ortiz MD on 12/15/2021 11:15 AM . Narrative 12/15/2021 11:[address] LUMBAR SPINE WO CONTRAST, CT THORACIC SPINE WO CONTRAST DATE: 12/14/2021 4:13 PM EXAMINATION: 1.CT of the thoracic spine without contrast 2.CT of the lumbar spine without contrast HISTORY: [id number].XXXA: Fall, initial encounter TECHNIQUE: CT of the head and cervical spine was performed without contrast according to standard protocol. Reformatted axial, sagittal, and coronal images of the thoracic and lumbar spine were obtained by the technologist from a concurrently performed body CT and sent to the workstation for review. COMPARISON: None. FINDINGS: Please refer to separate report for findings related to CT of head and cervical spine. Thoracic spine: Intravascular contrast is present secondary to today's chest CT. There is a levoscoliosis of the thoracic spine with mild thoracic spine kyphosis. Prominent anterior marginal spurring is noted in the mid and lower thoracic region that is somewhat confluent consistent with diffuse idiopathic skeletal hyperostosis. There is a moderate fracture endplate of T11 is reduced in height by roughly 50%. There are no curvilinear lucencies within the subcutaneous endplate suggesting that it is chronic. There is mild retropulsion of the posterior aspect of T11 narrowing sagittal diameter spinal canal by roughly 30%. There is no evidence of acute fracture. Mild degenerative changes are present in the thoracic spine with disc bulging, facet arthropathy, and foraminal narrowing at several levels. No soft tissue abnormality is identified. Lumbar spine: Intravascular contrast is present. The alignment is normal. Vertebral bodies are normal in height without evidence of acute fracture. There is mild degenerative disc disease with diffuse osteophyte formation, most significant at L1-L2 and L5-S1 levels. There is mild posterior bulging of the lumbar discs at L2-L3, L3-L4, L4-L5, and L5-S1 levels. Moderate central canal stenosis is present at L3-4 and severe central canal stenosis at L4-5. Facet joint hypertrophy and sclerosis is noted at L5-S1 level. There is mild neural foraminal stenoses at L2-L3 and L3-L4 levels and moderate foraminal narrowing at L4-5. No soft tissue abnormality is identified. Procedure Note Josh Ortiz MD - 12/15/2021 CT LUMBAR SPINE WO CONTRAST, CT THORACIC SPINE WO CONTRAST DATE: 12/14/2021 4:13 PM EXAMINATION: 1.CT of the thoracic spine without contrast 2.CT of the lumbar spine without contrast HISTORY: [id number].XXXA: Fall, initial encounter TECHNIQUE: CT of the head and cervical spine was performed without contrast according to standard protocol. Reformatted axial, sagittal,and coronal images of the thoracic and lumbar spine were obtained by the technologist from a concurrently performed body CT and sent to the workstation for review. COMPARISON: None. FINDINGS: Please refer to separate report for findings related to CT of head and cervical spine. Thoracic spine: Intravascular contrast is present secondary to today's chest CT. Thereis a levoscoliosis of the thoracic spine with mild thoracic spine kyphosis. Prominent anterior marginal spurring is noted in the mid and lower thoracic region that is somewhat confluent consistent with diffuse idiopathic skeletal hyperostosis. There is a moderate fracture endplateof T11 is reduced in height by roughly 50%. There are no curvilinear lucencies within the subcutaneous endplate suggesting that it ischronic. There is mild retropulsion of the posterior aspect of T11 narrowing sagittal diameter spinal canal by roughly 30%. There is no evidence of acute fracture. Mild degenerative changes are present in the thoracic spine with disc bulging, facet arthropathy, and foraminal narrowing at several levels.No soft tissue abnormality is identified. Lumbar spine: Intravascular contrast is present. The alignment is normal. Vertebral bodies are normal in height without evidence of acute fracture. There is mild degenerative disc disease with diffuse osteophyte formation, most significant at L1-L2 and L5-S1 levels. There is mild posterior bulgingof the lumbar discs at L2-L3, L3-L4, L4-L5, and L5-S1 levels. Moderate central canal stenosis is present at L3-4 and severe central canal stenosis at L4-5. Facet joint hypertrophy and sclerosis is noted atL5-S1 level. There is mild neural foraminal stenoses at L2-L3 and L3-L4 levels and moderate foraminal narrowing at L4-5. No soft tissue abnormality is identified. IMPRESSION: 1. No evidence of acute fracture in the thoracic or lumbar spine. 2. Moderate, chronic fracture given plate of T11, as described above. 3. Degenerative changes in the thoracic and lumbar spine, as detailed above. There is moderate central canal stenosis at L3-4 and severecentral canal stenosis at L4-5. Report dictated by Mateo Abernathy MD (vice president of business development). I, Dr. Josh Ortiz MD have personally reviewed and interpreted this examination/study. This report was electronically signed by Josh Ortiz MD on12/15/2021 11:15 AM . Lisa Ghotra MD CT ORDERABLES * CT THORACIC SPINE WO CONTRAST (12/14/2021 3:56 PM CDT) Anatomical Region Laterality Modality Spine Computed Tomogra phy 12/15/2021 8:25 AM CDT Impressions 12/15/2021 11:15 AM CDT IMPRESSION: 1. No evidence of acute fracture in the thoracic or lumbar spine. 2. Moderate, chronic fracture given plate of T11, as described above. 3. Degenerative changes in the thoracic and lumbar spine, as detailed above. There is moderate central canal stenosis at L3-4 and severe central canal stenosis at L4-5. Report dictated by Mateo Abernathy MD (vice president of business development). I, Dr. Josh Ortiz MD have personally reviewed and interpreted this examination/study. This report was electronically signed by Josh Ortiz MD on 12/15/2021 11:15 AM . Narrative 12/15/2021 11:[address] LUMBAR SPINE WO CONTRAST, CT THORACIC SPINE WO CONTRAST DATE: 12/14/2021 4:13 PM EXAMINATION: 1.CT of the thoracic spine without contrast 2.CT of the lumbar spine without contrast HISTORY: [id number].XXXA: Fall, initial encounter TECHNIQUE: CT of the head and cervical spine was performed without contrast according to standard protocol. Reformatted axial, sagittal, and coronal images of the thoracic and lumbar spine were obtained by the technologist from a concurrently performed body CT and sent to the workstation for review. COMPARISON: None. FINDINGS: Please refer to separate report for findings related to CT of head and cervical spine. Thoracic spine: Intravascular contrast is present secondary to today's chest CT. There is a levoscoliosis of the thoracic spine with mild thoracic spine kyphosis. Prominent anterior marginal spurring is noted in the mid and lower thoracic region that is somewhat confluent consistent with diffuse idiopathic skeletal hyperostosis. There is a moderate fracture endplate of T11 is reduced in height by roughly 50%. There are no curvilinear lucencies within the subcutaneous endplate suggesting that it is chronic. There is mild retropulsion of the posterior aspect of T11 narrowing sagittal diameter spinal canal by roughly 30%. There is no evidence of acute fracture. Mild degenerative changes are present in the thoracic spine with disc bulging, facet arthropathy, and foraminal narrowing at several levels. No soft tissue abnormality is identified. Lumbar spine: Intravascular contrast is present. The alignment is normal. Vertebral bodies are normal in height without evidence of acute fracture. There is mild degenerative disc disease with diffuse osteophyte formation, most significant at L1-L2 and L5-S1 levels. There is mild posterior bulging of the lumbar discs at L2-L3, L3-L4, L4-L5, and L5-S1 levels. Moderate central canal stenosis is present at L3-4 and severe central canal stenosis at L4-5. Facet joint hypertrophy and sclerosis is noted at L5-S1 level. There is mild neural foraminal stenoses at L2-L3 and L3-L4 levels and moderate foraminal narrowing at L4-5. No soft tissue abnormality is identified. Procedure Note Josh Ortiz MD - 12/15/2021 CT LUMBAR SPINE WO CONTRAST, CT THORACIC SPINE WO CONTRAST DATE: 12/14/2021 4:13 PM EXAMINATION: 1.CT of the thoracic spine without contrast 2.CT of the lumbar spine without contrast HISTORY: W19.XXXA: Fall, initial encounter TECHNIQUE: CT of the head and cervical spine was performed without contrast according to standard protocol. Reformatted axial, sagittal,and coronal images of the thoracic and lumbar spine were obtained by the technologist from a concurrently performed body CT and sent to the workstation for review. COMPARISON: None. FINDINGS: Please refer to separate report for findings related to CT of head and cervical spine. Thoracic spine: Intravascular contrast is present secondary to today's chest CT. Thereis a levoscoliosis of the thoracic spine with mild thoracic spine kyphosis. Prominent anterior marginal spurring is noted in the mid and lower thoracic region that is somewhat confluent consistent with diffuse idiopathic skeletal hyperostosis. There is a moderate fracture endplateof T11 is reduced in height by roughly 50%. There are no curvilinear lucencies within the subcutaneous endplate suggesting that it ischronic. There is mild retropulsion of the posterior aspect of T11 narrowing sagittal diameter spinal canal by roughly 30%. There is no evidence of acute fracture. Mild degenerative changes are present in the thoracic spine with disc bulging, facet arthropathy, and foraminal narrowing at several levels.No soft tissue abnormality is identified. Lumbar spine: Intravascular contrast is present. The alignment is normal. Vertebral bodies are normal in height without evidence of acute fracture. There is mild degenerative disc disease with diffuse osteophyte formation, most significant at L1-L2 and L5-S1 levels. There is mild posterior bulgingof the lumbar discs at L2-L3, L3-L4, L4-L5, and L5-S1 levels. Moderate central canal stenosis is present at L3-4 and severe central canal stenosis at L4-5. Facet joint hypertrophy and sclerosis is noted atL5-S1 level. There is mild neural foraminal stenoses at L2-L3 and L3-L4 levels and moderate foraminal narrowing at L4-5. No soft tissue abnormality is identified. IMPRESSION: 1. No evidence of acute fracture in the thoracic or lumbar spine. 2. Moderate, chronic fracture given plate of T11, as described above. 3. Degenerative changes in the thoracic and lumbar spine, as detailed above. There is moderate central canal stenosis at L3-4 and severecentral canal stenosis at L4-5. Report dictated by Mateo Abernathy MD (vice president of business development). I, Dr. Josh Ortiz MD have personally reviewed and interpreted this examination/study. This report was electronically signed by Josh Ortiz MD on12/15/2021 11:15 AM . Lisa Ghotra MD CT ORDERABLES * XR KNEE RIGHT 2VW OR LESS (12/14/2021 1:04 PM CDT) Anatomical Region Laterality Modality Lower Extremity Radiographic Cleopatra ging 12/14/2021 12:5 4 PM CDT Impressions 12/14/2021 1:01 PM CDT FINDINGS/IMPRESSION: Right knee: There is improved alignment of the distal femoral fracture post reduction, since the exam at 10:28 AM. Right femur: Improved alignment of the distal femoral fracture is again seen. There are moderate degenerative changes at the hip and mild degenerative change at the knee. The bones are osteopenic. A brace is in place. This report was electronically signed by NIRU RENE M.D. on 12/14/2021 1:01 PM . Narrative 12/14/2021 1:01 PM CDT Exam: XR KNEE RIGHT 2VW OR LESS, XR FEMUR RIGHT 2VW Date: 12/14/2021 12:29 PM History: W19.XXXA: Fall, initial encounter Procedure Note Niru Rene MD - 12/14/2021 Exam: XR KNEE RIGHT 2VW OR LESS, XR FEMUR RIGHT 2VW Date: 12/14/2021 12:29 PM History: W19.XXXA: Fall, initial encounter FINDINGS/IMPRESSION: Right knee: There is improved alignment of the distal femoral fracture postreduction, since the exam at 10:28 AM. Right femur: Improved alignment of the distal femoral fracture is again seen. Thereare moderate degenerative changes at the hip and mild degenerative change at the knee. The bones are osteopenic. A brace is in place. This report was electronically signed by NIRU RENE M.D. on 12/14/2021 1:01 PM . Lisa Ghotra MD DIAGNOSTIC IMAGING O RDERABLES * SARS-COV-2 (COVID-19)+INFLU A+B PCR RAPID (12/14/2021 12:51 PM CDT) COVID-19 PCR Not detected Not detected 12/15/19 1:31 PM CDT [facility] Influenza A Rapid JOSE Not Detected Not Detected 12/14/2021 1:31 PM CDT [facility] Influenza B JOSE Rapid Not Detected Not Detected 12/14/2021 1:31 PM CDT [facility] Microbiology SPECIMEN FROM NASOPHARYNGEAL STRUCTURE / Unknown Collection / Unknown 12/14/2021 12:51 PM CDT 12/14/2021 12:53 PM CDT Narrative [facility] - 12/14/2021 1:31 PM CDT Influenza assay performed by Nucleic Acid Amplification. Results do not exclude the possibility of a mixed viral infection. NOTE: Detecting and identifying specific viral nucleic acids from individuals exhibiting signs and symptoms of respiratory infection aids in the diagnosis of respiratory infection, if used in conjunction with other clinical and laboratory findings. The results of this test should not be used as the sole basis for diagnosis, treatment, or patient management decisions. This nucleic acid amplification assay performance was validated by [facility]. This test has been authorized by the Food and Drug administration (FDA)under an Emergency Use Authorization (EUA). This test has been validated in accordance with the FDA's guidance document Policy for Diagnostic Testing in Laboratories Certified to perform High Complexity Testing under CLIA prior to Emergency Use Authorization for Coronavirus Disease-2019 during the Public Health Emergency issued on July 20, 2019. FDA independent review of this validation is pending. This test is only authorized for the duration of time the declaration that circumstances exist justifying the authorization of emergency use of in vitro diagnostic tests for detection of SARS-CoV-2 virus and/or diagnosis of COVID-19 infection under section 564(b)(1) of the Act, 21 U.S.C 360bbb-3 (b)(1), unless the authorization is terminated or revoked sooner. Fact Sheets for this EUA assay are available upon request. Lisa Ghotra MD LAB - MICROBIOLOGY O RDERABLES [facility] [address] [place] [phone], [facility] [phone] * BLOOD TYPE VERIFICATION (12/14/2021 11:31 AM CDT) Pathologist [facility] ABO Rh O POS 12/14/2021 12:32 PM CDT [facility] Blood Bank BLOOD SPECIMEN / Unknown Lab Venipuncture / Unknown 12/14/2021 11:31 AM CDT 12/14/2021 11:48 AM CDT Lisa Ghotra MD LAB - BLOOD BANK ORD ERABLES [facility] [address] [place] [phone], [facility] [phone] * EKG 12-LEAD (12/14/2021 11:29 AM CDT) Ventricular Rate 88 BPM [facility] Atrial Rate 88 BPM [facility] P-R Interval 158 ms [facility] QRS Duration ms 68 ms [facility] Q-T Interval ms 366 ms [facility] QTC Calculation (Bezet) 442 ms [facility] Calculated P [place] 27 degrees [facility] Calculated R [place] 14 degrees [facility] Calculated T [place] 73 degrees [facility] Interpretation EKG NORMAL SINUS RHYTHM WITH SINUS ARRHYTHMIA LOW VOLTAGE QRS BORDERLINE ECG NO PREVIOUS ECGS AVAILABLE Confirmed by MD Vitale Lisa ([id number]) on 12/16/2021 3:23:13 PM [facility] 12/14/2021 11:2 9 AM CDT 12/16/2021 3:23 PM CDT Lisa Ghotra MD ECG ORDERABLES Performing Organization Address City/[facility]/ZIP Co de Phone Number [facility] * TROPONIN I (12/14/2021 11:15 AM CDT) Troponin I <0.010 <0.032 ng/mL 12/14/2021 12:15 PM CDT [facility] Blood BLOOD SPECIMEN / Unknown Venipuncture / Unknown 12/14/2021 11:15 AM CDT 12/14/2021 11:41 AM CDT Lisa Ghotra MD LAB - CHEMISTRY ORDE RABLES Performing Organization Address City/[facility]/ZIP Co de Phone Number [facility] [address] [phone], [facility] [phone] * TYPE + SCREEN PANEL (12/14/2021 11:15 AM CDT) Antibody Screen NEG 12:30 PM CDT [facility] ABO Rh O POS 12/14/2021 12:30 PM CDT [facility] Blood Bank BLOOD SPECIMEN / Unknown Venipuncture / Unknown 12/14/2021 11:15 AM CDT 12/14/2021 12:24 PM CDT Lisa Ghotra MD LAB - BLOOD BANK ORD ERABLES [facility] [address] [place] [address], [facility] [phone] * (ABNORMAL) CBC W AUTO DIFFERENTIAL (12/14/2021 11:15 AM CDT) WBC 9.0 3.5 - 10.5 10 3/uL 12/14/2021 12:00 PM [facility] RBC 3.69(L) 3.80 - 5.20 10 6/uL 12/14/2021 12:00 PM [facility] Hemoglobin 10.8(L) 12.0 - 15.6 g/dL 12/14/2021 12:00 PM [facility] Hematocrit 33.3(L) 35.0 - 45.0 % 12/14/2021 12:00 PM [facility] MCV 90.2 80.7 - 98.3 fL 12/14/2021 12:00 PM [facility] MCH 29.3 26.7 - 34.0 pg 12/14/2021 12:00 PM [facility] MCHC 32.4 30.8 - 35.9 g/dL 12/14/2021 12:00 PM [facility] Platelet Count 168 150 - 400 10 3/uL 12/14/2021 12:00 PM [facility] Comment: Checked by peripheral smear. This is an appended report. These results have been appended to a previously preliminary verified report. RDW-SD 42.7 36.0 - 50.0 fL 12/14/2021 12:00 PM [facility] RDW-CV 12.9 11.2 - 14.8 % 12/14/2021 12:00 PM [facility] MPV 12/14/2021 12:00 PM [facility] Comment:Unable to Report nRBC Absolute 0.00 0 10 3/uL 12/14/2021 12:00 PM [facility] nRBC Auto 0.0 0 /100 WBC 12/14/2021 12:00 PM [facility] Neutrophils % 61.5 35.0 - 70.0 % 12/14/2021 12:00 PM [facility] Lymphocytes % 25.4 20.0 - 43.0 % 12/14/2021 12:00 PM [facility] Monocytes % 10.1 5.0 - 13.0 % 12/14/2021 12:00 PM [facility] Eosinophils % 1.9 0.0 - 6.0 % 12/14/2021 12:00 PM [facility] Basophil % 0.7 0.0 - 2.0 % 12/14/2021 12:00 PM [facility] Neutrophils Absolute 5.53 1.60 - 7.00 10 3/uL 12/14/2021 12:00 PM [facility] Lymphocyte Absolute 2.28 1.10 - 3.90 10 3/uL 12/14/2021 12:00 PM [facility] Monocytes Absolute 0.91 0.26 - 1.07 10 3/uL 12/14/2021 12:00 PM [facility] Eosinophils Absolute 0.17 0.00 - 0.47 10 3/uL 12/14/2021 12:00 PM [facility] Basophils Absolute 0.06 0.00 - 0.08 10 3/uL 12/14/2021 12:00 PM [facility] Immature Granulocytes % 0.4 0.0 - 1.0 % 12/14/2021 12:00 PM [facility] Immature Granulocytes Absolute 0.04 12/14/2021 12:00 PM [facility] Immature Platelet Fraction 12/14/2021 12:00 PM [facility] Comment:Unable to Report Blood BLOOD SPECIMEN / Unknown Venipuncture / Unknown 12/14/2021 11:15 AM CDT 12/14/2021 11:25 AM CDT Lisa Ghotra MD LAB - HEMATOLOGY ORD ERABLES [facility] [address] [place] [phone], [facility] [phone] * CT CERVICAL SPINE NON CONTRAST - suspected c-spine fracture (12/14/2021 10:50 AM CDT) Anatomical Region Laterality Modality Spine Computed Tomogra phy 12/14/2021 11:2 1 AM CDT Impressions 12/14/2021 11:33 AM CDT IMPRESSION: 1.No acute intracranial hemorrhage, mass effect, or midline shift. 2.No evidence of acute fracture in the cervical spine. 3.Advanced degenerative disc and joint disease as outlined. MRI of the cervical spine is recommended for further evaluation. This report was electronically signed by MARIANELA MONTANA on 12/14/2021 11:33 AM . Narrative 12/14/2021 11:[address] HEAD WO CONTRAST, CT CERVICAL SPINE WO CONTRAST EXAMINATION: 1.Computed tomography (CT) of the head without contrast 2.CT of the cervical spine without contrast DATE: 12/14/2021 10:51 AM HISTORY: W19.XXXA: Fall, initial encounter TECHNIQUE: CT of the head and cervical spine was performed without contrast according to standard protocol. COMPARISON: No prior study is available for comparison at the time of this dictation. FINDINGS: Head: No acute intra- or extra-axial fluid collections are identified. There is mild cerebral volume loss with associated ex vacuo ventricular dilatation. The basilar cisterns are patent. No mass effect or midline shift is seen. The garcia-white matter differentiation is normal. Periventricular white matter hypoattenuation is indicative of chronic small vessel ischemic disease. There is vascular calcification of the carotid siphons. No acute calvarial fracture is identified. Other than right cataract extraction, the orbits appear normal. There is mild paranasal sinus disease. Small amount of cerumen in the left extremity canal. The mastoid air cells are otherwise grossly clear. No soft tissue abnormality is identified. Cervical spine: Mild dextrocurvature of the spine. Straightening of cervical lordosis. Osteopenia limits evaluation for fractures. Vertebral bodies are normal in height without evidence of acute fracture. Other than middle atlantoaxial joint osteoarthritis, the craniocervical junction appears normal. There is advanced degenerative disc disease. Multilevel moderate to severe central canal stenosis is seen. Disc osteophyte complexes and spurring noted at multiple levels. There are varying degrees of advanced facet osteoarthritis. There are varying degrees of advanced uncovertebral joint osteoarthritis with the same degree of neural foraminal stenosis at these levels. Linear atelectasis noted in the right upper lobe. Procedure Note Marianela Montana MD - 12/14/2021 CT HEAD WO CONTRAST, CT CERVICAL SPINE WO CONTRAST EXAMINATION: 1.Computed tomography (CT) of the head without contrast 2.CT of the cervical spine without contrast DATE: 12/14/2021 10:51 AM HISTORY: [id number].XXXA: Fall, initial encounter TECHNIQUE: CT of the head and cervical spine was performed without contrast according to standard protocol. COMPARISON: No prior study is available for comparison at the time ofthis dictation. FINDINGS: Head: No acute intra- or extra-axial fluid collections are identified. Thereis mild cerebral volume loss with associated ex vacuo ventriculardilatation. The basilar cisterns are patent. No mass effect or midline shift isseen. The garcia-white matter differentiation is normal. Periventricular white matter hypoattenuation is indicative of chronic small vessel ischemic disease. There is vascular calcification of the carotid siphons. Noacute calvarial fracture is identified. Other than right cataract extraction, the orbits appear normal. There is mild paranasal sinus disease. Small amount of cerumen in the left extremity canal. The mastoid air cells are otherwise grossly clear. No soft tissue abnormality is identified. Cervical spine: Mild dextrocurvature of the spine. Straightening of cervical lordosis. Osteopenia limits evaluation for fractures. Vertebral bodies are normalin height without evidence of acute fracture. Other than middleatlantoaxial joint osteoarthritis, the craniocervical junction appears normal. Thereis advanced degenerative disc disease. Multilevel moderate to severecentral canal stenosis is seen. Disc osteophyte complexes and spurring noted at multiple levels. There are varying degrees of advanced facet osteoarthritis. There are varying degrees of advanced uncovertebraljoint osteoarthritis with the same degree of neural foraminal stenosis atthese levels. Linear atelectasis noted in the right upper lobe. IMPRESSION: 1.No acute intracranial hemorrhage, mass effect, or midline shift. 2.No evidence of acute fracture in the cervical spine. 3.Advanced degenerative disc and joint disease as outlined. MRI of the cervical spine is recommended for further evaluation. This report was electronically signed by MARIANELA MONTANA on12/14/2021 11:33 AM . Lisa Ghotra MD CT ORDERABLES * CT HEAD WO CONTRAST (12/14/2021 10:50 AM CDT) Anatomical Region Laterality Modality Head Computed Tomogra phy 12/14/2021 11:2 1 AM CDT Impressions 12/14/2021 11:33 AM CDT IMPRESSION: 1.No acute intracranial hemorrhage, mass effect, or midline shift. 2.No evidence of acute fracture in the cervical spine. 3.Advanced degenerative disc and joint disease as outlined. MRI of the cervical spine is recommended for further evaluation. This report was electronically signed by MARIANELA MONTANA on 12/14/2021 11:33 AM . Narrative 12/14/2021 11:[address] HEAD WO CONTRAST, CT CERVICAL SPINE WO CONTRAST EXAMINATION: 1.Computed tomography (CT) of the head without contrast 2.CT of the cervical spine without contrast DATE: 12/14/2021 10:51 AM HISTORY: W19.XXXA: Fall, initial encounter TECHNIQUE: CT of the head and cervical spine was performed without contrast according to standard protocol. COMPARISON: No prior study is available for comparison at the time of this dictation. FINDINGS: Head: No acute intra- or extra-axial fluid collections are identified. There is mild cerebral volume loss with associated ex vacuo ventricular dilatation. The basilar cisterns are patent. No mass effect or midline shift is seen. The garcia-white matter differentiation is normal. Periventricular white matter hypoattenuation is indicative of chronic small vessel ischemic disease. There is vascular calcification of the carotid siphons. No acute calvarial fracture is identified. Other than right cataract extraction, the orbits appear normal. There is mild paranasal sinus disease. Small amount of cerumen in the left extremity canal. The mastoid air cells are otherwise grossly clear. No soft tissue abnormality is identified. Cervical spine: Mild dextrocurvature of the spine. Straightening of cervical lordosis. Osteopenia limits evaluation for fractures. Vertebral bodies are normal in height without evidence of acute fracture. Other than middle atlantoaxial joint osteoarthritis, the craniocervical junction appears normal. There is advanced degenerative disc disease. Multilevel moderate to severe central canal stenosis is seen. Disc osteophyte complexes and spurring noted at multiple levels. There are varying degrees of advanced facet osteoarthritis. There are varying degrees of advanced uncovertebral joint osteoarthritis with the same degree of neural foraminal stenosis at these levels. Linear atelectasis noted in the right upper lobe. Procedure Note Marianela Montana MD - 12/14/2021 CT HEAD WO CONTRAST, CT CERVICAL SPINE WO CONTRAST EXAMINATION: 1.Computed tomography (CT) of the head without contrast 2.CT of the cervical spine without contrast DATE: 12/14/2021 10:51 AM HISTORY: [id number].XXXA: Fall, initial encounter TECHNIQUE: CT of the head and cervical spine was performed without contrast according to standard protocol. COMPARISON: No prior study is available for comparison at the time ofthis dictation. FINDINGS: Head: No acute intra- or extra-axial fluid collections are identified. Thereis mild cerebral volume loss with associated ex vacuo ventriculardilatation. The basilar cisterns are patent. No mass effect or midline shift isseen. The garcia-white matter differentiation is normal. Periventricular white matter hypoattenuation is indicative of chronic small vessel ischemic disease. There is vascular calcification of the carotid siphons. Noacute calvarial fracture is identified. Other than right cataract extraction, the orbits appear normal. There is mild paranasal sinus disease. Small amount of cerumen in the left extremity canal. The mastoid air cells are otherwise grossly clear. No soft tissue abnormality is identified. Cervical spine: Mild dextrocurvature of the spine. Straightening of cervical lordosis. Osteopenia limits evaluation for fractures. Vertebral bodies are normalin height without evidence of acute fracture. Other than middleatlantoaxial joint osteoarthritis, the craniocervical junction appears normal. Thereis advanced degenerative disc disease. Multilevel moderate to severecentral canal stenosis is seen. Disc osteophyte complexes and spurring noted at multiple levels. There are varying degrees of advanced facet osteoarthritis. There are varying degrees of advanced uncovertebraljoint osteoarthritis with the same degree of neural foraminal stenosis atthese levels. Linear atelectasis noted in the right upper lobe. IMPRESSION: 1.No acute intracranial hemorrhage, mass effect, or midline shift. 2.No evidence of acute fracture in the cervical spine. 3.Advanced degenerative disc and joint disease as outlined. MRI of the cervical spine is recommended for further evaluation. This report was electronically signed by MARIANELA MONTANA on12/14/2021 11:33 AM . Lisa Ghotra MD CT ORDERABLES * XR PELVIS 1 OR 2VW (12/14/2021 10:38 AM CDT) Anatomical Region Laterality Modality Pelvis Radiographic Cleopatra ging Impressions 12/14/2021 11:15 AM CDT Impression: Examination is limited due to patient body habitus. There is marked demineralization of bones. Femoral heads are well-seated in the acetabula. There is no displaced pelvic fracture on this single view projection. There is a deformity of the right femoral head, age indeterminate. Moderate degenerative changes in the bilateral hip joints. The pubic symphysis is intact. Dictated by Nighat Ervin MD (vice president of business development). Dr. DAVE De Paz have personally reviewed and interpreted this examination/study. This report was electronically signed by DAVE OROZCO on 12/14/2021 11:15 AM . Narrative 12/14/2021 11:15 AM CDT EXAMINATION: XR PELVIS 1 OR 2VW HISTORY: W19.XXXA: Fall, initial encounter COMPARISON: None. Procedure Note Dave Orozco MD - 12/14/2021 EXAMINATION: XR PELVIS 1 OR 2VW HISTORY: W19.XXXA: Fall, initial encounter COMPARISON: None. Impression: Examination is limited due to patient body habitus. There is marked demineralization of bones. Femoral heads are well-seated in the acetabula. There is no displaced pelvic fracture on this single view projection. There is a deformity of the right femoral head, age indeterminate. Moderate degenerative changes in the bilateral hip joints. The pubic symphysis is intact. Dictated by Nighat Ervin MD (vice president of business development). Dr. DAVE De Paz have personally reviewed and interpreted this examination/study. This report was electronically signed by DAVE OROZCO on 12/14/2021 11:15 AM . Lisa Ghotra MD DIAGNOSTIC IMAGING O RDERABLES * XR KNEE RIGHT 3VW (12/14/2021 10:38 AM CDT) Anatomical Region Laterality Modality Lower Extremity Radiographic Cleopatra ging Impressions 12/14/2021 11:15 AM CDT IMPRESSION: 1.Oblique, displaced fracture of the distal femur. 2.Small joint effusion. Dictated by Nighat Ervin MD (vice president of business development). Dr. DAVE De Paz have personally reviewed and interpreted this examination/study. This report was electronically signed by DAVE OROZCO on 12/14/2021 11:15 AM . Narrative 12/14/2021 11:15 AM CDT EXAMINATION: XR KNEE RIGHT 3VW HISTORY: W19.XXXA: Fall, initial encounter COMPARISON: None. FINDINGS: Oblique, displaced, foreshortened fracture of the distal femur with approximately one quarter shaft width anterior displacement of the proximal fracture fragment status post external fixation. There is no intra-articular extension of the fracture. Small joint effusion is noted. Procedure Note Dave Orozco MD - 12/14/2021 EXAMINATION: XR KNEE RIGHT 3VW HISTORY: W19.XXXA: Fall, initial encounter COMPARISON: None. FINDINGS: Oblique, displaced, foreshortened fracture of the distal femur with approximately one quarter shaft width anterior displacement of the proximal fracture fragment status post external fixation. There is no intra-articular extension of the fracture. Small joint effusion isnoted. IMPRESSION: 1.Oblique, displaced fracture of the distal femur. 2.Small joint effusion. Dictated by Nighat Ervin MD (vice president of business development). Dr. DAVE De Paz have personally reviewed and interpreted this examination/study. This report was electronically signed by DAVE OROZCO on 12/14/2021 11:15 AM . 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
--- OUTSIDE RECORDS SUMMARY | 2024-07-23 23:22 | XMS_ITS | Clinical Summary ---
Author Organization [facility] Address [address] [place] [address] Care Team Providers Care Emergency Dept Tech Name Role Phone Bryson Healy MD Primary Care Provider [phone] Source Comments [facility],non-owned Affiliates and Associated Physician Practices is amultiple site organization consisting of ambulatory clinics and hospital sitesin [place], [place], [place] and [place]. This disclosure is being madepursuant to the Care Everywhere program and may not contain all information available regarding this patient. Last updated 18.[facility] [employer] Allergies Active Allergy Reactions Criticality Noted Date [...] Active vitamin D, ergocalciferol, (Drisdol) 1.25 MG (25230 UT) capsule Take 50,000 Units by mouth 12/09/2021 Active HYDROcodone-acetami nophen ([place]) 5-325 MG tablet Take 1 tablet by [...] tract infection) 12/15/2021 12/20/2021 Hypoxia 12/14/2021 12/20/2021 Family History Medical History Relation Name Comments Cancer - Lung Brother Cancer - Lung Father Relation Name Status Comments Brother Father Social History Tobacco Use Types Packs/Day Years [...] Mass Index 24.8 12/14/2021 10:04 AM CDT Plan of Treatment Health Maintenance Due Date Last Done Comments BONE DENSITY TESTING 1942 DTAP/TDAP/TD VACCINES (1 - Tdap) 1961 PNEUMOCOCCAL VACCINE 50+ (1 of 1 - PCV) 1992 ZOSTER VACCINE (1 of 2) 1992 Respiratory Syncytial Virus (RSV) Vaccine Pt: or over 60 yrs (1 - 1-dose 75+ series) 2017 COVID-19 VACCINE ( - 2023-2 5 season) 2024 INFLUENZA VACCINE (#1) 2024 DEPRESSION SCREENING 05/22/2024 HEPATITIS B VACCINE Aged Out No longe r eligible based on patient's age to complete this topic HIB VACCINE Aged Out No longer eligi ble based on patient's age to complete this topic HPV VACCINE Aged Out No longer eligi ble based on patient's age to complete this topic MENINGOCOCCAL (Group B) VACCINE Aged Out No longer eligible based on patient's age to complete this topic MENINGOCOCCAL VACCINE Aged Out No obi royer eligible based on patient's age to complete this topic Medical Devices Implanted Type Area Ssis Architect Device Identifier Shelf Expiration Date Model / Serial / Lot Nail Implanted:Qty: 1 on 12/15/2021 by Altagracia Dean MD at [facility] Right: Femur [employer] Trauma 05/21/2026 [id number] S / / Screw Implanted:Qty: 1 on 12/15/2021 by Altagracia Dean MD at [facility] Right: [employer] Trauma [id number] S / / Screw Implanted:Qty: 1 on 12/15/2021 by Altagracia Dean MD at [facility] Right: Femur [employer] Trauma [id number] S / / Screw Implanted:Qty: 1 on 12/15/2021 by Altagracia Dean MD at [facility] Right: Fem[employer] Trauma 06/21/2031 [id number] S / / Nail Screw Implanted:Qty: 1 on 12/15/2021 by Altagracia Dean MD at [facility] Right: Fem[employer] Trauma [id number] S / / Screw Implanted:Qty: 1 on 12/15/2021 by Altagracia Dean MD at [facility] Right: [employer] Trauma [id number] S / / Screw Implanted:Qty: 1 on 12/15/2021 by Altagracia Dean MD at [facility] Right: [employer] Trauma [id number] S / / Insurance Payer Benefit Plan / Group Subscriber ID Effective Dates Phone Address Type [facility] MEDICAID [id number] Effective for all dates ATTN CLAIMS DEPARTMENT [address] [place] [address] Medicaid Managed Care [facility] MEDICAID [id number] 2021-Pres ent [address] [place] [address] Medicaid Managed Care MEDICARE MANAGED CARE PLAN GENERIC MEDICARE ADV [place] COMPLETE MEDICARE ADV [place] OF [place] [id number] Effective for all dates [address] [place] [address] Medicare-[place] aged Care Advance Directives * Full Code [...] orders without asking attending physician. Care Teams Emergency Dept Tech Relationship Specialty Start Date End Date Bryson Healy MD [address] [place] [address] PCP - General 08/26/20
--- NOTE | 2024-07-23 23:42 | ED.GENADULT ---
HPI - General Adult General Chief complaint: Extremity Problem,Nontraumatic Stated complaint: Left hip pain Time Seen by Provider: 07/23/24 23:11 History of Present Illness HPI narrative: Patient 84-year-old female who presents emergency department chief complaint of left hip pain. Patient reports he has had no trauma or falls reports that she has been having pain the left hip area reports worse with movement improved with rest. Related Data Home Medications ?Medication ?Instructions ?Recorded ?Confirmed ?Last Taken ?Type acetaminophen 325 mg tablet 650 mg PO Q6H PRN Pain 08/19/20 08/18/21 Unknown History ascorbic acid (vitamin C) 500 mg 1,000 mg PO DAILY 08/19/20 08/18/21 Unknown History tablet calcium 600 mg (as 1 cap PO BID 08/19/20 08/18/21 Unknown History carbonate)-vitamin D3 12.5 mcg (500 unit) capsule docusate sodium 100 mg capsule 100 mg PO DAILY PRN Constipation 08/19/20 08/18/21 Unknown History insulin aspart U-100 100 unit/mL 0 unit subcut TID 08/19/20 08/18/21 Unknown History (3 mL) subcutaneous pen (Novolog FlexPen U-100 Insulin aspart) insulin aspart U-100 100 unit/mL 5 unit subcut TID 08/19/20 08/18/21 Unknown History (3 mL) subcutaneous pen (Novolog FlexPen U-100 Insulin aspart) insulin glargine 100 unit/mL (3 20 unit subcut HS 08/19/20 08/18/21 Unknown History mL) subcutaneous pen (Lantus Solostar U-100 Insulin) mirtazapine 7.5 mg tablet 7.5 mg PO DAILY 08/19/20 08/18/21 Unknown History polyethylene glycol 3350 17 17 g PO DAILY PRN Constipation 08/19/20 08/18/21 Unknown History gram/dose oral powder (Miralax) metformin 1,000 mg tablet 1,000 mg DAILY 12/02/20 08/18/21 Unknown History baclofen 10 mg tablet 10 mg PO BID PRN spinal stenosis 08/18/21 08/18/21 Unknown History Allergies Allergy/AdvReac Type Severity Reaction Status Date / Time adhesive tape Allergy Mild Rash Verified 12/14/21 07:35 ibuprofen (From Motrin) AdvReac Mild Nausea and Verified 12/14/21 07:35 Vomiting morphine AdvReac Mild Nausea and Verified 12/14/21 07:35 Vomiting Review of Systems Review of Systems: A 10 system review of systems was completed on the patient and is negative except for what is stated in the HPI. Nursing and ancillary documentation was reviewed. [facility] Past Medical History Medical History Vitamin D deficiency Stenosis of cervical spine severe-- declined surgery in the Duodenitis (08/2020) Dementia Cataract She said 1 was removed Compression fracture T11 20% Osteoporosis Closed fracture of tibial plateau (07/2020) managed conservatively History of skin cancer SQ cell lt lateral knee. DM II (diabetes mellitus, type II), controlled Hx of fracture of rib Arthritis Bronchitis COPD (chronic obstructive pulmonary disease) Screening for malignant neoplasm of colon Surgical History Surgical History History of esophagogastroduodenoscopy (EGD) (08/2020) Previous section X3 History of cholecystectomy Family History Family History Sibling Diabetes mellitus Other Diabetes mellitus Hypertension Mother Diabetes mellitus Father Lung cancer Sibling Diabetes mellitus Kidney failure Social History Social History Social History: Patient quit smoking last year but smoked for 45 years prior to that. She does not drink alcohol or do drugs. She would like her surrogate decision maker to be her daughter Annie. Code status: DNR/DNI Smoking packs per day: 1 Smoking cigarettes per day: 20.0 Years smoked: 30 Smoking pack-years: 30.00 Smoking status: Former smoker Tobacco type: cigarettes Second hand tobacco smoke exposure: Yes Alcohol intake: never Substance use: never Gender identity (if verbalized by the patient): Female Spiritual care concerns: No Agree to blood products: Yes Exam Narrative: GENERAL: Well-appearing, well-nourished, and in no acute distress. HEAD: Normocephalic, atraumatic. EYES: PERRLA and EOMI. ENT: Nares clear, no rhinorrhea or epistaxis. Mucous membranes moist. NECK: Supple. CHEST: Clear to auscultation. No respiratory distress. HEART: Regular rate and rhythm. No murmur heard. Normal peripheral pulses. ABDOMEN: Soft, nontender, nondistended, normal active bowel sounds. EXTREMITIES: Normal range of motion in all extremities except for left hip there is pain with range of motion of the left hip. No edema. SKIN: Warm, dry, no rash. NEURO: No focal deficits. Alert and oriented x3. PSYCH: Normal mood and affect. Course Vital Signs Vital signs: Vital Signs Temperature 36.2 C L 07/23/24 22:24 Pulse Rate 78 07/23/24 22:24 Respiratory Rate 23 H 07/23/24 22:24 Blood Pressure 159/77 H 07/23/24 22:24 Pulse Oximetry 93 07/23/24 22:24 Oxygen Delivery Nasal Cannula 07/23/24 22:24 Oxygen Flow Rate 2 07/23/24 22:24 Temperature 36.2 C L 07/23/24 22:36 Pulse Rate 70 07/24/24 02:30 Respiratory Rate 18 07/24/24 02:30 Blood Pressure 144/67 H 07/24/24 02:30 Pulse Oximetry 95 07/24/24 02:30 Oxygen Delivery Nasal Cannula 07/23/24 22:37 Oxygen Flow Rate 2 07/23/24 22:37 Medical Decision Making MDM Narrative Medical decision making narrative: Differential diagnosis includes fracture, contusion, Plain film x-rays of the hip showed degeneration of the hip with possible fractures CT scan shows evidence of a transcervical fracture of the left femur Laboratory studies were obtained that showed a white count of 9.3 electrolytes are within normal limits lactate was 2.2 urinalysis did show greater than 100 white blood cells and 2+ leukocyte esterase and 4+ bacteria Vital Signs Vital Signs: Vital Signs Temperature 36.2 C L 07/23/24 22:24 Pulse Rate 78 07/23/24 22:24 Respiratory Rate 23 H 07/23/24 22:24 Blood Pressure 159/77 H 07/23/24 22:24 Pulse Oximetry 93 07/23/24 22:24 Oxygen Delivery Nasal Cannula 07/23/24 22:24 Oxygen Flow Rate 2 07/23/24 22:24 Temperature 36.2 C L 07/23/24 22:36 Pulse Rate 70 07/24/24 02:30 Respiratory Rate 18 07/24/24 02:30 Blood Pressure 144/67 H 07/24/24 02:30 Pulse Oximetry 95 07/24/24 02:30 Oxygen Delivery Nasal Cannula 07/23/24 22:37 Oxygen Flow Rate 2 07/23/24 22:37 Lab Data 07/24/24 00:47 07/24/24 00:47 Labs: Lab Results 07/24/24 07/24/24 Range/Units 00:47 01:39 WBC 9.3 (4.5-10.0) K/mm3 RBC 3.90 L (4.2-5.4) M/mm3 Hgb 11.8 L (12.0-15.0) g/dL Hct 36.1 L (37.0-47.0) % MCV 92.6 (80-100) fl MCH 30.3 (26-34) pg MCHC 32.7 (32-36) g/dl RDW 12.8 (11.5-14.5) % Plt Count 206 (150-375) k/mm3 MPV 10.6 H (7.4-10.4) fl Immature Gran % (Auto) 0.5 (0-0.5) % Neut % (Auto) 61.8 (45.5-73.1) % Lymph % (Auto) 27.0 (18.3-44.2) % [place] % (Auto) 7.8 (2.6-8.5) % Eos % (Auto) 2.0 (0-4.4) % Baso % (Auto) 0.9 (0.2-1.2) % Lymph # (Auto) 2.52 (0.9-3.2) K/mm3 [place] # (Auto) 0.7 H (0.1-0.6) K/mm3 Eos # (Auto) 0.2 (0-0.3) K/mm3 Baso # (Auto) 0.1 (0.0-0.1) K/mm3 Abs Immat Gran (auto) 0.05 H (0.00-0.031) K/mm3 Absolute Neuts (auto) 5.8 (1.3-6.7) K/mm3 Absolute Nucleated RBC 0.000 (0.0-0.012) K/mm3 Nucleated RBC % 0.0 (0.0-0.2) % PT 13.1 (11.1-14.7) Seconds INR 1.0 APTT 27.4 (22.3-36.8) Seconds Sodium 137 (137-145) mmol/L Potassium 4.0 (3.4-5.0) mmol/L Chloride 101 (98-107) mmol/L Carbon Dioxide 23 (22-30) mmol/L Anion Gap 13 H (4-12) mmol/L BUN 14 (7-17) mg/dL Creatinine 0.70 (0.7-1.0) mg/dL Estim Creat Clear Calc Not Reportable Estimated GFR > 60 (59 - ) Glucose 201 H (65-110) mg/dL Lactic Acid 2.2 H (0.7-2.0) mmol/L Calcium 8.9 (8.4-10.2) mg/dL Magnesium 1.7 (1.6-2.3) mg/dL Total Bilirubin 0.4 (0.2-1.3) mg/dL AST 21 (14-36) U/L ALT 16 (6-35) U/L Alkaline Phosphatase 89 (38-126) U/L Total Protein 7.0 (6.3-8.2) g/dL Albumin 3.8 (3.5-5.1) g/dL Urine Color Yellow (Yellow) Urine Appearance Cloudy H (Clear) Urine pH 5.0 (5.0-9.0) Ur Specific [place] 1.023 (1.001-1.035) Urine Protein 4+ H (Negative) mg/dL Urine Glucose (UA) Negative (Negative) mg/dL Urine Ketones Trace H (Negative) mg/dL Ur Blood (Man) 1+ H (Negative) Urine Nitrate Positive H (Negative) Urine Bilirubin Negative (Negative) Urine Urobilinogen 0.2 (<2.0) mg/dL Add Ur Microanalysis Reviewed Leukocyte Esterase Rfl 2+ H (Negative) SANDRA/UL Urine RBC 3-5 H (0-2) /hpf Urine WBC >100 H (0-3) /hpf Ur Squamous Epith Cells Moderate (Few) /hpf Urine Bacteria 4+ H /hpf Urine Casts 6-10 Hyaline Casts Present (None) /lpf Urine Yeast (Budding) Present H (None) /hpf Discharge Plan Discharge Clinical Impression: Closed fracture of neck of left femur Patient Disposition: Still a Patient Condition: Stable Patient Language: Marshallese Prescriptions: No Action metformin 1,000 mg tablet 1,000 mg DAILY ergocalciferol (vitamin D2) 1,250 mcg (50,000 unit) capsule 50,000 unit PO WEEKLY Qty: 6 0RF Rx Instructions: On at 0800 acetaminophen 325 mg Tablet 650 mg PO Q6H PRN (Reason: Pain) Lantus Solostar U-100 Insulin 100 unit/mL (3 mL) Insulin Pen 20 unit SUBCUT HS Rx Instructions: Between 6733-1602 calcium carbonate-vitamin D3 600 mg(1,500mg) -500 unit Capsule 1 cap PO BID Rx Instructions: 0800 and 1700 docusate sodium 100 mg capsule 100 mg PO DAILY PRN (Reason: Constipation) ascorbic acid (vitamin C) 500 mg Tablet 1,000 mg PO DAILY Rx Instructions: 0800 to end 08/20/20 polyethylene glycol 3350 [Miralax] 17 gram/dose Powder 17 g PO DAILY PRN (Reason: Constipation) insulin aspart U-100 [Novolog FlexPen U-100 Insulin] 100 unit/mL (3 mL) Insulin Pen 5 unit SUBCUT TID Rx Instructions: Three times a day with meals 0700 1100 1600 mirtazapine 7.5 mg Tablet 7.5 mg PO DAILY Rx Instructions: 0700 insulin aspart U-100 [Novolog FlexPen U-100 Insulin] 100 unit/mL (3 mL) Insulin Pen 0 unit SUBCUT TID Rx Instructions: With meals at 0700 1100 1600 Per sliding scale 170-200 professor of industrial technology 2 units, 201-250 give 4 units, 251-300 give 6 units, 301-350 give 8 units,351-400 give 10 units,>451 call md Less than 60 call 170-200 give 2 units 201-250 give 4 units 251-300 give 6 units 301-350 give 8 units 351-400 give 10 units 401-450 give 12 units greater than 451 call pantoprazole [Protonix] 40 mg tablet,delayed release (DR/EC) 40 mg PO QAM 42 Days Qty: 42 0RF baclofen 10 mg tablet 10 mg PO BID PRN (Reason: spinal stenosis) amoxicillin-pot clavulanate 875-125 mg tablet 1 tablet PO Q12H Qty: 10 0RF Rx Instructions: Start tonight 08/23/21 cefdinir 300 mg capsule 300 mg PO Q12H Qty: 14 0RF lisinopril 10 mg tablet 10 mg PO DAILY Qty: 90 3RF Rx Instructions: 0800 Follow-up/Referrals: UNKNOWN,DOCTOR [Primary Care Provider] -
[2024-07-24] MEDS: HYDROmorphone HCL INJ (*CRX) 1 MG/ML SYR 0.5 MG IV PUSH (00:45)
[2024-07-24 00:52] LABS: Basophils Absolute Auto 0.1 K/mm3 (0.0-0.1); Basophils Percent Auto 0.9 % (0.2-1.2); Eosinophils Absolute Auto 0.2 K/mm3 (0-0.3); Hematocrit 36.1 % (37.0-47.0); Hemoglobin 11.8 g/dL (12.0-15.0); Immature Granulocyte Absolute 0.05 K/mm3 (0.00-0.031); Immature Granulocyte Percent A 0.5 % (0-0.5); Lymphocytes Absolute Auto 2.52 K/mm3 (0.9-3.2); Mean Corpuscular HGB Conc 32.7 g/dl (32-36); Mean Corpuscular Hemoglobin 30.3 pg (26-34); Mean Corpuscular Volume 92.6 fl (80-100); Mean Platelet Volume 10.6 fl (7.4-10.4); Monocytes Absolute Auto 0.7 K/mm3 (0.1-0.6); Monocytes Percent Auto 7.8 % (2.6-8.5); Neutrophils Absolute Auto 5.8 K/mm3 (1.3-6.7); Neutrophils Percent Auto 61.8 % (45.5-73.1); Platelet Count Result 206 k/mm3 (150-375); Red Cell Distribution Width 12.8 % (11.5-14.5); White Blood Count 9.3 K/mm3 (4.5-10.0)
[2024-07-24 01:03] LABS: Alanine Aminotransferase 16 U/L (6-35); Albumin Level 3.8 g/dL (3.5-5.1); Alkaline Phosphatase 89 U/L (38-126); Anion Gap 13 mmol/L (4-12); Aspartate Amino Transferase 21 U/L (14-36); Bilirubin,Total 0.4 mg/dL (0.2-1.3); Blood Urea Nitrogen 14 mg/dL (7-17); Calcium 8.9 mg/dL (8.4-10.2); Carbon Dioxide 23 mmol/L (22-30); Chloride 101 mmol/L (98-107); Estimated Glomerular Filt Rate > 60; Glucose 201 mg/dL (65-110); Lactic Acid Reflex 2.2 mmol/L (0.7-2.0); Magnesium 1.7 mg/dL (1.6-2.3); Sodium 137 mmol/L (137-145)
[2024-07-24 01:06] LABS: Prothrombin Time 13.1 Seconds (11.1-14.7)
[2024-07-24 01:08] LABS: Partial Thromboplastin Time 27.4 Seconds (22.3-36.8)
[2024-07-24 01:14] VITALS: BP 146/77; PULSE 74; RESP 23; O2SAT 95
[2024-07-24 01:58] LABS: Add Urine Microscopic? YES; Appearance Urine Cloudy (Clear); Bacteria Urine 4+ /hpf; Bilirubin Urine Negative (Negative); Blood Urine 1+ (Negative); Budding Yeast Urine Present /hpf; Color Urine Yellow (Yellow); Glucose Urine UA Negative (Negative); Hyaline Casts Urine Present /lpf; Ketones Urine Trace mg/dL (Negative); Leukocyte Esterase Ur 2+ LEU/UL (Negative); Need Manual Microscopic Reviewed; Nitrate Urine Positive (Negative); Protein Urine 4+ mg/dL (Negative); Specific Grav Ur 1.023 (1.001-1.035); Squamous Epithelial Cell Urine Moderate /hpf (Few); Urobilinogen Urine 0.2 mg/dL (<2.0); WBC Urine >100 /hpf (0-3)
[2024-07-24 02:30] VITALS: BP 144/67; PULSE 70; RESP 18; O2SAT 95
[2024-07-24 03:50] LABS: Reflex Lactic Acid Yes or No Add Lactic
[2024-07-24 04:26] LABS: Lactic Acid 1.5 mmol/L (0.7-2.0)
[2024-07-24] MEDS: SODIUM CHLORIDE 0.9% IV 1,000 ML 100 ML IV CONT ×2 (05:10→17:15)
--- NOTE | 2024-07-24 06:28 | ADMGEN ---
This patient, Daniela Arrieta, was admitted to [facility] Surg Room 323-02. Patient/family oriented to hospital policies and general routines including ID bracelet, bed and alarms, visiting hours, pain management, procedures, bathroom and other care routines, personal items, smoking policy, room service/diet, and visiting hours. Information on how to activate the Rapid Response Team has been discussed. Patient/Family are encouraged to report perceived risks to care and to ask questions if they do not understand what they are told or what they should do.
--- NOTE | 2024-07-24 06:28 | PC.NURSE ---
Pt brought up to the floor at 0630. Pt is able to answer all orientation questions correctly. Pt asked how she broke her hip to which she said I don't know. Pt states she lives at [facility] and does not know any of her medications because the facility handles all medication administration. Pt has a lee which is draining yellow urine. Per triage note in ambulance pt was placed on 2L NC due to patient's o2 sats being 91-94% on room air- O2 sats were checked and pt was satting 92% on room air nasal cannula was not reapplied at this time.
[2024-07-24 06:33] VITALS: BMI 31.9
--- NOTE | 2024-07-24 06:49 | PC.NURSE ---
Pt registered as a DNR. Pt has paperwork stating that she is a full code. Pt is alert and oriented so with a second RN present I asked the patient what code status she wants to be and explained her options. Pt stated that she would like to remain a full code. Code status will be switched to full code in patients chart.
[2024-07-24 07:46] LABS: Glucose Point of Care 184 mg/dl (65-105)
[2024-07-24] MEDS: TIZANIDINE HCL 2 MG TABLET PO ×2 (09:43→20:56)
[2024-07-24] MEDS: MELOXICAM 7.5 MG TABLET PO (09:44)
[2024-07-24] MEDS: PANTOPRAZOLE SOD SESQUIHYDRATE 20 MG TAB PO (09:44)
[2024-07-24] MEDS: HYDROcodone/acetaminophen (*CRX) 5-325 MG TABLET 1 TAB PO ×2 (09:44→17:17)
[2024-07-24] MEDS: MIRTAZAPINE 7.5 MG TABLET PO (09:44)
[2024-07-24] MEDS: ASCORBIC ACID 500 MG TABLET 1000 MG PO (09:44)
[2024-07-24] MEDS: lisinopriL 10 MG TABLET PO (09:44)
[2024-07-24 11:19] LABS: Glucose Point of Care 225 mg/dl (65-105)
[2024-07-24] MEDS: INSULIN ASPART (*BKC) 100 UNITS/ML SUB-Q ×5 (12:26→21:01)
--- NOTE | 2024-07-24 12:47 | PM.CNOR ---
Assessment and Plan Assessment and plan (1) Closed fracture of neck of left femur: Qualifiers: Encounter type: initial encounter Qualified Code(s): S72.002A - Fracture of unspecified part of neck of left femur, initial encounter for closed fracture <MIRIAN Goss - Last Filed: 07/24/24 12:55> Code(s): S72.002A - Fracture of unspecified part of neck of left femur, initial encounter for closed fracture <MIRIAN Goss - Last Filed: 07/24/24 12:55> Status: Acute <MIRIAN Goss - Last Filed: 07/24/24 12:55> Assessment and Plan: Minimally displaced fracture of the femoral neck. The patient has been nonambulatory over a decade. Her bone is extremely thin and not amenable to internal fixation. The overall fracture alignment is good. While malunion or nonunion is possible, this should not affect her ability to transfer with a Maurice lift eventually. For now that will be quite painful and I recommend we defer Maurice lift transfers for 3-4 weeks. Will obtain an x-ray at that time to assess healing and I can review that remotely. I discussed this care plan with the daughter who agrees. The risks, benefits, and alternatives discussed. <Casa Palacios MD - Last Filed: 07/24/24 16:50> History of Present Illness HPI Consult date: 07/24/24 <MIRIAN Goss - Last Filed: 07/24/24 12:55> 07/24/24 <Casa Palacios MD - Last Filed: 07/24/24 16:50> Chief complaint: Left femoral neck fracture, UTI <MIRIAN Goss - Last Filed: 07/24/24 12:55> Narrative: Patient presents from the ER for management of her left femoral neck fracture. Patient has a history of stroke that affected her left side. She is non-ambulatory and lives in a fci. Patient is alert and oriented. She states she started having pain in her left hip and groin on Monday. She states she did not fall. Patient currently has a UTI and does not remember anything specific about the pain starting. She typically cannot move or feel her left leg. <MIRIAN Goss - Last Filed: 07/24/24 12:55> Review of Systems Review of Systems: All systems reviewed & are unremarkable except as noted in HPI and below <MIRIAN Goss - Last Filed: 07/24/24 12:55> [facility] Past Medical History Medical History: Medical History Vitamin D deficiency Stenosis of cervical spine severe-- declined surgery in the Duodenitis (08/2020) Dementia Cataract She said 1 was removed Compression fracture T11 20% Osteoporosis Closed fracture of tibial plateau (07/2020) managed conservatively History of skin cancer SQ cell lt lateral knee. DM II (diabetes mellitus, type II), controlled Hx of fracture of rib Arthritis Bronchitis COPD (chronic obstructive pulmonary disease) Screening for malignant neoplasm of colon <MIRIAN Goss - Last Filed: 07/24/24 12:55> Surgical History Surgical History: Surgical History History of esophagogastroduodenoscopy (EGD) (08/2020) Previous section X3 History of cholecystectomy <MIRIAN Goss - Last Filed: 07/24/24 12:55> Family History Family History: Family History Sibling Diabetes mellitus Other Diabetes mellitus Hypertension Mother Diabetes mellitus Father Lung cancer Sibling Diabetes mellitus Kidney failure <MIRIAN Goss - Last Filed: 07/24/24 12:55> Social History Social History: Social History Social History: Patient quit smoking last year but smoked for 45 years prior to that. She does not drink alcohol or do drugs. She would like her surrogate decision maker to be her daughter Annie. Code status: DNR/DNI Smoking packs per day: 1 Smoking cigarettes per day: 20.0 Years smoked: 30 Smoking pack-years: 30.00 Smoking status: Former smoker Tobacco type: cigarettes Second hand tobacco smoke exposure: Yes Additional smoking assessment comments: pt states she does not smoke Alcohol intake: never Substance use: never Do You Feel Safe in your Home?: Yes Lack of Transportation: No Lack of Food: Never True Current Housing: I Have Housing Concerned About Future Housing: No Difficulty Paying Gas/Electric Bills: No Difficulty Paying for Meds: No Currently Unemployed: No Education: Decline to Answer Difficulty w/ Childcare or Family Care: No Gender identity (if verbalized by the patient): Female Spiritual care concerns: No Agree to blood products: Yes <MIRIAN Goss - Last Filed: 07/24/24 12:55> Meds Home Medications and Allergies Home medications: Home Medications ?Medication ?Instructions ?Recorded ?Confirmed ?Type lisinopril 10 mg tablet 10 mg PO DAILY #90 tabs 05/13/19 07/24/24 Rx ergocalciferol (vitamin D2) 1,250 50,000 unit PO WEEKLY #6 caps 07/24/19 07/24/24 Rx mcg (50,000 unit) capsule acetaminophen 325 mg tablet 650 mg PO Q6H PRN Pain 08/19/20 07/24/24 History ascorbic acid (vitamin C) 500 mg 1,000 mg PO DAILY 08/19/20 07/24/24 History tablet calcium 600 mg (as 1 cap PO BID 08/19/20 07/24/24 History carbonate)-vitamin D3 12.5 mcg (500 unit) capsule docusate sodium 100 mg capsule 100 mg PO DAILY PRN Constipation 08/19/20 07/24/24 History insulin aspart U-100 100 unit/mL 0 unit subcut TID 08/19/20 07/24/24 History (3 mL) subcutaneous pen (Novolog FlexPen U-100 Insulin aspart) insulin aspart U-100 100 unit/mL 5 unit subcut TID 08/19/20 07/24/24 History (3 mL) subcutaneous pen (Novolog FlexPen U-100 Insulin aspart) insulin glargine 100 unit/mL (3 20 unit subcut HS 08/19/20 07/24/24 History mL) subcutaneous pen (Lantus Solostar U-100 Insulin) mirtazapine 7.5 mg tablet 7.5 mg PO DAILY 08/19/20 07/24/24 History polyethylene glycol 3350 17 17 g PO DAILY PRN Constipation 08/19/20 07/24/24 History gram/dose oral powder (Miralax) metformin 1,000 mg tablet 1,000 mg PO DAILY 12/02/20 07/24/24 History baclofen 10 mg tablet 10 mg PO BID PRN spinal stenosis 08/18/21 07/24/24 History amoxicillin 875 mg-potassium 1 tablet PO Q12H #10 tabs 08/23/21 07/24/24 Rx clavulanate 125 mg tablet cefdinir 300 mg capsule 300 mg PO Q12H #14 caps 11/15/21 07/24/24 Rx hydrocodone 5 mg-acetaminophen 325 1 tablet PO BID 07/24/24 07/24/24 History mg tablet meloxicam 7.5 mg tablet 7.5 mg PO DAILY 07/24/24 07/24/24 History pantoprazole 40 mg tablet,delayed 20 mg PO QAM 07/24/24 07/24/24 History release (Protonix) tizanidine 2 mg tablet 2 mg PO Q12H 07/24/24 07/24/24 History <MIRIAN Goss - Last Filed: 07/24/24 12:55> Allergies/Adverse reactions: Allergies Allergy/AdvReac Type Severity Reaction Status Date / Time adhesive tape Allergy Mild Rash Verified 12/14/21 07:35 ibuprofen (From Motrin) AdvReac Mild Nausea and Verified 12/14/21 07:35 Vomiting morphine AdvReac Mild Nausea and Verified 12/14/21 07:35 Vomiting <MIRIAN Goss Last Filed: 07/24/24 12:55> Vital Signs Vital Signs - 24 hr 07/23/24 22:24 07/23/24 22:36 07/23/24 22:37 Temperature 97.2 F L 97.2 F L Pulse Rate 78 76 Respiratory Rate 23 H 21 H Blood Pressure 159/77 H 159/77 H Pulse Oximetry 93 95 95 Oxygen Delivery Nasal Cannula Nasal Cannula Oxygen Flow Rate 2 2 07/24/24 01:14 07/24/24 02:30 07/24/24 08:00 Temperature Pulse Rate 74 70 Respiratory Rate 23 H 18 Blood Pressure 146/77 H 144/67 H Pulse Oximetry 95 95 Oxygen Delivery Room Air Oxygen Flow Rate <MIRIAN Goss Last Filed: 07/24/24 12:55> Exam Narrative: Patient is alert and oriented. Resting comfortably in bed. Patient is nonambulatory. Significant decrease in bilateral lower leg muscle tone. No acute distress. No erythema or ecchymosis. No rashes or lesions noted. Warm, normal appearing skin. Tenderness at left hip. Left lower leg not shortened or significant externally rotated. Calf nontender. Distal pulses palpable. Normal capillary refill. Patient able to wiggle toes very slightly on the left. She can wiggle her toes on the right. Light touch sensation intact. Baltazar catheter in place. <MIRIAN Goss - Last Filed: 07/24/24 12:55> Results Labs Result Diagrams: 07/24/24 00:47 07/24/24 00:47 <MIRIAN Goss - Last Filed: 07/24/24 12:55> Labs: Abnormal lab results 07/24/24 07/24/24 07/24/24 Range/Units 00:47 01:39 07:41 RBC 3.90 L (4.2-5.4) M/mm3 Hgb 11.8 L (12.0-15.0) g/dL Hct 36.1 L (37.0-47.0) % MPV 10.6 H (7.4-10.4) fl [place] # (Auto) 0.7 H (0.1-0.6) K/mm3 Abs Immat Gran (auto) 0.05 H (0.00-0.031) K/mm3 Anion Gap 13 H (4-12) mmol/L Glucose 201 H (65-110) mg/dL POC Capillary Glucose 184 H (65-105) mg/dl Lactic Acid 2.2 H (0.7-2.0) mmol/L Urine Appearance Cloudy H (Clear) Urine Protein 4+ H (Negative) mg/dL Urine Ketones Trace H (Negative) mg/dL Ur Blood (Man) 1+ H (Negative) Urine Nitrate Positive H (Negative) Leukocyte Esterase Rfl 2+ H (Negative) SANDRA/UL Urine RBC 3-5 H (0-2) /hpf Urine WBC >100 H (0-3) /hpf Urine Bacteria 4+ H /hpf Urine Yeast (Budding) Present H (None) /hpf 07/24/24 Range/Units 11:15 RBC (4.2-5.4) M/mm3 Hgb (12.0-15.0) g/dL Hct (37.0-47.0) % MPV (7.4-10.4) fl [place] # (Auto) (0.1-0.6) K/mm3 Abs Immat Gran (auto) (0.00-0.031) K/mm3 Anion Gap (4-12) mmol/L Glucose (65-110) mg/dL POC Capillary Glucose 225 H (65-105) mg/dl Lactic Acid (0.7-2.0) mmol/L Urine Appearance (Clear) Urine Protein (Negative) mg/dL Urine Ketones (Negative) mg/dL Ur Blood (Man) (Negative) Urine Nitrate (Negative) Leukocyte Esterase Rfl (Negative) SANDRA/UL Urine RBC (0-2) /hpf Urine WBC (0-3) /hpf Urine Bacteria /hpf Urine Yeast (Budding) (None) /hpf H & H 07/24/24 Range/Units 00:47 Hgb 11.8 L (12.0-15.0) g/dL Hct 36.1 L (37.0-47.0) % Coagulation 07/24/24 Range/Units 00:47 INR 1.0 All other labs normal. <MIRIAN Goss - Last Filed: 07/24/24 12:55>
[2024-07-24 13:36] VITALS: BP 141/62; PULSE 84; RESP 16; TEMP 36.6; O2SAT 92
--- NOTE | 2024-07-24 15:04 | PCOTNOTE ---
Per chart. Pt. is dependent at baseline. Using jessica lift and wheelchair at assisted. Per care coordination, daughter reports pt. is essentially bed bound . Spoke with hospitalist who is agreeable to cancelation of order
--- NOTE | 2024-07-24 16:36 | P.HP_ITS ---
H&P: HPI History of Present Illness Date/Time: 07/24/24 16:36 Chief Complaint: Left hip pain Narrative: ER-HPI narrative: Patient 84-year-old female who presents emergency department chief complaint of left hip pain. Patient reports he has had no trauma or falls reports that she has been having pain the left hip area reports worse with movement improved with rest. Patient 84-year-old female a resident of nursing presented with complaint of left hip pain, denies any fall or trauma, patient is a poor historian unable to provide detailed review of symptoms or history, CT scan of the hip showed acute, displaced subcapital fracture of the proximal left femur, will consult orthopedic surgeon for further recommendation, patient urine is quite suspicious for UTI being treated with ceftriaxone will follow-up on the culture and further recommendation to follow, will have a PT OT evaluate the patient and further recommendation to follow. Review of Systems Review of Systems: All systems reviewed & are unremarkable except as noted in HPI and below PMFSH Past Medical History Medical History Vitamin D deficiency Stenosis of cervical spine severe-- declined surgery in the Duodenitis (08/2020) Dementia Cataract She said 1 was removed Compression fracture T11 20% Osteoporosis Closed fracture of tibial plateau (07/2020) managed conservatively History of skin cancer SQ cell lt lateral knee. DM II (diabetes mellitus, type II), controlled Hx of fracture of rib Arthritis Bronchitis COPD (chronic obstructive pulmonary disease) Screening for malignant neoplasm of colon Surgical History Surgical History History of esophagogastroduodenoscopy (EGD) (08/2020) Previous section X3 History of cholecystectomy Family History Family History Sibling Diabetes mellitus Other Diabetes mellitus Hypertension Mother Diabetes mellitus Father Lung cancer Sibling Diabetes mellitus Kidney failure Social History Social History Social History: Patient quit smoking last year but smoked for 45 years prior to that. She does not drink alcohol or do drugs. She would like her surrogate decision maker to be her daughter Annie. Code status: DNR/DNI Smoking packs per day: 1 Smoking cigarettes per day: 20.0 Years smoked: 30 Smoking pack-years: 30.00 Smoking status: Former smoker Tobacco type: cigarettes Second hand tobacco smoke exposure: Yes Additional smoking assessment comments: pt states she does not smoke Alcohol intake: never Substance use: never Do You Feel Safe in your Home?: Yes Lack of Transportation: No Lack of Food: Never True Current Housing: I Have Housing Concerned About Future Housing: No Difficulty Paying Gas/Electric Bills: No Difficulty Paying for Meds: No Currently Unemployed: No Education: Decline to Answer Difficulty w/ Childcare or Family Care: No Gender identity (if verbalized by the patient): Female Spiritual care concerns: No Agree to blood products: Yes Meds Home Medications and Allergies Home Medications ?Medication ?Instructions ?Recorded ?Confirmed ?Type lisinopril 10 mg tablet 10 mg PO DAILY #90 tabs 05/13/19 07/24/24 Rx ergocalciferol (vitamin D2) 1,250 50,000 unit PO WEEKLY #6 caps 07/24/19 07/24/24 Rx mcg (50,000 unit) capsule acetaminophen 325 mg tablet 650 mg PO Q6H PRN Pain 08/19/20 07/24/24 History ascorbic acid (vitamin C) 500 mg 1,000 mg PO DAILY 08/19/20 07/24/24 History tablet calcium 600 mg (as 1 cap PO BID 08/19/20 07/24/24 History carbonate)-vitamin D3 12.5 mcg (500 unit) capsule docusate sodium 100 mg capsule 100 mg PO DAILY PRN Constipation 08/19/20 07/24/24 History insulin aspart U-100 100 unit/mL 0 unit subcut TID 08/19/20 07/24/24 History (3 mL) subcutaneous pen (Novolog FlexPen U-100 Insulin aspart) insulin aspart U-100 100 unit/mL 5 unit subcut TID 08/19/20 07/24/24 History (3 mL) subcutaneous pen (Novolog FlexPen U-100 Insulin aspart) insulin glargine 100 unit/mL (3 20 unit subcut HS 08/19/20 07/24/24 History mL) subcutaneous pen (Lantus Solostar U-100 Insulin) mirtazapine 7.5 mg tablet 7.5 mg PO DAILY 08/19/20 07/24/24 History polyethylene glycol 3350 17 17 g PO DAILY PRN Constipation 08/19/20 07/24/24 History gram/dose oral powder (Miralax) metformin 1,000 mg tablet 1,000 mg PO DAILY 12/02/20 07/24/24 History baclofen 10 mg tablet 10 mg PO BID PRN spinal stenosis 08/18/21 07/24/24 History amoxicillin 875 mg-potassium 1 tablet PO Q12H #10 tabs 08/23/21 07/24/24 Rx clavulanate 125 mg tablet cefdinir 300 mg capsule 300 mg PO Q12H #14 caps 11/15/21 07/24/24 Rx hydrocodone 5 mg-acetaminophen 325 1 tablet PO BID 07/24/24 07/24/24 History mg tablet meloxicam 7.5 mg tablet 7.5 mg PO DAILY 07/24/24 07/24/24 History pantoprazole 40 mg tablet,delayed 20 mg PO QAM 07/24/24 07/24/24 History release (Protonix) tizanidine 2 mg tablet 2 mg PO Q12H 07/24/24 07/24/24 History Allergies Allergy/AdvReac Type Severity Reaction Status Date / Time adhesive tape Allergy Mild Rash Verified 12/14/21 07:35 ibuprofen (From Motrin) AdvReac Mild Nausea and Verified 12/14/21 07:35 Vomiting morphine AdvReac Mild Nausea and Verified 12/14/21 07:35 Vomiting Vital Signs Vital Signs - 24 hr 07/23/24 22:24 07/23/24 22:36 07/23/24 22:37 Temperature 36.2 C L 36.2 C L Pulse Rate 78 76 Respiratory Rate 23 H 21 H Blood Pressure 159/77 H 159/77 H Pulse Oximetry 93 95 95 Oxygen Delivery Nasal Cannula Nasal Cannula Oxygen Flow Rate 2 2 07/24/24 01:14 07/24/24 02:30 07/24/24 08:00 Temperature Pulse Rate 74 70 Respiratory Rate 23 H 18 Blood Pressure 146/77 H 144/67 H Pulse Oximetry 95 95 Oxygen Delivery Room Air Oxygen Flow Rate 07/24/24 13:36 Temperature 36.6 C Pulse Rate 84 Respiratory Rate 16 Blood Pressure 141/62 H Pulse Oximetry 92 Oxygen Delivery Oxygen Flow Rate Exam Narrative: Elderly frail Patient is comfortable, NAD HEENT: eyes are clear and none icteric LUNGS:CTA HEART: RR S1S2 ABD: BS+, Soft and nontender Lower extremities: no edema left lower extremity there is no significant internal external rotation SKIN: nonjaundiced Neuro: grossly intact. H&P: Results Labs Labs: Short CBC 07/24/24 Range/Units 00:47 WBC 9.3 (4.5-10.0) K/mm3 Hgb 11.8 L (12.0-15.0) g/dL Hct 36.1 L (37.0-47.0) % Plt Count 206 (150-375) k/mm3 BMP 07/24/24 00:47 Sodium 137 Potassium 4.0 Chloride 101 Carbon Dioxide 23 BUN 14 Creatinine 0.70 Glucose 201 H Calcium 8.9 Liver Function 07/24/24 Range/Units 00:47 Total Bilirubin 0.4 (0.2-1.3) mg/dL AST 21 (14-36) U/L ALT 16 (6-35) U/L Alkaline Phosphatase 89 (38-126) U/L Albumin 3.8 (3.5-5.1) g/dL Urine 07/24/24 Range/Units 01:39 Urine Color Yellow (Yellow) Urine Appearance Cloudy H (Clear) Urine pH 5.0 (5.0-9.0) Ur Specific [place] 1.023 (1.001-1.035) Urine Protein 4+ H (Negative) mg/dL Urine Glucose (UA) Negative (Negative) mg/dL Assessment and Plan Assessment and plan (1) Closed fracture of neck of left femur: Qualifiers: Encounter type: initial encounter Qualified Code(s): S72.002A - Fracture of unspecified part of neck of left femur, initial encounter for closed fracture Code(s): S72.002A - Fracture of unspecified part of neck of left femur, initial encounter for closed fracture Status: Acute (2) Urinary tract infection: Code(s): N39.0 - Urinary tract infection, site not specified Status: Acute (3) Weakness: Code(s): R53.1 - Weakness Status: Acute (4) DM II (diabetes mellitus, type II), controlled: Qualifiers: Diabetes mellitus complication status: without complication Diabetes mellitus chcf insulin use: with superintendent container terminal use Qualified Code(s): E11.9 - Type 2 diabetes mellitus without complications; Z79.4 - intermediate manager (current) use of insulin Code(s): E11.9 - Type 2 diabetes mellitus without complications Status: Chronic (5) Hypertension: Code(s): I10 - Essential (primary) hypertension Status: Chronic Plan Patient 84-year-old female a resident of nursing presented with complaint of left hip pain, denies any fall or trauma, patient is a poor historian unable to provide detailed review of symptoms or history, CT scan of the hip showed acute, displaced subcapital fracture of the proximal left femur, will consult orthopedic surgeon for further recommendation, patient urine is quite suspicious for UTI being treated with ceftriaxone will follow-up on the culture and further recommendation to follow, will have a PT OT evaluate the patient and further recommendation to follow. Quality VTE Prophylaxis VTE prophylaxis: mechanical ordered Hospitalist MIPS Advance Care Plan I have confirmed that the patient's Advanced Care Plan is present, code status is documented, or surrogate decision maker is listed in patient medical record.: Yes Medication Reconciliation I have utilized all available resources to obtain, update and review the patients current medications (includes all prescriptions, OTC, herbals, cannabis, and nutritional supplements).: Yes
[2024-07-24 17:07] LABS: Glucose Point of Care 218 mg/dl (65-105)
[2024-07-24 20:20] VITALS: BP 139/77; PULSE 88; RESP 20; TEMP 37.1; O2SAT 92
[2024-07-24 20:52] LABS: Glucose Point of Care 205 mg/dl (65-105)
[2024-07-24] MEDS: INSULIN GLARGINE (*BKC) 100 UNITS/ML 20 UNITS SUB-Q (20:59)
[2024-07-25] VITALS (7 sets, daily range): BP systolic 166–202; BP diastolic 77–92; PULSE 92–99; RESP 16–20; TEMP 36.7–36.9; O2SAT 90–94
[2024-07-25] MEDS: SODIUM CHLORIDE 0.9% IV 1,000 ML 100 ML IV CONT (04:20)
[2024-07-25] MEDS: MIRTAZAPINE 7.5 MG TABLET PO (07:34)
[2024-07-25] MEDS: PANTOPRAZOLE SOD SESQUIHYDRATE 20 MG TAB PO (07:35)
[2024-07-25] MEDS: lisinopriL 10 MG TABLET PO (07:35)
[2024-07-25] MEDS: HYDROcodone/acetaminophen (*CRX) 5-325 MG TABLET 1 TAB PO ×2 (07:35→16:00)
[2024-07-25] MEDS: TIZANIDINE HCL 2 MG TABLET PO ×2 (07:35→21:24)
[2024-07-25] MEDS: ASCORBIC ACID 500 MG TABLET 1000 MG PO (07:35)
[2024-07-25] MEDS: MELOXICAM 7.5 MG TABLET PO (07:35)
[2024-07-25 07:51] LABS: Hemoglobin 11.7 g/dL (12.0-15.0); Mean Corpuscular HGB Conc 31.6 g/dl (32-36); Mean Corpuscular Hemoglobin 29.9 pg (26-34); Mean Corpuscular Volume 94.6 fl (80-100); Mean Platelet Volume 11.2 fl (7.4-10.4); Platelet Count Result 184 k/mm3 (150-375); Red Blood Count 3.91 M/mm3 (4.2-5.4); Red Cell Distribution Width 12.9 % (11.5-14.5); White Blood Count 8.8 K/mm3 (4.5-10.0)
[2024-07-25 08:01] LABS: Anion Gap 8 mmol/L (4-12); Blood Urea Nitrogen 10 mg/dL (7-17); Calcium 8.6 mg/dL (8.4-10.2); Carbon Dioxide 25 mmol/L (22-30); Chloride 107 mmol/L (98-107); Estimated Glomerular Filt Rate > 60; Glucose 190 mg/dL (65-110); Magnesium 1.7 mg/dL (1.6-2.3); Potassium 3.7 mmol/L (3.4-5.0); Sodium 140 mmol/L (137-145)
[2024-07-25 08:10] LABS: Glucose Point of Care 196 mg/dl (65-105)
[2024-07-25] MEDS: INSULIN ASPART (*BKC) 100 UNITS/ML SUB-Q ×5 (08:12→21:24)
[2024-07-25 11:38] LABS: Glucose Point of Care 272 mg/dl (65-105)
--- NOTE | 2024-07-25 11:57 | P.PNOP_ITS ---
Progress Note: A&P Assessment and Plan (1) Closed fracture of neck of left femur: Qualifiers: Encounter type: initial encounter Qualified Code(s): S72.002A - Fracture of unspecified part of neck of left femur, initial encounter for closed fracture Code(s): S72.002A - Fracture of unspecified part of neck of left femur, initial encounter for closed fracture Status: Acute Assessment and Plan: Minimally displaced fracture of the femoral neck. 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 Her bone is extremely thin and not amenable to internal fixation. The overall fracture alignment is good. While malunion or nonunion is possible, this should not affect her ability to transfer with a Maurice lift eventually. For now that will be quite painful and I recommend we defer Maurice lift transfers for 3-4 weeks. Will obtain an x-ray at that time to assess healing and Dr. Palacios and I can review that remotely. Dr. Palacios discussed this care plan with the daughter who agrees. No changes in care plan. Pain control. Patient is currently being treated for a UTI. Okay for discharge back to facility once patient is stable medically. Subjective Subjective Date/Time Seen: 07/25/24 11:57 Interval history: Patient resting comfortably in bed. Patient has no complaints. She does have pain in the upper thigh on the left leg. Review of Systems Review of Systems: All systems reviewed & are unremarkable except as noted in HPI and below Exam Narrative: Patient is alert and oriented. Resting comfortably in bed. Patient is non ambulatory. Significant decrease in bilateral lower leg muscle tone. No acute distress. No erythema or ecchymosis. No rashes or lesions noted. Warm, normal appearing skin. Tenderness at left hip. Left lower leg not shortened or significant externally rotated. Calf nontender. Distal pulses palpable. Normal capillary refill. Patient able to wiggle toes very slightly on the left. She can wiggle her toes on the right. Light touch sensation intact. Baltazar catheter in place. Objective Data Vital Signs Vital Signs: Vital Signs - 24 hr 07/24/24 13:36 07/24/24 20:20 07/25/24 04:51 Temperature 97.8 F 98.8 F 98.0 F Pulse Rate 84 88 99 Respiratory Rate 16 20 16 Blood Pressure 141/62 H 139/77 166/92 H Pulse Oximetry 92 92 91 Oxygen Delivery 07/25/24 08:00 Temperature Pulse Rate Respiratory Rate Blood Pressure Pulse Oximetry Oxygen Delivery Room Air Intake/Output Intake/Output: Intake & Output 07/22/24 07/23/24 07/24/24 07/25/24 23:59 23:59 23:59 23:59 Intake Total 2280 1840 Output Total 1550 750 Balance 730 1090 Meds/Results Medications: Active Medications Generic Name Dose Route Start Last Admin Trade Name Freq PRN Reason Stop Dose Admin Acetaminophen 650 mg 07/24/24 08:47 Acetaminophen 325 Mg Tablet PO Q6H PRN Pain Hydrocodone Bitart/Acetaminophen 1 tab 07/24/24 09:00 07/25/24 07:35 Hydrocodone/Acetaminophen (*Crx) 5-325 Mg Tablet PO 1 tab BID TORI Administration Ascorbic Acid 1,000 mg 07/24/24 09:00 07/25/24 07:35 Ascorbic Acid 500 Mg Tablet PO 1,000 mg DAILY TORI Administration Baclofen 10 mg 07/24/24 16:44 Baclofen 10 Mg Tablet PO BID PRN spinal stenosis Dextrose 12.5 gm 07/24/24 08:48 Dextrose 50% 25 Gm/50 Ml Syringe IV PUSH PRN PRN Hypoglycemia Protocol Glucagon 1 mg 07/24/24 08:48 Glucagon For Inj 1 Mg Vial IM PRN PRN Hypoglycemia Protocol Glucose 15 gm 07/24/24 08:48 Glucose Oral Gel 15 Gm Of Glucse In 37.5 Gm Tube PO PRN PRN Hypoglycemia Protocol Hydromorphone HCl 0.5 mg 07/24/24 04:37 Hydromorphone Hcl Inj (*Crx) 1 Mg/Ml Syr IV PUSH Q4H PRN Pain Rated 7-10 Ceftriaxone Sodium 1 gm in 50 mls @ 100 mls/hr 07/25/24 05:00 07/25/24 04:20 Rocephin 1 Gm/Ns 50 Ml IVPB 100 mls/hr Q24H TORI Administration Sodium Chloride 1,000 mls @ 100 mls/hr 07/24/24 04:40 07/25/24 04:20 Normal Saline Iv IV CONT 100 mls/hr .Q10H TORI Administration Dextrose 1,000 mls @ 100 mls/hr 07/24/24 08:48 Dextrose 5% 1,000 Ml IVPB PRN PRN Hypoglycemia Protocol Insulin Aspart 1 - 2 units 07/24/24 21:00 07/24/24 21:01 Insulin Aspart (*Bkc) 100 Units/Ml SUB-Q 1 units HS TORI Administration Protocol Insulin Aspart 2 - 5 units 07/24/24 12:00 07/25/24 08:12 Insulin Aspart (*Bkc) 100 Units/Ml SUB-Q Not Given TIDWM [facility] Protocol Insulin Aspart 5 units 07/25/24 08:30 07/25/24 08:12 Insulin Aspart (*Bkc) 100 Units/Ml SUB-Q 5 units PC [facility]ORI Administration Insulin Glargine 20 units 07/24/24 21:00 07/24/24 20:59 Insulin Glargine (*Bkc) 100 Units/Ml SUB-Q 20 units HS TORI Administration Lisinopril 10 mg 07/24/24 09:00 07/25/24 07:35 Lisinopril 10 Mg Tablet PO 10 mg DAILY@0800 [facility] Administration Meloxicam 7.5 mg 07/24/24 09:00 07/25/24 07:35 Meloxicam 7.5 Mg Tablet PO 7.5 mg DAILY TORI Administration Mirtazapine 7.5 mg 07/24/24 09:00 07/25/24 07:34 Mirtazapine 7.5 Mg Tablet PO 7.5 mg DAILY@0700 [facility] Administration Ondansetron HCl 4 mg 07/24/24 04:37 Ondansetron Inj 4 Mg/2 Ml Vial IV PUSH Q4H PRN Nausea Pantoprazole Sodium 20 mg 07/24/24 09:00 07/25/24 07:35 Pantoprazole Sod Sesquihydrate 20 Mg Tab PO 20 mg QAM TORI Administration Polyethylene Glycol 17 gm 07/24/24 08:47 Polyethylene Glycol 3350 17 Gm Powd.Pack PO DAILY PRN Constipation Tizanidine HCl 2 mg 07/24/24 09:00 07/25/24 07:35 Tizanidine Hcl 2 Mg Tablet PO 2 mg Q12H TORI Administration Radiology Results: ITS Impressions Chest X-Ray 07/24/24 00:06 IMPRESSION: Mild pulmonary vascular congestion, without focal infiltrate or effusion. 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 Hip CT 07/24/24 06:13 IMPRESSION: Acute, displaced subcapital fracture of the proximal left femur. Labs Labs: Laboratory Results - last 24 hr 07/24/24 07/24/24 07/25/24 17:02 20:22 07:20 WBC 8.8 RBC 3.91 L Hgb 11.7 L Hct 37.0 MCV 94.6 MCH 29.9 MCHC 31.6 L RDW 12.9 Plt Count 184 MPV 11.2 H Sodium 140 Potassium 3.7 Chloride 107 Carbon Dioxide 25 Anion Gap 8 BUN 10 Creatinine 0.65 L Estim Creat Clear Calc Not Reportable Estimated GFR > 60 Glucose 190 H POC Capillary Glucose 218 H 205 H Calcium 8.6 Magnesium 1.7 07/25/24 07/25/24 08:03 11:35 WBC RBC Hgb Hct MCV MCH MCHC RDW Plt Count MPV Sodium Potassium Chloride Carbon Dioxide Anion Gap BUN Creatinine Estim Creat Clear Calc Estimated GFR Glucose POC Capillary Glucose 196 H 272 H Calcium Magnesium
[2024-07-25] MEDS: amLODIPine BESYLATE 5 MG TABLET PO (13:45)
[2024-07-25] MEDS: hydrALAZINE 10 MG TABLET PO (16:00)
--- NOTE | 2024-07-25 16:29 | PM.IMPN ---
Progress Note: A&P Assessment and Plan (1) Closed fracture of neck of left femur: Qualifiers: Encounter type: initial encounter Qualified Code(s): S72.002A - Fracture of unspecified part of neck of left femur, initial encounter for closed fracture Code(s): S72.002A - Fracture of unspecified part of neck of left femur, initial encounter for closed fracture Status: Acute (2) Urinary tract infection: Code(s): N39.0 - Urinary tract infection, site not specified Status: Acute (3) Weakness: Code(s): R53.1 - Weakness Status: Acute (4) DM II (diabetes mellitus, type II), controlled: Qualifiers: Diabetes mellitus complication status: without complication 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: with mcfp use Qualified Code(s): E11.9 - Type 2 diabetes mellitus without complications; 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 - 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 of 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 Code(s): E11.9 - Type 2 diabetes mellitus without complications Status: Chronic (5) Hypertension: Code(s): I10 - Essential (primary) hypertension Status: Chronic Plan Patient 84-year-old female a resident of nursing presented with complaint of left hip pain, denies any fall or trauma, patient is a poor historian unable to provide detailed review of symptoms or history, CT scan of the hip showed acute, displaced subcapital fracture of the proximal left femur, patient was seen orthopedic surgeon and recommended conservative management, no surgical intervention, patient urine is quite suspicious for UTI being treated with ceftriaxone will follow-up on the culture and further recommendation to follow, will have a PT OT evaluate the patient and further recommendation to follow. today patient pain is better, however her BP is elevated, denies any CHAPARRO, CP, or dizziness, will add amlodipine and monitor. Subjective Date/time seen: 07/25/24 16:29 Interval history: Patient 84-year-old female a resident of nursing presented with complaint of left hip pain, denies any fall or trauma, patient is a poor historian unable to provide detailed review of symptoms or history, CT scan of the hip showed acute, displaced subcapital fracture of the proximal left femur, patient was seen orthopedic surgeon and recommended conservative management, no surgical intervention, patient urine is quite suspicious for UTI being treated with ceftriaxone will follow-up on the culture and further recommendation to follow, will have a PT OT evaluate the patient and further recommendation to follow. today patient pain is better, however her BP is elevated, denies any CHAPARRO, CP, or dizziness, will add amlodipine and monitor. Review of Systems Review of Systems: All systems reviewed & are unremarkable except as noted in HPI and below Exam Narrative: Elderly frail Patient is comfortable, NAD HEENT: eyes are clear and none icteric LUNGS:CTA HEART: RR S1S2 ABD: BS+, Soft and nontender Lower extremities: no edema left lower extremity there is no significant internal external rotation SKIN: nonjaundiced Neuro: grossly intact. Objective Data Vital Signs Vital Signs: Vital Signs - 24 hr 07/24/24 20:20 07/25/24 04:51 07/25/24 08:00 Temperature 37.1 C 36.7 C Pulse Rate 88 99 Respiratory Rate 20 16 Blood Pressure 139/77 166/92 H Pulse Oximetry 92 91 Oxygen Delivery Room Air 07/25/24 13:30 07/25/24 13:33 07/25/24 15:27 Temperature 36.7 C Pulse Rate 98 Respiratory Rate 20 Blood Pressure 202/90 H 202/90 H 182/82 H Pulse Oximetry 94 Oxygen Delivery Intake/Output Intake/Output: Intake & Output 07/22/24 07/23/24 07/24/24 07/25/24 23:59 23:59 23:59 23:59 Intake Total 2280 2080 Output Total 1550 750 Balance 730 1330 Meds/Results Medications: Active Medications Generic Name Dose Route Start Last Admin Trade Name Freq PRN Reason Stop Dose Admin Acetaminophen 650 mg 07/24/24 08:47 Acetaminophen 325 Mg Tablet PO Q6H PRN Pain Hydrocodone Bitart/Acetaminophen 1 tab 07/24/24 09:00 07/25/24 16:00 Hydrocodone/Acetaminophen (*Crx) 5-325 Mg Tablet PO 1 tab BID TORI Administration Amlodipine Besylate 5 mg 07/25/24 13:35 07/25/24 13:45 Amlodipine Besylate 5 Mg Tablet PO 5 mg DAILY TORI Administration Ascorbic Acid 1,000 mg 07/24/24 09:00 07/25/24 07:35 Ascorbic Acid 500 Mg Tablet PO 1,000 mg DAILY TORI Administration Baclofen 10 mg 07/24/24 16:44 Baclofen 10 Mg Tablet PO BID PRN spinal stenosis Dextrose 12.5 gm 07/24/24 08:48 Dextrose 50% 25 Gm/50 Ml Syringe IV PUSH PRN PRN Hypoglycemia Protocol Glucagon 1 mg 07/24/24 08:48 Glucagon For Inj 1 Mg Vial IM PRN PRN Hypoglycemia Protocol Glucose 15 gm 07/24/24 08:48 Glucose Oral Gel 15 Gm Of Glucse In 37.5 Gm Tube PO PRN PRN Hypoglycemia Protocol Hydralazine HCl 10 mg 07/25/24 15:44 07/25/24 16:00 Hydralazine 10 Mg Tablet PO 10 mg Q6H PRN Administration Hypertension Hydromorphone HCl 0.5 mg 07/24/24 04:37 Hydromorphone Hcl Inj (*Crx) 1 Mg/Ml Syr IV PUSH Q4H PRN Pain Rated 7-10 Ceftriaxone Sodium 1 gm in 50 mls @ 100 mls/hr 07/25/24 05:00 07/25/24 04:20 Rocephin 1 Gm/Ns 50 Ml IVPB 100 mls/hr Q24H TORI Administration Dextrose 1,000 mls @ 100 mls/hr 07/24/24 08:48 Dextrose 5% 1,000 Ml IVPB PRN PRN Hypoglycemia Protocol Insulin Aspart 1 - 2 units 07/24/24 21:00 07/24/24 21:01 Insulin Aspart (*Bkc) 100 Units/Ml SUB-Q 1 units HS TORI Administration Protocol Insulin Aspart 2 - 5 units 07/24/24 12:00 07/25/24 12:09 Insulin Aspart (*Bkc) 100 Units/Ml SUB-Q 3 units TIDWM TORI Administration Protocol Insulin Aspart 5 units 07/25/24 08:30 07/25/24 12:09 Insulin Aspart (*Bkc) 100 Units/Ml SUB-Q 5 units PC TORI Administration Insulin Glargine 20 units 07/24/24 21:00 07/24/24 20:59 Insulin Glargine (*Bkc) 100 Units/Ml SUB-Q 20 units HS TORI Administration Lisinopril 10 mg 07/24/24 09:00 07/25/24 07:35 Lisinopril 10 Mg Tablet PO 10 mg DAILY@0800 [facility] Administration Meloxicam 7.5 mg 07/24/24 09:00 07/25/24 07:35 Meloxicam 7.5 Mg Tablet PO 7.5 mg DAILY TORI Administration Mirtazapine 7.5 mg 07/24/24 09:00 07/25/24 07:34 Mirtazapine 7.5 Mg Tablet PO 7.5 mg DAILY@0700 [facility] Administration Ondansetron HCl 4 mg 07/24/24 04:37 Ondansetron Inj 4 Mg/2 Ml Vial IV PUSH Q4H PRN Nausea Pantoprazole Sodium 20 mg 07/24/24 09:00 07/25/24 07:35 Pantoprazole Sod Sesquihydrate 20 Mg Tab PO 20 mg QAM TORI Administration Polyethylene Glycol 17 gm 07/24/24 08:47 Polyethylene Glycol 3350 17 Gm Powd.Pack PO DAILY PRN Constipation Tizanidine HCl 2 mg 07/24/24 09:00 07/25/24 07:35 Tizanidine Hcl 2 Mg Tablet PO 2 mg Q12H TORI Administration Radiology Results: ITS Impressions Chest X-Ray 07/24/24 00:06 IMPRESSION: Mild pulmonary vascular congestion, without focal infiltrate or effusion. 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 Hip CT 07/24/24 06:13 IMPRESSION: Acute, displaced subcapital fracture of the proximal left femur. Labs Labs: Laboratory Results - last 24 hr 07/24/24 07/24/24 07/25/24 17:02 20:22 07:20 WBC 8.8 RBC 3.91 L Hgb 11.7 L Hct 37.0 MCV 94.6 MCH 29.9 MCHC 31.6 L RDW 12.9 Plt Count 184 MPV 11.2 H Sodium 140 Potassium 3.7 Chloride 107 Carbon Dioxide 25 Anion Gap 8 BUN 10 Creatinine 0.65 L Estim Creat Clear Calc Not Reportable Estimated GFR > 60 Glucose 190 H POC Capillary Glucose 218 H 205 H Calcium 8.6 Magnesium 1.7 07/25/24 07/25/24 08:03 11:35 WBC RBC Hgb Hct MCV MCH MCHC RDW Plt Count MPV Sodium Potassium Chloride Carbon Dioxide Anion Gap BUN Creatinine Estim Creat Clear Calc Estimated GFR Glucose POC Capillary Glucose 196 H 272 H Calcium Magnesium Quality VTE Prophylaxis VTE prophylaxis: mechanical ordered
[2024-07-25 16:38] LABS: Glucose Point of Care 200 mg/dl (65-105)
[2024-07-25 21:05] LABS: Glucose Point of Care 219 mg/dl (65-105)
[2024-07-25] MEDS: INSULIN GLARGINE (*BKC) 100 UNITS/ML 20 UNITS SUB-Q (21:24)
[2024-07-26] VITALS (7 sets, daily range): BP systolic 132–185; BP diastolic 63–98; PULSE 88–95; RESP 16–20; TEMP 36.3–36.8; O2SAT 86–98
[2024-07-26] MEDS: hydrALAZINE 10 MG TABLET PO (04:12)
[2024-07-26] MEDS: ACETAMINOPHEN 325 MG TABLET 650 MG PO (04:16)
[2024-07-26] MEDS: MIRTAZAPINE 7.5 MG TABLET PO (06:41)
[2024-07-26 06:44] LABS: Hematocrit 38.2 % (37.0-47.0); Hemoglobin 12.2 g/dL (12.0-15.0); Mean Corpuscular HGB Conc 31.9 g/dl (32-36); Mean Corpuscular Hemoglobin 29.8 pg (26-34); Mean Corpuscular Volume 93.2 fl (80-100); Mean Platelet Volume 10.7 fl (7.4-10.4); Platelet Count Result 178 k/mm3 (150-375); Red Cell Distribution Width 12.6 % (11.5-14.5); White Blood Count 9.5 K/mm3 (4.5-10.0)
[2024-07-26 06:58] LABS: Anion Gap 12 mmol/L (4-12); Blood Urea Nitrogen 9 mg/dL (7-17); Calcium 9.1 mg/dL (8.4-10.2); Carbon Dioxide 23 mmol/L (22-30); Chloride 105 mmol/L (98-107); Estimated Glomerular Filt Rate > 60; Glucose 205 mg/dL (65-110); Magnesium 1.8 mg/dL (1.6-2.3); Potassium 3.5 mmol/L (3.4-5.0); Sodium 140 mmol/L (137-145)
[2024-07-26 07:52] LABS: Glucose Point of Care 210 mg/dl (65-105)
[2024-07-26] MEDS: INSULIN ASPART (*BKC) 100 UNITS/ML SUB-Q ×5 (08:52→21:24)
[2024-07-26] MEDS: lisinopriL 20 MG TABLET PO (08:52)
[2024-07-26] MEDS: MELOXICAM 7.5 MG TABLET PO (08:53)
[2024-07-26] MEDS: amLODIPine BESYLATE 5 MG TABLET PO (08:53)
[2024-07-26] MEDS: ASCORBIC ACID 500 MG TABLET 1000 MG PO (08:53)
[2024-07-26] MEDS: TIZANIDINE HCL 2 MG TABLET PO ×2 (08:53→21:22)
[2024-07-26] MEDS: PANTOPRAZOLE SOD SESQUIHYDRATE 20 MG TAB PO (08:53)
[2024-07-26] MEDS: HYDROcodone/acetaminophen (*CRX) 5-325 MG TABLET 1 TAB PO ×2 (08:54→17:08)
[2024-07-26 11:24] LABS: Glucose Point of Care 190 mg/dl (65-105)
--- NOTE | 2024-07-26 16:01 | P.PNOP_ITS ---
Progress Note: A&P Assessment and Plan (1) Closed fracture of neck of left femur: Qualifiers: Encounter type: initial encounter Qualified Code(s): S72.002A - Fracture of unspecified part of neck of left femur, initial encounter for closed fracture Code(s): S72.002A - Fracture of unspecified part of neck of left femur, initial encounter for closed fracture Status: Acute Assessment and Plan: No changes in care plan. Patient is currently being treated for a UTI. Okay for discharge back to facility once patient is stable medically. Minimally displaced fracture of the femoral neck. 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 Her bone is extremely thin and not amenable to internal fixation. The overall fracture alignment is good. While malunion or nonunion is possible, this should not affect her ability to transfer with a Maurice lift eventually. For now that will be quite painful and I recommend we defer Maurice lift transfers for 3-4 weeks. Will obtain an x-ray at that time to assess healing and Dr. Palacios and I can review that remotely. Dr. Palacios discussed this care plan with the daughter who agrees. Subjective Subjective Date/Time Seen: 07/26/24 8:00 am Interval history: Patient resting comfortably in bed. Patient has no complaints. She does have pain in the upper thigh on the left leg. Sitting up in bed eating breakfast at the time of my visit. Review of Systems Review of Systems: All systems reviewed & are unremarkable except as noted in HPI and below Exam Narrative: Patient is alert and oriented. Resting comfortably in bed. Patient is nonambulatory. Significant decrease in bilateral lower leg muscle tone. No acute distress. No erythema or ecchymosis. No rashes or lesions noted. Warm, normal appearing skin. Tenderness at left hip. Left lower leg not shortened or significant externally rotated. Calf nontender. Distal pulses palpable. Normal capillary refill. Patient able to wiggle toes very slightly on the left. She can wiggle her toes on the right. Light touch sensation intact. Baltazar catheter in place. Objective Data Vital Signs Vital Signs: Vital Signs - 24 hr 07/25/24 17:40 07/25/24 20:39 07/25/24 21:42 Temperature 98.5 F Pulse Rate 92 Respiratory Rate 16 Blood Pressure 190/81 H 172/77 H Pulse Oximetry 90 91 Oxygen Delivery Autopap 07/26/24 01:05 07/26/24 04:04 07/26/24 11:34 Temperature 98.3 F 98.2 F Pulse Rate 93 92 88 Respiratory Rate 20 16 18 Blood Pressure 132/63 180/98 H 132/69 Pulse Oximetry 91 90 86 L Oxygen Delivery Intake/Output Intake/Output: Intake & Output 07/23/24 07/24/24 07/25/24 07/26/24 23:59 23:59 23:59 23:59 Intake Total 2280 2390 790 Output Total 1550 950 476 Balance 730 1440 314 Meds/Results Medications: Active Medications Generic Name Dose Route Start Last Admin Trade Name Freq PRN Reason Stop Dose Admin Acetaminophen 650 mg 07/24/24 08:47 07/26/24 04:16 Acetaminophen 325 Mg Tablet PO 650 mg Q6H PRN Administration Pain Hydrocodone Bitart/Acetaminophen 1 tab 07/24/24 09:00 07/26/24 08:54 Hydrocodone/Acetaminophen (*Crx) 5-325 Mg Tablet PO 1 tab BID TORI Administration Amlodipine Besylate 5 mg 07/25/24 13:35 07/26/24 08:53 Amlodipine Besylate 5 Mg Tablet PO 5 mg DAILY TORI Administration Ascorbic Acid 1,000 mg 07/24/24 09:00 07/26/24 08:53 Ascorbic Acid 500 Mg Tablet PO 1,000 mg DAILY TORI Administration Baclofen 10 mg 07/24/24 16:44 Baclofen 10 Mg Tablet PO BID PRN spinal stenosis Dextrose 12.5 gm 07/24/24 08:48 Dextrose 50% 25 Gm/50 Ml Syringe IV PUSH PRN PRN Hypoglycemia Protocol Glucagon 1 mg 07/24/24 08:48 Glucagon For Inj 1 Mg Vial IM PRN PRN Hypoglycemia Protocol Glucose 15 gm 07/24/24 08:48 Glucose Oral Gel 15 Gm Of Glucse In 37.5 Gm Tube PO PRN PRN Hypoglycemia Protocol Hydralazine HCl 10 mg 07/25/24 15:44 07/26/24 04:12 Hydralazine 10 Mg Tablet PO 10 mg Q6H PRN Administration Hypertension Hydromorphone HCl 0.5 mg 07/24/24 04:37 Hydromorphone Hcl Inj (*Crx) 1 Mg/Ml Syr IV PUSH Q4H PRN Pain Rated 7-10 Ceftriaxone Sodium 1 gm in 50 mls @ 100 mls/hr 07/25/24 05:00 07/26/24 04:25 Rocephin 1 Gm/Ns 50 Ml IVPB 100 mls/hr Q24H TORI Administration Dextrose 1,000 mls @ 100 mls/hr 07/24/24 08:48 Dextrose 5% 1,000 Ml IVPB PRN PRN Hypoglycemia Protocol Insulin Aspart 1 - 2 units 07/24/24 21:00 07/25/24 21:24 Insulin Aspart (*Bkc) 100 Units/Ml SUB-Q 1 units HS TORI Administration Protocol Insulin Aspart 2 - 5 units 07/24/24 12:00 07/26/24 11:45 Insulin Aspart (*Bkc) 100 Units/Ml SUB-Q Not Given TIDWM [facility] Protocol Insulin Aspart 5 units 07/25/24 08:30 07/26/24 11:45 Insulin Aspart (*Bkc) 100 Units/Ml SUB-Q 5 units PC TORI Administration Insulin Glargine 20 units 07/24/24 21:00 07/25/24 21:24 Insulin Glargine (*Bkc) 100 Units/Ml SUB-Q 20 units HS TORI Administration Lisinopril 20 mg 07/26/24 08:00 07/26/24 08:52 Lisinopril 20 Mg Tablet PO 20 mg DAILY@0800 [facility] Administration Meloxicam 7.5 mg 07/24/24 09:00 07/26/24 08:53 Meloxicam 7.5 Mg Tablet PO 7.5 mg DAILY TORI Administration Mirtazapine 7.5 mg 07/24/24 09:00 07/26/24 06:41 Mirtazapine 7.5 Mg Tablet PO 7.5 mg DAILY@0700 [facility] Administration Ondansetron HCl 4 mg 07/24/24 04:37 Ondansetron Inj 4 Mg/2 Ml Vial IV PUSH Q4H PRN Nausea Pantoprazole Sodium 20 mg 07/24/24 09:00 07/26/24 08:53 Pantoprazole Sod Sesquihydrate 20 Mg Tab PO 20 mg QAM TORI Administration Polyethylene Glycol 17 gm 07/24/24 08:47 Polyethylene Glycol 3350 17 Gm Powd.Pack PO DAILY PRN Constipation Tizanidine HCl 2 mg 07/24/24 09:00 07/26/24 08:53 Tizanidine Hcl 2 Mg Tablet PO 2 mg Q12H TORI Administration Radiology Results: ITS Impressions Chest X-Ray 07/24/24 00:06 IMPRESSION: Mild pulmonary vascular congestion, without focal infiltrate or effusion. 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 Hip CT 07/24/24 06:13 IMPRESSION: Acute, displaced subcapital fracture of the proximal left femur. Labs Labs: Laboratory Results - last 24 hr 07/25/24 07/25/24 07/26/24 16:33 20:42 06:31 WBC RBC Hgb Hct MCV MCH MCHC RDW Plt Count MPV Sodium 140 Potassium 3.5 Chloride 105 Carbon Dioxide 23 Anion Gap 12 BUN 9 Creatinine 0.67 L Estim Creat Clear Calc Not Reportable Estimated GFR > 60 Glucose 205 H POC Capillary Glucose 200 H 219 H Calcium 9.1 Magnesium 1.8 07/26/24 07/26/24 07/26/24 06:32 07:47 11:22 WBC 9.5 RBC 4.10 L Hgb 12.2 Hct 38.2 MCV 93.2 MCH 29.8 MCHC 31.9 L RDW 12.6 Plt Count 178 MPV 10.7 H Sodium Potassium Chloride Carbon Dioxide Anion Gap BUN Creatinine Estim Creat Clear Calc Estimated GFR Glucose POC Capillary Glucose 210 H 190 H Calcium Magnesium
[2024-07-26 16:50] LABS: Glucose Point of Care 193 mg/dl (65-105)
--- NOTE | 2024-07-26 17:08 | PM.IMPN ---
Progress Note: A&P Assessment and Plan (1) Closed fracture of neck of left femur: Qualifiers: Encounter type: initial encounter Qualified Code(s): S72.002A - Fracture of unspecified part of neck of left femur, initial encounter for closed fracture Code(s): S72.002A - Fracture of unspecified part of neck of left femur, initial encounter for closed fracture Status: Acute (2) Urinary tract infection: Code(s): N39.0 - Urinary tract infection, site not specified Status: Acute (3) Weakness: Code(s): R53.1 - Weakness Status: Acute (4) DM II (diabetes mellitus, type II), controlled: Qualifiers: Diabetes mellitus medical terminologist insulin use: with long-term use Diabetes mellitus complication status: without complication Qualified Code(s): E11.9 - Type 2 diabetes mellitus without complications; Z79.4 - long term care social worker (current) use of insulin Code(s): E11.9 - Type 2 diabetes mellitus without complications Status: Chronic (5) Hypertension: Code(s): I10 - Essential (primary) hypertension Status: Chronic Plan Patient 84-year-old female a resident of nursing presented with complaint of left hip pain, denies any fall or trauma, patient is a poor historian unable to provide detailed review of symptoms or history, CT scan of the hip showed acute, displaced subcapital fracture of the proximal left femur, patient was seen orthopedic surgeon and recommended conservative management, no surgical intervention, patient urine is quite suspicious for UTI being treated with ceftriaxone will follow-up on the culture and further recommendation to follow, will have a PT OT evaluate the patient and further recommendation to follow. today patient pain is better, however her BP is elevated, denies any CHAPARRO, CP, or dizziness, add amlodipine 5 mg q.day and increase lisinopril 10 mg q.day to b.i.d. and monitor. Subjective Date/time seen: 07/26/24 17:08 Interval history: Patient 84-year-old female a resident of nursing presented with complaint of left hip pain, denies any fall or trauma, patient is a poor historian unable to provide detailed review of symptoms or history, CT scan of the hip showed acute, displaced subcapital fracture of the proximal left femur, patient was seen orthopedic surgeon and recommended conservative management, no surgical intervention, patient urine is quite suspicious for UTI being treated with ceftriaxone will follow-up on the culture and further recommendation to follow, will have a PT OT evaluate the patient and further recommendation to follow. today patient pain is better, however her BP is elevated, denies any CHAPARRO, CP, or dizziness, add amlodipine 5 mg q.day and increase lisinopril 10 mg q.day to b.i.d. and monitor. Review of Systems Review of Systems: All systems reviewed & are unremarkable except as noted in HPI and below Exam Narrative: Elderly frail Patient is comfortable, NAD HEENT: eyes are clear and none icteric LUNGS:CTA HEART: RR S1S2 ABD: BS+, Soft and nontender Lower extremities: no edema left lower extremity there is no significant internal external rotation SKIN: nonjaundiced Neuro: grossly intact. Objective Data Vital Signs Vital Signs: Vital Signs - 24 hr 07/25/24 17:40 07/25/24 20:39 07/25/24 21:42 Temperature 36.9 C Pulse Rate 92 Respiratory Rate 16 Blood Pressure 190/81 H 172/77 H Pulse Oximetry 90 91 Oxygen Delivery Autopap 07/26/24 01:05 07/26/24 04:04 07/26/24 08:00 Temperature 36.8 C 36.8 C Pulse Rate 93 92 Respiratory Rate 20 16 Blood Pressure 132/63 180/98 H Pulse Oximetry 91 90 91 Oxygen Delivery Autopap 07/26/24 11:34 Temperature Pulse Rate 88 Respiratory Rate 18 Blood Pressure 132/69 Pulse Oximetry 86 L Oxygen Delivery Intake/Output Intake/Output: Intake & Output 07/23/24 07/24/24 07/25/24 07/26/24 23:59 23:59 23:59 23:59 Intake Total 2280 2390 1030 Output Total 1550 338 476 Balance 730 1440 554 Meds/Results Medications: Active Medications Generic Name Dose Route Start Last Admin Trade Name Freq PRN Reason Stop Dose Admin Acetaminophen 650 mg 07/24/24 08:47 07/26/24 04:16 Acetaminophen 325 Mg Tablet PO 650 mg Q6H PRN Administration Pain Hydrocodone Bitart/Acetaminophen 1 tab 07/24/24 09:00 07/26/24 08:54 Hydrocodone/Acetaminophen (*Crx) 5-325 Mg Tablet PO 1 tab BID TORI Administration Amlodipine Besylate 5 mg 07/25/24 13:35 07/26/24 08:53 Amlodipine Besylate 5 Mg Tablet PO 5 mg DAILY TORI Administration Ascorbic Acid 1,000 mg 07/24/24 09:00 07/26/24 08:53 Ascorbic Acid 500 Mg Tablet PO 1,000 mg DAILY TORI Administration Baclofen 10 mg 07/24/24 16:44 Baclofen 10 Mg Tablet PO BID PRN spinal stenosis Dextrose 12.5 gm 07/24/24 08:48 Dextrose 50% 25 Gm/50 Ml Syringe IV PUSH PRN PRN Hypoglycemia Protocol Glucagon 1 mg 07/24/24 08:48 Glucagon For Inj 1 Mg Vial IM PRN PRN Hypoglycemia Protocol Glucose 15 gm 07/24/24 08:48 Glucose Oral Gel 15 Gm Of Glucse In 37.5 Gm Tube PO PRN PRN Hypoglycemia Protocol Hydralazine HCl 10 mg 07/25/24 15:44 07/26/24 04:12 Hydralazine 10 Mg Tablet PO 10 mg Q6H PRN Administration Hypertension Hydromorphone HCl 0.5 mg 07/24/24 04:37 Hydromorphone Hcl Inj (*Crx) 1 Mg/Ml Syr IV PUSH Q4H PRN Pain Rated 7-10 Ceftriaxone Sodium 1 gm in 50 mls @ 100 mls/hr 07/25/24 05:00 07/26/24 04:25 Rocephin 1 Gm/Ns 50 Ml IVPB 100 mls/hr Q24H TORI Administration Dextrose 1,000 mls @ 100 mls/hr 07/24/24 08:48 Dextrose 5% 1,000 Ml IVPB PRN PRN Hypoglycemia Protocol Insulin Aspart 1 - 2 units 07/24/24 21:00 07/25/24 21:24 Insulin Aspart (*Bkc) 100 Units/Ml SUB-Q 1 units HS TORI Administration Protocol Insulin Aspart 2 - 5 units 07/24/24 12:00 07/26/24 11:45 Insulin Aspart (*Bkc) 100 Units/Ml SUB-Q Not Given TIDWM [facility] Protocol Insulin Aspart 5 units 07/25/24 08:30 07/26/24 11:45 Insulin Aspart (*Bkc) 100 Units/Ml SUB-Q 5 units PC TORI Administration Insulin Glargine 20 units 07/24/24 21:00 07/25/24 21:24 Insulin Glargine (*Bkc) 100 Units/Ml SUB-Q 20 units HS TORI Administration Lisinopril 20 mg 07/26/24 08:00 07/26/24 08:52 Lisinopril 20 Mg Tablet PO 20 mg DAILY@0800 TORI Administration Meloxicam 7.5 mg 07/24/24 09:00 07/26/24 08:53 Meloxicam 7.5 Mg Tablet PO 7.5 mg DAILY TORI Administration Mirtazapine 7.5 mg 07/24/24 09:00 07/26/24 06:41 Mirtazapine 7.5 Mg Tablet PO 7.5 mg DAILY@0700 TORI Administration Ondansetron HCl 4 mg 07/24/24 04:37 Ondansetron Inj 4 Mg/2 Ml Vial IV PUSH Q4H PRN Nausea Pantoprazole Sodium 20 mg 07/24/24 09:00 07/26/24 08:53 Pantoprazole Sod Sesquihydrate 20 Mg Tab PO 20 mg QAM TORI Administration Polyethylene Glycol 17 gm 07/24/24 08:47 Polyethylene Glycol 3350 17 Gm Powd.Pack PO DAILY PRN Constipation Tizanidine HCl 2 mg 07/24/24 09:00 07/26/24 08:53 Tizanidine Hcl 2 Mg Tablet PO 2 mg Q12H TORI Administration Radiology Results: ITS Impressions Chest X-Ray 07/24/24 00:06 IMPRESSION: Mild pulmonary vascular congestion, without focal infiltrate or effusion. 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 Hip CT 07/24/24 06:13 IMPRESSION: Acute, displaced subcapital fracture of the proximal left femur. Labs Labs: Laboratory Results - last 24 hr 07/25/24 07/26/24 07/26/24 20:42 06:31 06:32 WBC 9.5 RBC 4.10 L Hgb 12.2 Hct 38.2 MCV 93.2 MCH 29.8 MCHC 31.9 L RDW 12.6 Plt Count 178 MPV 10.7 H Sodium 140 Potassium 3.5 Chloride 105 Carbon Dioxide 23 Anion Gap 12 BUN 9 Creatinine 0.67 L Estim Creat Clear Calc Not Reportable Estimated GFR > 60 Glucose 205 H POC Capillary Glucose 219 H Calcium 9.1 Magnesium 1.8 07/26/24 07/26/24 07/26/24 07:47 11:22 16:45 WBC RBC Hgb Hct MCV MCH MCHC RDW Plt Count MPV Sodium Potassium Chloride Carbon Dioxide Anion Gap BUN Creatinine Estim Creat Clear Calc Estimated GFR Glucose POC Capillary Glucose 210 H 190 H 193 H Calcium Magnesium Quality VTE Prophylaxis VTE prophylaxis: mechanical ordered
[2024-07-26 21:16] LABS: Glucose Point of Care 241 mg/dl (65-105)
[2024-07-26] MEDS: INSULIN GLARGINE (*BKC) 100 UNITS/ML 20 UNITS SUB-Q (21:22)
[2024-07-27] VITALS (7 sets, daily range): BP systolic 143–196; BP diastolic 65–100; PULSE 82–112; RESP 14–18; TEMP 36.3–37.1; O2SAT 92–97
[2024-07-27] MEDS: hydrALAZINE 10 MG TABLET PO (06:17)
[2024-07-27] MEDS: MIRTAZAPINE 7.5 MG TABLET PO (06:18)
--- NOTE | 2024-07-27 06:37 | PC.NURSE ---
Nayely Larkin LAY UP OPERATOR notified, pt blood pressure was elevated, in Right arm 202/102 P 100, Left arm 196/100 P 98. Hydralazine 10mg given. Bladder scan pt, 351 ml in bladder. Straight catheter not performed at this time. Day shift do pre and post void next time patinet goes to bathroom. No further intervention at this time. Patieent is stable at this time and will continue to monitor progress.
[2024-07-27 06:38] LABS: Hematocrit 39.5 % (37.0-47.0); Hemoglobin 12.6 g/dL (12.0-15.0); Mean Corpuscular HGB Conc 31.9 g/dl (32-36); Mean Corpuscular Hemoglobin 29.6 pg (26-34); Mean Corpuscular Volume 92.9 fl (80-100); Mean Platelet Volume 10.8 fl (7.4-10.4); Platelet Count Result 202 k/mm3 (150-375); Red Blood Count 4.25 M/mm3 (4.2-5.4); Red Cell Distribution Width 12.6 % (11.5-14.5); White Blood Count 8.2 K/mm3 (4.5-10.0)
[2024-07-27 07:20] LABS: Anion Gap 7 mmol/L (4-12); Blood Urea Nitrogen 13 mg/dL (7-17); Calcium 9.2 mg/dL (8.4-10.2); Carbon Dioxide 27 mmol/L (22-30); Chloride 107 mmol/L (98-107); Estimated Glomerular Filt Rate > 60; Glucose 214 mg/dL (65-110); Magnesium 1.9 mg/dL (1.6-2.3); Potassium 3.8 mmol/L (3.4-5.0); Sodium 141 mmol/L (137-145)
[2024-07-27 08:05] LABS: Glucose Point of Care 228 mg/dl (65-105)
[2024-07-27] MEDS: amLODIPine BESYLATE 10 MG TABLET PO (09:00)
[2024-07-27] MEDS: lisinopriL 20 MG TABLET PO (09:01)
[2024-07-27] MEDS: PANTOPRAZOLE SOD SESQUIHYDRATE 20 MG TAB PO (09:01)
[2024-07-27] MEDS: TIZANIDINE HCL 2 MG TABLET PO ×2 (09:01→21:14)
[2024-07-27] MEDS: MELOXICAM 7.5 MG TABLET PO (09:01)
[2024-07-27] MEDS: ASCORBIC ACID 500 MG TABLET 1000 MG PO (09:02)
[2024-07-27] MEDS: INSULIN ASPART (*BKC) 100 UNITS/ML SUB-Q ×6 (09:04→21:16)
[2024-07-27] MEDS: HYDROcodone/acetaminophen (*CRX) 5-325 MG TABLET 1 TAB PO (09:37)
[2024-07-27] MEDS: DICLOFENAC SODIUM 1% 100 GM GEL (*BKC) 1 APPLIC TOPICAL ×3 (09:37→18:54)
[2024-07-27 11:51] LABS: Glucose Point of Care 176 mg/dl (65-105)
--- NOTE | 2024-07-27 14:03 | P.PNIM_ITS ---
Progress Note: A&P Assessment and Plan (1) Closed fracture of neck of left femur: Qualifiers: Encounter type: initial encounter Qualified Code(s): S72.002A - Fracture of unspecified part of neck of left femur, initial encounter for closed fracture Code(s): S72.002A - Fracture of unspecified part of neck of left femur, initial encounter for closed fracture Status: Acute (2) Urinary tract infection: Code(s): N39.0 - Urinary tract infection, site not specified Status: Acute (3) Weakness: Code(s): R53.1 - Weakness Status: Acute (4) DM II (diabetes mellitus, type II), controlled: Qualifiers: Diabetes mellitus lead manufacturing engineer insulin use: with longterm use Diabetes mellitus complication status: without complication Qualified Code(s): E11.9 - Type 2 diabetes mellitus without complications; Z79.4 - escrow officer (current) use of insulin Code(s): E11.9 - Type 2 diabetes mellitus without complications Status: Chronic (5) Hypertension: Code(s): I10 - Essential (primary) hypertension Status: Chronic Plan Patient 84-year-old female a resident of nursing presented with complaint of left hip pain, denies any fall or trauma, patient is a poor historian unable to provide detailed review of symptoms or history, CT scan of the hip showed acute, displaced subcapital fracture of the proximal left femur, patient was seen orthopedic surgeon and recommended conservative management, no surgical intervention, patient urine is quite suspicious for UTI being treated with ceftriaxone will follow-up on the culture and further recommendation to follow, will have a PT OT evaluate the patient and further recommendation to follow. today patient pain is better, however her BP is elevated, denies any CHAPARRO, CP, or dizziness, add amlodipine 5 mg q.day and increase lisinopril 10 mg q.day to b.i.d. and monitor. however her BP is still elevated her hip pain is persisting,hip pain is treated, she has no other complaints, will increase amlodipine to 10mg from 5mg daily. Subjective Date/time seen: 07/27/24 14:03 Interval history: Patient 84-year-old female a resident of nursing presented with complaint of left hip pain, denies any fall or trauma, patient is a poor historian unable to provide detailed review of symptoms or history, CT scan of the hip showed acute, displaced subcapital fracture of the proximal left femur, patient was seen orthopedic surgeon and recommended conservative management, no surgical intervention, patient urine is quite suspicious for UTI being treated with ceftriaxone will follow-up on the culture and further recommendation to follow, will have a PT OT evaluate the patient and further recommendation to follow. today patient pain is better, however her BP is elevated, denies any CHAPARRO, CP, or dizziness, add amlodipine 5 mg q.day and increase lisinopril 10 mg q.day to b.i.d. and monitor. however her BP is still elevated her hip pain is persisting hip pain is treated,she has no other complaints, will increase amlodipine to 10mg from 5mg daily. Review of Systems Review of Systems: All systems reviewed & are unremarkable except as noted in HPI and below Exam Narrative: Elderly frail Patient is comfortable, NAD HEENT: eyes are clear and none icteric LUNGS:CTA HEART: RR S1S2 ABD: BS+, Soft and nontender Lower extremities: no edema left lower extremity there is no significant internal external rotation SKIN: nonjaundiced Neuro: grossly intact. Objective Data Vital Signs Vital Signs: Vital Signs - 24 hr 07/26/24 16:00 07/26/24 20:33 07/26/24 21:24 Temperature 36.3 C L 36.4 C Pulse Rate 93 95 Respiratory Rate 18 18 Blood Pressure 156/74 H 185/76 H Pulse Oximetry 98 95 92 Oxygen Delivery Nasal Cannula Oxygen Flow Rate 3 07/27/24 01:03 07/27/24 06:05 07/27/24 08:00 Temperature 37.1 C 37.0 C 37.1 C Pulse Rate 82 98 112 H Respiratory Rate 16 16 18 Blood Pressure 174/76 H 196/100 H 191/91 H Pulse Oximetry 92 96 97 Oxygen Delivery Oxygen Flow Rate 07/27/24 08:00 07/27/24 12:00 Temperature Pulse Rate 85 Respiratory Rate 18 Blood Pressure 143/70 H Pulse Oximetry 95 96 Oxygen Delivery Nasal Cannula Oxygen Flow Rate 3 Intake/Output Intake/Output: Intake & Output 07/24/24 07/25/24 07/26/24 07/27/24 23:59 23:59 23:59 23:59 Intake Total 2280 2390 1320 1040 Output Total 0744 289 6348 200 Balance 730 1440 -56 840 Meds/Results Medications: Active Medications Generic Name Dose Route Start Last Admin Trade Name Junaid PRN Reason Stop Dose Admin Acetaminophen 650 mg 07/24/24 08:47 07/26/24 04:16 Acetaminophen 325 Mg Tablet PO 650 mg Q6H PRN Administration Pain Hydrocodone Bitart/Acetaminophen 1 tab 07/27/24 08:53 07/27/24 09:37 Hydrocodone/Acetaminophen (*Crx) 5-325 Mg Tablet PO 1 tab BID PRN Administration Pain Amlodipine Besylate 10 mg 07/27/24 09:00 07/27/24 09:00 Amlodipine Besylate 10 Mg Tablet PO 10 mg DAILY TORI Administration Ascorbic Acid 1,000 mg 07/24/24 09:00 07/27/24 09:02 Ascorbic Acid 500 Mg Tablet PO 1,000 mg DAILY TORI Administration Baclofen 10 mg 07/24/24 16:44 Baclofen 10 Mg Tablet PO BID PRN spinal stenosis Dextrose 12.5 gm 07/24/24 08:48 Dextrose 50% 25 Gm/50 Ml Syringe IV PUSH PRN PRN Hypoglycemia Protocol Diclofenac Sodium 1 applic 07/27/24 09:00 07/27/24 12:42 Diclofenac Sodium 1% 100 Gm Gel (*Bkc) TOPICAL 1 applic TID TORI Administration Glucagon 1 mg 07/24/24 08:48 Glucagon For Inj 1 Mg Vial IM PRN PRN Hypoglycemia Protocol Glucose 15 gm 07/24/24 08:48 Glucose Oral Gel 15 Gm Of Glucse In 37.5 Gm Tube PO PRN PRN Hypoglycemia Protocol Hydralazine HCl 10 mg 07/25/24 15:44 07/27/24 06:17 Hydralazine 10 Mg Tablet PO 10 mg Q6H PRN Administration Hypertension Hydromorphone HCl 0.5 mg 07/24/24 04:37 Hydromorphone Hcl Inj (*Crx) 1 Mg/Ml Syr IV PUSH Q4H PRN Pain Rated 7-10 Ceftriaxone Sodium 1 gm in 50 mls @ 100 mls/hr 07/25/24 05:00 07/27/24 04:55 Rocephin 1 Gm/Ns 50 Ml IVPB Infused Q24H TORI Infusion Dextrose 1,000 mls @ 100 mls/hr 07/24/24 08:48 Dextrose 5% 1,000 Ml IVPB PRN PRN Hypoglycemia Protocol Insulin Aspart 1 - 2 units 07/24/24 21:00 07/26/24 21:24 Insulin Aspart (*Bkc) 100 Units/Ml SUB-Q 1 units HS [facility] Administration Protocol Insulin Aspart 2 - 5 units 07/24/24 12:00 07/27/24 12:40 Insulin Aspart (*Bkc) 100 Units/Ml SUB-Q Not Given TIDWM [facility] Protocol Insulin Aspart 5 units 07/25/24 08:30 07/27/24 12:42 Insulin Aspart (*Bkc) 100 Units/Ml SUB-Q 5 units PC TORI Administration Insulin Glargine 20 units 07/24/24 21:00 07/26/24 21:22 Insulin Glargine (*Bkc) 100 Units/Ml SUB-Q 20 units HS [facility] Administration Lisinopril 20 mg 07/26/24 08:00 07/27/24 09:01 Lisinopril 20 Mg Tablet PO 20 mg DAILY@0800 [facility] Administration Meloxicam 7.5 mg 07/24/24 09:00 07/27/24 09:01 Meloxicam 7.5 Mg Tablet PO 7.5 mg DAILY TORI Administration Mirtazapine 7.5 mg 07/24/24 09:00 07/27/24 06:18 Mirtazapine 7.5 Mg Tablet PO 7.5 mg DAILY@0700 [facility] Administration Ondansetron HCl 4 mg 07/24/24 04:37 Ondansetron Inj 4 Mg/2 Ml Vial IV PUSH Q4H PRN Nausea Pantoprazole Sodium 20 mg 07/24/24 09:00 07/27/24 09:01 Pantoprazole Sod Sesquihydrate 20 Mg Tab PO 20 mg QAM [facility] Administration Polyethylene Glycol 17 gm 07/24/24 08:47 Polyethylene Glycol 3350 17 Gm Powd.Pack PO DAILY PRN Constipation Tizanidine HCl 2 mg 07/24/24 09:00 07/27/24 09:01 Tizanidine Hcl 2 Mg Tablet PO 2 mg Q12H TORI Administration Radiology Results: ITS Impressions Chest X-Ray 07/24/24 00:06 IMPRESSION: Mild pulmonary vascular congestion, without focal infiltrate or effusion. 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 Hip CT 07/24/24 06:13 IMPRESSION: Acute, displaced subcapital fracture of the proximal left femur. Labs Labs: Laboratory Results - last 24 hr 07/26/24 07/26/24 07/27/24 16:45 20:36 06:21 WBC 8.2 RBC 4.25 Hgb 12.6 Hct 39.5 MCV 92.9 MCH 29.6 MCHC 31.9 L RDW 12.6 Plt Count 202 MPV 10.8 H Sodium 141 Potassium 3.8 Chloride 107 Carbon Dioxide 27 Anion Gap 7 BUN 13 Creatinine 0.67 L Estim Creat Clear Calc Not Reportable Estimated GFR > 60 Glucose 214 H POC Capillary Glucose 193 H 241 H Calcium 9.2 Magnesium 1.9 07/27/24 07/27/24 07:59 11:43 WBC RBC Hgb Hct MCV MCH MCHC RDW Plt Count MPV Sodium Potassium Chloride Carbon Dioxide Anion Gap BUN Creatinine Estim Creat Clear Calc Estimated GFR Glucose POC Capillary Glucose 228 H 176 H Calcium Magnesium Quality VTE Prophylaxis VTE prophylaxis: mechanical ordered
[2024-07-27 16:43] LABS: Glucose Point of Care 215 mg/dl (65-105)
[2024-07-27 20:30] LABS: Glucose Point of Care 265 mg/dl (65-105)
[2024-07-27] MEDS: INSULIN GLARGINE (*BKC) 100 UNITS/ML 20 UNITS SUB-Q (21:15)
[2024-07-28] VITALS (8 sets, daily range): BP systolic 130–178; BP diastolic 58–76; PULSE 82–112; RESP 12–18; TEMP 36.2–36.3; O2SAT 91–95
--- NOTE | 2024-07-28 03:36 | PC.NURSE ---
Daylight Savings Time For Daylight Savings Time Ending in the Fall - Clocks are moved back. For Daylight Savings Time Beginning in the Spring - Clocks are moved ahead. For [facility], the time of change occurs at 0200 hrs. Time is taken from the field observer. This entry on the patient's chart recognizes the change in time reflected during documentation. Example: 2 entries for vital signs may be charted for 0200 hrs.
[2024-07-28] MEDS: ACETAMINOPHEN 325 MG TABLET 650 MG PO (04:06)
[2024-07-28] MEDS: MIRTAZAPINE 7.5 MG TABLET PO (06:00)
[2024-07-28 06:32] LABS: Hematocrit 35.4 % (37.0-47.0); Hemoglobin 11.3 g/dL (12.0-15.0); Mean Corpuscular HGB Conc 31.9 g/dl (32-36); Mean Corpuscular Hemoglobin 29.6 pg (26-34); Mean Corpuscular Volume 92.7 fl (80-100); Mean Platelet Volume 10.9 fl (7.4-10.4); Platelet Count Result 193 k/mm3 (150-375); Red Blood Count 3.82 M/mm3 (4.2-5.4); Red Cell Distribution Width 12.7 % (11.5-14.5); White Blood Count 8.7 K/mm3 (4.5-10.0)
[2024-07-28 06:45] LABS: Anion Gap 8 mmol/L (4-12); Blood Urea Nitrogen 14 mg/dL (7-17); Calcium 9.2 mg/dL (8.4-10.2); Carbon Dioxide 25 mmol/L (22-30); Chloride 105 mmol/L (98-107); Estimated Glomerular Filt Rate > 60; Glucose 176 mg/dL (65-110); Potassium 3.3 mmol/L (3.4-5.0); Sodium 138 mmol/L (137-145)
[2024-07-28 08:06] LABS: Glucose Point of Care 208 mg/dl (65-105)
[2024-07-28] MEDS: ASCORBIC ACID 500 MG TABLET 1000 MG PO (08:32)
[2024-07-28] MEDS: PANTOPRAZOLE SOD SESQUIHYDRATE 20 MG TAB PO (08:33)
[2024-07-28] MEDS: amLODIPine BESYLATE 10 MG TABLET PO (08:33)
[2024-07-28] MEDS: MELOXICAM 7.5 MG TABLET PO (08:33)
[2024-07-28] MEDS: DICLOFENAC SODIUM 1% 100 GM GEL (*BKC) 1 APPLIC TOPICAL ×3 (08:33→17:36)
[2024-07-28] MEDS: lisinopriL 20 MG TABLET PO (08:35)
[2024-07-28] MEDS: TIZANIDINE HCL 2 MG TABLET PO ×2 (08:36→20:59)
[2024-07-28] MEDS: INSULIN ASPART (*BKC) 100 UNITS/ML SUB-Q ×7 (08:36→21:00)
[2024-07-28] MEDS: HYDROcodone/acetaminophen (*CRX) 5-325 MG TABLET 1 TAB PO ×2 (08:36→18:01)
[2024-07-28] MEDS: POTASSIUM CHLORIDE 20 MEQ PACKET (FOR LIQUID) 40 MEQ PO (09:11)
[2024-07-28 11:48] LABS: Glucose Point of Care 256 mg/dl (65-105)
--- NOTE | 2024-07-28 14:12 | P.PNIM_ITS ---
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: with 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 nursing use Diabetes mellitus complication status: without complication Qualified Code(s): E11.9 - Type 2 diabetes mellitus without complications; Z79.4 - watermelon 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) use of insulin Code(s): E11.9 - Type 2 diabetes mellitus without complications Status: Chronic (5) Hypertension: Code(s): I10 - Essential (primary) hypertension Status: Chronic Plan Patient 84-year-old female a resident of nursing presented with complaint of left hip pain, denies any fall or trauma, patient is a poor historian unable to provide detailed review of symptoms or history, CT scan of the hip showed acute, displaced subcapital fracture of the proximal left femur, patient was seen orthopedic surgeon and recommended conservative management, no surgical intervention, patient urine is quite suspicious for UTI being treated with ceftriaxone will follow-up on the culture and further recommendation to follow, will have a PT OT evaluate the patient and further recommendation to follow. today patient pain is better, however her BP is elevated, denies any CHAPARRO, CP, or dizziness, add amlodipine 5 mg q.day and increase lisinopril 10 mg q.day to b.i.d. and monitor. however her BP is still elevated her hip pain is persisting hip pain is treated,she has no other complaints, will increase amlodipine to 10mg from 5mg daily. tomorrow patient may be discharged to a facility, Subjective Date/time seen: 07/28/24 14:12 Interval history: Patient 84-year-old female a resident of nursing presented with complaint of left hip pain, denies any fall or trauma, patient is a poor historian unable to provide detailed review of symptoms or history, CT scan of the hip showed acute, displaced subcapital fracture of the proximal left femur, patient was seen orthopedic surgeon and recommended conservative management, no surgical intervention, patient urine is quite suspicious for UTI being treated with ceftriaxone will follow-up on the culture and further recommendation to follow, will have a PT OT evaluate the patient and further recommendation to follow. today patient pain is better, however her BP is elevated, denies any CHAPARRO, CP, or dizziness, add amlodipine 5 mg q.day and increase lisinopril 10 mg q.day to b.i.d. and monitor. however her BP is still elevated her hip pain is persisting hip pain is treated,she has no other complaints, will increase amlodipine to 10mg from 5mg daily. tomorrow patient may be discharged to a facility, Review of Systems Review of Systems: All systems reviewed & are unremarkable except as noted in HPI and below Exam Narrative: Elderly frail Patient is comfortable, NAD HEENT: eyes are clear and none icteric LUNGS:CTA HEART: RR S1S2 ABD: BS+, Soft and nontender Lower extremities: no edema left lower extremity there is no significant internal external rotation SKIN: nonjaundiced Neuro: grossly intact. Objective Data Vital Signs Vital Signs: Vital Signs - 24 hr 07/27/24 16:00 07/27/24 20:00 07/27/24 21:14 Temperature 36.3 C L Pulse Rate 83 107 H Respiratory Rate 18 14 Blood Pressure 150/65 H 155/70 H Pulse Oximetry 95 95 95 Oxygen Delivery Nasal Cannula Oxygen Flow Rate 3 07/28/24 00:00 07/28/24 04:00 07/28/24 08:00 Temperature 36.2 C L 36.2 C L 36.3 C L Pulse Rate 91 83 112 H Respiratory Rate 12 16 18 Blood Pressure 154/74 H 163/68 H 178/76 H Pulse Oximetry 94 95 94 Oxygen Delivery Oxygen Flow Rate 07/28/24 08:00 07/28/24 12:00 Temperature Pulse Rate 112 H 84 Respiratory Rate 18 18 Blood Pressure 136/67 Pulse Oximetry 94 93 Oxygen Delivery Nasal Cannula Oxygen Flow Rate 3 Intake/Output Intake/Output: Intake & Output 07/25/24 07/26/24 07/27/24 07/29/24 23:59 23:59 23:59 00:59 Intake Total 2390 1320 1280 490 Output Total 950 1376 200 250 Balance 1440 -56 1080 240 Meds/Results Medications: Active Medications Generic Name Dose Route Start Last Admin Trade Name Freq PRN Reason Stop Dose Admin Acetaminophen 650 mg 07/24/24 08:47 07/28/24 04:06 Acetaminophen 325 Mg Tablet PO 650 mg Q6H PRN Administration Pain Hydrocodone Bitart/Acetaminophen 1 tab 07/27/24 08:53 07/28/24 08:36 Hydrocodone/Acetaminophen (*Crx) 5-325 Mg Tablet PO 1 tab BID PRN Administration Pain Amlodipine Besylate 10 mg 07/27/24 09:00 07/28/24 08:33 Amlodipine Besylate 10 Mg Tablet PO 10 mg DAILY TORI Administration Ascorbic Acid 1,000 mg 07/24/24 09:00 07/28/24 08:32 Ascorbic Acid 500 Mg Tablet PO 1,000 mg DAILY TORI Administration Baclofen 10 mg 07/24/24 16:44 Baclofen 10 Mg Tablet PO BID PRN spinal stenosis Dextrose 12.5 gm 07/24/24 08:48 Dextrose 50% 25 Gm/50 Ml Syringe IV PUSH PRN PRN Hypoglycemia Protocol Diclofenac Sodium 1 applic 07/27/24 09:00 07/28/24 12:57 Diclofenac Sodium 1% 100 Gm Gel (*Bkc) TOPICAL 1 applic TID TORI Administration Enoxaparin Sodium 40 mg 07/29/24 09:00 Enoxaparin 40 Mg/0.4 Ml Syringe SUB-Q DAILY TORI Glucagon 1 mg 07/24/24 08:48 Glucagon For Inj 1 Mg Vial IM PRN PRN Hypoglycemia Protocol Glucose 15 gm 07/24/24 08:48 Glucose Oral Gel 15 Gm Of Glucse In 37.5 Gm Tube PO PRN PRN Hypoglycemia Protocol Hydralazine HCl 10 mg 07/25/24 15:44 07/27/24 06:17 Hydralazine 10 Mg Tablet PO 10 mg Q6H PRN Administration Hypertension Hydromorphone HCl 0.5 mg 07/24/24 04:37 Hydromorphone Hcl Inj (*Crx) 1 Mg/Ml Syr IV PUSH Q4H PRN Pain Rated 7-10 Ceftriaxone Sodium 1 gm in 50 mls @ 100 mls/hr 07/25/24 05:00 07/28/24 04:37 Rocephin 1 Gm/Ns 50 Ml IVPB Infused Q24H TORI Infusion Dextrose 1,000 mls @ 100 mls/hr 07/24/24 08:48 Dextrose 5% 1,000 Ml IVPB PRN PRN Hypoglycemia Protocol Insulin Aspart 1 - 2 units 07/24/24 21:00 07/27/24 21:16 Insulin Aspart (*Bkc) 100 Units/Ml SUB-Q 1 units HS TORI Administration Protocol Insulin Aspart 2 - 5 units 07/24/24 12:00 07/28/24 12:56 Insulin Aspart (*Bkc) 100 Units/Ml SUB-Q 3 units TIDWM TORI Administration Protocol Insulin Aspart 5 units 07/25/24 08:30 07/28/24 12:57 Insulin Aspart (*Bkc) 100 Units/Ml SUB-Q 5 units PC TORI Administration Insulin Glargine 20 units 07/24/24 21:00 07/27/24 21:15 Insulin Glargine (*Bkc) 100 Units/Ml SUB-Q 20 units HS TORI Administration Lisinopril 20 mg 07/26/24 08:00 07/28/24 08:35 Lisinopril 20 Mg Tablet PO 20 mg DAILY@0800 TORI Administration Meloxicam 7.5 mg 07/24/24 09:00 07/28/24 08:33 Meloxicam 7.5 Mg Tablet PO 7.5 mg DAILY TORI Administration Mirtazapine 7.5 mg 07/24/24 09:00 07/28/24 06:00 Mirtazapine 7.5 Mg Tablet PO 7.5 mg DAILY@0700 TORI Administration Ondansetron HCl 4 mg 07/24/24 04:37 Ondansetron Inj 4 Mg/2 Ml Vial IV PUSH Q4H PRN Nausea Pantoprazole Sodium 20 mg 07/24/24 09:00 07/28/24 08:33 Pantoprazole Sod Sesquihydrate 20 Mg Tab PO 20 mg QAM TORI Administration Polyethylene Glycol 17 gm 07/24/24 08:47 Polyethylene Glycol 3350 17 Gm Powd.Pack PO DAILY PRN Constipation Tizanidine HCl 2 mg 07/24/24 09:00 07/28/24 08:36 Tizanidine Hcl 2 Mg Tablet PO 2 mg Q12H TORI Administration Radiology Results: ITS Impressions Chest X-Ray 07/24/24 00:06 IMPRESSION: Mild pulmonary vascular congestion, without focal infiltrate or effusion. 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 Hip CT 07/24/24 06:13 IMPRESSION: Acute, displaced subcapital fracture of the proximal left femur. Labs Labs: Laboratory Results - last 24 hr 07/27/24 07/27/24 07/28/24 16:32 20:10 06:11 WBC 8.7 RBC 3.82 L Hgb 11.3 L Hct 35.4 L MCV 92.7 MCH 29.6 MCHC 31.9 L RDW 12.7 Plt Count 193 MPV 10.9 H Sodium 138 Potassium 3.3 L Chloride 105 Carbon Dioxide 25 Anion Gap 8 BUN 14 Creatinine 0.75 Estim Creat Clear Calc Not Reportable Estimated GFR > 60 Glucose 176 H POC Capillary Glucose 215 H 265 H Calcium 9.2 Magnesium 2.0 07/28/24 07/28/24 08:00 11:44 WBC RBC Hgb Hct MCV MCH MCHC RDW Plt Count MPV Sodium Potassium Chloride Carbon Dioxide Anion Gap BUN Creatinine Estim Creat Clear Calc Estimated GFR Glucose POC Capillary Glucose 208 H 256 H Calcium Magnesium Quality VTE Prophylaxis VTE prophylaxis: mechanical ordered
[2024-07-28 16:41] LABS: Glucose Point of Care 202 mg/dl (65-105)
[2024-07-28 20:26] LABS: Glucose Point of Care 239 mg/dl (65-105)
[2024-07-28] MEDS: INSULIN GLARGINE (*BKC) 100 UNITS/ML 20 UNITS SUB-Q (20:59)
[2024-07-29 04:00] VITALS: BP 165/82; PULSE 84; RESP 12; TEMP 36.1; O2SAT 93
[2024-07-29] MEDS: MIRTAZAPINE 7.5 MG TABLET PO (06:05)
[2024-07-29 06:16] LABS: Hematocrit 38.9 % (37.0-47.0); Hemoglobin 12.2 g/dL (12.0-15.0); Mean Corpuscular HGB Conc 31.4 g/dl (32-36); Mean Corpuscular Hemoglobin 29.6 pg (26-34); Mean Corpuscular Volume 94.4 fl (80-100); Mean Platelet Volume 10.6 fl (7.4-10.4); Platelet Count Result 197 k/mm3 (150-375); Red Blood Count 4.12 M/mm3 (4.2-5.4); Red Cell Distribution Width 12.6 % (11.5-14.5); White Blood Count 8.4 K/mm3 (4.5-10.0)
[2024-07-29 06:27] LABS: Anion Gap 9 mmol/L (4-12); Blood Urea Nitrogen 15 mg/dL (7-17); Carbon Dioxide 24 mmol/L (22-30); Chloride 107 mmol/L (98-107); Estimated Glomerular Filt Rate > 60; Glucose 166 mg/dL (65-110); Magnesium 1.8 mg/dL (1.6-2.3); Potassium 3.5 mmol/L (3.4-5.0); Sodium 140 mmol/L (137-145)
[2024-07-29 08:00] VITALS: BP 188/105; PULSE 117; RESP 18; TEMP 36.2; O2SAT 92; O2SAT 99
[2024-07-29 08:11] LABS: Glucose Point of Care 195 mg/dl (65-105)
[2024-07-29] MEDS: INSULIN ASPART (*BKC) 100 UNITS/ML SUB-Q ×2 (08:21→14:08)
[2024-07-29] MEDS: amLODIPine BESYLATE 10 MG TABLET PO (09:11)
[2024-07-29] MEDS: PANTOPRAZOLE SOD SESQUIHYDRATE 20 MG TAB PO (09:11)
[2024-07-29] MEDS: ASCORBIC ACID 500 MG TABLET 1000 MG PO (09:11)
[2024-07-29] MEDS: lisinopriL 20 MG TABLET PO ×2 (09:12→09:37)
[2024-07-29] MEDS: ENOXAPARIN 40 MG/0.4 ML SYRINGE SUB-Q (09:13)
[2024-07-29] MEDS: TIZANIDINE HCL 2 MG TABLET PO (09:13)
[2024-07-29] MEDS: MELOXICAM 7.5 MG TABLET PO (09:13)
[2024-07-29] MEDS: DICLOFENAC SODIUM 1% 100 GM GEL (*BKC) 1 APPLIC TOPICAL ×2 (09:19→14:09)
[2024-07-29 11:41] LABS: Glucose Point of Care 167 mg/dl (65-105)
[2024-07-29 12:00] VITALS: BP 137/73; PULSE 86; RESP 18; TEMP 36.3; O2SAT 94
--- NOTE | 2024-07-29 16:10 | PC.NURSE ---
Report called to Marie at [facility]. Discussed all discharge instructions, medications, and answered all questions at length. Discharge packet faxed. PCS Form prepared for ambulance. All questions answered at length.
--- NOTE | 2024-08-14 07:16 | P.DS_ITS ---
DS: Admitting Diagnosis Discharge Date 07/29/24 Admitting Diagnosis Left hip pain DS: Discharge Diagnosis Discharge Diagnosis (1) Closed fracture of left hip: Code(s): S72.002A - Fracture of unspecified part of neck of left femur, initial encounter for closed fracture Status: Acute (2) Urinary tract infection: Code(s): N39.0 - Urinary tract infection, site not specified Status: Acute (3) Weakness: Code(s): R53.1 - Weakness Status: Acute (4) DM II (diabetes mellitus, type II), controlled: Qualifiers: Diabetes mellitus senior living insulin use: with senior living use Diabetes mellitus complication status: without complication Qualified Code(s): E11.9 - Type 2 diabetes mellitus without complications; 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 of 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 Code(s): E11.9 - Type 2 diabetes mellitus without complications Status: Chronic (5) Hypertension: Code(s): I10 - Essential (primary) hypertension Status: Chronic DS: Summary Hospital Course Hospital Course: Patient 84-year-old female a resident of nursing presented with complaint of left hip pain, denies any fall or trauma, patient is a poor historian unable to provide detailed review of symptoms or history, CT scan of the hip showed acute, displaced subcapital fracture of the proximal left femur, patient was seen orthopedic surgeon and recommended conservative management, no surgical intervention, patient urine is quite suspicious for UTI being treated with ceftriaxone will follow-up on the culture and further recommendation to follow, will have a PT OT evaluate the patient and further recommendation to follow. today patient pain is better, however her BP is elevated, denies any CHAPARRO, CP, or dizziness, add amlodipine 5 mg q.day and increase lisinopril 10 mg q.day to b.i.d. and monitor. however her BP is still elevated her hip pain is persisting hip pain is treated,she has no other complaints, will increase amlodipine to 10mg from 5mg daily. Today patient is clinically stable, will discharge today. Time Spent with Patient Time attestation: Total time spent providing and/or coordinating discharge services: Exam Narrative: Elderly frail Patient is comfortable, NAD HEENT: eyes are clear and none icteric LUNGS:CTA HEART: RR S1S2 ABD: BS+, Soft and nontender Lower extremities: no edema left lower extremity there is no significant internal external rotation SKIN: nonjaundiced Neuro: grossly intact. Discharge Plan Discharge Attending physician on discharge: Radha Tran Consulting providers: [facility]; Karina Schumacher; Roma Dutta; Virgilio Shah Discharging Clinician: Gonsalo Penn Patient Disposition: [place] [facility] Living Activity: as tolerated Diet: heart healthy Discharge Instructions: Ortho instructions: Minimally displaced fracture of the femoral neck. Non- operative treatment. Patient is non-ambulatory. * D/C to SNF * Xray in 3-4 weeks. Please fax report when completed. * Defer [facility] lift transfers for 3-4 weeks due to pain. * * Please check BP daily and adjust medication as needed. * Patient to follow up with her primary care provider as soon as possible. Patient Instructions: Antibiotic Form Patient Language: Maltese Stand Alone Forms: General Discharge Information, Intermediate Discharge Follow-up/Referrals: Karina Schumacher, PA [Physician Innovation Analyst] - Discharge Medications: Continued metformin 1,000 mg tablet 1,000 mg PO DAILY pantoprazole [Protonix] 40 mg tablet,delayed release (DR/EC) 20 mg PO QAM tizanidine 2 mg tablet 2 mg PO Q12H meloxicam 7.5 mg tablet 7.5 mg PO DAILY ergocalciferol (vitamin D2) 1,250 mcg (50,000 unit) capsule 50,000 unit PO WEEKLY Qty: 6 0RF Rx Instructions: On at 0800 acetaminophen 325 mg Tablet 650 mg PO Q6H PRN (Reason: Pain) insulin glargine [Lantus Solostar U-100 Insulin] 100 unit/mL (3 mL) Insulin Pen 20 unit SUBCUT HS Rx Instructions: Between 5509-0001 calcium carbonate-vitamin D3 600 mg(1,500mg) -500 unit Capsule 1 cap PO BID Rx Instructions: 0800 and 1700 docusate sodium 100 mg capsule 100 mg PO DAILY PRN (Reason: Constipation) ascorbic acid (vitamin C) 500 mg Tablet 1,000 mg PO DAILY Rx Instructions: 0800 to end 08/20/20 polyethylene glycol 3350 [Miralax] 17 gram/dose Powder 17 g PO DAILY PRN (Reason: Constipation) insulin aspart U-100 [Novolog FlexPen U-100 Insulin] 100 unit/mL (3 mL) Insulin Pen 5 unit SUBCUT TID Rx Instructions: Three times a day with meals 0700 1100 1600 mirtazapine 7.5 mg Tablet 7.5 mg PO DAILY Rx Instructions: 0700 insulin aspart U-100 [Novolog FlexPen U-100 Insulin] 100 unit/mL (3 mL) Insulin Pen 0 unit SUBCUT TID Rx Instructions: With meals at 0700 1100 1600 Per sliding scale 170-200 carpet 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 2 units, 201-250 give 4 units, 251-300 give 6 units, 301-350 give 8 units,351-400 give 10 units,>451 call md Less than 60 call MD 170-200 give 2 units 201-250 give 4 units 251-300 give 6 units 301-350 give 8 units 351-400 give 10 units 401-450 give 12 units greater than 451 call baclofen 10 mg tablet 10 mg PO BID PRN (Reason: spinal stenosis) cefdinir 300 mg capsule 300 mg PO Q12H Qty: 14 0RF lisinopril 10 mg tablet 10 mg PO DAILY Qty: 90 3RF Rx Instructions: 0800 Changed hydrocodone-acetaminophen 5-325 mg tablet 1 tablet PO BID PRN (Reason: pain) Qty: 20 0RF Discontinued amoxicillin-pot clavulanate 875-125 mg tablet 1 tablet PO Q12H Qty: 10 0RF Rx Instructions: Start tonight 08/23/21 Date of admission: 07/24/24 07:15 Primary Care Provider: UNKNOWN,DOCTOR Admitting Provider: Radha Tran Attending physician on admission: Gonsalo Penn Condition: Stable
== END 2024-07-29 16:50 | DRG 543 ==
LOC: ANHED 07-24 03:30 → ANH3MEDSUR 07-24 05:28
PROVIDERS: Admitting Provider Internal Medicine; Emergency Provider Emergency Medicine; Visit Provider Family Medicine
DX: M84.452A Pathological fracture, left femur, initial encounter for fracture (principal); N39.0 Urinary tract infection, site not specified; E55.9 Vitamin D deficiency, unspecified; J44.9 Chronic obstructive pulmonary disease, unspecified; E11.9 Type 2 diabetes mellitus without complications; M19.90 Unspecified osteoarthritis, unspecified site; M81.0 Age-related osteoporosis without current pathological fracture; M48.02 Spinal stenosis, cervical region; F03.90 Unspecified dementia, unspecified severity, without behavioral disturbance, psychotic disturbance, mood disturbance, and anxiety; Z79.4 Long term (current) use of insulin; Z87.891 Personal history of nicotine dependence
CPT/HCPCS: 36415; 71045; 73502; 73700; 80048; 80053; 81001; 82948; 83605; 83735; 85025; 85027; 85610; 85730; 96365; 96375; 96376; 99285; A9270; G0378; J0696; J1171; J1650; J1815; J7030